=== PATIENT | male | born 1950 | race Caucasian/White ===

== ENCOUNTER 2019-10-30 09:52 | Inpatient (IN) | payer MEDICARE, SELFPAY ==
[2019-10-30] VITALS (7 sets, daily range): BP systolic 111–135; BP diastolic 50–77; PULSE 57–80; RESP 18–29; TEMP 36.4–36.6; O2SAT 89–100; BMI 31.5
--- NOTE | ~2019-10-30 | XR_ITS ---
EXAMINATION: XR chest 2V DATE: 11/01/2019 08:13 INDICATION: Pleural effusions. Fluid overload. TECHNIQUE: Frontal and lateral views of the chest were obtained. COMPARISON: Chest 2 views 10/30/2019, CT abdomen and pelvis 10/30/2019 FINDINGS: There is a diffuse interstitial pattern, consistent with pulmonary edema. There are airspac e opacities in the lower lung zones with worsening on the right, likely atelectasis. There are small pleural effusions. No pneumothorax. Cardiomegaly is noted. Median sternotomy wires and mediastinal gomes rgical clips are seen, likely from prior coronary artery bypass grafting. There is a left chest wall pacer with leads in the right atrium and right ventricle. There is a 1.8 cm curvilinear density in th e left pleural space. IMPRESSION: 1. Mild pulmonary edema. 2. Small pleural effusions. 3. Cardiomegaly. 4. 1.8 cm curvilinear foreign body in the left pleural space. Reviewed, dictated and finalized at location A. ACE GRINDING MACHINE HAND
--- NOTE | ~2019-10-30 | XR_ITS ---
EXAMINATION: XR chest 2V EXAM DATE: 10/30/2019 10:46 INDICATION: Shortness of breath, abdominal discomfort. TECHNIQUE: Frontal and lateral projections of the chest obtained and reviewed. Comparison is made to prior examination from 10/07/2019. FINDINGS: Small to moderate left pleural effusion. Adjacent left basilar subsegmental atelectasis. T here is indistinct reticulation with a bibasal predominance which may indicate pulmonary edema. There is no pneumothorax suspected. Sternotomy wires are present without findings to suggest sternal dehis cence. There is a dual lead pacemaker/AICD seen with leads projecting over the expected locations of the right atrial appendage and right ventricle. Mild cardiomegaly and pulmonary vascular congestion. IMPRESSION: 1. Findings suspicious for mild CHF exacerbation. 2. Small to moderate left pleural effusion, adjacent atelectasis. Reviewed, dictated and finalized at location B. ER ROOM ATTENDANT
--- NOTE | ~2019-10-30 | CT_ITS ---
EXAMINATION: CT abdomen pelvis wo con EXAM DATE: 10/30/2019 13:02 INDICATION: Mid to low abdominal pain. Vomiting. TECHNIQUE: Spiral CT of the abdomen and pelvis was performed without contrast. Axial, coronal and s agittal images were reviewed. The dose-length product (DLP) for this examination was 1228.98 mGy-cm. The exposure was tailored according to patient size (auto mA exposure control), and iterative recon struction (ASIR) was used as additional dose reduction technique. There is no prior study for compar cydney. FINDINGS: Peritoneal dialysis catheter. Small amount of perihepatic, pelvic dialysate. The liver, sp karyn, adrenal glands and pancreas are unremarkable. There are cholecystectomy clips. There is no ne phrolithiasis or hydronephrosis. Mild bilateral renal atrophy. The prostate is unremarkable. Some d iffuse bladder wall thickening, could indicate chronic cystitis. There is no retroperitoneal or pel danette lymphadenopathy. There is mild to moderate scattered arteriosclerotic disease. The appendix is normal. There is small duodenal diverticulum. There is expected amount of colonic s tool. There is moderate sigmoid predominant colonic diverticulosis. There is no adjacent inflammator y change to suggest diverticulitis. No free intraperitoneal gas. Moderate bilateral pleural effusi ons with adjacent basilar atelectasis. Pleural effusion is larger on the right side, but there is mor e atelectasis of the left lung base. There is cardiomegaly. Sternotomy wires and pacemaker/AICD wires . The lung bases are unremarkable. Chronic bilateral L5 spondylolysis with grade 1 anterolisthesis L5 on S1. There are no osteoblastic or osteolytic lesions identified. IMPRESSION: 1. No acute intra-abdominal findings. 2. Moderate colonic diverticulosis. 3. Diffuse bladder wall thickening could indicate chronic cystitis. 4. Moderate pleural effusions, adjacent atelectasis. 5. Cardiomegaly. Reviewed, dictated and finalized at location B. HIATRIC RN
--- NOTE | 2019-10-30 10:22 | ECG_ITS ---
Measurements Intervals [place] Rate: 73 P: 99 IN: 238 QRS: 24 QRSD: 114 T: 155 QT: 431 QTc: 476 Interpretive Statements ELECTRONIC ATRIAL PACEMAKER ELECTRONIC VENTRICULAR PACEMAKER WITH INHIBITION FREQUENT VENTRICULAR PREMATURE COMPLEXES INFERIOR INFARCT, AGE INDETERMINATE BASELINE ARTIFACT- II, III NO FURTHER INTERPRETATION IS POSSIBLE ABNORMAL ECG Electronically Signed On 10-30-2019 11:15:19 KIER TENDER by Duglas Stanley D.O.
[2019-10-30 10:41] LABS: Basophils Percent Auto 0.4 % (0.2-1.2); Eosinophils Absolute Auto 0.1 K/mm3 (0-0.3); Hemoglobin 11.3 g/dL (14.0-18.0); Immature Granulocyte Absolute 0.04 K/mm3 (0.00-0.031); Immature Granulocyte Percent A 0.4 % (0-0.5); Lymphocytes Absolute Auto 0.42 K/mm3 (0.9-3.2); Lymphocytes Percent Auto 4.1 % (18.3-44.2); Mean Corpuscular HGB Conc 31.4 g/dl (32-36); Mean Corpuscular Volume 98.9 fl (80-100); Mean Platelet Volume 11.8 fl (7.4-10.4); Monocytes Absolute Auto 0.5 K/mm3 (0.1-0.6); Neutrophils Absolute Auto 9.1 K/mm3 (1.3-6.7); Neutrophils Percent Auto 89.1 % (45.5-73.1); Platelet Count Result 163 k/mm3 (150-375); Red Blood Count 3.64 M/mm3 (4.6-6.20); Red Cell Distribution Width 14.6 % (11.5-14.5); White Blood Count 10.2 K/mm3 (4.5-10.0)
--- NOTE | 2019-10-30 10:42 | ED.ABDPAIN ---
HPI - Abdominal Pain General Chief Complaint: Abdominal Pain Stated Complaint: ABD PAIN Time Seen by Provider: 10/30/19 10:08 Source: patient Mode of arrival: ambulatory Limitations: no limitations History of Present Illness HPI narrative: This is a 69 year old male that presents to the ER for abdominal pain x 2 weeks. Reports lower abdominal pain after he eats. Reports nausea and vomiting. Reports he has been unable to eat or drink much for the last couple days. Reports he did not do his dialysis last night because he thought he would get too dehydrated. Also reports some intermittent shortness of breath. Denies chest pain, diarrhea, dysuria or hematuria. Related Data Allergies Allergy/AdvReac Type Severity Reaction Status Date / Time tetanus and diphtheria Allergy Mild LOCAL Verified 12/03/18 18:50 toxoids REDNESS & SWELLING. Review of Systems Review of Systems: Narrative: CONSTITUTIONAL: Denies fever ENT: Denies rhinorrhea, congestion, sore throat, or otalgia. CARDIOVASCULAR: Denies chest pain, or edema. RESPIRATORY: Reports dyspnea. Denies cough GASTROINTESTINAL: Reports abdominal pain, nausea, vomiting. Denies diarrhea. GENITOURINARY: Denies dysuria or hematuria. All systems reviewed & are unremarkable except as noted in HPI and below PMFSH Past Medical History Medical History (Updated 10/30/19 @ 14:09 by Jolene Troy PA-C) Abdominal pain Anorexia ESRD on peritoneal dialysis History of diabetes mellitus Ischemic cardiomyopathy Family History Family History (Updated 10/30/19 @ 09:21 by Geeta Valencia) Father Family history of cardiomyopathy, Onset Age: 83 Family history of coronary artery disease Patient's father is Other Diabetes mellitus Family history of cardiovascular disease Social History Social History (Updated 10/30/19 @ 09:21 by Geeta Valencia) Smoking status: Never smoker Second hand tobacco smoke exposure: No Alcohol intake: never Substance use: never Substance use type: does not use Gender identity (if verbalized by the patient): Male Exam Narrative: Exam Narrative: GENERAL: Chronically ill-appearing, well-nourished, and in no acute distress. HEAD: Normocephalic, atraumatic. EYES: EOMI. ENT: Nares clear, no rhinorrhea or epistaxis. Mucous membranes moist. Oropharynx without tonsillar hypertrophy exudate or other lesions. Bilateral TMs pearly cardona non-bulging NECK: Supple. No adenopathy or masses. No carotid bruits or JVD CHEST: Clear to auscultation. No respiratory distress. No wheezes rales or rhonchi HEART: Regular rate and rhythm. No murmur heard. Normal peripheral pulses. ABDOMEN: Soft, nondistended, normal active bowel sounds. Mild tenderness to palpation throughout the abdomen, without guarding EXTREMITIES: Normal range of motion. No edema. SKIN: Warm, dry, no rash. NEURO: No focal deficits. Alert and oriented x3. PSYCH: Normal mood and affect Course Consultations Consultation #1: Spoke with hospitalist about patient work-up who accepts admission Date: 10/30/19 Time: 14:12 Consultation #2: Spoke with Dr. Lemus about patient and work-up who will consult Date: 10/30/19 Time: 14:13 Vital Signs Vital signs: Vital Signs Temperature 97.6 F 10/30/19 10:15 Pulse Rate 57 L 10/30/19 10:15 Respiratory Rate 20 10/30/19 10:15 Blood Pressure 135/70 10/30/19 10:15 Pulse Oximetry 96 10/30/19 10:15 Temperature 97.6 F 10/30/19 10:15 Pulse Rate 76 10/30/19 11:54 Respiratory Rate 29 H 10/30/19 11:54 Blood Pressure 131/77 10/30/19 11:54 Pulse Oximetry 89 L 10/30/19 11:54 MDM - Abdominal Pain MDM Narrative Medical decision making narrative: Patient presents the emergency department for abdominal pain, nausea and vomiting. Reports this is been ongoing for the last 2 weeks, but has worsened over the last couple of days. Also reports some worsening shortness of breath. He denies any chest pain. His vi
[2019-10-30 10:52] LABS: Platelet Estimate Adequate (Adequate)
[2019-10-30 10:53] LABS: Ovalocytes 1+ (NORMAL)
[2019-10-30 10:55] LABS: Alanine Aminotransferase 13 U/L (4-50); Albumin Level 3.4 g/dL (3.5-5.1); Alkaline Phosphatase 82 U/L (38-126); Aspartate Amino Transferase 15 U/L (17-59); Bilirubin,Total 0.6 mg/dL (0.2-1.3); Blood Urea Nitrogen 50 mg/dL (9-20); Calcium 8.5 mg/dL (8.4-10.2); Carbon Dioxide 24 mmol/L (22-30); Chloride 92 mmol/L (98-107); Estimated CRCL calculation 14 ml/min; Estimated Glomerular Filt Rate 9; Glucose 249 mg/dL (75-110); Lipase 30 U/L (23-300); Potassium 3.5 mmol/L (3.4-5.0); Sodium 131 mmol/L (137-145)
[2019-10-30 10:56] LABS: Lactic Acid Reflex 0.9 mmol/L (0.7-2.1)
[2019-10-30 11:06] LABS: NT Pro B Type Natriuretic Pept > 35000 PG/ML (5-100)
[2019-10-30 13:10] LABS: Add Urine Microscopic? YES; Appearance Urine Clear (Clear); Bacteria Urine Trace /hpf; Bilirubin Urine Negative (Negative); Blood Urine Negative (Negative); Color Urine Yellow (Yellow); Glucose Urine UA 2+ mg/dL (Negative); Ketones Urine Negative (Negative); Leukocyte Esterase Ur Negative LEU/UL (Negative); Mucus Urine Rare /lpf; Nitrate Urine Negative (Negative); Protein Urine 3+ mg/dL (Negative); RBC Urine 0-2 /hpf (0-2); Specific Grav Ur 1.014 (1.001-1.035); Urobilinogen Urine Negative mg/dL (<2.0); WBC Urine 0-3 /hpf
--- NOTE | 2019-10-30 14:47 | PC.NURSE ---
Called to give report and was told by Delia that the nurse will have to call me back.
[2019-10-30] MEDS: MORPHINE SULFATE 2 MG/ML INJ IV PUSH (15:08)
[2019-10-30] MEDS: ONDANSETRON INJ 4 MG/2 ML VIAL IV PUSH (15:08)
--- NOTE | 2019-10-30 15:34 | ADMGEN ---
This patient, Kulwinder Morgan, was admitted to [facility] Surg Room 314-01. Patient/family oriented to hospital policies and general routines including ID bracelet, bed and alarms, visiting hours, pain management, procedures, bathroom and other care routines, personal items, smoking policy, room service/diet, and visiting hours. Valuables list has been completed. Information on how to activate the Rapid Response Team has been discussed. Patient/Family are encouraged to report perceived risks to care and to ask questions if they do not understand what they are told or what they should do.
--- NOTE | 2019-10-30 17:39 | PM.CNNEP ---
Assessment and Plan Assessment and plan (1) End stage renal disease: Code(s): N18.6 - End stage renal disease Status: Chronic (2) Anorexia: Code(s): R63.0 - Anorexia Status: Acute (3) Abdominal pain: Qualifiers: Abdominal location: unspecified location Qualified Code(s): R10.9 - Unspecified abdominal pain Code(s): R10.9 - Unspecified abdominal pain Status: Acute (4) Ischemic cardiomyopathy: Code(s): I25.5 - Ischemic cardiomyopathy Status: Acute Assessment and Plan: . Additional Plan Kulwinder hernandez has end-stage renal disease and is on peritoneal dialysis. He did not do his peritoneal dialysis yesterday evening as he was concerned that this may potentiate or perhaps maybe even facilitate volume depletion/dehydration since he has not been eating very well and he would have fluid removed with his dialysis treatment in general. Surprisingly, his workup and evaluation ER did not demonstrate any significant abdominal pathology however there was a note of moderate bilateral pleural effusions and associated pulmonary vascular congestion arguing that perhaps he still has some degree of volume overload in spite of the fact he does have no significant peripheral edema. As I mentioned in the HPI, his last hospitalization a little over a year ago was also for abdominal pain and shortness breath was improved which improved significantly with more aggressive ultrafiltration/dialysis for a few days in a row. At this point, on the assumption that his volume status may be playing a role with this admission symptoms, I will try to be as aggressive as I can in terms of ultrafiltration/fluid removal by alhtough I suspect that I will be somewhat limited by what his hemodynamics can tolerate. I will continue follow patient with you while he may in time spite of make further conditions are hospital course Thank you for allowing me present in care this patient. History of Present Illness Reason for Consult Consult date: 10/30/19 Reason for consult: end stage renal disease Chief Complaint Chief complaint: CHF Exacerbation/Acute on chronic renal failure History of Present Illness Narrative: The patient is a very pleasant 69-year-old male with an extensive past medical history including end-stage renal disease, on peritoneal dialysis for the last 3 years, coronary artery disease, status post CABG in 2003 with angioplasty in 2013; diabetes, gastroesophageal reflux disease, systolic and diastolic heart failure, ischemic cardiomyopathy, BPH, degenerative joint disease, obstructive sleep apnea, anxiety, and hypothyroidism, who presented to [facility] Emergency Room for abdominal pain. The abdominal paint has been going on for about weeks if not longer. He states the paint seems occur after he eats associated with nausea and vomiting. Due to the abdominal pain, he has been unable to eat or drink much for the last few days if not longer as well. Along with the abdominal pain, he has also noted shortness of breath as well. He states this worsened when he lays flat because if feels like his abdomen is pressing on his lungs. He denies chest pain, diarrhea, dysuria or hematuria. Due to the nature of these ongoing problems, he also states he has not been able to sleep either for the last several nights. He recently saw his primary care physician earlier this week and was prescribed medications for presumed gastroparesis and was referred to Gastroenterology (Dr. Calhoun) for further assessment. He went to see Dr. Calhoun read as today and given the multitude of complaints that he had he was directed to the ER for further evaluation. Workup and evaluation in the emergency room demonstrated the patient to be hemodynamically stable but in clear distress with regard to his abdominal pain. Routine blood test demonstrated labs consistent with his known history of end-stage renal disease but wit
[2019-10-31] VITALS (12 sets, daily range): BP systolic 109–118; BP diastolic 56–61; PULSE 46–87; RESP 14–18; TEMP 36.3–36.7; O2SAT 96–100; BMI 31.1
[2019-10-31 01:14] LABS: Hepatitis B Surface Antigen Negative (Negative)
[2019-10-31 01:19] LABS: Hepatitis B Core IgM Result Negative (Negative)
[2019-10-31 01:33] LABS: Hepatitis B Surface Anti Res Positive
[2019-10-31 09:47] LABS: Basophils Percent Auto 0.6 % (0.2-1.2); Eosinophils Absolute Auto 0.1 K/mm3 (0-0.3); Eosinophils Percent Auto 1.5 % (0-4.4); Hematocrit 34.9 % (42.0-52.0); Immature Granulocyte Absolute 0.02 K/mm3 (0.00-0.031); Immature Granulocyte Percent A 0.3 % (0-0.5); Lymphocytes Absolute Auto 0.56 K/mm3 (0.9-3.2); Lymphocytes Percent Auto 7.8 % (18.3-44.2); Mean Corpuscular HGB Conc 31.5 g/dl (32-36); Mean Corpuscular Hemoglobin 31.2 pg (26-34); Mean Corpuscular Volume 98.9 fl (80-100); Mean Platelet Volume 12.4 fl (7.4-10.4); Monocytes Absolute Auto 0.7 K/mm3 (0.1-0.6); Neutrophils Absolute Auto 5.8 K/mm3 (1.3-6.7); Neutrophils Percent Auto 80.8 % (45.5-73.1); Platelet Count Result 155 k/mm3 (150-375); Red Blood Count 3.53 M/mm3 (4.6-6.20); Red Cell Distribution Width 14.6 % (11.5-14.5); White Blood Count 7.2 K/mm3 (4.5-10.0)
[2019-10-31 10:00] LABS: Blood Urea Nitrogen 49 mg/dL (9-20); Calcium 8.3 mg/dL (8.4-10.2); Carbon Dioxide 25 mmol/L (22-30); Chloride 91 mmol/L (98-107); Estimated CRCL calculation 15 ml/min; Estimated Glomerular Filt Rate 11; Glucose 230 mg/dL (75-110); Potassium 3.5 mmol/L (3.4-5.0); Sodium 129 mmol/L (137-145)
[2019-10-31] MEDS: INSULIN ASPART (*BKC) 100 UNITS/ML SUB-Q (10:16)
[2019-10-31 10:31] LABS: Glucose Point of Care 224 (65-105)
--- NOTE | 2019-10-31 12:39 | PM.PNNEP ---
Progress Note: A&P Assessment and Plan (1) End stage renal disease: Code(s): N18.6 - End stage renal disease Status: Chronic Assessment and Plan: continue CCPD overnight while hospitalized continue efforts to maintain stability in electrolytes, volume status, and clearance (2) Volume overload: Code(s): E87.70 - Fluid overload, unspecified Status: Acute Assessment and Plan: as evidenced by mild CHF exacerbation on CXR and moderate pleural effusions on CT scan is it possible that this issue is underlying cause of admission symptoms? - his admission in November 2018 seemed to correlate with this will continue to push fluid removal within the limits of his hemodynamics/BP (3) Abdominal pain: Qualifiers: Abdominal location: unspecified location Qualified Code(s): R10.9 - Unspecified abdominal pain Code(s): R10.9 - Unspecified abdominal pain Status: Acute Assessment and Plan: unclear etiology pinkish PD fluid argues have had a minor bleeding in his abdomen - playing a role with this symptom(?) CT of abdomen/pelvis noted further GI evaluation needed? - extensive work-up done ~ a year ago check PD fluid (but doubt peritonitis) check gastric emptying studying (r/o gastroparesis) (4) Ischemic cardiomyopathy: Code(s): I25.5 - Ischemic cardiomyopathy Status: Acute Assessment and Plan: known diagnosis continue attempts to maintain euvolema (5) Anorexia: Code(s): R63.0 - Anorexia Status: Acute Assessment and Plan: tolerating clear liquids advance diet as tolerated Will continue to follow. Subjective Date/time seen: 10/31/19 12:39 Tolerated peritoneal dialysis treatment overnight without any issues or problems (total UF ~ 1400cc); PD drainage back noted to be pinkish arguing presence of some blood but NOT cloudy. Exam Narrative: Exam Narrative: General: WD/WN male/female in NAD Heart: normal S1 and S2; no rub Lungs: clear to auscultation Abdomen: soft, nontender, nondistended, positive bowel sounds Extremities: no cyanosis or clubbing; no edema Skin: warm and dry Objective Data Vital Signs Vital Signs: Vital Signs Temp Pulse Resp BP Pulse Ox 10/31/19 08:00 73 10/31/19 07:56 36.7 C 66 14 109/60 10/31/19 06:00 36.7 C 66 14 109/60 96 10/31/19 04:00 69 10/31/19 00:00 76 10/30/19 22:00 36.4 C 78 18 111/50 L 98 10/30/19 20:45 36.6 C 69 20 116/68 100 10/30/19 20:00 63 10/30/19 17:00 36.6 C 69 19 116/68 96 10/30/19 16:00 80 Intake/Output Intake/Output: Intake & Output 10/28/19 10/29/19 10/30/19 10/31/19 23:59 23:59 23:59 23:59 Intake Total 885 600 Output Total 0 1849 Balance 885 -1249 Meds/Results Medications: Active Medications Generic Name Dose Route Start Last Admin Trade Name Freq PRN Reason Stop Dose Admin Dextrose 12.5 gm 10/31/19 08:24 Dextrose 50% Syringe IV PUSH PRN PRN Hypoglycemia Protocol Glucagon 1 mg 10/31/19 08:24 Glucagon For Inj IM PRN PRN Hypoglycemia Protocol Glucose 15 gm 10/31/19 08:24 Glutose 15 PO PRN PRN Hypoglycemia Protocol Acetaminophen 1,000 mg in 100 mls @ 400 mls/hr 10/30/19 18:00 10/31/19 10:17 Ofirmev 1,000 Mg Ivpb IVPB 10/31/19 18:01 400 mls/hr Q6H PRN Administration Mild Pain (1-3) or Fever Dextrose 1,000 mls @ 100 mls/hr 10/31/19 08:24 Dextrose 5% 1,000 Ml IVPB PRN PRN Hypoglycemia Protocol Insulin Aspart 3 - 6 units 10/31/19 08:00 10/31/19 10:16 Novolog SUB-Q 3 units TIDWM HIWOT Administration Protocol Ondansetron HCl 4 mg 10/30/19 13:46 Zofran Inj IV PUSH Q4H PRN Nausea Radiology Results: ITS Impressions Chest X-Ray 10/30/19 10:52 IMPRESSION: 1. Findings suspicious for mild CHF exacerbation.
[2019-10-31 13:04] LABS: Glucose Point of Care 180 (65-105)
--- NOTE | 2019-10-31 14:20 | PM.IMHP ---
H&P: HPI History of Present Illness Chief complaint: Abdominal pain Narrative: Date of service is 10/31/2019 The supervising physician for this history and physical is Dr. Last. Mr. Morgan is a 69yo M with history of end-stage renal disease on peritoneal dialysis, cardiomyopathy with significant chronic systolic and diastolic heart failure, history of coronary disease with prior bypass surgery in 2004, hypertension, obstructive sleep apnea intolerant to CPAP who presented to the ED for evaluation of abdominal pain. He reports he has had intermittent abdominal pain for several months, worsening in the last 2 weeks. He also notes worsening exertional dyspnea. He tells me he saw PCP earlier this week for his abdominal pain who referred him to [facility]. He saw Dr. Calhoun in the office yesterday who advised him to proceed to the ED. He notes that his abdominal pain is in the middle of his abdomen to lower abdomen and worse after he eats. He denies any diarrhea, nausea, or vomiting. He denies hematochezia, melena, or hematemesis. He does feel that his abdomen has been more bloated in the last few weeks. He tells me did not complete peritoneal dialysis 2 nights ago due to his symptoms, but otherwise reports not missing any PD. On exam, he is not noted to be terribly overloaded clinically, however imaging on arrival shows cardiomegaly with moderate bilateral pleural effusions, greater on the right. BNP is > 35,000. (BNP also >35,000 on his last 2 admissions here in November 2018, Aug 2018) CT abdomen shows no acute intra-abdominal findings to explain his abdominal pain. He has been known to follow with GI in the past for this chronic abdominal pain and notes dating back to at least 2017 report him complaining of sour stomach . Patient recently had pacemaker placed by Dr. Gumaro Ricketts 10/06/19 and on further review of old records, had cardiac catheterization by Dr Ricketts 09/11/19 which showed multivessel disease with complete occlusion of the LAD and right coronary artery, 2 of 2 grafts are patent, severe dilated ischemic cardiomyopathy EF 15%. Old records show that he has been seen by our cardiologists with [facility] during his inpatient stays here, but he normally follows with Dr. Gumaro Ricketts [facility]. In regards to his end-stage renal disease, he follows with Dr. Lemus and has been on peritoneal dialysis, although he has been on hemodialysis prior to being on PD. He tells me he does still make some urine but not much. Dr. Lemus has been consulted for optimization of his peritoneal dialysis here in hopes of more fluid removal. His peritoneal dialysis fluid has been sent for analysis, Gram stain and culture and does not show an abundance of RBCs or nucleated cells. Patient is being admitted for management of volume overload in the setting of multiple comorbidities to include end-stage renal disease and severe ischemic cardiomyopathy and I suspect he will require at least 2 midnight stay for same. Review of Systems Review of Systems: Narrative: Patient's main complaint is sour stomach . He is quite vague about the duration of his abdominal pain, but records show he has had this pain for quite some time for which he has seen GI in the past. He denies any nausea or vomiting today. No diarrhea. He complains of worsening exertional dyspnea. He denies any chest pain, dizziness, palpitations, or calf tenderness. Twelve systems were reviewed with pertinent positives and negatives as per HPI. [facility] Past Medical History Medical History Abdominal pain Anorexia BPH (benign prostatic hyperplasia) ESRD on peritoneal dialysis GERD (gastroesophageal reflux disease) Hypothyroidism ICD (implantable cardioverter-defibrillator) in place Ischemic cardiomyopathy Cardiac catheterization 09/11/19 shows severe to ischemic cardiomyopathy with severe global hypokine
[2019-10-31] MEDS: METOCLOPRAMIDE HCL 5 MG TABLET PO (14:40)
--- NOTE | 2019-10-31 15:49 | PCNSR ---
On 10/31/19, the student, Malini Llanos, provided care and completed [facility] documentation on this patient. I have reviewed the student's documentation and agree with the findings.
[2019-10-31 15:58] LABS: Appearance Peritoneal Fluid Hazy (Clear); Color Peritoneal Fluid Yellow (Colorless); Nucleated Cells Peritoneal Flu 141 /uL (0-500); Source Peritoneal Fluid Peritoneal Fluid
[2019-10-31 15:59] LABS: Eosinophils Peritoneal Fluid 3 %; Lymphocytes Peritoneal Fluid 57 %; Monocytes Peritoneal Fluid 32 %; Neutrophils Peritoneal Fluid 8 % (0-25); RBC Peritoneal Fluid 1598 /uL (0-100000)
[2019-10-31] MEDS: carvediloL 12.5 MG TABLET PO (16:54)
[2019-10-31] MEDS: FUROSEMIDE 40 MG TABLET PO (16:55)
[2019-10-31] MEDS: SUCRALFATE 1 GM TABLET PO (16:55)
[2019-10-31 17:05] LABS: Glucose Point of Care 198 (65-105)
[2019-10-31] MEDS: INSULIN GLARGINE (*BKC) 100 UNITS/ML 30 UNITS SUB-Q (20:34)
[2019-10-31 21:46] LABS: Glucose Point of Care 286 (65-105)
[2019-11-01] VITALS (13 sets, daily range): BP systolic 99–128; BP diastolic 43–99; PULSE 64–113; RESP 18; TEMP 36.2–36.5; O2SAT 95–99
--- NOTE | 2019-11-01 | ECHO_ITS ---
Patient Info Name: Kulwinder Morgan Age: 69 years : 1950 Gender: Male Ht: 72 in Wt: 235 lbs BSA: 2.36 m2 HR: 48 bpm BP: 127 / 79 mmHg Technical Quality: Good Exam Date: 11/01/2019 8:27 AM Exam Location: [facility] Exam Room: [facility] Patient Status: Inpatient Admit Date: 10/31/2019 Staff Ordering Physician: Vanessa Tierney PA-C Hairspring Truing Inspector: Liudmila Blanco RDCS Attending Provider: Vanessa Tierney PA-C Exam Type: CA echo doppler color flow Study Info Indications - fluisd overload esrd recent ppp icd Complete two-dimensional, color flow and Doppler transthoracic echocardiogram is performed. Summary 1. Left ventricular chamber dimension is enlarged. 2. Left ventricular systolic function is severely reduced, estimated at 20-25%. 3. The left ventricular diastolic function is grade III diastolic dysfunction. 4. Right ventricular chamber dimension is enlarged. 5. Right ventricular systolic function is reduced. 6. Linear artifact in right ventricle suggestive of catheter(s), pacemaker lead(s), or ICD lead(s). 7. There is mild mitral valve regurgitation. 8. There is mild tricuspid valve regurgitation. 9. Moderate pulmonary hypertension, estimated pulmonary arterial systolic pressure is 51 mmHg. Left Ventricle Left ventricular chamber dimension is enlarged. Left ventricular systolic function is severely reduced, estimated at 20-25%. There is no increased left ventricular wall thickness. The left ventricular diastolic function is grade III diastolic dysfunction. Right Ventricle Right ventricular chamber dimension is enlarged. Right ventricular systolic function is reduced. Linear artifact in right ventricle suggestive of catheter(s), pacemaker lead(s), or ICD lead(s). Left Atria Left atrial chamber dimension is enlarged. Right Atria Right atrial chamber dimension is enlarged. Aortic Valve The aortic valve is trileaflet. There is no aortic valve sclerosis. There is no aortic valve stenosis. There is no aortic valve regurgitation. Pulmonic Valve The pulmonic valve is normal. There is no pulmonic valve stenosis. There is mild pulmonic regurgitation. Mitral Valve The mitral valve has normal leaflets. There is no mitral valve stenosis. There is mild mitral valve regurgitation. Tricuspid Valve The tricuspid valve leaflets are normal. There is no significant tricuspid valve stenosis. There is mild tricuspid valve regurgitation. Moderate pulmonary hypertension, estimated pulmonary arterial systolic pressure is 51 mmHg. Pericardium/Pleural The pericardium appears normal. There is no pericardial effusion. Inferior Vena Cava Normal inferior vena cava with >50% collapse upon inspiration consistent with elevated right atrial pressure, 10 mmHg. Aorta The aortic root size at the sinus of Valsalva is normal. The prox ascending aorta size is normal. Left Ventricular Outflow Tract Name Value Normal LVOT 2D LVOT Diameter 2.1 cm LVOT Doppler LVOT Peak Gradient 4 mmHg LVOT Mean Gradient 2 mmHg
[2019-11-01] MEDS: LEVOTHYROXINE SODIUM 88 MCG TABLET PO (05:20)
[2019-11-01] MEDS: SUCRALFATE 1 GM TABLET PO ×2 (05:20→17:38)
[2019-11-01 06:00] LABS: Basophils Percent Auto 0.5 % (0.2-1.2); Eosinophils Absolute Auto 0.1 K/mm3 (0-0.3); Eosinophils Percent Auto 1.8 % (0-4.4); Hematocrit 36.9 % (42.0-52.0); Hemoglobin 11.6 g/dL (14.0-18.0); Immature Granulocyte Absolute 0.03 K/mm3 (0.00-0.031); Immature Granulocyte Percent A 0.4 % (0-0.5); Lymphocytes Absolute Auto 0.82 K/mm3 (0.9-3.2); Lymphocytes Percent Auto 10.5 % (18.3-44.2); Mean Corpuscular HGB Conc 31.4 g/dl (32-36); Mean Corpuscular Hemoglobin 31.2 pg (26-34); Mean Corpuscular Volume 99.2 fl (80-100); Mean Platelet Volume 12.2 fl (7.4-10.4); Monocytes Absolute Auto 0.6 K/mm3 (0.1-0.6); Monocytes Percent Auto 8.1 % (2.6-8.5); Neutrophils Absolute Auto 6.1 K/mm3 (1.3-6.7); Neutrophils Percent Auto 78.7 % (45.5-73.1); Platelet Count Result 187 k/mm3 (150-375); Red Blood Count 3.72 M/mm3 (4.6-6.20); Red Cell Distribution Width 14.5 % (11.5-14.5); White Blood Count 7.8 K/mm3 (4.5-10.0)
[2019-11-01 06:10] LABS: INR 1.1; Prothrombin Time 13.7 Seconds (11.1-14.7)
[2019-11-01 06:18] LABS: Hemoglobin A1C 8.6 % (<5.7)
[2019-11-01 06:21] LABS: Albumin Level 3.1 g/dL (3.5-5.1); Blood Urea Nitrogen 45 mg/dL (9-20); Calcium 8.4 mg/dL (8.4-10.2); Carbon Dioxide 27 mmol/L (22-30); Chloride 92 mmol/L (98-107); Estimated CRCL calculation 17 ml/min; Estimated Glomerular Filt Rate 12; Glucose 199 mg/dL (75-110); Potassium 3.3 mmol/L (3.4-5.0); Sodium 131 mmol/L (137-145)
[2019-11-01 06:23] LABS: Magnesium 1.7 mg/dL (1.6-2.3)
[2019-11-01 09:24] LABS: Glucose Point of Care 175 (65-105)
[2019-11-01] MEDS: carvediloL 12.5 MG TABLET PO ×2 (09:58→17:38)
[2019-11-01] MEDS: PANTOPRAZOLE 40 MG TABLET PO (09:58)
[2019-11-01] MEDS: TAMSULOSIN HCL 0.4 MG CAPSULE PO (09:58)
[2019-11-01] MEDS: FUROSEMIDE 40 MG TABLET PO ×2 (09:58→17:38)
--- NOTE | 2019-11-01 11:34 | PM.CNCAR ---
Assessment and Plan Additional Plan Chronic systolic heart failure, slightly volume overloaded, Hx of CABG, ischemic cardiomyopathy, recent ICD, plan cont chronic medical therapy, lasix BID, coreg 12.5 mg BID, Not sure why not on ACEI but defer these changes in chronic therapy for primary hull sorter. History of Present Illness History of Present Illness Consult date/time: 11/01/19 11:34 Consult reason: congestive heart failure Reason For Visit: Abdominal pain Narrative: Patient was seen for management of cardiomyopathy. Patient presented 2 days ago with SOB and abdominal pain. SOB was mild and primarily limited by abdominal pain, no relation to positon. He had chronic SOB at baseline but was worse because of abdominal pain. Today he feels better but sleepy since he didnt have sleep because of abdominal pain for last 4 days. He had Hx of ESRD on pertoneal dialysis, chronic systolic heart failure and recent pacemakler/ICD 2 weeks ago. Hx of CABG in 2003. Review of Systems Review of Systems: All systems reviewed & are unremarkable except as noted in HPI and below PMFSH Past Medical History Medical History Abdominal pain Anorexia BPH (benign prostatic hyperplasia) ESRD on peritoneal dialysis GERD (gastroesophageal reflux disease) Hypothyroidism ICD (implantable cardioverter-defibrillator) in place Ischemic cardiomyopathy Cardiac catheterization 09/11/19 shows severe to ischemic cardiomyopathy with severe global hypokinesis, EF 15%. 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 He reports no alcohol use, remote history of pipe smoking, denies other substance use. His PCP is Dr Tete Kumar. He designates his , Venecia, to be his surrogate decision maker and he is full code status. Smoking status: Former smoker Tobacco type: pipe Second hand tobacco smoke exposure: No Alcohol intake: never Substance use: never Substance use type: does not use Living arrangements: with family Gender identity (if verbalized by the patient): Male Spiritual care concerns: No Agree to blood products: Yes Meds Home Medications and Allergies Home Medications Medication Instructions Recorded Confirmed Type tamsulosin 0.4 mg capsule 0.4 mg PO DAILY #90 cap 08/11/19 10/30/19 Rx carvedilol 12.5 mg tablet 12.5 mg PO Q12H #180 tablet 10/04/19 10/30/19 Rx levothyroxine 88 mcg tablet 88 mcg PO DAILY #30 tablet 10/21/19 10/30/19 Rx metoclopramide HCl 10 mg tablet 10 mg PO TID PRN #90 tablet 10/27/19 10/30/19 Rx sucralfate 1 gram tablet 1 gm PO TID #90 tablet 10/27/19 10/30/19 Rx hydrocodone 5 mg-acetaminophen 325 1 tablet PO Q4H PRN #60 tablet 10/28/19 10/30/19 Rx mg tablet ergocalciferol (vitamin D2) 50,000 unit PO [id number] 10/30/19 10/30/19 History furosemide 80 mg PO BID 10/30/19 10/30/19 History phenobarbital 15 mg PO DAILY 10/30/19 10/30/19 History Allergies Allergy/AdvReac Type Severity Reaction Status Date / Time tetanus and diphtheria Allergy Mild LOCAL Verified 12/03/18 18:50 toxoids REDNESS & SWELLING. Vital Signs Vital Signs - 24 hr 10/31/19 12:00 10/31/19 14:00 10/31/19 16:00 Temperature 36.4 C L Pulse Rate 77 68 64 Respiratory Rate 18 Blood Pressure 115/61 Pulse Oximetry 96 10/31/19 16:54 10/31/19 20:00
[2019-11-01 12:25] LABS: Glucose Point of Care 238 (65-105)
--- NOTE | 2019-11-01 12:29 | PM.PNNEP ---
Progress Note: A&P Assessment and Plan (1) End stage renal disease: Code(s): N18.6 - End stage renal disease Status: Chronic Assessment and Plan: continue CCPD overnight while hospitalized Volume status looks okay. Potassium was a little low. Will supplement. (2) Volume overload: Qualifiers: Hypervolemia type: unspecified Qualified Code(s): E87.70 - Fluid overload, unspecified Code(s): E87.70 - Fluid overload, unspecified Status: Acute Assessment and Plan: as evidenced by mild CHF exacerbation on CXR and moderate pleural effusions on CT scan Continue to remove fluid as tolerated. (3) Abdominal pain: Qualifiers: Abdominal location: unspecified location Qualified Code(s): R10.9 - Unspecified abdominal pain Code(s): R10.9 - Unspecified abdominal pain Status: Acute Assessment and Plan: unclear etiology pinkish PD fluid argues have had a minor bleeding in his abdomen - playing a role with this symptom(?) CT of abdomen/pelvis noted further GI evaluation needed? - extensive work-up done ~ a year ago check PD fluid (but doubt peritonitis) check gastric emptying studying (r/o gastroparesis) the foriegn body seen on cxr dons't seem close to the abdomen so I doubt this is the case. he has some blood in the pd fluid. this could be reactive or client services representative of a cancer or colitis. he did have some diarrhea yesterday. ct did not show anything. (4) Ischemic cardiomyopathy: Code(s): I25.5 - Ischemic cardiomyopathy Status: Acute Assessment and Plan: known diagnosis continue attempts to maintain euvolema (5) Anorexia: Code(s): R63.0 - Anorexia Status: Acute Assessment and Plan: tolerating clear liquids advance diet as tolerated Will continue to follow. Subjective Date/time seen: 11/01/19 12:29 Interval history: Patient feels better. He never did had very bad abdominal pain and no rebound. The patient is on peritoneal dialysis. He is tolerating it well. No abdominal discomfort. Flow is good. Fluid is a little cloudy. His dialysis is going pretty well. His fluid does show a little bit of pink tinged appearance and also some cloudiness. Review of Systems Cardiovascular: Cardiovascular: Reports no additional cardiovascular complaints Respiratory: Respiratory: Reports no additional respiratory complaints Gastrointestinal: Gastrointestinal: Reports no additional gastrointestinal complaints Genitourinary: Genitourinary: Reports no additional male genitourinary complaints Musculoskeletal: Musculoskeletal: Reports no additional musculoskeletal complaints Exam Narrative: Exam Narrative: General: WD/WN male/female in NAD Heart: normal S1 and S2; no rub Lungs: clear to auscultation Abdomen: soft, nontender, nondistended, positive bowel sounds Extremities: no cyanosis or clubbing; no edema Skin: warm and dry. No rash. Objective Data Vital Signs Vital Signs: Vital Signs - 24 hr 10/31/19 14:00 10/31/19 16:00 10/31/19 16:54 Temperature 36.4 C L Pulse Rate 68 64 76 Respiratory Rate 18 Blood Pressure 115/61 Pulse Oximetry 96 10/31/19 20:00 10/31/19 21:00 10/31/19 22:00 Temperature 36.4 C L 36.3 C L Pulse Rate 87 68 46 L Respiratory Rate 18 18 Blood Pressure 115/61 118/56 L Pulse Oximetry 100 98 11/01/19 00:00 11/01/19 04:00 11/01/19 06:00 Temperature 36.5 C Pulse Rate 69 64 101 H Respiratory Rate 18 Blood Pressure 127/79 Pulse Oximetry 98 11/01/19 09:36 11/01/19 09:53 11/01/19 09:58 Temperature 36.2 C L Pulse Rate 101 H 113 H 113 H Respiratory Rate 18 18 Blood Pressure 127/99 H 99/48 L Pulse Oximetry 98 Intake/Output Intake/Output: Intake & Output 10/29/19 10/30/19 10/31/19 11/01/19 23:59 23:59 23:59 23:59 Intake Total 885 2530 450 Output Total 0 2049 2204 Balance 885 400 -4983
[2019-11-01] MEDS: INSULIN ASPART (*BKC) 100 UNITS/ML SUB-Q (12:57)
--- NOTE | 2019-11-01 13:01 | P.PNIM_ITS ---
Progress Note: A&P Assessment and Plan (1) Volume overload: Qualifiers: Hypervolemia type: unspecified Qualified Code(s): E87.70 - Fluid overload, unspecified Code(s): E87.70 - Fluid overload, unspecified Status: Acute Assessment and Plan: * Improving * Contributing factors include systolic CHF vs. ESRD vs. both. Unsure which of these is contributing more than the other? * BNP > 35,000 which is noted to be a chronic finding over the last 3 admissions in the last 2 years. * Nephrology consulted and managing his peritoneal dialysis for optimal fluid removal. * Cardiology consulted and appreciate input. Noted Dr Friend's recommendation to continue his current medical management. (2) ESRD on peritoneal dialysis: Code(s): N18.6 - End stage renal disease; Z99.2 - Dependence on renal dialysis Status: Chronic Assessment and Plan: * Patient is noted to be on peritoneal dialysis with [facility] at home managed by Dr. Lemus. * There were notes of his peritoneal fluid appearing pink-selam concerning for blood in the dialysate. * Dialysate was sent for analysis, Gram stain and culture. No organisms identified on the Gram stain. (3) Ischemic cardiomyopathy: Code(s): I25.5 - Ischemic cardiomyopathy Status: Chronic Assessment and Plan: * Patient follows with Dr Gumaro Ricketts with [facility]. He has known severe dilated ischemic cardiomyopathy. * 09/11/19 left heart catheterization shows multivessel high-grade disease with complete occlusion of the LAD and right coronary artery; dilated left ventricular chamber with severe global hypokinesis, EF 15%. * Prophylactic ICD implantation 10/06/[address] Ricketts. * Continue Coreg and Lasix. It is noted he takes 80 mg oral Lasix BID at home. Discussed this with Dr. Lemus and have restarted his oral Lasix at 40 mg BID due to hypotension in the setting of his PD settings being adjusted with intentions for increased fluid removal by dialysis. * Monitor with cardiac telemetry. Appreciate cardiology input. Follow-up with his established signal circuit designer after discharge. (4) Pleural effusion: Code(s): J90 - Pleural effusion, not elsewhere classified Status: Acute Assessment and Plan: * Improved on imaging. No acute respiratory distress, tolerating room air. * Dialyze and diurese. See above. (5) Abdominal pain: Qualifiers: Abdominal location: unspecified location Qualified Code(s): R10.9 - Unspecified abdominal pain Code(s): R10.9 - Unspecified abdominal pain Status: Chronic Assessment and Plan: * His abdominal pain is his main complaint. Seems as though he has had chronic abdominal pain for the last 1-2 years that has been evaluated by GI previously. S/p cholecystectomy 2016. * He remains on Carafate and Reglan. Have decreased his home dose of Reglan due to his renal function. * Possible gastroparesis has been mentioned. Appreciate GI input. * Dialysate sent for Gram stain and culture to rule out SBP. No organisms are seen on the Gram stain. (6) GERD (gastroesophageal reflux disease): Qualifiers: Esophagitis presence: esophagitis presence not specified Qualified Code(s): K21.9 - Gastro-esophageal reflux disease without esophagitis Code(s): K21.9 - Gastro-esophageal reflux disease without esophagitis Status: Chronic Assessment and Plan: * Cont
--- NOTE | 2019-11-01 13:01 | PM.IMPN ---
Progress Note: A&P Assessment and Plan (1) Volume overload: Qualifiers: Hypervolemia type: unspecified Qualified Code(s): E87.70 - Fluid overload, unspecified Code(s): E87.70 - Fluid overload, unspecified Status: Acute Assessment and Plan: Improving Contributing factors include systolic CHF vs. ESRD vs. both. Unsure which of these is contributing more than the other? BNP > 35,000 which is noted to be a chronic finding over the last 3 admissions in the last 2 years. Nephrology consulted and managing his peritoneal dialysis for optimal fluid removal. Cardiology consulted and appreciate input. Noted Dr Friend's recommendation to continue his current medical management. (2) ESRD on peritoneal dialysis: Code(s): N18.6 - End stage renal disease; Z99.2 - Dependence on renal dialysis Status: Chronic Assessment and Plan: Patient is noted to be on peritoneal dialysis with [facility] at home managed by Dr. Lemus. There were notes of his peritoneal fluid appearing pink-selam concerning for blood in the dialysate. Dialysate was sent for analysis, Gram stain and culture. No organisms identified on the Gram stain. (3) Ischemic cardiomyopathy: Code(s): I25.5 - Ischemic cardiomyopathy Status: Chronic Assessment and Plan: Patient follows with Dr Gumaro Ricketts with [facility]. He has known severe dilated ischemic cardiomyopathy. 09/11/19 left heart catheterization shows multivessel high-grade disease with complete occlusion of the LAD and right coronary artery; dilated left ventricular chamber with severe global hypokinesis, EF 15%. Prophylactic ICD implantation 10/06/[address] Ricketts. Continue Coreg and Lasix. It is noted he takes 80 mg oral Lasix BID at home. Discussed this with Dr. Lemus and have restarted his oral Lasix at 40 mg BID due to hypotension in the setting of his PD settings being adjusted with intentions for increased fluid removal by dialysis. Monitor with cardiac telemetry. Appreciate cardiology input. Follow-up with his established metal sorter after discharge. (4) Pleural effusion: Code(s): J90 - Pleural effusion, not elsewhere classified Status: Acute Assessment and Plan: Improved on imaging. No acute respiratory distress, tolerating room air. Dialyze and diurese. See above. (5) Abdominal pain: Qualifiers: Abdominal location: unspecified location Qualified Code(s): R10.9 - Unspecified abdominal pain Code(s): R10.9 - Unspecified abdominal pain Status: Chronic Assessment and Plan: His abdominal pain is his main complaint. Seems as though he has had chronic abdominal pain for the last 1-2 years that has been evaluated by GI previously. S/p cholecystectomy 2016. He remains on Carafate and Reglan. Have decreased his home dose of Reglan due to his renal function. Possible gastroparesis has been mentioned. Appreciate GI input. Dialysate sent for Gram stain and culture to rule out SBP. No organisms are seen on the Gram stain. (6) GERD (gastroesophageal reflux disease): Qualifiers: Esophagitis presence: esophagitis presence not specified Qualified Code(s): K21.9 - Gastro-esophageal reflux disease without esophagitis Code(s): K21.9 - Gastro-esophageal reflux disease without esophagitis Status: Chronic Assessment and Plan: Continue his home Carafate and Reglan. Patient wants to avoid PPI, so I have stopped Protonix today. (7) BPH (benign prostatic hyperplasia): Qualifiers: Lower urinary tract symptom presence: symptoms absent Qualified Code(s): N40.0 - Benign prostatic hyperplasia without lower urinary tract symptoms Code(s): N40.0 - Benign pr
--- NOTE | 2019-11-01 16:40 | WPDGICN ---
Assessment and Plan Additional Plan This is a 69-year-old white male patient I am asked to see at the request of the hospitalist while Dr. Aleman is absent. Patient reports he has had abdominal pain off and on over the last 2 years. Approximately 2 years ago he began to have peritoneal dialysis because of end-stage renal disease. He describes pain primarily in the mid at upper abdominal area it is tender. It is sore. Sometimes it is burning. He feels abdominal bloating. Somewhat improved with passing flatus. He denies any bleeding. He has been able to eat without difficulty. He recently has seen Dr. Aleman on an outpatient basis for this pain. He states that during his most recent peritoneal dialysis today of bloody return was identified. In 2018 patient had an EGD which revealed gastritis. Previously treated with PPI this has been held for concerns of affect on the kidneys. He denies heartburn or ongoing regurgitation at the present time. Past medical history is significant for congestive heart failure. He is felt to have ischemic cardiomyopathy. Previous surgery includes cholecystectomy. He has had coronary artery bypass grafting. He has a history of implantable cardioverter defibrillator. He is told that he has hypothyroidism. Sleep apnea. And diabetes mellitus. Family history is noncontributory. Physical exam reveals patient to be alert states he has pain at rest in bed. VSS. Lying comfortably on his side. HEENT exam unremarkable he is anicteric. Lungs are clear to auscultation and percussion. Heart is without murmur or extra sounds. Abdominal exam is somewhat obese. Peritoneal catheter in the left upper quadrant is identified.. Patient appears to have mild diffuse tenderness across his abdomen. No masses are listed are identified. CT scan essentially unremarkable. Diverticulosis noted. Pleural effusion noted. Bladder wall thickening. Cardiomegaly. Impression 1. Abdominal pain. Suspect this may be peritonitis related to his peritoneal dialysis. Plan is for sample of peritoneal fluid to be sent for culture and evaluation. Nephrology follow-up advised. 2. Ischemic cardiomyopathy. Congestive heart failure appears on this basis. He has previously had coronary artery bypass grafting. 3. End-stage renal disease. This is likely related to his diabetes. Nephrology service is following. 4. GE reflux disease. This is noted by history no current symptoms evident. EGD performed several years ago revealed gastritis. Plan is for oral antacids as needed. He wishes to avoid PPIs. Plan is to culture peritoneal fluid. Supportive care and pain control. Dr. rbualcava request will resume care on Sunday. GI Consult Note Consult date/time: 11/01/19 16:40 HPI: Kulwinder Morgan is a 69 year old male [facility] Past Medical History Medical History Abdominal pain Anorexia BPH (benign prostatic hyperplasia) ESRD on peritoneal dialysis GERD (gastroesophageal reflux disease) Hypothyroidism ICD (implantable cardioverter-defibrillator) in place Ischemic cardiomyopathy Cardiac catheterization 09/11/19 shows severe to ischemic cardiomyopathy with severe global hypokinesis, EF 15%. 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 He reports no alcohol use, remote hist
[2019-11-01 16:56] LABS: Glucose Point of Care 192 (65-105)
[2019-11-01] MEDS: INSULIN GLARGINE (*BKC) 100 UNITS/ML 30 UNITS SUB-Q (20:27)
[2019-11-02] VITALS (13 sets, daily range): BP systolic 106–131; BP diastolic 48–79; PULSE 48–99; RESP 16–18; TEMP 36.4–36.9; O2SAT 97–100
[2019-11-02] MEDS: LEVOTHYROXINE SODIUM 88 MCG TABLET PO (06:04)
[2019-11-02] MEDS: SUCRALFATE 1 GM TABLET PO ×3 (06:04→17:22)
[2019-11-02 06:41] LABS: Albumin Level 2.8 g/dL (3.5-5.1); Blood Urea Nitrogen 44 mg/dL (9-20); Carbon Dioxide 26 mmol/L (22-30); Chloride 92 mmol/L (98-107); Estimated CRCL calculation 17 ml/min; Estimated Glomerular Filt Rate 12; Glucose 179 mg/dL (75-110); Phosphorus 4.8 mg/dL (2.5-4.5); Potassium 3.1 mmol/L (3.4-5.0); Sodium 130 mmol/L (137-145)
[2019-11-02 06:43] LABS: Magnesium 1.6 mg/dL (1.6-2.3)
[2019-11-02 07:03] LABS: Glucose Point of Care 161 (65-105)
[2019-11-02] MEDS: carvediloL 12.5 MG TABLET PO ×2 (08:43→17:22)
[2019-11-02] MEDS: FUROSEMIDE 40 MG TABLET PO ×2 (08:43→17:22)
[2019-11-02] MEDS: TAMSULOSIN HCL 0.4 MG CAPSULE PO (08:44)
[2019-11-02] MEDS: INSULIN GLARGINE (*BKC) 100 UNITS/ML 15 UNITS SUB-Q (08:48)
--- NOTE | 2019-11-02 09:32 | PC.NURSE ---
Peritoneal effluent sample drawn per MD order.
[2019-11-02] MEDS: MAGNESIUM SULF 1 GM/D5W 100 ML 1 GM/100 ML BAG IVPB (11:45)
[2019-11-02] MEDS: POTASSIUM CHLORIDE 20 MEQ TABLET PO ×2 (11:45→17:21)
[2019-11-02 12:05] LABS: Glucose Point of Care 258 (65-105)
--- NOTE | 2019-11-02 12:50 | P.PNIM_ITS ---
Progress Note: A&P Assessment and Plan (1) Abdominal pain: Qualifiers: Abdominal location: unspecified location Qualified Code(s): R10.9 - Unspecified abdominal pain Code(s): R10.9 - Unspecified abdominal pain Status: Chronic Assessment and Plan: * His abdominal pain is his main complaint. Seems as though he has had chronic abdominal pain for the last 1-2 years that has been evaluated by GI pre viously. S/p cholecystectomy 2016. * He remains on Carafate and Reglan. * Possible gastroparesis has been mentioned. Will order gastric emptying study for tomorrow. * Dialysate sent for Gram stain and culture to rule out SBP. No organisms identified, SBP less likely. * Blood in the dialysate could be concerning for GI tract abnormality vs. malignancy? * Appreciate GI input - He has been seen by Dr Riggins here and Dr Calhoun outpatient. Will see if Dr Calhoun may consider colonoscopy at some point to rule out malignancy given the concern for blood in his PD fluid, could be done outpatient if he feels that may be appropriate. Patient does not remember when his last colonoscopy was. (2) Volume overload: Qualifiers: Hypervolemia type: unspecified Qualified Code(s): E87.70 - Fluid overload, unspecified Code(s): E87.70 - Fluid overload, unspecified Status: Acute Assessment and Plan: * Improving. * Contributing factors include systolic CHF vs. ESRD vs. both. Unsure which of these is contributing more than the other? * BNP > 35,000 which is noted to be a chronic finding over the last 3 admissions in the last 2 years. * Nephrology consulted and managing his peritoneal dialysis for optimal fluid removal. * Cardiology consulted and appreciate input. Noted Dr Friend's recommend ation to continue his current medical management. (3) ESRD on peritoneal dialysis: Code(s): N18.6 - End stage renal disease; Z99.2 - Dependence on renal dialysis Status: Chronic Assessment and Plan: * Patient is noted to be on peritoneal dialysis with [facility] at home managed by Dr. Lemus. * Dialysate was sent for analysis, Gram stain and culture due to blood in the PD fluid. No organisms identified. Patient states he has never seen blood in that fluid before. (4) Ischemic cardiomyopathy: Code(s): I25.5 - Ischemic cardiomyopathy Status: Chronic Assessment and Plan: * Patient follows with Dr Gumaro Ricketts with [facility]. He has known severe dilated ischemic cardiomyopathy. * 09/11/19 left heart catheterization shows multivessel high-grade disease with complete occlusion of the LAD and right coronary artery; dilated left ventricular chamber with severe global hypokinesis, EF 15%. * Prophylactic ICD implantation 10/06/[address] Ricketts. * Continue Coreg and Lasix. It is noted he takes 80 mg oral Lasix BID at home. Discussed this with Dr. Lemus and have restarted his oral Lasix at 40 mg BID due to hypotension in the setting of his PD settings being adjusted with intentions for increased fluid removal by dialysis. * Monitor with cardiac telemetry. Appreciate cardiology input. Follow-up with his established pancake professional after discharge. (5) Pleural effusion: Code(s): J90 - Pleural effusion, not elsewhere classified Status: Acute Assessment and Plan: * Improved on imaging. No acute respiratory distress, tolerating room air. * Dialyze and diurese. See above.
--- NOTE | 2019-11-02 12:50 | PM.IMPN ---
Progress Note: A&P Assessment and Plan (1) Abdominal pain: Qualifiers: Abdominal location: unspecified location Qualified Code(s): R10.9 - Unspecified abdominal pain Code(s): R10.9 - Unspecified abdominal pain Status: Chronic Assessment and Plan: His abdominal pain is his main complaint. Seems as though he has had chronic abdominal pain for the last 1-2 years that has been evaluated by GI previously. S/p cholecystectomy 2016. He remains on Carafate and Reglan. Possible gastroparesis has been mentioned. Will order gastric emptying study for tomorrow. Dialysate sent for Gram stain and culture to rule out SBP. No organisms identified, SBP less likely. Blood in the dialysate could be concerning for GI tract abnormality vs. malignancy? Appreciate GI input - He has been seen by Dr Riggins here and Dr Calohun outpatient. Will see if Dr Calhoun may consider colonoscopy at some point to rule out malignancy given the concern for blood in his PD fluid, could be done outpatient if he feels that may be appropriate. Patient does not remember when his last colonoscopy was. (2) Volume overload: Qualifiers: Hypervolemia type: unspecified Qualified Code(s): E87.70 - Fluid overload, unspecified Code(s): E87.70 - Fluid overload, unspecified Status: Acute Assessment and Plan: Improving. Contributing factors include systolic CHF vs. ESRD vs. both. Unsure which of these is contributing more than the other? BNP > 35,000 which is noted to be a chronic finding over the last 3 admissions in the last 2 years. Nephrology consulted and managing his peritoneal dialysis for optimal fluid removal. Cardiology consulted and appreciate input. Noted Dr Friend's recommendation to continue his current medical management. (3) ESRD on peritoneal dialysis: Code(s): N18.6 - End stage renal disease; Z99.2 - Dependence on renal dialysis Status: Chronic Assessment and Plan: Patient is noted to be on peritoneal dialysis with Tara Carlson at home managed by Dr. Lemus. Dialysate was sent for analysis, Gram stain and culture due to blood in the PD fluid. No organisms identified. Patient states he has never seen blood in that fluid before. (4) Ischemic cardiomyopathy: Code(s): I25.5 - Ischemic cardiomyopathy Status: Chronic Assessment and Plan: Patient follows with Dr Gumaro Ricketts with [facility]. He has known severe dilated ischemic cardiomyopathy. 09/11/19 left heart catheterization shows multivessel high-grade disease with complete occlusion of the LAD and right coronary artery; dilated left ventricular chamber with severe global hypokinesis, EF 15%. Prophylactic ICD implantation 10/06/[address] Ricketts. Continue Coreg and Lasix. It is noted he takes 80 mg oral Lasix BID at home. Discussed this with Dr. Lemus and have restarted his oral Lasix at 40 mg BID due to hypotension in the setting of his PD settings being adjusted with intentions for increased fluid removal by dialysis. Monitor with cardiac telemetry. Appreciate cardiology input. Follow-up with his established bi consultant after discharge. (5) Pleural effusion: Code(s): J90 - Pleural effusion, not elsewhere classified Status: Acute Assessment and Plan: Improved on imaging. No acute respiratory distress, tolerating room air. Dialyze and diurese. See above. (6) GERD (gastroesophageal reflux disease): Qualifiers: Esophagitis presence: esophagitis presence not specified Qualified Code(s): K21.9 - Gastro-esophageal reflux disease without esophagitis Code(s): K21.9 - Gastro-esophageal reflux disease without esophagitis Status: Chronic Assessment and Plan: Continue his home Carafa
--- NOTE | 2019-11-02 14:30 | WPDGIPROGNO ---
Progress Note: A&P Additional Plan Patient alert comfortable today. Sitting on the edge of the bed eating diet. At present he denies abdominal pain. On physical exam he is alert. Vital signs stable. He is afebrile. He reports pain improves with pain injections. He describes blood repeat turn with peritoneal dialysis recently. Peritoneal dialysis catheter appears in good position with no obvious irritation. Impression 1. Abdominal pain. 2. Peritoneal dialysis. End-stage renal disease. Suspect the patient has peritonitis related to his peritoneal dialysis catheter. Clinically appears to have some improvement with broad-spectrum antibiotic coverage. Pain control has been required to date so far. Plan is to continue IV antibiotics. Dr. Aleman will return in [facility] care in the morning. Subjective Date/time seen: 11/02/19 14:30 Objective Data Vital Signs Vital Signs: Vital Signs - 24 hr 11/01/19 16:00 11/01/19 17:37 11/01/19 17:38 Temperature Pulse Rate 68 70 70 Respiratory Rate Blood Pressure 128/70 Pulse Oximetry 95 11/01/19 19:50 11/01/19 20:00 11/01/19 21:40 Temperature 36.2 C L 36.5 C Pulse Rate 68 69 66 Respiratory Rate 18 18 Blood Pressure 128/70 117/43 L Pulse Oximetry 99 11/02/19 00:00 11/02/19 04:00 11/02/19 06:00 Temperature 36.4 C L Pulse Rate 70 76 99 Respiratory Rate 18 Blood Pressure 116/55 L Pulse Oximetry 99 11/02/19 08:39 11/02/19 08:43 Temperature Pulse Rate 61 61 Respiratory Rate 18 Blood Pressure 116/48 L Pulse Oximetry 98 Intake/Output Intake/Output: Intake & Output 10/30/19 10/31/19 11/01/19 11/02/19 23:59 23:59 23:59 23:59 Intake Total 885 2530 1840 1320 Output Total 0 2049 2604 2380 Balance 885 858 -488 -7036 Meds/Results Medications: Active Medications Generic Name Dose Route Start Last Admin Trade Name Freq PRN Reason Stop Dose Admin Hydrocodone Bitart/Acetaminophen 1 tab 10/31/19 15:58 11/02/19 11:46 [place] 5-325 Mg PO 1 tab Q6H PRN Administration Pain Rated 4-6 Carvedilol 12.5 mg 10/31/19 17:00 11/02/19 08:43 Coreg PO 12.5 mg BIDWM HIWOT Administration Dextrose 12.5 gm 10/31/19 08:24 Dextrose 50% Syringe IV PUSH PRN PRN Hypoglycemia Protocol Furosemide 40 mg 10/31/19 17:00 11/02/19 08:43 Lasix Tablet PO 40 mg BID HIWOT Administration Glucagon 1 mg 10/31/19 08:24 Glucagon For Inj IM PRN PRN Hypoglycemia Protocol Glucose 15 gm 10/31/19 08:24 Glutose 15 PO PRN PRN Hypoglycemia Protocol Dextrose 1,000 mls @ 100 mls/hr 10/31/19 08:24 Dextrose 5% 1,000 Ml IVPB PRN PRN Hypoglycemia Protocol Insulin Aspart 3 - 6 units 10/31/19 08:00 11/02/19 07:52 Novolog SUB-Q Not Given TIDWM [facility] Protocol Insulin Glargine 30 units 10/31/19 21:00 11/01/19 20:27 Lantus SUB-Q 30 units HS HIWOT Administration Insulin Glargine 15 units 11/02/19 09:00 11/02/19 08:48 Lantus SUB-Q 15 units QAM HIWOT Administration Levothyroxine Sodium 88 mcg 11/01/19 06:30 11/02/19 06:04 Synthroid PO 88 mcg DAILY@0630 HIWOT Administration Metoclopramide HCl 5 mg 10/31/19 14:20 10/31/19 14:40 Reglan PO 5 mg TID PRN Administration Nausea And Vomiting Ondansetron HCl 4 mg 10/30/19 13:46 Zofran Inj IV PUSH Q4H PRN Nausea Phenobarbital 15 mg 11/01/19 09:00 11/02/19 08:50 Phenobarbital Tab PO 15 mg DAILY HIWOT Administration Sucralfate 1 gm 10/31/19 16:30 11/02/19 11:46 Carafate PO 1 gm TIDAC HIWOT Administration Tamsulosin HCl 0.4 mg 11/01/19 09:00 11/02/19 08:44 Flomax PO 0.4 mg DAILY HIWOT Administration Radiology Results: ITS Impressions Abdomen/Pelvis CT 10/30/19 13:04 IMPRESSION: 1. No acute intra-abdominal findings. 2. Moderate colonic diverticulosis. 3. Diffuse bladder wall thickening could indicate
--- NOTE | 2019-11-02 15:05 | PM.PNNEP ---
Progress Note: A&P Assessment and Plan (1) End stage renal disease: Code(s): N18.6 - End stage renal disease Status: Chronic Assessment and Plan: continue CCPD overnight while hospitalized No shortness of breath and no swelling. Potassium a little low. (2) Volume overload: Qualifiers: Hypervolemia type: unspecified Qualified Code(s): E87.70 - Fluid overload, unspecified Code(s): E87.70 - Fluid overload, unspecified Status: Acute Assessment and Plan: He looks compensated today. (3) Abdominal pain: Qualifiers: Abdominal location: unspecified location Qualified Code(s): R10.9 - Unspecified abdominal pain Code(s): R10.9 - Unspecified abdominal pain Status: Chronic Assessment and Plan: unclear etiology No more blood in the fluid. (4) Ischemic cardiomyopathy: Code(s): I25.5 - Ischemic cardiomyopathy Status: Chronic Assessment and Plan: known diagnosis continue attempts to maintain euvolema (5) Anorexia: Code(s): R63.0 - Anorexia Status: Acute Assessment and Plan: tolerating regular food but it does not taste very good. Patient asking to get diet liberalized. I do not think there any restrictions on it such as Sodium or renal. Will continue to follow. Subjective Date/time seen: 11/02/19 15:05 Interval history: Patient feels better. Not very hungry. He also did need any of his protein on his lunch plate. He said it just tasted bad. Belly pain is gone. He did have breakfast. The patient is on peritoneal dialysis. He is tolerating it well. Fluid is clear today. Review of Systems Cardiovascular: Cardiovascular: Reports no additional cardiovascular complaints Respiratory: Respiratory: Reports no additional respiratory complaints Gastrointestinal: Gastrointestinal: Reports no additional gastrointestinal complaints Genitourinary: Genitourinary: Reports no additional male genitourinary complaints Musculoskeletal: Musculoskeletal: Reports no additional musculoskeletal complaints Exam Narrative: Exam Narrative: Well developed well-nourished in no acute distress Lungs clear Heart regular without rub Abdomen bowel sounds positive soft nontender Extremities no edema Skin no rash Objective Data Vital Signs Vital Signs: Vital Signs - 24 hr 11/01/19 16:00 11/01/19 17:37 11/01/19 17:38 Temperature Pulse Rate 68 70 70 Respiratory Rate Blood Pressure 128/70 Pulse Oximetry 95 11/01/19 19:50 11/01/19 20:00 11/01/19 21:40 Temperature 36.2 C L 36.5 C Pulse Rate 68 69 66 Respiratory Rate 18 18 Blood Pressure 128/70 117/43 L Pulse Oximetry 99 11/02/19 00:00 11/02/19 04:00 11/02/19 06:00 Temperature 36.4 C L Pulse Rate 70 76 99 Respiratory Rate 18 Blood Pressure 116/55 L Pulse Oximetry 99 11/02/19 08:39 11/02/19 08:43 Temperature Pulse Rate 61 61 Respiratory Rate 18 Blood Pressure 116/48 L Pulse Oximetry 98 Intake/Output Intake/Output: Intake & Output 10/30/19 10/31/19 11/01/19 11/02/19 23:59 23:59 23:59 23:59 Intake Total 885 2530 1840 1320 Output Total 0 2049 2604 2380 Balance 885 918 -348 -4169 Meds/Results Medications: Active Medications Generic Name Dose Route Start Last Admin Trade Name Freq PRN Reason Stop Dose Admin Hydrocodone Bitart/Acetaminophen 1 tab 10/31/19 15:58 11/02/19 11:46 [place] 5-325 Mg PO 1 tab Q6H PRN Administration Pain Rated 4-6 Carvedilol 12.5 mg 10/31/19 17:00 11/02/19 08:43 Coreg PO 12.5 mg BIDWM HIWOT Administration Dextrose 12.5 gm 10/31/19 08:24 Dextrose 50% Syringe IV PUSH PRN PRN Hypoglycemia Protocol Furosemide 40 mg 10/31/19 17:00 11/02/19 08:43 Lasix Tablet PO 40 mg BID HIWOT Administration Glucagon 1 mg 10/31/19 08:24 Glucagon For Inj IM PRN PRN Hypoglycemia Protocol Glucose
[2019-11-02 16:45] LABS: Glucose Point of Care 212 (65-105)
[2019-11-02] MEDS: INSULIN ASPART (*BKC) 100 UNITS/ML SUB-Q (17:23)
[2019-11-02] MEDS: INSULIN GLARGINE (*BKC) 100 UNITS/ML 30 UNITS SUB-Q (20:25)
[2019-11-02 20:38] LABS: Glucose Point of Care 234 (65-105)
[2019-11-03] VITALS (13 sets, daily range): BP systolic 109–130; BP diastolic 52–82; PULSE 60–106; RESP 16–20; TEMP 36.3–36.9; O2SAT 96–99
[2019-11-03] MEDS: LEVOTHYROXINE SODIUM 88 MCG TABLET PO (06:09)
[2019-11-03] MEDS: SUCRALFATE 1 GM TABLET PO ×3 (06:09→16:17)
[2019-11-03 06:32] LABS: Basophils Percent Auto 0.6 % (0.2-1.2); Eosinophils Absolute Auto 0.2 K/mm3 (0-0.3); Eosinophils Percent Auto 3.4 % (0-4.4); Hematocrit 32.9 % (42.0-52.0); Hemoglobin 10.4 g/dL (14.0-18.0); Immature Granulocyte Absolute 0.01 K/mm3 (0.00-0.031); Immature Granulocyte Percent A 0.1 % (0-0.5); Lymphocytes Absolute Auto 0.82 K/mm3 (0.9-3.2); Lymphocytes Percent Auto 11.7 % (18.3-44.2); Mean Corpuscular HGB Conc 31.6 g/dl (32-36); Mean Corpuscular Hemoglobin 30.9 pg (26-34); Mean Corpuscular Volume 97.6 fl (80-100); Mean Platelet Volume 12.4 fl (7.4-10.4); Monocytes Absolute Auto 0.6 K/mm3 (0.1-0.6); Neutrophils Absolute Auto 5.3 K/mm3 (1.3-6.7); Neutrophils Percent Auto 75.2 % (45.5-73.1); Platelet Count Result 143 k/mm3 (150-375); Red Blood Count 3.37 M/mm3 (4.6-6.20); Red Cell Distribution Width 14.6 % (11.5-14.5)
[2019-11-03 06:49] LABS: Magnesium 1.8 mg/dL (1.6-2.3)
[2019-11-03 06:50] LABS: Albumin Level 2.8 g/dL (3.5-5.1); Blood Urea Nitrogen 42 mg/dL (9-20); Calcium 8.1 mg/dL (8.4-10.2); Carbon Dioxide 26 mmol/L (22-30); Chloride 95 mmol/L (98-107); Estimated CRCL calculation 18 ml/min; Estimated Glomerular Filt Rate 13; Glucose 182 mg/dL (75-110); Phosphorus 4.2 mg/dL (2.5-4.5); Potassium 3.3 mmol/L (3.4-5.0); Sodium 131 mmol/L (137-145)
[2019-11-03 07:39] LABS: Glucose Point of Care 136 (65-105)
[2019-11-03] MEDS: INSULIN GLARGINE (*BKC) 100 UNITS/ML 15 UNITS SUB-Q (08:02)
[2019-11-03] MEDS: carvediloL 12.5 MG TABLET PO ×2 (08:09→16:17)
[2019-11-03] MEDS: POTASSIUM CHLORIDE 20 MEQ TABLET PO (08:09)
[2019-11-03] MEDS: FUROSEMIDE 40 MG TABLET PO ×2 (08:10→16:17)
[2019-11-03] MEDS: TAMSULOSIN HCL 0.4 MG CAPSULE PO (08:10)
--- NOTE | 2019-11-03 08:40 | PC.NURSE ---
Patient placed on bed alarm for high fall risk precautions, patient refusing bed alarm. Patient educated on reason for using bed alarm and risks associated with not utilizing it. Patient will reach and turn the bed alarm off himself when it alarms.
--- NOTE | 2019-11-03 11:41 | PCDIET ---
Nutrition Follow-Up Complete: Inadequate oral intake related to low appetite and stomach pain as evidenced by patient report of low appetite, weight loss, and increased caloric and protein needs for PD (1700-2000kcals and 112-130g pro). Patient will consume greater than 50% of all meals. Goal met. Pt is consuming 75-100% of meals. Nutrition recommendation: Recommend advancement of diet to Diabetic Carbohydrate consistent and low sodium (4gm). Recommend fluid restriction of 1500ml to decrease fluid retention; Na at 131 and K at 3.3. Last recorded weight is 105.5 kg. Bowel Motility:+BM 10/31 Labs Reviewed:Na (131), K (3.3), GFR (13), BUN (42), Cr (4.50), Glu(182) Meds Noted:Lasix, Flomax, Reglan, Zofran Additional Notes: Patient states appetite is better and abdominal pain is slightly better. Pt. says for breakfast on 23 had scrambled eggs, frosted flakes, and 1/2 Maltese muffin. Patient states that Ensure BID is too much; recommend decrease to 1 time per day. Slight weight gain noticed; original weight 104kg now 105.5kg. Will monitor labs (ismael. Na, K, P, Ca, BUN, GFR, Glu), intake, and weight. Will follow up in three days.
[2019-11-03 11:58] LABS: Glucose Point of Care 150 (65-105)
--- NOTE | 2019-11-03 12:24 | PCNSR ---
On 11/03/19, the student, Malini Llanos, provided care and completed [facility] documentation on this patient. LACHELLE spoke with JUNIOR Mendez today regarding diet orders. plans to change diet order to 2 gm Na from heart healthy. I have reviewed the student's documentation and agree with the findings.
--- NOTE | 2019-11-03 13:08 | WPDGIPROGNO ---
Progress Note: A&P Assessment and Plan (1) Abdominal pain: Qualifiers: Abdominal location: unspecified location Qualified Code(s): R10.9 - Unspecified abdominal pain Code(s): R10.9 - Unspecified abdominal pain Status: Acute Assessment and Plan: acute on chronic pain, multifactorial. Pending gastric emptying study, we will proceed with EGD and colonoscopy tomorrow. He also could have local irritation of PD catheter (had blood recently), cultures pending. (2) Anorexia: Code(s): R63.0 - Anorexia Status: Acute Assessment and Plan: gastric emptying study ordered to assess if gastroparesis, EGD tomorrow (3) ESRD on peritoneal dialysis: Code(s): N18.6 - End stage renal disease; Z99.2 - Dependence on renal dialysis Status: Chronic (4) Acute exacerbation of congestive heart failure: Qualifiers: Heart failure type: unspecified Qualified Code(s): I50.9 - Heart failure, unspecified Code(s): I50.9 - Heart failure, unspecified Status: Acute Assessment and Plan: cardiology on board, recent aicd placement (5) Volume overload: Qualifiers: Hypervolemia type: unspecified Qualified Code(s): E87.70 - Fluid overload, unspecified Code(s): E87.70 - Fluid overload, unspecified Status: Acute Subjective Date/time seen: 11/03/19 13:08 Interval history: eating more and trying to rest, he has not been able to sleep for days. Less abdominal pain. Review of Systems Review of Systems: All systems reviewed & are unremarkable except as noted in HPI and below Exam Const: General: comfortable and no acute distress HENMT: General nose exam: Normal nares present Eyes: General: appearance normal, both eyes and all related structures Neck: Neck: no JVD Resp: Auscultation: clear to auscultation bilaterally Cardio: Rate: regular rate Rhythm: regular rhythm GI: Inspection: non-distended GI Palp: Yes Soft to palpation, No Firmness to palpation present (GI) and No Rigid due to palpation Auscultation: normal bowel sounds Other: PD catheter in good position Skin: General skin exam: normal color Neuro: General: gait normal Speech: normal speech Extrem: General: normal to inspection Psych: Mental Status: mental status grossly normal Objective Data Vital Signs Vital Signs: Vital Signs - 24 hr 11/02/19 16:00 11/02/19 16:56 11/02/19 17:22 Temperature 98.4 F Pulse Rate 74 56 L 64 Respiratory Rate 18 Blood Pressure 131/79 Pulse Oximetry 97 11/02/19 20:00 11/02/19 20:55 11/02/19 21:45 Temperature 98.1 F 98.4 F Pulse Rate 73 48 L 62 Respiratory Rate 16 18 Blood Pressure 106/61 131/79 Pulse Oximetry 100 11/03/19 00:00 11/03/19 04:00 11/03/19 05:47 Temperature 98.3 F Pulse Rate 66 67 60 Respiratory Rate 20 Blood Pressure 109/52 L Pulse Oximetry 99 11/03/19 08:00 11/03/19 08:07 11/03/19 08:09 Temperature Pulse Rate 76 70 70 Respiratory Rate Blood Pressure 117/67 Pulse Oximetry 11/03/19 12:00 Temperature Pulse Rate 71 Respiratory Rate Blood Pressure Pulse Oximetry Intake/Output Intake/Output: Intake & Output 10/31/19 11/01/19 11/02/19 11/03/19 23:59 23:59 23:59 23:59 Intake Total 2530 1840 2960 490 Output Total 2049 2604 2780 450 Balance 481 -364 180 40 Meds/Results Medications: Active Medications Generic Name Dose Route Start Last Admin Trade Name Freq PRN Reason Stop Dose Admin Hydrocodone Bitart/Acetaminophen 1 tab 10/31/19 15:58 11/03/19 06:09 [place] 5-325 Mg PO 1 tab Q6H PRN Administration Pain Rated 4-6 Carvedilol 12.5 mg 10/31/19 17:00 11/03/19 08:09 Coreg PO 12.5 mg BIDWM HIWOT Administration Dextrose 12.5 gm 10/31/19 08:24 Dextrose 50% Syringe IV PUSH PRN PRN Hypoglycemia Protocol Furosemide 40 mg 10/31/19 17:00 11/03/19 08:10 Lasix Tablet PO 40 mg BID HIWOT Adminis
--- NOTE | 2019-11-03 16:01 | P.PNIM_ITS ---
Progress Note: A&P Assessment and Plan (1) Abdominal pain: Qualifiers: Abdominal location: unspecified location Qualified Code(s): R10.9 - Unspecified abdominal pain Code(s): R10.9 - Unspecified abdominal pain Status: Chronic Assessment and Plan: * His abdominal pain is his main complaint. Seems as though he has had chronic abdominal pain for the last 1-2 years that has been evaluated by GI pre viously. S/p cholecystectomy 2016. * He remains on Carafate and Reglan. * Possible gastroparesis has been mentioned. Gastric emptying study has been ordered. * Dialysate sent for Gram stain and culture to rule out SBP. No organisms identified, SBP less likely. * Blood in the dialysate could be concerning for GI tract abnormality vs. malignancy? * Appreciate GI input - Noted Dr Calhoun's plan for EGD/colonoscopy tomorrow. (2) Volume overload: Qualifiers: Hypervolemia type: unspecified Qualified Code(s): E87.70 - Fluid overload, unspecified Code(s): E87.70 - Fluid overload, unspecified Status: Acute Assessment and Plan: * Improving. * Contributing factors include systolic CHF vs. ESRD vs. both. Unsure which of these is contributing more than the other. * BNP > 35,000 which is noted to be a chronic finding over the last 3 admissions in the last 2 years. * Nephrology consulted and managing his peritoneal dialysis for optimal fluid removal. * Cardiology consulted and appreciate input. Noted Dr Friend's recommendation to continue his current medical management. (3) ESRD on peritoneal dialysis: Code(s): N18.6 - End stage renal disease; Z99.2 - Dependence on renal dialysis Status: Chronic Assessment and Plan: * Patient is noted to be on peritoneal dialysis with Tara Carlson at home managed by Dr. Lemus. (4) Ischemic cardiomyopathy: Code(s): I25.5 - Ischemic cardiomyopathy Status: Chronic Assessment and Plan: * Patient follows with Dr Gumaro Ricketts with [facility]. He has known severe dilated ischemic cardiomyopathy. * 09/11/19 left heart catheterization shows multivessel high-grade disease with complete occlusion of the LAD and right coronary artery; dilated left ventricular chamber with severe global hypokinesis, EF 15%. * Prophylactic ICD implantation 10/06/[address] Ricketts. He has a follow up appointment with Dr Ricketts 11/06/19. * Continue Coreg and Lasix. It is noted he takes 80 mg oral Lasix BID at home. Discussed this with Dr. Lemus and have restarted his oral Lasix at 40 mg BID due to hypotension in the setting of his PD settings being adjusted with intentions for increased fluid removal by dialysis. (5) Pleural effusion: Code(s): J90 - Pleural effusion, not elsewhere classified Status: Acute Assessment and Plan: * Improved on imaging. No acute respiratory distress, tolerating room air. * Dialyze and diurese. See above. (6) GERD (gastroesophageal reflux disease): Qualifiers: Esophagitis presence: esophagitis presence not specified Qualified Code(s): K21.9 - Gastro-esophageal reflux disease without esophagitis Code(s): K21.9 - Gastro-esophageal reflux disease without esophagitis Status: Chronic Assessment and Plan: * Continue his home Carafate and Reglan. Patient wants to avoid PPI, so I have stopped Protonix. (7) BPH (benign prostatic hyp
--- NOTE | 2019-11-03 16:01 | PM.IMPN ---
Progress Note: A&P Assessment and Plan (1) Abdominal pain: Qualifiers: Abdominal location: unspecified location Qualified Code(s): R10.9 - Unspecified abdominal pain Code(s): R10.9 - Unspecified abdominal pain Status: Chronic Assessment and Plan: His abdominal pain is his main complaint. Seems as though he has had chronic abdominal pain for the last 1-2 years that has been evaluated by GI previously. S/p cholecystectomy 2016. He remains on Carafate and Reglan. Possible gastroparesis has been mentioned. Gastric emptying study has been ordered. Dialysate sent for Gram stain and culture to rule out SBP. No organisms identified, SBP less likely. Blood in the dialysate could be concerning for GI tract abnormality vs. malignancy? Appreciate GI input - Noted Dr Calhoun's plan for EGD/colonoscopy tomorrow. (2) Volume overload: Qualifiers: Hypervolemia type: unspecified Qualified Code(s): E87.70 - Fluid overload, unspecified Code(s): E87.70 - Fluid overload, unspecified Status: Acute Assessment and Plan: Improving. Contributing factors include systolic CHF vs. ESRD vs. both. Unsure which of these is contributing more than the other. BNP > 35,000 which is noted to be a chronic finding over the last 3 admissions in the last 2 years. Nephrology consulted and managing his peritoneal dialysis for optimal fluid removal. Cardiology consulted and appreciate input. Noted Dr Friend's recommendation to continue his current medical management. (3) ESRD on peritoneal dialysis: Code(s): N18.6 - End stage renal disease; Z99.2 - Dependence on renal dialysis Status: Chronic Assessment and Plan: Patient is noted to be on peritoneal dialysis with Tara Carlson at home managed by Dr. Lemus. (4) Ischemic cardiomyopathy: Code(s): I25.5 - Ischemic cardiomyopathy Status: Chronic Assessment and Plan: Patient follows with Dr Gumaro Ricketts with [facility]. He has known severe dilated ischemic cardiomyopathy. 09/11/19 left heart catheterization shows multivessel high-grade disease with complete occlusion of the LAD and right coronary artery; dilated left ventricular chamber with severe global hypokinesis, EF 15%. Prophylactic ICD implantation 10/06/[address] Ricketts. He has a follow up appointment with Dr Ricketts 11/06/19. Continue Coreg and Lasix. It is noted he takes 80 mg oral Lasix BID at home. Discussed this with Dr. Lemus and have restarted his oral Lasix at 40 mg BID due to hypotension in the setting of his PD settings being adjusted with intentions for increased fluid removal by dialysis. (5) Pleural effusion: Code(s): J90 - Pleural effusion, not elsewhere classified Status: Acute Assessment and Plan: Improved on imaging. No acute respiratory distress, tolerating room air. Dialyze and diurese. See above. (6) GERD (gastroesophageal reflux disease): Qualifiers: Esophagitis presence: esophagitis presence not specified Qualified Code(s): K21.9 - Gastro-esophageal reflux disease without esophagitis Code(s): K21.9 - Gastro-esophageal reflux disease without esophagitis Status: Chronic Assessment and Plan: Continue his home Carafate and Reglan. Patient wants to avoid PPI, so I have stopped Protonix. (7) BPH (benign prostatic hyperplasia): Qualifiers: Lower urinary tract symptom presence: symptoms absent Qualified Code(s): N40.0 - Benign prostatic hyperplasia without lower urinary tract symptoms Code(s): N40.0 - Benign prostatic hyperplasia without lower urinary tract symptoms Status: Chronic Assessment and Plan: Continue his home Flomax.
--- NOTE | 2019-11-03 16:21 | PM.PNNEP ---
Progress Note: A&P Assessment and Plan (1) End stage renal disease: Code(s): N18.6 - End stage renal disease Status: Chronic Assessment and Plan: continue CCPD overnight while hospitalized No shortness of breath and no swelling. Potassium a little low. Given potassium supplement already by MARIAH Tierney. (2) Volume overload: Qualifiers: Hypervolemia type: unspecified Qualified Code(s): E87.70 - Fluid overload, unspecified Code(s): E87.70 - Fluid overload, unspecified Status: Acute Assessment and Plan: He looks compensated today. (3) Abdominal pain: Qualifiers: Abdominal location: unspecified location Qualified Code(s): R10.9 - Unspecified abdominal pain Code(s): R10.9 - Unspecified abdominal pain Status: Chronic Assessment and Plan: unclear etiology No more blood in the fluid. He had a flare but this morning. (4) Ischemic cardiomyopathy: Code(s): I25.5 - Ischemic cardiomyopathy Status: Chronic Assessment and Plan: known diagnosis continue attempts to maintain euvolema (5) Anorexia: Code(s): R63.0 - Anorexia Status: Acute Assessment and Plan: tolerating regular food but it does not taste very good. Patient asking to get diet liberalized. I do not think there any restrictions on it such as Sodium or renal. Additional Plan Subjective Date/time seen: 11/03/19 16:21 Interval history: Patient has more belly pain today. It is easing up. He is getting scopes tomorrow. The patient is on peritoneal dialysis. He is tolerating it well. Fluid is clear today again. He was seen at 3:30 p.m. Review of Systems Cardiovascular: Cardiovascular: Reports no additional cardiovascular complaints Respiratory: Respiratory: Reports no additional respiratory complaints Gastrointestinal: Gastrointestinal: Reports no additional gastrointestinal complaints Genitourinary: Genitourinary: Reports no additional male genitourinary complaints Exam Narrative: Exam Narrative: Well developed well-nourished in no acute distress Lungs clear Heart regular without rub Abdomen bowel sounds positive soft nontender Extremities no edema Skin no rash or subcu nodules Objective Data Vital Signs Vital Signs: Vital Signs - 24 hr 11/02/19 16:56 11/02/19 17:22 11/02/19 20:00 Temperature 36.9 C Pulse Rate 56 L 64 73 Respiratory Rate 18 Blood Pressure 131/79 Pulse Oximetry 97 02/02/20 20:55 11/02/19 21:45 11/03/19 00:00 Temperature 36.7 C 36.9 C Pulse Rate 48 L 62 66 Respiratory Rate 16 18 Blood Pressure 106/61 131/79 Pulse Oximetry 100 11/03/19 04:00 11/03/19 05:47 11/03/19 08:00 Temperature 36.8 C 36.8 C Pulse Rate 67 60 60 Respiratory Rate 20 20 Blood Pressure 109/52 L 109/52 L Pulse Oximetry 99 11/03/19 08:07 11/03/19 08:09 11/03/19 12:00 Temperature Pulse Rate 70 70 71 Respiratory Rate Blood Pressure 117/67 Pulse Oximetry 11/03/19 16:16 11/03/19 16:17 Temperature Pulse Rate 63 71 Respiratory Rate 16 Blood Pressure 114/59 L Pulse Oximetry 97 Intake/Output Intake/Output: Intake & Output 10/31/19 11/01/19 11/02/19 11/03/19 23:59 23:59 23:59 23:59 Intake Total 2530 1840 2960 935 Output Total 2049 2604 2780 2795 Balance 121 -356 180 -1860 Meds/Results Medications: Active Medications Generic Name Dose Route Start Last Admin Trade Name Freq PRN Reason Stop Dose Admin Hydrocodone Bitart/Acetaminophen 1 tab 10/31/19 15:58 11/03/19 16:09 [place] 5-325 Mg PO 1 tab Q6H PRN Administration Pain Rated 4-6 Bisacodyl 20 mg 11/03/19 18:00 Dulcolax Tab PO 11/03/19 18:01 ONCE ONE Carvedilol 12.5 mg 10/31/19 17:00 11/03/19 16:17 Coreg PO 12.5 mg BIDWM HIWOT Administration Dextrose 12.5 gm 10/31/19 08:24 Dextrose 50% Syringe IV PUSH PRN PRN Hypoglycemia Pro
[2019-11-03 16:56] LABS: Glucose Point of Care 216 (65-105)
--- NOTE | 2019-11-03 17:10 | WPDANESEPP ---
Anes - Eval Pre Procedure Procedure: EGD and colonoscopy Operation Date: 11/04/19 14:30 Proposed Procedures p Esophagogastroduodenoscopy & Colonoscopy - Armaan Aleman MD Date/Time: 11/03/19 17:10 Surgeon: Lj Preop Diagnosis: Abdominal pain Pre Op Diagnosis: Abdominal pain Patient Data Age: 69 Gender: M Height: 6 ft Weight: 105.5 kg Last Vital Signs Temp 98.5 F 11/03/19 14:00 Pulse 71 11/03/19 16:17 Resp 16 11/03/19 16:16 BP 114/59 L 11/03/19 16:16 Pulse Ox 97 11/03/19 16:16 Allergies Allergy/AdvReac Type Severity Reaction Status Date / Time tetanus and diphtheria Allergy Mild LOCAL Verified 12/03/18 18:50 toxoids REDNESS & SWELLING. Home Medications Medication Instructions Recorded Confirmed Type tamsulosin 0.4 mg capsule 0.4 mg PO DAILY #90 cap 08/11/19 10/30/19 Rx carvedilol 12.5 mg tablet 12.5 mg PO Q12H #180 tablet 10/04/19 10/30/19 Rx levothyroxine 88 mcg tablet 88 mcg PO DAILY #30 tablet 10/21/19 10/30/19 Rx metoclopramide HCl 10 mg tablet 10 mg PO TID PRN #90 tablet 10/27/19 10/30/19 Rx sucralfate 1 gram tablet 1 gm PO TID #90 tablet 10/27/19 10/30/19 Rx hydrocodone 5 mg-acetaminophen 325 1 tablet PO Q4H PRN #60 tablet 10/28/19 10/30/19 Rx mg tablet ergocalciferol (vitamin D2) 50,000 unit PO [id number] 10/30/19 10/30/19 History furosemide 80 mg PO BID 10/30/19 10/30/19 History phenobarbital 15 mg PO DAILY 10/30/19 10/30/19 History Laboratory Tests 11/02/19 11/03/19 11/03/19 20:31 05:58 05:58 WBC 7.0 K/mm3 K/mm3 (4.5-10.0) RBC 3.37 M/mm3 L M/mm3 (4.6-6.20) Hgb 10.4 g/dL L g/dL (14.0-18.0) Hct 32.9 % L % (42.0-52.0) MCV 97.6 fl fl (80-100) MCH 30.9 pg pg (26-34) MCHC 31.6 g/dl L g/dl (32-36) RDW 14.6 % H % (11.5-14.5) Plt Count 143 k/mm3 L k/mm3 (150-375) MPV 12.4 fl H fl (7.4-10.4) Immature Gran % (Auto) 0.1 % % (0-0.5) Neut % (Auto) 75.2 % H % (45.5-73.1) Lymph % (Auto) 11.7 % L % (18.3-44.2) [place] % (Auto) 9.0 % H % (2.6-8.5) Eos % (Auto) 3.4 % % (0-4.4) Baso % (Auto) 0.6 % % (0.2-1.2) Lymph # (Auto) 0.82 K/mm3 L K/mm3 (0.9-3.2) [place] # (Auto) 0.6 K/mm3 K/mm3 (0.1-0.6) Eos # (Auto) 0.2 K/mm3 K/mm3 (0-0.3) Baso # (Auto) 0.0 K/mm3 K/mm3 (0.0-0.1) Abs Immat Gran (auto) 0.01 K/mm3 K/mm3 (0.00-0.031) Absolute Neuts (auto) 5.3 K/mm3 K/mm3 (1.3-6.7) Absolute Nucleated RBC 0.0 K/mm3 K/mm3 (0.0-0.012) Nucleated RBC % 0.0 % % (0.0-0.2) Sodium 131 mmol/L L mmol/L (137-145) Potassium 3.3 mmol/L L mmol/L (3.4-5.0) Chloride 95 mmol/L L mmol/L (98-107) Carbon Dioxide 26 mmol/L mmol/L (22-30) BUN 42 mg/dL H mg/dL (9-20) Creatinine 4.50 mg/dL H mg/dL (0.7-1.3) Estim Creat Clear Calc 18 ml/min ml/min Estimated GFR 13 L (59 - ) Glucose 182 mg/dL H mg/dL (75-110) POC Capillary Glucose 234 mg/dl H mg/dl (65-105) Calcium 8.1 mg/dL L mg/dL (8.4-10.2) Phosphorus 4.2 mg/dL mg/dL (2.5-4.5) Magnesium Albumin 2.8 g/dL L g/dL (3.5-5.1) 11/03/19 11/03/19 11/03/19 05:58 07:22 11:44 WBC RBC Hgb Hct MCV MCH MCHC RDW Plt Count MPV Immature Gran % (Auto) Neut % (Auto) Lymph % (Auto) [place] % (Auto) Eos % (Auto) Baso % (Auto) Lymph # (Auto) [place] # (Auto) Eos # (Auto) Baso # (Auto) Abs Immat Gran (auto) Absolute Neuts (auto) Absolute Nucleated RBC Nuc
--- NOTE | 2019-11-03 17:14 | PM.PNCARD ---
Progress Note: A&P Assessment and Plan (1) Chronic systolic (congestive) heart failure: Code(s): I50.22 - Chronic systolic (congestive) heart failure Status: Acute Assessment and Plan: Chronic systolic heart failure. Slightly volume overloaded on admission. Continue Lasix b.i.d., carvedilol 12.5 mg b.i.d. Addition of DILSHAD-inhibitor or ARB will be left up to his primary right of way worker. No edema. Chest x-ray improving. Additional fluid removal per dialysis (2) Ischemic cardiomyopathy: Code(s): I25.5 - Ischemic cardiomyopathy Status: Chronic Assessment and Plan: History of a CABG 2003. Is not on an aspirin or a statin. Again will leave adding these to his regimen up to his primary right of way worker. Additional Plan Cardiology will follow p.r.n. Please call if we are needed Plan discussed with Dr. Daly [id number] 11/03/2019 Subjective Date/time seen: 11/03/19 17:14 Interval history: Follow-up for: Chronic systolic heart failure-slightly volume overloaded, history of CABG, ischemic cardiomyopathy, recent ICD, abdominal pain Date of service: 11/03/2019 Subjective: Having a lot of abdominal pain. Unable to take in deep breaths with the pain. Has received a pain pill and the discomfort will get better. No chest discomfort or lightheadedness with activity. Review of Systems Constitutional: Constitutional: Reports fatigue Eyes: Eyes: Denies blurry vision ENT: Denies nasal congestion and Denies nasal discharge Cardiovascular: Cardiovascular: Denies chest pain, Denies pedal edema, Denies leg edema, Denies lightheadedness and Denies palpitations Respiratory: Respiratory: Reports dyspnea (Due to inability to take in deep breaths with abdominal pain) Gastrointestinal: Gastrointestinal: Reports abdominal pain and Reports nausea Genitourinary: Genitourinary: Denies hematuria Musculoskeletal: Musculoskeletal: Denies back pain and Denies neck pain Integumentary/Breasts: Skin/Breast: Denies unusual bruising Neurologic: Denies Abnormal speech present and Denies numbness Psychiatric: Psychiatric: Denies anxiety Exam Const: General: cooperative and in distress moderate (Due to abdominal pain.) Nutritional Appearance: obese Orientation/consciousness: patient oriented x3 HENMT: Head: normal to inspection and atraumatic Ears: hearing grossly normal bilaterally Face and sinus: normal facial exam Mouth: Yes Normal oral and palatal mucosa present Eyes: General: appearance normal, both eyes and all related structures Neck: Neck: supple and no JVD Chest: Chest palpation & inspection: normal inspection of the chest Resp: Effort & Inspection: normal respiratory effort and able to speak in complete sentences Auscultation: diminished lung sounds bilateral (Due to inability to take in a deep breath due to abdominal pain) in the lower lung kamara Cardio: Jugular venous distension: no JVD Rate: regular rate Rhythm: regular rhythm Peripheral pulses: Peripheral pulses 2+ throughout GI: Inspection: Pannus present Auscultation: normal bowel sounds Skin: General skin exam: normal color and no rashes or lesions noted Neuro: General: patient oriented x3 and moves all extremities Extrem: Right lower extremity: no edema Left lower extremity: no edema Objective Data Vital Signs Vital Signs: Vital Signs - 24 hr 11/02/19 17:22 11/02/19 20:00 11/02/19 20:55 Temperature 36.7 C Pulse Rate 64 73 48 L Respiratory Rate 16 Blood Pressure 106/61 Pulse Oximetry 100 11/02/19 21:45 11/03/19 00:00 11/03/19 04:00 Temperature 36.9 C Pulse Rate 62 66 67 Respiratory Rate 18 Blood Pressure 131/79 Pulse Oximetry 11/03/19 05:47 11/03/19 08:00 11/03/19 08:07 Temperature 36.8 C 36.8 C Pulse Rate 60 60 70 Respiratory Rate 20 20 Blood Pressure 109/52 L 109/52 L 117/67 Pulse Oximetry 99 11/03/19 08:09 11/03/19 12:00 11/03/19 14:00 Temperature 36.9 C Pulse Rate 70 7
[2019-11-03] MEDS: INSULIN ASPART (*BKC) 100 UNITS/ML SUB-Q (17:51)
[2019-11-03] MEDS: PEG (High)/E-LYTE SOLN 4,000 ML BTL 4000 ML PO (19:48)
[2019-11-03] MEDS: BISACODYL 5 MG TABLET EC 20 MG PO (19:48)
[2019-11-03 20:51] LABS: Glucose Point of Care 110 (65-105)
[2019-11-04] VITALS (16 sets, daily range): BP systolic 102–137; BP diastolic 51–84; PULSE 60–108; RESP 16–20; TEMP 36.2–36.9; O2SAT 93–98
--- NOTE | 2019-11-04 | PC.NURSE ---
Patient unable to finish bowel prep due to pain and nausea. Dr Lorenz has been notified. No orders given.
[2019-11-04] MEDS: ONDANSETRON INJ 4 MG/2 ML VIAL IV PUSH ×2 (01:37→13:42)
[2019-11-04 06:33] LABS: Albumin Level 2.9 g/dL (3.5-5.1); Blood Urea Nitrogen 41 mg/dL (9-20); Calcium 7.9 mg/dL (8.4-10.2); Carbon Dioxide 26 mmol/L (22-30); Chloride 94 mmol/L (98-107); Estimated CRCL calculation 19 ml/min; Estimated Glomerular Filt Rate 14; Glucose 132 mg/dL (75-110); Phosphorus 3.8 mg/dL (2.5-4.5); Potassium 3.8 mmol/L (3.4-5.0); Sodium 132 mmol/L (137-145)
[2019-11-04] MEDS: SUCRALFATE 1 GM TABLET PO ×2 (06:41→17:44)
[2019-11-04] MEDS: LEVOTHYROXINE SODIUM 88 MCG TABLET PO (06:41)
[2019-11-04 08:06] LABS: Glucose Point of Care 122 (65-105)
--- NOTE | 2019-11-04 08:53 | PM.PNNEP ---
Progress Note: A&P Assessment and Plan (1) End stage renal disease: Code(s): N18.6 - End stage renal disease Status: Chronic Assessment and Plan: continue CCPD overnight while hospitalized Fluid is not clear. He never did have peritonitis. No more blood in the fluid either. Yesterday fluid sent for cell count and culture but they did not do the cell count. (2) Volume overload: Qualifiers: Hypervolemia type: unspecified Qualified Code(s): E87.70 - Fluid overload, unspecified Code(s): E87.70 - Fluid overload, unspecified Status: Acute Assessment and Plan: He looks compensated today. (3) Abdominal pain: Qualifiers: Abdominal location: unspecified location Qualified Code(s): R10.9 - Unspecified abdominal pain Code(s): R10.9 - Unspecified abdominal pain Status: Chronic Assessment and Plan: unclear etiology EGD and gastric emptying scan today. (4) Ischemic cardiomyopathy: Code(s): I25.5 - Ischemic cardiomyopathy Status: Chronic Assessment and Plan: known diagnosis He looks euvolemic today. [id number] came off with dialysis overnight. (5) Anorexia: Code(s): R63.0 - Anorexia Status: Acute Assessment and Plan: tolerating regular food but it does not taste very good. NPO for procedures this morning. Additional Plan Subjective Date/time seen: 11/04/19 08:53 Interval history: Patient just finished his peritoneal dialysis. Fluid is crystal clear. He could not tolerate the colonoscopy prep and vomited it before it stayed down very long. So colonoscopy was canceled and he is going to have endoscopy and gastric emptying scan today. No belly pain today. Review of Systems Cardiovascular: Cardiovascular: Reports no additional cardiovascular complaints Respiratory: Respiratory: Reports no additional respiratory complaints Gastrointestinal: Gastrointestinal: Reports no additional gastrointestinal complaints Genitourinary: Genitourinary: Reports no additional male genitourinary complaints Musculoskeletal: Musculoskeletal: Reports no additional musculoskeletal complaints Exam Narrative: Exam Narrative: Well developed well-nourished in no acute distress Lungs clear to auscultation Heart regular without rub Abdomen bowel sounds positive soft nontender Extremities no edema or cyanosis Skin no rash Objective Data Vital Signs Vital Signs: Vital Signs - 24 hr 11/03/19 12:00 11/03/19 14:00 11/03/19 16:00 Temperature 36.9 C Pulse Rate 71 106 H 72 Respiratory Rate 19 Blood Pressure 111/59 L Pulse Oximetry 99 11/03/19 16:16 11/03/19 16:17 11/03/19 20:00 Temperature Pulse Rate 63 71 71 Respiratory Rate 16 Blood Pressure 114/59 L Pulse Oximetry 97 11/03/19 22:00 11/04/19 00:00 11/04/19 04:00 Temperature 36.3 C L Pulse Rate 72 74 66 Respiratory Rate 18 Blood Pressure 130/82 Pulse Oximetry 96 11/04/19 05:56 Temperature 36.6 C Pulse Rate 70 Respiratory Rate 20 Blood Pressure 102/51 L Pulse Oximetry 93 Intake/Output Intake/Output: Intake & Output 11/01/19 11/02/19 11/03/19 11/04/19 23:59 23:59 23:59 23:59 Intake Total 1840 2960 2015 Output Total 1272 2670 9948 Balance -764 180 -1780 Meds/Results Medications: Active Medications Generic Name Dose Route Start Last Admin Trade Name Freq PRN Reason Stop Dose Admin Hydrocodone Bitart/Acetaminophen 1 tab 10/31/19 15:58 11/03/19 22:52 [place] 5-325 Mg PO 1 tab Q6H PRN Administration Pain Rated 4-6 Carvedilol 12.5 mg 10/31/19 17:00 11/03/19 16:17 Coreg PO 12.5 mg BIDWM HIWOT Administration Dextrose 12.5 gm 10/31/19 08:24 Dextrose 50% Syringe IV PUSH PRN PRN Hypoglycemia Protocol Furosemide 40 mg 10/31/19 17:00 11/03/19 16:17 Lasix Tablet PO 40 mg BID HIWOT Administration Glucagon 1 mg 10/31/19 08:
[2019-11-04] MEDS: carvediloL 12.5 MG TABLET PO ×2 (09:50→17:48)
[2019-11-04] MEDS: TAMSULOSIN HCL 0.4 MG CAPSULE PO (09:52)
[2019-11-04] MEDS: FUROSEMIDE 40 MG TABLET PO ×2 (09:52→17:45)
[2019-11-04 11:10] LABS: Glucose Point of Care 85 (65-105)
--- NOTE | 2019-11-04 11:15 | PC.NURSE ---
To GI Lab via [facility].
[2019-11-04] MEDS: SODIUM CHLORIDE 0.9% IV 500 ML 10 ML IV CONT (11:37)
--- NOTE | 2019-11-04 11:49 | WPDANESEFPP ---
Anes - Eval Final PreProcedure Day of Procedure 11/04/19 11:49 Patient weight: obese Heart: regular rate and rhythm (Paced with ICD) Lungs: clear to auscultation Airway: Mallampati scale class II Neurological: alert and oriented Last oral intake: >/= 8 hours ASA classification: IV Emergent: no Anesthetic plan: proceed Anesthesia type and monitoring: general GIVS and standard monitoring Informed Consent: The patient's anesthetic plan and its attendant risks and benefits were discussed with the patient/family/POA. Questions were solicited and answers provided to the satisfaction of the patient/family/POA.
--- NOTE | 2019-11-04 12:21 | SUR.OPER ---
EGD ENDED AT 1216 COLONOSCOPY/FLEX SIG STARTED AT 1221
[2019-11-04 12:38] LABS: Appearance Peritoneal Fluid Clear (Clear); Color Peritoneal Fluid Colorless (Colorless); Nucleated Cells Peritoneal Flu 43 /uL (0-500); RBC Peritoneal Fluid 141 /uL (0-100000); Source Peritoneal Fluid Peritoneal Fluid
[2019-11-04 12:41] LABS: Eosinophils Peritoneal Fluid 2 %; Lymphocytes Peritoneal Fluid 67 %; Monocytes Peritoneal Fluid 26 %; Neutrophils Peritoneal Fluid 5 % (0-25)
[2019-11-04 12:58] LABS: Glucose Point of Care 111 (65-105)
--- NOTE | 2019-11-04 13:38 | PC.NURSE ---
Back from GI Lab via stretcher.
--- NOTE | 2019-11-04 15:17 | PC.NURSE ---
On 11/04/19, the student, [Hortencia Gilbert ], provided care and completed [facility] documentation on this patient. I have reviewed the student's documentation and agree with the findings.
--- NOTE | 2019-11-04 17:38 | PM.IMPN ---
Progress Note: A&P Assessment and Plan (1) Gastritis: Code(s): K29.70 - Gastritis, unspecified, without bleeding Status: Acute Assessment and Plan: -----continue PPI BID. Likely d/c tomorrow if tolerating diet. (2) Abdominal pain: Qualifiers: Abdominal location: unspecified location Qualified Code(s): R10.9 - Unspecified abdominal pain Code(s): R10.9 - Unspecified abdominal pain Status: Chronic Assessment and Plan: -----likely d/t above. Dialysate sent for Gram stain and culture to rule out SBP. No organisms identified, SBP less likely. Gastric emptying study canceled d/t significant gastritis which is likely causing the pain. If pain persists after 6weeks of therapy, may consider test outpt. (3) Volume overload: Qualifiers: Hypervolemia type: unspecified Qualified Code(s): E87.70 - Fluid overload, unspecified Code(s): E87.70 - Fluid overload, unspecified Status: Acute Assessment and Plan: -----Improving. pt threatening to leave ama if not off a heart healthy diet. Will do low sodium diet and stop heart healthy. Contributing factors include systolic CHF vs. ESRD vs. both. Unsure which of these is contributing more than the other. BNP > 35,000 which is noted to be a chronic finding over the last 3 admissions in the last 2 years. Nephrology consulted and managing his peritoneal dialysis for optimal fluid removal. Cardiology consulted. _ (4) ESRD on peritoneal dialysis: Code(s): N18.6 - End stage renal disease; Z99.2 - Dependence on renal dialysis Status: Chronic Assessment and Plan: ------Patient is noted to be on peritoneal dialysis with [facility]son at home managed by Dr. Lemus. (5) Ischemic cardiomyopathy: Code(s): I25.5 - Ischemic cardiomyopathy Status: Chronic Assessment and Plan: ------Patient follows with Dr Gumaro Ricketts with [facility]. He has known severe dilated ischemic cardiomyopathy. s/p ICD placement. On 09/11/19 left heart catheterization shows multivessel high-grade disease with complete occlusion of the LAD and right coronary artery; dilated left ventricular chamber with severe global hypokinesis, EF 15%. He has a follow up appointment with Dr Ricketts 11/06/19. Will continue Coreg and Lasix. It is noted he takes 80 mg oral Lasix BID at home. Discussed this with Dr. Lemus and have restarted his oral Lasix at 40 mg BID due to hypotension in the setting of his PD settings being adjusted with intentions for increased fluid removal by dialysis. (6) Pleural effusion: Code(s): J90 - Pleural effusion, not elsewhere classified Status: Acute Assessment and Plan: -----Improved on imaging. No acute respiratory distress, tolerating room air. Dialyze and diurese. See above. (7) GERD (gastroesophageal reflux disease): Qualifiers: Esophagitis presence: esophagitis presence not specified Qualified Code(s): K21.9 - Gastro-esophageal reflux disease without esophagitis Code(s): K21.9 - Gastro-esophageal reflux disease without esophagitis Status: Chronic Assessment and Plan: ------Continue his home Carafate and Reglan. (8) BPH (benign prostatic hyperplasia): Qualifiers: Lower urinary tract symptom presence: symptoms absent Qualified Code(s): N40.0 - Benign prostatic hyperplasia without lower urinary tract symptoms Code(s): N40.0 - Benign prostatic hyperplasia without lower urinary tract symptoms Status: Chronic Assessment and Plan: ------Continue his home Flomax. (9) Obstructive sleep apnea: Code(s): G47.33 - Obstructive sleep apnea (adult) (pediatric) Status: Chronic Assessment and Plan: -----Intolerant to CPAP. Discussed the cardiopulmonary risks of untreated sleep apnea. (10) Hypothyroidism: Qualifiers:
[2019-11-04 17:58] LABS: Glucose Point of Care 86 (65-105)
[2019-11-04] MEDS: PANTOPRAZOLE 40 MG TABLET PO (20:31)
[2019-11-04] MEDS: INSULIN GLARGINE (*BKC) 100 UNITS/ML 30 UNITS SUB-Q (20:31)
[2019-11-04 21:15] LABS: Glucose Point of Care 178 (65-105)
[2019-11-05] VITALS: PULSE 74
[2019-11-05 04:00] VITALS: PULSE 66
[2019-11-05] MEDS: SUCRALFATE 1 GM TABLET PO (05:40)
[2019-11-05] MEDS: LEVOTHYROXINE SODIUM 88 MCG TABLET PO (05:40)
[2019-11-05 06:00] VITALS: BP 104/48; PULSE 63; RESP 20; TEMP 36.5; O2SAT 97
[2019-11-05 06:12] LABS: Basophils Percent Auto 0.6 % (0.2-1.2); Eosinophils Absolute Auto 0.2 K/mm3 (0-0.3); Eosinophils Percent Auto 2.5 % (0-4.4); Hematocrit 33.6 % (42.0-52.0); Hemoglobin 10.5 g/dL (14.0-18.0); Immature Granulocyte Absolute 0.04 K/mm3 (0.00-0.031); Immature Granulocyte Percent A 0.6 % (0-0.5); Lymphocytes Absolute Auto 0.82 K/mm3 (0.9-3.2); Lymphocytes Percent Auto 11.4 % (18.3-44.2); Mean Corpuscular HGB Conc 31.3 g/dl (32-36); Mean Corpuscular Hemoglobin 31.3 pg (26-34); Mean Corpuscular Volume 100.3 fl (80-100); Mean Platelet Volume 12.5 fl (7.4-10.4); Monocytes Absolute Auto 0.7 K/mm3 (0.1-0.6); Monocytes Percent Auto 9.1 % (2.6-8.5); Neutrophils Absolute Auto 5.5 K/mm3 (1.3-6.7); Neutrophils Percent Auto 75.8 % (45.5-73.1); Platelet Count Result 146 k/mm3 (150-375); Red Blood Count 3.35 M/mm3 (4.6-6.20); Red Cell Distribution Width 15.1 % (11.5-14.5); White Blood Count 7.2 K/mm3 (4.5-10.0)
[2019-11-05 06:47] LABS: Albumin Level 2.7 g/dL (3.5-5.1); Blood Urea Nitrogen 43 mg/dL (9-20); Carbon Dioxide 27 mmol/L (22-30); Chloride 95 mmol/L (98-107); Estimated CRCL calculation 19 ml/min; Estimated Glomerular Filt Rate 13; Glucose 117 mg/dL (75-110); Phosphorus 4.3 mg/dL (2.5-4.5); Potassium 3.5 mmol/L (3.4-5.0); Sodium 132 mmol/L (137-145)
[2019-11-05 07:43] LABS: Glucose Point of Care 97 (65-105)
[2019-11-05] MEDS: PANTOPRAZOLE 40 MG TABLET PO (07:44)
[2019-11-05] MEDS: TAMSULOSIN HCL 0.4 MG CAPSULE PO (07:44)
[2019-11-05 07:45] VITALS: PULSE 76
[2019-11-05] MEDS: FUROSEMIDE 40 MG TABLET PO (07:45)
[2019-11-05] MEDS: carvediloL 12.5 MG TABLET PO (07:45)
[2019-11-05] MEDS: INSULIN GLARGINE (*BKC) 100 UNITS/ML 15 UNITS SUB-Q (07:49)
[2019-11-05 07:52] VITALS: BP 114/70
[2019-11-05 08:55] VITALS: PULSE 68
--- NOTE | 2019-11-05 09:41 | PM.DS ---
DS: Diagnosis Admitting Diagnosis Admitting Diagnosis: End stage renal disease Discharge Diagnosis (1) Gastritis: Code(s): K29.70 - Gastritis, unspecified, without bleeding Status: Acute Assessment and Plan: -----continue PPI BID x 6 w (2) Abdominal pain: Qualifiers: Abdominal location: unspecified location Qualified Code(s): R10.9 - Unspecified abdominal pain Code(s): R10.9 - Unspecified abdominal pain Status: Chronic Assessment and Plan: -----likely d/t above. Dialysate sent for Gram stain and culture to rule out SBP. No organisms identified, SBP less likely. Gastric emptying study canceled d/t significant gastritis which is likely causing the pain. If pain persists after 6weeks of therapy, may consider test outpt. (3) Volume overload: Qualifiers: Hypervolemia type: unspecified Qualified Code(s): E87.70 - Fluid overload, unspecified Code(s): E87.70 - Fluid overload, unspecified Status: Acute Assessment and Plan: -----Improving Contributing factors include systolic CHF vs. ESRD vs. both. Unsure which of these is contributing more than the other. BNP > 35,000 which is noted to be a chronic finding over the last 3 admissions in the last 2 years. Nephrology consulted and pt will continue dialysis outpt Cardiology evaluated during hospitalization. Pt has f/u with his educational therapist about his ICD later this week _ (4) ESRD on peritoneal dialysis: Code(s): N18.6 - End stage renal disease; Z99.2 - Dependence on renal dialysis Status: Chronic Assessment and Plan: ------Patient is noted to be on peritoneal dialysis with T[facility] Carlson at home managed by Dr. Lemus. (5) Ischemic cardiomyopathy: Code(s): I25.5 - Ischemic cardiomyopathy Status: Chronic Assessment and Plan: ------Patient follows with Dr Gumaro Rciketts with [facility]. He has known severe dilated ischemic cardiomyopathy. s/p ICD placement. On 09/11/19 left heart catheterization shows multivessel high-grade disease with complete occlusion of the LAD and right coronary artery; dilated left ventricular chamber with severe global hypokinesis, EF 15%. He has a follow up appointment with Dr Ricketts 2/6/20. Will continue Coreg and Lasix. It is noted he takes 80 mg oral Lasix BID at home. Discussed this with Dr. Lemus and have restarted his oral Lasix at 40 mg BID due to hypotension in the setting of his PD settings (6) Pleural effusion: Code(s): J90 - Pleural effusion, not elsewhere classified Status: Acute Assessment and Plan: -----Improved on imaging. No acute respiratory distress, tolerating room air. Dialyze and diurese. See above. (7) GERD (gastroesophageal reflux disease): Qualifiers: Esophagitis presence: esophagitis presence not specified Qualified Code(s): K21.9 - Gastro-esophageal reflux disease without esophagitis Code(s): K21.9 - Gastro-esophageal reflux disease without esophagitis Status: Chronic Assessment and Plan: ------Continue his home Carafate and Reglan. (8) BPH (benign prostatic hyperplasia): Qualifiers: Lower urinary tract symptom presence: symptoms absent Qualified Code(s): N40.0 - Benign prostatic hyperplasia without lower urinary tract symptoms Code(s): N40.0 - Benign prostatic hyperplasia without lower urinary tract symptoms Status: Chronic Assessment and Plan: ------Continue his home Flomax. (9) Obstructive sleep apnea: Code(s): G47.33 - Obstructive sleep apnea (adult) (pediatric) Status: Chronic Assessment and Plan: -----Intolerant to CPAP. Discussed the cardiopulmonary risks of untreated sleep apnea. (10) Hypothyroidism: Qualifiers: Hypothyroidism type: unspecified Qualified Code(s): E03.9 - Hypothyroidism, unspecified
--- NOTE | 2019-11-14 13:27 | PC.NURSE ---
Peritoneal and dialysate fluid are both negative.
== END 2019-11-05 10:18 | disposition home or self-care (01) | DRG 391 ==
LOC: ANHED 14:14 → ANH3MEDSUR 14:34
PROVIDERS: Internal Medicine Gastroenterology; Internal Medicine Nephrology; Physician Assistant; Admitting Provider Internal Medicine; Emergency Provider Emergency Medicine; PCP Family Medicine; Visit Provider Internal Medicine
PROC: 0DJ08ZZ Inspection of Upper Intestinal Tract, Via Natural or Artificial Opening Endoscopic (ICD-10-PCS; CPT 43235; principal; 2019-11-04 14:30)
DX: K29.70 Gastritis, unspecified, without bleeding (principal); N18.6 End stage renal disease; I13.2 Hypertensive heart and chronic kidney disease with heart failure and with stage 5 chronic kidney disease, or end stage renal disease; N17.9 Acute kidney failure, unspecified; I85.00 Esophageal varices without bleeding; I50.22 Chronic systolic (congestive) heart failure; E87.70 Fluid overload, unspecified; Z99.2 Dependence on renal dialysis; I25.10 Atherosclerotic heart disease of native coronary artery without angina pectoris; Z95.1 Presence of aortocoronary bypass graft; G47.33 Obstructive sleep apnea (adult) (pediatric); N40.0 Benign prostatic hyperplasia without lower urinary tract symptoms; K21.9 Gastro-esophageal reflux disease without esophagitis; Z95.810 Presence of automatic (implantable) cardiac defibrillator; Z90.49 Acquired absence of other specified parts of digestive tract; Z87.891 Personal history of nicotine dependence; I25.5 Ischemic cardiomyopathy; R63.0 Anorexia; Z68.31 Body mass index [BMI] 31.0-31.9, adult; E03.9 Hypothyroidism, unspecified; Z79.4 Long term (current) use of insulin; Z95.5 Presence of coronary angioplasty implant and graft; E11.22 Type 2 diabetes mellitus with diabetic chronic kidney disease; K64.8 Other hemorrhoids; K57.30 Diverticulosis of large intestine without perforation or abscess without bleeding; D12.2 Benign neoplasm of ascending colon; D12.4 Benign neoplasm of descending colon
CPT/HCPCS: 36415; 71046; 74176; 80048; 80053; 80069; 81001; 83036; 83605; 83690; 83735; 83880; 85025; 85610; 86705; 86706; 87070; 87075; 87081; 87205; 87340; 88104; 88108; 88305; 88342; 89051; 90945; 93005; 93306; 96365; 96375; 96376; 99285; A9270; G0378; J0131; J1815; J2270; J2405; J3475; J7040

== ENCOUNTER 2019-12-08 11:12 | Inpatient (IN) | payer MEDICARE, SELFPAY ==
[2019-12-08] VITALS (20 sets, daily range): BP systolic 115–135; BP diastolic 59–87; PULSE 65–117; RESP 14–30; TEMP 36.3–36.5; O2SAT 88–100
--- NOTE | ~2019-12-08 | XR_ITS ---
XR chest 2V 12/08/2019 12:09 Indication: Dizziness and shortness of breath Procedure: AP portable chest Comparison: Comparison to multiple prior studies sequentially, with oldest reviewed study dated 03/2019. Findings: Status post median sternotomy for CABG. Pacemaker leads are stable. Cardiomegaly with inter stitial edema. Small left pleural effusion. Impression: 1: Cardiomegaly with interstitial edema. 2: Small left pleural effusion. No significant change from 11/01/2019. Reviewed, dictated and finalized at location A. Impression: 1: Cardiomegaly with interstitial edema. 2: Small left pleural effusion. No significant change from 11/01/2019.
--- NOTE | 2019-12-08 11:15 | ECG_ITS ---
Measurements Intervals [place] Rate: 64 P: 80 UT: 245 QRS: 11 QRSD: 119 T: 141 QT: 439 QTc: 453 Interpretive Statements ELECTRONIC ATRIAL PACEMAKER ELECTRONIC VENTRICULAR PACEMAKER WITH INHIBITION FREQUENT VENTRICULAR PREMATURE COMPLEXES CONSIDER INFERIOR INFARCT, AGE INDETERMINATE BASELINE ARTIFACT- I, II, III, AVR, AVL, AVF, V3-V4, V6 NO FURTHER INTERPRETATION IS POSSIBLE ABNORMAL ECG Electronically Signed On 12-08-2019 11:23:03 CDT by Duglas Stanley D.O.
--- NOTE | 2019-12-08 11:39 | ED.SOB ---
HPI - SOB/Dyspnea General Chief Complaint: Shortness of Breath/Dyspnea Stated Complaint: Cough, sob, congestion Time Seen by Provider: 12/08/19 11:38 Source: patient Mode of arrival: ambulatory Limitations: no limitations History of Present Illness HPI Narrative: Pt is a 69 y/o male with a H/O COPD, who presents to the ED with c/o SOB for 5 days. Pt reports associated cough with phlegm and congestion. He denies a fever. Pt states that he has an old inhaler at home. He is a non-smoker. MD elicited complaint: shortness of breath Pertinent past history: COPD Onset (ago): day(s) (5) Known history of: COPD Associated symptoms: cough Related Data Home Medications Medication Instructions Recorded Confirmed ergocalciferol (vitamin D2) 50,000 unit PO [id number] 10/30/19 11/24/19 phenobarbital 15 mg PO DAILY 10/30/19 10/30/19 Lantus U-100 Insulin 30 unit SUBCUT HS 11/05/19 11/24/19 Lantus U-100 Insulin 50 unit SUBCUT QAM 11/05/19 11/24/19 hydralazine 50 mg tablet 50 mg PO .qd tablet 11/24/19 11/24/19 simvastatin 40 mg tablet 40 mg PO DAILY 11/24/19 11/24/19 Allergies Allergy/AdvReac Type Severity Reaction Status Date / Time tetanus and diphtheria Allergy Mild LOCAL Verified 11/04/19 11:22 toxoids REDNESS & SWELLING. Review of Systems Review of Systems: All systems reviewed & are unremarkable except as noted in HPI and below Constitutional: Constitutional: Denies fever(s) Respiratory: Respiratory: Reports chest congestion, Reports cough and Reports dyspnea [facility] Past Medical History Medical History Adenomatous colon polyp Anemia in chronic kidney disease Anorexia BPH (benign prostatic hyperplasia) Chronic kidney disease due to diabetes mellitus Chronic pain Chronic systolic (congestive) heart failure ESRD on peritoneal dialysis GERD (gastroesophageal reflux disease) Hypothyroidism ICD (implantable cardioverter-defibrillator) in place Ischemic cardiomyopathy Cardiac catheterization 09/11/19 shows severe to ischemic cardiomyopathy with severe global hypokinesis, EF 15%. 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 He reports no alcohol use, remote history of pipe smoking, denies other substance use. His PCP is Dr Tete Kumar. He designates his , Venecia, to be his surrogate decision maker and he is full code status. Smoking status: Former smoker Tobacco type: pipe Second hand tobacco smoke exposure: No Alcohol intake: never Substance use: never Substance use type: does not use Gender identity (if verbalized by the patient): Male Spiritual care concerns: No Agree to blood products: Yes Exam Narrative: Exam Narrative: APPEARANCE: No acute distress, nontoxic, resting in bed EYES: EOMI HEENT: Normocephalic, atraumatic, OMM RESPIRATORY: No respiratory distress wheezing the bilateral upper lung kamara decreased breath sounds in the bases CARDIOVASCULAR: Regular rate and rhythm without murmurs rubs or gallops. ABDOMINAL: Soft, nontender, nondistended, no rebound or guarding MUSCULOSKELETAl: Moves all extremities. No clubbing, cyanosis 2+ edema the bilateral lower extremities NEURO: Awake and alert. Following commands, speech normal, no focal deficits SKIN:: Warm, dry. No rashes lesions or abrasions PSYCHIATRIC: N
[2019-12-08 11:47] LABS: Basophils Percent Auto 0.3 % (0.2-1.2); Eosinophils Absolute Auto 0.1 K/mm3 (0-0.3); Eosinophils Percent Auto 0.5 % (0-4.4); Hematocrit 35.4 % (42.0-52.0); Hemoglobin 11.3 g/dL (14.0-18.0); Immature Granulocyte Absolute 0.05 K/mm3 (0.00-0.031); Immature Granulocyte Percent A 0.5 % (0-0.5); Lymphocytes Absolute Auto 0.35 K/mm3 (0.9-3.2); Lymphocytes Percent Auto 3.2 % (18.3-44.2); Mean Corpuscular HGB Conc 31.9 g/dl (32-36); Mean Corpuscular Hemoglobin 30.8 pg (26-34); Mean Corpuscular Volume 96.5 fl (80-100); Mean Platelet Volume 12.4 fl (7.4-10.4); Monocytes Absolute Auto 0.8 K/mm3 (0.1-0.6); Monocytes Percent Auto 7.6 % (2.6-8.5); Neutrophils Absolute Auto 9.5 K/mm3 (1.3-6.7); Neutrophils Percent Auto 87.9 % (45.5-73.1); Platelet Count Result 176 k/mm3 (150-375); Red Blood Count 3.67 M/mm3 (4.6-6.20); Red Cell Distribution Width 15.2 % (11.5-14.5); White Blood Count 10.8 K/mm3 (4.5-10.0)
--- NOTE | 2019-12-08 11:47 | PC.NURSE ---
Called lab to add on BNP.
[2019-12-08 11:58] LABS: Blood Urea Nitrogen 61 mg/dL (9-20); Calcium 8.2 mg/dL (8.4-10.2); Carbon Dioxide 26 mmol/L (22-30); Chloride 92 mmol/L (98-107); Estimated Glomerular Filt Rate 12; Glucose 261 mg/dL (75-110); Potassium 3.2 mmol/L (3.4-5.0); Sodium 129 mmol/L (137-145)
[2019-12-08 12:09] LABS: Hypochromasia 1+ (NORMAL); Ovalocytes 2+ (NORMAL); Platelet Estimate Adequate (Adequate); Troponin I 0.026 ng/mL (0.000-0.034)
[2019-12-08] MEDS: IPRATROPIUM BR 0.02% INH SOLN 0.5 MG/2.5 ML VIAL INHALATION ×2 (12:09→19:28)
[2019-12-08] MEDS: ALBUTEROL SULFATE NEB 2.5 MG/0.5 ML INH 5 MG INHALATION ×2 (12:09→19:28)
[2019-12-08 12:32] LABS: NT Pro B Type Natriuretic Pept > 35000 PG/ML (5-100)
--- NOTE | 2019-12-08 14:50 | ADMGEN ---
This patient, Kulwinder Morgan, was admitted to 2 Medical Room 241-. Patient/family oriented to hospital policies and general routines including ID bracelet, bed and alarms, visiting hours, pain management, procedures, bathroom and other care routines, personal items, smoking policy, room service/diet, and visiting hours. Valuables list has been completed. Information on how to activate the Rapid Response Team has been discussed. Patient/Family are encouraged to report perceived risks to care and to ask questions if they do not understand what they are told or what they should do.
[2019-12-08 16:02] LABS: Troponin I 0.026 ng/mL (0.000-0.034)
--- NOTE | 2019-12-08 16:41 | PM.CNCAR ---
Assessment and Plan Additional Plan Unfortunate 69-year-old man with a profound ischemic cardiomyopathy who also has end-stage renal failure and is presenting to the hospital with some volume overload after his furosemide was withheld for several days. Despite being on dialysis he still does produce urine and so I would attribute the current situation to the withholding of the loop diuretics. I will therefore place him on IV furosemide for the time being and I would recommend resuming the rest of his medical regimen as is outlined in the home meds. His coronary disease/severe ischemic cardiomyopathy has been completely worked up by the [facility]/Dr. Ricketts and further diagnostic workup here at [place] would be redundant. His long-term prognosis given the combination of severe ischemic cardiomyopathy and dialysis dependent renal failure is exceedingly poor Darius Daly MD [facility] History of Present Illness History of Present Illness Consult date/time: Date of service: 12/08/19 16:41 Consult reason: congestive heart failure Reason For Visit: Cough, sob, congestion Narrative: This is a pleasant but very unfortunate 69-year-old man who apparently has a well known documented history of severe ischemic cardiomyopathy and receives his care from Dr. Ricketts of the [facility]. Apparently he has a history of a profoundly depressed ejection fraction of 15% and a coronary angiogram that was done most recently in August demonstrating patency of his circumflex but occlusion of the remainder of his coronary arteries. He had a defibrillator placed after that and is followed by their practice. He presented [facility]'s emergency room earlier today because of shortness of breath which began after the decision to stop giving him Lasix several days ago. Despite the fact that he has end-stage renal disease and does peritoneal dialysis he still does make urine and was thought that he might be dehydrated and so his furosemide was placed on hold. He normally takes 80 mg b.i.d.. After stopping his furosemide he has developed more significant shortness of breath and came into the hospital emergency room. The patient surprisingly comes here even though his cardiology care is not here at [facility]. He is not having any chest pain or any other symptoms to suggest an acute coronary problem. We are seeing him at the request of the hospitalist for assistance with his evaluation and management. His baseline medical regimen consists of a moderate dose of carvedilol, hydralazine simvastatin in and furosemide as mentioned above. His laboratory data demonstrates evidence of end-stage renal disease his creatinine today is 4.9. He does not have any other complaints and is seated in bed watching television when and to the room to see him is son is at the bedside. Review of Systems Constitutional: Constitutional: Reports fatigue and Reports weakness Eyes: Eyes: Reports no additional eye complaints ENT: Reports system reviewed and no additional complaints, except as documented Cardiovascular: Cardiovascular: Reports as per HPI and Reports pedal edema Respiratory: Respiratory: Reports cough and Reports dyspnea Gastrointestinal: Gastrointestinal: Reports no additional gastrointestinal complaints Musculoskeletal: Musculoskeletal: Reports no additional musculoskeletal complaints Integumentary/Breasts: Skin/Breast: Reports system reviewed and no additional complaints, except as docu Neurologic: Reports system reviewed and no additional complaints, except as documented Psychiatric: Psychiatric: Reports no additional psychiatric complaints Hematologic/Lymphatic: Hematologic/Lymphatic: Reports no additional hematologic/lymphatic complaints [facility] Past Medical History Medical History Adenomatous colon polyp Anemia in chronic kidney disease Anorexia BPH (b
--- NOTE | 2019-12-08 17:20 | PM.IMHP ---
H&P: HPI History of Present Illness Chief complaint: Shortness of breath and cough. Narrative: Kulwinder Morgan is an unfortunate 69-year-old male with ischemic cardiomyopathy with the reported ejection fraction of 15%, end-stage renal disease on peritoneal dialysis, sleep apnea, type 2 diabetes, and several other comorbidities who presented to the emergency department earlier today with complaints of shortness of breath and cough. He was recently admitted to the hospital October 31 through November 05, 2019 with abdominal pain. Upper endoscopy showed gastritis for which he was started on PPI. Dialysate was reportedly pink tinged, and was sent for culture which was reportedly negative. He also seemed to be volume overloaded, and was diuresed however his blood pressures did become soft and thus his daily dose of Lasix was decreased on discharge. He has since been off of Lasix due to ongoing hypotension. It should be noted that the patient does still urinate. In any event, over the past 5 days he has become progressively more short of breath with a cough that is occasionally productive of white phlegm as well as orthopnea. Chest x-ray today shows interstitial edema and he has pretty significant jugular venous distension, and thus he is being admitted for volume overload and diuresis. He has not had fever, chills, or sweats. And denies history of COPD, however it is documented in the chart that he has a history of such. No fever, chills, or sweats. He has not had lower extremity edema. No chest pain, palpitations, pleuritic pain, or racing heart. Appetite has been somewhat decreased but he denies nausea and vomiting. Review of Systems Review of Systems: Narrative: Twelve systems were reviewed with pertinent positives and negatives as per HPI. Except as documented, all other systems were reviewed and are negative. [facility] Past Medical History Medical History (Updated 12/08/19 @ 21:24 by Shannan Martin PA-C) Adenomatous colon polyp Anemia in chronic kidney disease Anorexia BPH (benign prostatic hyperplasia) Chronic kidney disease due to diabetes mellitus Chronic pain Chronic systolic (congestive) heart failure ESRD on peritoneal dialysis GERD (gastroesophageal reflux disease) Hypothyroidism ICD (implantable cardioverter-defibrillator) in place Ischemic cardiomyopathy Cardiac catheterization 09/11/19 shows severe to ischemic cardiomyopathy with severe global hypokinesis, EF 15%. Obstructive sleep apnea Peritoneal dialysis catheter in place Type 2 diabetes mellitus Hemoglobin A1c was 8.6 % on 11/01/2019. Surgical History Surgical History History of implantable cardioverter-defibrillator (ICD) placement 10/06/[address] Gumaro Ricketts History of orthopedic surgery Reports a surgery to Left elbow tendon 2012 and knee surgery at age 16yo Hx of cholecystectomy 2016 S/P CABG (coronary artery bypass graft) 2003 with angioplasty in 2013 Family History Family History Father Family history of cardiomyopathy, Onset Age: 83 Patient's father is Family history of coronary artery disease Grandparent Diabetes mellitus Mother Lupus Other Family history of cardiovascular disease Social History Social History Social History: 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 He reports no alcohol use, remote history of pipe smoking, denies other substance use. His PCP is Dr Tete Kumar. He designates his , Venecia, to be his surrogate decision maker and he is full code status. Smoking status: Never smoker Tobacco type: pipe Second hand tobacco smoke exposure: No Alcohol intake: never Substance use: never Substance use type: does not use Gender identity (if
[2019-12-08] MEDS: FUROSEMIDE INJ 100 MG/10 ML VIAL 80 MG IV PUSH (17:38)
[2019-12-08] MEDS: INSULIN ASPART (*BKC) 100 UNITS/ML SUB-Q (17:45)
--- NOTE | 2019-12-08 18:15 | PC.NURSE ---
On 12/08/19, the prabhu, [OTONIEL Fernández], provided care and completed [facility] on [facility]. I have reviewed her documentation and agree with the findings.
[2019-12-08 19:48] LABS: Troponin I 0.024 ng/mL (0.000-0.034)
[2019-12-08 22:23] LABS: Magnesium 1.9 mg/dL (1.6-2.3); Potassium 3.3 mmol/L (3.4-5.0)
[2019-12-08 23:00] LABS: Glucose Point of Care 206 (65-105)
[2019-12-08] MEDS: carvediloL 12.5 MG TABLET PO (23:07)
[2019-12-08] MEDS: AMITRIPTYLINE HCL 10 MG TABLET 20 MG PO (23:09)
[2019-12-08] MEDS: SUCRALFATE 1 GM TABLET PO (23:09)
[2019-12-08] MEDS: DICYCLOMINE HCL 10 MG CAPSULE PO (23:10)
[2019-12-08] MEDS: SIMVASTATIN 20 MG TABLET 40 MG PO (23:11)
[2019-12-08] MEDS: PANTOPRAZOLE 40 MG TABLET PO (23:11)
[2019-12-08] MEDS: INSULIN GLARGINE (*BKC) 100 UNITS/ML 30 UNITS SUB-Q (23:19)
[2019-12-09] VITALS (14 sets, daily range): BP systolic 102–139; BP diastolic 59–98; PULSE 57–90; RESP 18–24; TEMP 36.1–36.2; O2SAT 93–97
[2019-12-09] MEDS: ALBUTEROL SULFATE NEB 2.5 MG/0.5 ML INH 5 MG INHALATION ×4 (02:14→20:05)
[2019-12-09] MEDS: IPRATROPIUM BR 0.02% INH SOLN 0.5 MG/2.5 ML VIAL INHALATION ×4 (02:14→20:11)
[2019-12-09 05:08] LABS: Basophils Percent Auto 0.3 % (0.2-1.2); Eosinophils Absolute Auto 0.1 K/mm3 (0-0.3); Eosinophils Percent Auto 0.5 % (0-4.4); Hematocrit 34.2 % (42.0-52.0); Hemoglobin 10.8 g/dL (14.0-18.0); Immature Granulocyte Absolute 0.05 K/mm3 (0.00-0.031); Immature Granulocyte Percent A 0.5 % (0-0.5); Lymphocytes Absolute Auto 0.42 K/mm3 (0.9-3.2); Lymphocytes Percent Auto 3.8 % (18.3-44.2); Mean Corpuscular HGB Conc 31.6 g/dl (32-36); Mean Corpuscular Hemoglobin 30.4 pg (26-34); Mean Corpuscular Volume 96.3 fl (80-100); Mean Platelet Volume 12.1 fl (7.4-10.4); Monocytes Absolute Auto 0.9 K/mm3 (0.1-0.6); Monocytes Percent Auto 8.5 % (2.6-8.5); Neutrophils Absolute Auto 9.5 K/mm3 (1.3-6.7); Neutrophils Percent Auto 86.4 % (45.5-73.1); Platelet Count Result 165 k/mm3 (150-375); Red Blood Count 3.55 M/mm3 (4.6-6.20); Red Cell Distribution Width 15.2 % (11.5-14.5)
[2019-12-09 05:24] LABS: Blood Urea Nitrogen 69 mg/dL (9-20); Calcium 8.4 mg/dL (8.4-10.2); Carbon Dioxide 24 mmol/L (22-30); Chloride 93 mmol/L (98-107); Estimated Glomerular Filt Rate 11; Glucose 181 mg/dL (75-110); Magnesium 1.9 mg/dL (1.6-2.3); Phosphorus 5.1 mg/dL (2.5-4.5); Potassium 3.3 mmol/L (3.4-5.0); Sodium 128 mmol/L (137-145)
[2019-12-09] MEDS: LEVOTHYROXINE SODIUM 88 MCG TABLET PO (05:44)
[2019-12-09] MEDS: FUROSEMIDE INJ 100 MG/10 ML VIAL 80 MG IV PUSH ×2 (08:37→16:46)
[2019-12-09] MEDS: TAMSULOSIN HCL 0.4 MG CAPSULE PO (08:37)
[2019-12-09] MEDS: METOCLOPRAMIDE HCL 10 MG TABLET PO (08:37)
[2019-12-09] MEDS: SUCRALFATE 1 GM TABLET PO ×2 (08:37→16:45)
[2019-12-09] MEDS: carvediloL 12.5 MG TABLET PO ×2 (08:37→21:13)
[2019-12-09] MEDS: PANTOPRAZOLE 40 MG TABLET PO ×2 (08:37→21:12)
[2019-12-09] MEDS: DICYCLOMINE HCL 10 MG CAPSULE PO ×2 (08:37→16:44)
[2019-12-09] MEDS: POTASSIUM CHLORIDE 20 MEQ TABLET.ER PO (08:38)
[2019-12-09] MEDS: INSULIN GLARGINE (*BKC) 100 UNITS/ML 50 UNITS SUB-Q (08:42)
[2019-12-09 09:11] LABS: Glucose Point of Care 172 (65-105)
--- NOTE | 2019-12-09 09:19 | PC.NURSE ---
0912- Dr. Lemus notified of patient not receiving peritoneal dialysis last night. He will follow up on that.
[2019-12-09 10:06] LABS: Glucose Point of Care 241 (65-105)
[2019-12-09 10:10] LABS: Free T4 Free Thyroxine Reflex 1.44 ng/dL (0.78-2.19)
--- NOTE | 2019-12-09 10:17 | P.CONNP_ITS ---
Assessment and Plan Assessment and plan (1) End stage renal disease: Code(s): N18.6 - End stage renal disease Status: Chronic Assessment and Plan: * continue CCPD overnight while hospitalized * continue efforts to maintain stability in electrolytes, volume status, and clearance (2) Volume overload: Qualifiers: Hypervolemia type: unspecified Qualified Code(s): E87.70 - Fluid overload, unspecified Code(s): E87.70 - Fluid overload, unspecified Status: Acute Assessment and Plan: * as noted by exam and CXR findings * aggressive ultrafiltration with peritoneal dialysis * follow volume status (3) Hyponatremia: Code(s): E87.1 - Hypo-osmolality and hyponatremia Status: Acute Assessment and Plan: * related to kidney disease and volume overload * should improve to some degree with fluid removal * follow trend (4) Hypokalemia: Code(s): E87.6 - Hypokalemia Status: Acute Assessment and Plan: * possibly form decreased oral intake * replete as needed * follow closely given use of diuretics (5) Ischemic cardiomyopathy: Code(s): I25.5 - Ischemic cardiomyopathy Status: Chronic Assessment and Plan: * from my recollection, repeat Echo from primary avionics systems repairer demonstrated some improvement * continue medical management * Cardiology following (6) Gastritis: Qualifiers: Chronicity: unspecified Gastritis bleeding: without bleeding Gastritis type: unspecified gastritis Qualified Code(s): K29.70 - Gastritis, unspecified, without bleeding Code(s): K29.70 - Gastritis, unspecified, without bleeding Status: Acute Assessment and Plan: * chronic issue * on PPI and sulcrafate (7) Type 2 diabetes mellitus: Qualifiers: Chronic kidney disease stage: on chronic dialysis Diabetes mellitus complication detail: with chronic kidney disease Diabetes mellitus complication status: with kidney complications Diabetes mellitus longterm insulin use: with longterm use Qualified Code(s): E11.22 - Type 2 diabetes mellitus with diabetic chronic kidney disease; N18.6 - End stage renal disease; Z79.4 - termite control servicer (current) use of insulin; Z99.2 - Dependence on renal dialysis Code(s): E11.9 - Type 2 diabetes mellitus without complications Status: Chronic Assessment and Plan: * follow accuchecks * on Lantus I will continue to follow the patient with you while remains hospitalized and make further recommendations during his hospital course. Thank you for allowing me to participate in the care of this patient. History of Present Illness Reason for Consult Consult date: 12/09/19 Reason for consult: end stage renal disease Chief Complaint Chief complaint: AE COPD,CHF,L Pleural effusion, Renal Insufficiecy History of Present Illness Narrative: The patient is a 69-year-old male with a past medical history as outlined below who presented to the [facility] emergency room earlier today with complaints of shortness of breath and cough. Over the last five days, he has noted that he has become progressively more short of breath with a cough that is occasionally productive of white phlegm associated with orthopnea. He denies any fever, chills, or diaphoresis. He reports no lower extremity edema, chest pain, palpitations, pleuritic pain, or paplitations. Appetite has been somewhat decreased but he denies nausea and vomiting. Work up and evaluation in the emergency room demonstrated the patien
--- NOTE | 2019-12-09 10:17 | PM.CNNEP ---
Assessment and Plan Assessment and plan (1) End stage renal disease: Code(s): N18.6 - End stage renal disease Status: Chronic Assessment and Plan: continue CCPD overnight while hospitalized continue efforts to maintain stability in electrolytes, volume status, and clearance (2) Volume overload: Qualifiers: Hypervolemia type: unspecified Qualified Code(s): E87.70 - Fluid overload, unspecified Code(s): E87.70 - Fluid overload, unspecified Status: Acute Assessment and Plan: as noted by exam and CXR findings aggressive ultrafiltration with peritoneal dialysis follow volume status (3) Hyponatremia: Code(s): E87.1 - Hypo-osmolality and hyponatremia Status: Acute Assessment and Plan: related to kidney disease and volume overload should improve to some degree with fluid removal follow trend (4) Hypokalemia: Code(s): E87.6 - Hypokalemia Status: Acute Assessment and Plan: possibly form decreased oral intake replete as needed follow closely given use of diuretics (5) Ischemic cardiomyopathy: Code(s): I25.5 - Ischemic cardiomyopathy Status: Chronic Assessment and Plan: from my recollection, repeat Echo from primary pipe chipper demonstrated some improvement continue medical management Cardiology following (6) Gastritis: Qualifiers: Chronicity: unspecified Gastritis bleeding: without bleeding Gastritis type: unspecified gastritis Qualified Code(s): K29.70 - Gastritis, unspecified, without bleeding Code(s): K29.70 - Gastritis, unspecified, without bleeding Status: Acute Assessment and Plan: chronic issue on PPI and sulcrafate (7) Type 2 diabetes mellitus: Qualifiers: Chronic kidney disease stage: on chronic dialysis Diabetes mellitus complication detail: with chronic kidney disease Diabetes mellitus complication status: with kidney complications Diabetes mellitus oil heaterman insulin use: with oil heaterman use Qualified Code(s): E11.22 - Type 2 diabetes mellitus with diabetic chronic kidney disease; N18.6 - End stage renal disease; Z79.4 - intermediate accountant (current) use of insulin; Z99.2 - Dependence on renal dialysis Code(s): E11.9 - Type 2 diabetes mellitus without complications Status: Chronic Assessment and Plan: follow accuchecks on Lantus I will continue to follow the patient with you while remains hospitalized and make further recommendations during his hospital course. Thank you for allowing me to participate in the care of this patient. History of Present Illness Reason for Consult Consult date: 12/09/19 Reason for consult: end stage renal disease Chief Complaint Chief complaint: AE COPD,CHF,L Pleural effusion, Renal Insufficiecy History of Present Illness Narrative: The patient is a 69-year-old male with a past medical history as outlined below who presented to the [facility] emergency room earlier today with complaints of shortness of breath and cough. Over the last five days, he has noted that he has become progressively more short of breath with a cough that is occasionally productive of white phlegm associated with orthopnea. He denies any fever, chills, or diaphoresis. He reports no lower extremity edema, chest pain, palpitations, pleuritic pain, or paplitations. Appetite has been somewhat decreased but he denies nausea and vomiting. Work up and evaluation in the emergency room demonstrated the patient to be hemodynamically stable but a chest x-ray showed interstitial edema as well as significant jugular venous distension. Routine labs were consistent with his known history of end stage renal disease. He was subsequently admitted to the hospital for further evaluation and therapy. Renal consultation was requested due to his end-stage renal disease. The patient is quite familiar to me, as I take care of hi
--- NOTE | 2019-12-09 10:20 | PM.PNCARD ---
Progress Note: A&P Assessment and Plan (1) Ischemic cardiomyopathy: Code(s): I25.5 - Ischemic cardiomyopathy Status: Chronic Assessment and Plan: Volume overload due to his furosemide being held for several days. Head of bed is fairly flat. He is on room air oxygen. Feeling better this morning. Still has an annoying cough. Continue IV furosemide for at least today. Will order some cough drops that he may use as desired. Continue carvedilol and simvastatin. ICD in place. Follows with Dr. Cole at [facility]. (2) End stage renal disease: Code(s): N18.6 - End stage renal disease Status: Chronic Assessment and Plan: Management per Dr. Lemus Additional Plan DC telemetry. His long-term prognosis given the combination of severe ischemic cardiomyopathy and dialysis dependent renal failure is exceedingly poor Plan discussed with Dr Sigala 1045 12/09/2019 Subjective Date/time seen: 12/09/19 10:20 Interval history: Follow up for: volume overload, ischemic cardiomyopathy, end-stage renal failure on peritoneal dialysis Date of service: 12/09/2019 Subjective: Shortness of breath slightly improved.. Continues to have cough. No chest pain. No palpitations. Lightheaded with cough. Review of Systems Constitutional: Constitutional: Reports fatigue Eyes: Eyes: Reports no additional eye complaints Cardiovascular: Cardiovascular: Denies chest pain with activity, Reports pedal edema, Denies palpitations and Reports dyspnea (Improving) Respiratory: Respiratory: Reports cough (Very little production) and Reports dyspnea (Improving) Gastrointestinal: Gastrointestinal: Denies abdominal pain, Denies nausea and Denies vomiting Genitourinary: Genitourinary: Denies hematuria Musculoskeletal: Musculoskeletal: Denies arthralgias Integumentary/Breasts: Skin/Breast: Denies erythema and Denies rash Neurologic: Reports weakness Psychiatric: Psychiatric: Denies anxiety Endocrine: Endocrine: Reports fatigue Hematologic/Lymphatic: Hematologic/Lymphatic: Denies easy bleeding and Denies easy bruising Exam Const: General: cooperative and comfortable Orientation/consciousness: patient oriented x3 HENMT: Head: normal to inspection and atraumatic Ears: hearing grossly normal bilaterally General nose exam: Normal external nose present Mouth: Yes dry mucous membranes Eyes: Sclera: sclerae normal Neck: Neck: supple Resp: Effort & Inspection: normal respiratory effort, able to speak in complete sentences and Actively coughing Auscultation: diminished lung sounds bilateral in the lower lung kamara Cardio: Rate: regular rate Rhythm: regular rhythm Heart sounds: Murmur heart sound present systolic at the apex GI: Inspection: normal to inspection Auscultation: normal bowel sounds Skin: General skin exam: normal color Neuro: Cranial nerves: Yes Equal, round and reactive pupils present Cognition (Neuro): normal cognition Extrem: Other: Mild bipedal edema Objective Data Vital Signs Vital Signs: Vital Signs - 24 hr 12/08/19 11:44 12/08/19 11:47 12/08/19 11:58 Temperature 36.5 C Pulse Rate 65 65 75 Respiratory Rate 18 14 Blood Pressure 135/72 Pulse Oximetry 94 94 98 12/08/19 12:09 12/08/19 12:10 12/08/19 12:17 Temperature Pulse Rate 77 75 Respiratory Rate 20 30 H Blood Pressure 133/72 115/66 Pulse Oximetry 96 100 100 12/08/19 12:25 12/08/19 12:31 12/08/19 12:50 Temperature Pulse Rate Respiratory Rate Blood Pressure Pulse Oximetry 88 L 96 95 12/08/19 13:00 12/08/19 13:20 12/08/19 13:30 Temperature Pulse Rate 76 88 Respiratory Rate 20 16 Blood Pressure Pulse Oximetry 98 92 97 12/08/19 14:10 12/08/19 15:00 12/08/19 16:00 Temperature 36.4 C Pulse Rate 78 75 72 Respiratory Rate 20 20 Blood Pressure 116/77 123/59 L Pulse Oximetry 96 98 12/08/19 19:29 12/08/19 19:38 12/08/19 20:00 Temperature
[2019-12-09 10:51] LABS: Total Triiodothyronine (T3) 0.72 NG/ML (0.97-1.69)
[2019-12-09] MEDS: BENZOCAINE/MENTHOL (*BKC) 18 EA LOZENGE 1 LOZENGE PO ×2 (11:46→21:44)
[2019-12-09] MEDS: INSULIN ASPART (*BKC) 100 UNITS/ML SUB-Q (12:03)
[2019-12-09 13:24] LABS: Glucose Point of Care 207 (65-105)
--- NOTE | 2019-12-09 15:59 | PM.IMPN ---
Progress Note: A&P Assessment and Plan (1) Volume overload: Qualifiers: Hypervolemia type: unspecified Qualified Code(s): E87.70 - Fluid overload, unspecified Code(s): E87.70 - Fluid overload, unspecified Status: Acute Assessment and Plan: Likely result of being off Lasix. Nephrology and cardiology consulted. Back on IV Lasix at this time. Will continue to monitor. (2) Bacteremia: Code(s): R78.81 - Bacteremia Status: Acute Assessment and Plan: Blood cultures drawn on admission due to protocol as result of peritoneal dialysis. 2 of 2 blood cultures now positive for gram-negative bacilli. Will start IV ceftriaxone while awaiting results. (3) ESRD on peritoneal dialysis: Code(s): N18.6 - End stage renal disease; Z99.2 - Dependence on renal dialysis Status: Chronic Assessment and Plan: Nephrology consulted and appreciate input. Did not receive peritoneal dialysis last night but will receive today. Will continue to monitor. (4) Ischemic cardiomyopathy: Code(s): I25.5 - Ischemic cardiomyopathy Status: Chronic Assessment and Plan: Appreciate help Cardiology here. Regularly followed by Dr. Ricketts with [facility]. EF reported to be low at 15%. ICD is in place. Discussed with Cardiology earlier today with telemetry discontinued. Remains on IV Lasix as noted above. (5) Type 2 diabetes mellitus: Qualifiers: Chronic kidney disease stage: on chronic dialysis Diabetes mellitus complication detail: with chronic kidney disease Diabetes mellitus complication status: with kidney complications Diabetes mellitus correction insulin use: with superintendent terminal use Qualified Code(s): E11.22 - Type 2 diabetes mellitus with diabetic chronic kidney disease; N18.6 - End stage renal disease; Z79.4 - superintendent terminal (current) use of insulin; Z99.2 - Dependence on renal dialysis Code(s): E11.9 - Type 2 diabetes mellitus without complications Status: Chronic Assessment and Plan: Glucose reviewed on 12/09/2019 and acceptable. Will continue Lantus. Sliding scale insulin also available. Continue to monitor. (6) Gastritis: Qualifiers: Chronicity: unspecified Gastritis bleeding: without bleeding Gastritis type: unspecified gastritis Qualified Code(s): K29.70 - Gastritis, unspecified, without bleeding Code(s): K29.70 - Gastritis, unspecified, without bleeding Status: Acute Assessment and Plan: Noted on recent EGD. Will continue Protonix and sucralfate. Will monitor. (7) Obstructive sleep apnea: Code(s): G47.33 - Obstructive sleep apnea (adult) (pediatric) Status: Chronic Assessment and Plan: Known to be intolerant to CPAP. Patient aware risk of not treating sleep apnea. Will monitor clinically. (8) Hypothyroidism: Qualifiers: Hypothyroidism type: unspecified Qualified Code(s): E03.9 - Hypothyroidism, unspecified Code(s): E03.9 - Hypothyroidism, unspecified Status: Chronic Assessment and Plan: Thyroid studies within normal range. Will continue current levothyroxine. (9) BPH (benign prostatic hyperplasia): Qualifiers: Lower urinary tract symptom presence: symptoms absent Qualified Code(s): N40.0 - Benign prostatic hyperplasia without lower urinary tract symptoms Code(s): N40.0 - Benign prostatic hyperplasia without lower urinary tract symptoms Status: Chronic Assessment and Plan: Stable. Continue tamsulosin. (10) DVT prophylaxis: Code(s): Z29.9 - Encounter for prophylactic measures, unspecified Status: Acute Assessment and Plan: SCDs. Time Spent With Patient Time with patient: 15 - 25 minutes Subjective Date/time seen: 12/09/19 15:59 Interval history: Date of Service: 12/09/2019. Admitted with shortness of breath and cough felt to be volume overload. Known end-stage
--- NOTE | 2019-12-09 18:58 | PC.NURSE ---
On 12/09/19, the Jolene pelletier RN, provided care and completed [facility] documentation on this patient. I have reviewed her documentation and agree with the findings.
[2019-12-09 19:31] LABS: Glucose Point of Care 82 (65-105)
[2019-12-09] MEDS: AMITRIPTYLINE HCL 10 MG TABLET 20 MG PO (21:12)
[2019-12-09] MEDS: SIMVASTATIN 20 MG TABLET 40 MG PO (21:13)
[2019-12-09 21:43] LABS: Glucose Point of Care 92 (65-105)
[2019-12-09 21:56] LABS: Hepatitis B Surface Antigen Negative (Negative)
[2019-12-09 23:01] LABS: Hepatitis B Surface Anti Res Positive
[2019-12-10] VITALS (13 sets, daily range): BP systolic 107–121; BP diastolic 65–81; PULSE 65–98; RESP 18–28; TEMP 36.1–37.2; O2SAT 96–97
[2019-12-10] MEDS: ALBUTEROL SULFATE NEB 2.5 MG/0.5 ML INH 5 MG INHALATION ×5 (02:40→19:23)
[2019-12-10] MEDS: IPRATROPIUM BR 0.02% INH SOLN 0.5 MG/2.5 ML VIAL INHALATION ×5 (02:47→19:23)
[2019-12-10] MEDS: BENZOCAINE/MENTHOL (*BKC) 18 EA LOZENGE 1 LOZENGE PO ×3 (03:59→22:27)
[2019-12-10 05:36] LABS: Hematocrit 33.5 % (42.0-52.0); Hemoglobin 10.7 g/dL (14.0-18.0); Mean Corpuscular HGB Conc 31.9 g/dl (32-36); Mean Corpuscular Hemoglobin 30.8 pg (26-34); Mean Corpuscular Volume 96.5 fl (80-100); Mean Platelet Volume 12.5 fl (7.4-10.4); Platelet Count Result 152 k/mm3 (150-375); Red Blood Count 3.47 M/mm3 (4.6-6.20); Red Cell Distribution Width 15.3 % (11.5-14.5); White Blood Count 9.5 K/mm3 (4.5-10.0)
[2019-12-10] MEDS: LEVOTHYROXINE SODIUM 88 MCG TABLET PO (05:51)
[2019-12-10 06:18] LABS: Blood Urea Nitrogen 65 mg/dL (9-20); Calcium 8.3 mg/dL (8.4-10.2); Carbon Dioxide 23 mmol/L (22-30); Chloride 94 mmol/L (98-107); Estimated Glomerular Filt Rate 11; Glucose 165 mg/dL (75-110); Potassium 2.8 mmol/L (3.4-5.0); Sodium 128 mmol/L (137-145)
[2019-12-10 07:50] LABS: Glucose Point of Care 134 (65-105)
[2019-12-10] MEDS: POTASSIUM CHLORIDE 20 MEQ TABLET.ER 40 MEQ PO (09:06)
[2019-12-10] MEDS: carvediloL 12.5 MG TABLET PO ×2 (09:06→20:41)
[2019-12-10] MEDS: DICYCLOMINE HCL 10 MG CAPSULE PO ×2 (09:07→17:06)
[2019-12-10] MEDS: TAMSULOSIN HCL 0.4 MG CAPSULE PO (09:07)
[2019-12-10] MEDS: SUCRALFATE 1 GM TABLET PO ×2 (09:07→17:06)
[2019-12-10] MEDS: PANTOPRAZOLE 40 MG TABLET PO ×2 (09:07→20:40)
[2019-12-10] MEDS: METOCLOPRAMIDE HCL 10 MG TABLET PO (09:07)
[2019-12-10] MEDS: INSULIN GLARGINE (*BKC) 100 UNITS/ML 50 UNITS SUB-Q (09:11)
[2019-12-10] MEDS: FUROSEMIDE INJ 100 MG/10 ML VIAL 80 MG IV PUSH (09:13)
--- NOTE | 2019-12-10 12:00 | PM.PNCARD ---
Progress Note: A&P Additional Plan 69-year-old gentleman with significant ischemic cardiomyopathy as well as renal failure. His state of volume overload appears to have been essentially resolved. He has essentially clear breath sounds and is oxygenating well. There is no ongoing cardiac recent further hospitalization according to the chart he does have sub positive cultures for g negatives that may prolong this. He does have chronic ongoing follow-up with Dr. Ricketts from [facility]. I will go ahead and sign off of his case for that reason today there is no ongoing need for our service to continue to round on him here at [facility] from what I can see Subjective Date/time seen: Date of service: 12/10/19 12:00 Interval history: Follow-up visit for 69-year-old gentleman with complex situation including significant ischemic cardiomyopathy as well as end-stage renal disease on peritoneal dialysis. Patient was admitted with volume overload following outpatient discontinuance of diuretics. Patient is sitting comfortably in bed watching television he does finished his peritoneal dialysis treatment and it appears to be comfortable. Exam Const: General: comfortable and no acute distress HENMT: Mouth: Yes moist mucous membranes Eyes: Sclera: sclerae normal Pupils: Equal, round and reactive pupils present Neck: Neck: supple and no JVD Thyroid: thyroid normal Resp: Effort & Inspection: normal respiratory effort Auscultation: clear to auscultation bilaterally Cardio: Rate: regular rate Rhythm: regular rhythm Other: PMI difficult to palpate because of patient's obesity GI: Auscultation: normal bowel sounds Skin: General skin exam: normal color Neuro: Cognition (Neuro): normal cognition Extrem: Other: No significant peripheral edema Objective Data Vital Signs Vital Signs: Vital Signs - 24 hr 12/09/19 14:00 12/09/19 15:01 12/09/19 15:08 Temperature 36.1 C L Pulse Rate 89 73 68 Respiratory Rate 20 20 18 Blood Pressure 139/98 H Pulse Oximetry 93 12/09/19 20:05 12/09/19 20:13 12/09/19 21:13 Temperature Pulse Rate 72 72 69 Respiratory Rate 20 20 Blood Pressure Pulse Oximetry 12/09/19 22:00 12/10/19 02:40 12/10/19 02:49 Temperature 36.2 C L Pulse Rate 69 71 70 Respiratory Rate 24 H 20 20 Blood Pressure 102/59 L Pulse Oximetry 97 12/10/19 06:00 12/10/19 08:00 12/10/19 09:32 Temperature 36.2 C L Pulse Rate 98 68 65 Respiratory Rate 24 H 18 18 Blood Pressure 107/78 Pulse Oximetry 97 97 12/10/19 09:39 Temperature Pulse Rate 68 Respiratory Rate 18 Blood Pressure Pulse Oximetry Intake/Output Intake/Output: Intake & Output 12/07/19 12/08/19 12/09/19 12/10/19 23:59 23:59 23:59 23:59 Intake Total 240 1390 660 Output Total 100 300 Balance 140 1090 660 Meds/Results Medications: Active Medications Generic Name Dose Route Start Last Admin Trade Name Freq PRN Reason Stop Dose Admin Hydrocodone Bitart/Acetaminophen 1 tab 12/08/19 21:37 12/10/19 11:36 [place] 5-325 Mg PO 1 tab Q4H PRN Administration PAIN RATED 4-6 Albuterol 5 mg 12/08/19 14:00 12/10/19 09:30 Albuterol Sulf Neb 2.5mg/0.5ml INHALATION 5 mg Q6HRT HIWOT Administration Amitriptyline HCl 20 mg 12/08/19 21:45 12/09/19 21:12 Elavil PO 20 mg HS HIWOT Administration Benzocaine 1 lozenge 12/09/19 10:38 12/10/19 03:59 Chloraseptic Lozenge PO 1 lozenge PRN PRN Administration Sore Throat Carvedilol 12.5 mg 12/08/19 21:40 12/10/19 09:06 Coreg PO 12.5 mg Q12HR HIWOT Administration Dextrose 12.5 gm 12/08/19 16:35 Dextrose 50% Syringe IV PUSH PRN PRN Hypoglycemia Protocol Dicyclomine HCl 10 mg 12/08/19 21:45 12/10/19 09:07 Bentyl Capsule PO 10 mg BID HIWOT Administration Ergocalciferol 50,000 unit 12/13/19 09:00 Drisdol PO WEEKLY HIWOT Furosemide 80 mg 12/08/19 17:00
[2019-12-10 12:07] LABS: Glucose Point of Care 176 (65-105)
--- NOTE | 2019-12-10 15:54 | PM.IMPN ---
Progress Note: A&P Assessment and Plan (1) Volume overload: Qualifiers: Hypervolemia type: unspecified Qualified Code(s): E87.70 - Fluid overload, unspecified Code(s): E87.70 - Fluid overload, unspecified Status: Acute Assessment and Plan: Likely result of being off Lasix. Nephrology and cardiology consulted and appreciate input from both. Has improved with resuming Lasix. Will transition from IV Lasix to oral Lasix tonight. (2) Hypokalemia: Code(s): E87.6 - Hypokalemia Status: Acute Assessment and Plan: Potassium 2.8 this morning with oral replacement given. Repeat potassium 3.4 this afternoon. Will give additional replacement. Recheck in a.m.. (3) Bacteremia: Code(s): R78.81 - Bacteremia Status: Acute Assessment and Plan: Blood cultures drawn on admission due to protocol as result of peritoneal dialysis. 2 of 2 blood cultures now positive for E coli. Will continue IV ceftriaxone while awaiting final results. Will need to have appropriate treatment of bacteremia prior to being able to discharge. (4) ESRD on peritoneal dialysis: Code(s): N18.6 - End stage renal disease; Z99.2 - Dependence on renal dialysis Status: Chronic Assessment and Plan: Nephrology consulted and appreciate input. Continue peritoneal dialysis as directed by Nephrology. (5) Ischemic cardiomyopathy: Code(s): I25.5 - Ischemic cardiomyopathy Status: Chronic Assessment and Plan: Appreciate help from Cardiology here. Regularly followed by Dr. Ricketts with [facility]. EF reported to be low at 15%. ICD is in place. Transitioning from IV Lasix to oral Lasix tonight as noted above. Will monitor. (6) Type 2 diabetes mellitus: Qualifiers: Chronic kidney disease stage: on chronic dialysis Diabetes mellitus complication detail: with chronic kidney disease Diabetes mellitus complication status: with kidney complications Diabetes mellitus buttermaker insulin use: with buttermaker use Qualified Code(s): E11.22 - Type 2 diabetes mellitus with diabetic chronic kidney disease; N18.6 - End stage renal disease; Z79.4 - halfway (current) use of insulin; Z99.2 - Dependence on renal dialysis Code(s): E11.9 - Type 2 diabetes mellitus without complications Status: Chronic Assessment and Plan: Glucose reviewed on 12/10/2019 with acceptable control. Will continue Lantus. Sliding scale insulin also available. Continue to monitor. (7) Gastritis: Qualifiers: Chronicity: unspecified Gastritis bleeding: without bleeding Gastritis type: unspecified gastritis Qualified Code(s): K29.70 - Gastritis, unspecified, without bleeding Code(s): K29.70 - Gastritis, unspecified, without bleeding Status: Acute Assessment and Plan: Noted on recent EGD. Stable. Will continue Protonix and sucralfate. Will monitor. (8) Obstructive sleep apnea: Code(s): G47.33 - Obstructive sleep apnea (adult) (pediatric) Status: Chronic Assessment and Plan: Known to be intolerant to CPAP. Patient aware risk of not treating sleep apnea. Will continue to monitor clinically. (9) Hypothyroidism: Qualifiers: Hypothyroidism type: unspecified Qualified Code(s): E03.9 - Hypothyroidism, unspecified Code(s): E03.9 - Hypothyroidism, unspecified Status: Chronic Assessment and Plan: Thyroid studies within normal range. Will continue current levothyroxine. (10) BPH (benign prostatic hyperplasia): Qualifiers: Lower urinary tract symptom presence: symptoms absent Qualified Code(s): N40.0 - Benign prostatic hyperplasia without lower urinary tract symptoms Code(s): N40.0 - Benign prostatic hyperplasia without lower urinary tract symptoms Status: Chronic Assessment and Plan: Stable. Continue tamsulosin. (11) DVT prophylaxis: Code(s):
[2019-12-10 16:16] LABS: Glucose Point of Care 149 (65-105)
[2019-12-10 16:31] LABS: Potassium 3.4 mmol/L (3.4-5.0)
[2019-12-10] MEDS: FUROSEMIDE 80 MG TABLET PO (17:06)
--- NOTE | 2019-12-10 17:25 | P.PNNP_ITS ---
Progress Note: A&P Assessment and Plan (1) End stage renal disease: Code(s): N18.6 - End stage renal disease Status: Chronic Assessment and Plan: * continue CCPD overnight while hospitalized * continue efforts to maintain stability in electrolytes, volume status, and clearance (2) Volume overload: Qualifiers: Hypervolemia type: unspecified Qualified Code(s): E87.70 - Fluid overload, unspecified Code(s): E87.70 - Fluid overload, unspecified Status: Acute Assessment and Plan: * as noted by exam and CXR findings * aggressive ultrafiltration with peritoneal dialysis * follow volume status (3) Hyponatremia: Code(s): E87.1 - Hypo-osmolality and hyponatremia Status: Acute Assessment and Plan: * related to kidney disease and volume overload * should improve to some degree with fluid removal * follow trend (4) Hypokalemia: Code(s): E87.6 - Hypokalemia Status: Acute Assessment and Plan: * possibly form decreased oral intake * replete as needed * follow closely given use of diuretics (5) Ischemic cardiomyopathy: Code(s): I25.5 - Ischemic cardiomyopathy Status: Chronic Assessment and Plan: * from my recollection, repeat Echo from primary furniture finisher helper demonstrated some improvement * continue medical management * Cardiology following (6) Gastritis: Qualifiers: Gastritis type: unspecified gastritis Chronicity: unspecified Gastritis bleeding: without bleeding Qualified Code(s): K29.70 - Gastritis, unspecified, without bleeding Code(s): K29.70 - Gastritis, unspecified, without bleeding Status: Acute Assessment and Plan: * chronic issue * on PPI and sulcrafate (7) Type 2 diabetes mellitus: Qualifiers: Diabetes mellitus intermediate insulin use: with intermediate use Diabetes mellitus complication status: with kidney complications Diabetes mellitus complication detail: with chronic kidney disease Chronic kidney disease stage: on chronic dialysis Qualified Code(s): E11.22 - Type 2 diabetes mellitus with diabetic chronic kidney disease; N18.6 - End stage renal disease; Z79.4 - penitentiary (current) use of insulin; Z99.2 - Dependence on renal dialysis Code(s): E11.9 - Type 2 diabetes mellitus without complications Status: Chronic Assessment and Plan: * follow accuchecks * on Lantus I will continue to follow the patient with you while remains hospitalized and make further recommendations during his hospital course. Thank you for allowing me to participate in the care of this patient. Subjective Date/time seen: 12/10/19 17:25 Tolerated CCPD overnight (seen on PD treatment earlier this AM) with about 2200cc fluid removal; breathing appears to be doing significantly better; no apparent distress noted. Exam Narrative: Exam Narrative: General: WD/WN male in NAD Heart: normal S1 and S2; no rub Lungs: clear anteriorly but decreased at bases Abdomen: soft, nontender, nondistended, positive bowel sounds Extremities: no cyanosis or clubbing; no edema Skin: warm and dry Objective Data Vital Signs Vital Signs: Vital Signs Temp Pulse Resp BP Pulse Ox 12/10/19 15:14 66 18 12/10/19 15:02 69 18 12/10/19 14:00 37.2 C 70 18 121/81 97 12/10/19 09:39 68 18 12/10/19 09:32 65 18 12/10/19 08:00 68
--- NOTE | 2019-12-10 17:25 | PM.PNNEP ---
Progress Note: A&P Assessment and Plan (1) End stage renal disease: Code(s): N18.6 - End stage renal disease Status: Chronic Assessment and Plan: continue CCPD overnight while hospitalized continue efforts to maintain stability in electrolytes, volume status, and clearance (2) Volume overload: Qualifiers: Hypervolemia type: unspecified Qualified Code(s): E87.70 - Fluid overload, unspecified Code(s): E87.70 - Fluid overload, unspecified Status: Acute Assessment and Plan: as noted by exam and CXR findings aggressive ultrafiltration with peritoneal dialysis follow volume status (3) Hyponatremia: Code(s): E87.1 - Hypo-osmolality and hyponatremia Status: Acute Assessment and Plan: related to kidney disease and volume overload should improve to some degree with fluid removal follow trend (4) Hypokalemia: Code(s): E87.6 - Hypokalemia Status: Acute Assessment and Plan: possibly form decreased oral intake replete as needed follow closely given use of diuretics (5) Ischemic cardiomyopathy: Code(s): I25.5 - Ischemic cardiomyopathy Status: Chronic Assessment and Plan: from my recollection, repeat Echo from primary soft iron inspector demonstrated some improvement continue medical management Cardiology following (6) Gastritis: Qualifiers: Gastritis type: unspecified gastritis Chronicity: unspecified Gastritis bleeding: without bleeding Qualified Code(s): K29.70 - Gastritis, unspecified, without bleeding Code(s): K29.70 - Gastritis, unspecified, without bleeding Status: Acute Assessment and Plan: chronic issue on PPI and sulcrafate (7) Type 2 diabetes mellitus: Qualifiers: Diabetes mellitus manager terminal insulin use: with manager terminal use Diabetes mellitus complication status: with kidney complications Diabetes mellitus complication detail: with chronic kidney disease Chronic kidney disease stage: on chronic dialysis Qualified Code(s): E11.22 - Type 2 diabetes mellitus with diabetic chronic kidney disease; N18.6 - End stage renal disease; Z79.4 - manager long term care (current) use of insulin; Z99.2 - Dependence on renal dialysis Code(s): E11.9 - Type 2 diabetes mellitus without complications Status: Chronic Assessment and Plan: follow accuchecks on Lantus I will continue to follow the patient with you while remains hospitalized and make further recommendations during his hospital course. Thank you for allowing me to participate in the care of this patient. Subjective Date/time seen: 12/10/19 17:25 Tolerated CCPD overnight (seen on PD treatment earlier this AM) with about 2200cc fluid removal; breathing appears to be doing significantly better; no apparent distress noted. Exam Narrative: Exam Narrative: General: WD/WN male in NAD Heart: normal S1 and S2; no rub Lungs: clear anteriorly but decreased at bases Abdomen: soft, nontender, nondistended, positive bowel sounds Extremities: no cyanosis or clubbing; no edema Skin: warm and dry Objective Data Vital Signs Vital Signs: Vital Signs Temp Pulse Resp BP Pulse Ox 12/10/19 15:14 66 18 12/10/19 15:02 69 18 12/10/19 14:00 37.2 C 70 18 121/81 97 12/10/19 09:39 68 18 12/10/19 09:32 65 18 12/10/19 08:00 68 18 97 12/10/19 06:00 36.2 C L 98 24 H 107/78 97 12/10/19 02:49 70 20 12/10/19 02:40 71 20 12/09/19 22:00 36.2 C L 69 24 H 102/59 L 97 12/09/19 21:13 69 12/09/19 20:13 72 20 12/09/19 20:05 72 20 Intake/Output Intake/Output: Intake & Output 12/07/19 12/08/19 12/09/19 12/10/19 23:59 23:59 23:59 23:59 Intake Total 240 1440 1640 Output Total 100 300 200 Balance 140 1140 1440 Meds/Results Medications: Active Medications Generic Name Dose Route Start Last Admin Trade Name Freq PRN Reason
[2019-12-10] MEDS: POTASSIUM CHLORIDE 20 MEQ TABLET 40 MEQ PO (19:49)
[2019-12-10] MEDS: SIMVASTATIN 20 MG TABLET 40 MG PO (20:40)
[2019-12-10] MEDS: AMITRIPTYLINE HCL 10 MG TABLET 20 MG PO (20:40)
[2019-12-10] MEDS: INSULIN GLARGINE (*BKC) 100 UNITS/ML 30 UNITS SUB-Q (21:10)
[2019-12-10 22:42] LABS: Glucose Point of Care 135 (65-105)
[2019-12-10 22:42] LABS: Glucose Point of Care 131 (65-105)
[2019-12-11] VITALS (14 sets, daily range): BP systolic 110–136; BP diastolic 57–85; PULSE 64–78; RESP 16–20; TEMP 36.1–36.7; O2SAT 93–100
[2019-12-11] MEDS: ALBUTEROL SULFATE NEB 2.5 MG/0.5 ML INH 5 MG INHALATION ×4 (01:08→19:59)
[2019-12-11] MEDS: IPRATROPIUM BR 0.02% INH SOLN 0.5 MG/2.5 ML VIAL INHALATION ×4 (01:09→20:00)
[2019-12-11] MEDS: LEVOTHYROXINE SODIUM 88 MCG TABLET PO (05:57)
[2019-12-11 06:38] LABS: Blood Urea Nitrogen 64 mg/dL (9-20); Calcium 8.1 mg/dL (8.4-10.2); Carbon Dioxide 24 mmol/L (22-30); Chloride 95 mmol/L (98-107); Estimated Glomerular Filt Rate 11; Glucose 107 mg/dL (75-110); Magnesium 1.9 mg/dL (1.6-2.3); Potassium 3.5 mmol/L (3.4-5.0); Sodium 128 mmol/L (137-145)
[2019-12-11] MEDS: BENZOCAINE/MENTHOL (*BKC) 18 EA LOZENGE 1 LOZENGE PO (08:12)
[2019-12-11] MEDS: DICYCLOMINE HCL 10 MG CAPSULE PO ×2 (08:15→16:43)
[2019-12-11] MEDS: TAMSULOSIN HCL 0.4 MG CAPSULE PO (08:15)
[2019-12-11] MEDS: METOCLOPRAMIDE HCL 10 MG TABLET PO (08:21)
[2019-12-11] MEDS: PANTOPRAZOLE 40 MG TABLET PO ×2 (08:23→20:57)
[2019-12-11] MEDS: carvediloL 12.5 MG TABLET PO ×2 (08:23→20:58)
[2019-12-11] MEDS: FUROSEMIDE 80 MG TABLET PO ×2 (08:23→16:43)
[2019-12-11] MEDS: SUCRALFATE 1 GM TABLET PO ×2 (08:23→16:43)
[2019-12-11] MEDS: POTASSIUM CHLORIDE 20 MEQ TABLET.ER 40 MEQ PO (08:26)
[2019-12-11 08:59] LABS: Glucose Point of Care 64 (65-105)
[2019-12-11 08:59] LABS: Glucose Point of Care 64 (65-105)
--- NOTE | 2019-12-11 09:15 | P.PNNP_ITS ---
Progress Note: A&P Assessment and Plan (1) End stage renal disease: Code(s): N18.6 - End stage renal disease Status: Chronic Assessment and Plan: * continue CCPD overnight while hospitalized * continue efforts to maintain stability in electrolytes, volume status, and clearance (2) Volume overload: Qualifiers: Hypervolemia type: unspecified Qualified Code(s): E87.70 - Fluid overload, unspecified Code(s): E87.70 - Fluid overload, unspecified Status: Acute Assessment and Plan: * as noted by exam and CXR findings on admission * clinically better at this time * continue aggressive ultrafiltration with peritoneal dialysis * follow volume status (3) E coli bacteremia: Code(s): R78.81 - Bacteremia; B96.20 - Unspecified Escherichia coli [E. coli] as the cause of diseases classified elsewhere Status: Acute Assessment and Plan: * etiology/source??? * no signs/symptoms of overt sepsis * follow repeat cultures * on IV antibiotics at this time (4) Hyponatremia: Code(s): E87.1 - Hypo-osmolality and hyponatremia Status: Acute Assessment and Plan: * related to kidney disease and volume overload * should improve to some degree with fluid removal * follow trend (5) Hypokalemia: Code(s): E87.6 - Hypokalemia Status: Acute Assessment and Plan: * possibly form decreased oral intake * replete as needed * follow closely given use of diuretics (6) Ischemic cardiomyopathy: Code(s): I25.5 - Ischemic cardiomyopathy Status: Chronic Assessment and Plan: * from my recollection, repeat Echo from primary jboss architect demonstrated some improvement * continue medical management * Cardiology following (7) Gastritis: Qualifiers: Chronicity: unspecified Gastritis bleeding: without bleeding Gastritis type: unspecified gastritis Qualified Code(s): K29.70 - Gastritis, unspecified, without bleeding Code(s): K29.70 - Gastritis, unspecified, without bleeding Status: Acute Assessment and Plan: * chronic issue * on PPI and sulcrafate (8) Type 2 diabetes mellitus: Qualifiers: Chronic kidney disease stage: on chronic dialysis Diabetes mellitus complication detail: with chronic kidney disease Diabetes mellitus complication status: with kidney complications Diabetes mellitus penitentiary insulin use: with penitentiary use Qualified Code(s): E11.22 - Type 2 diabetes mellitus with diabetic chronic kidney disease; N18.6 - End stage renal disease; Z79.4 - intermediate card tender (current) use of insulin; Z99.2 - Dependence on renal dialysis Code(s): E11.9 - Type 2 diabetes mellitus without complications Status: Chronic Assessment and Plan: * follow accuchecks * on Lantus Will continue to follow Subjective Date/time seen: 12/11/19 09:15 Tolerating CCPD overnight without any issues or problems (saw on PD at ~ 8:10AM); otherwise, feels reasonably well; no apparent distress voiced. Exam Narrative: Exam Narrative: General: WD/WN male in NAD Heart: normal S1 and S2; no rub Lungs: clear anteriorly but decreased at bases Abdomen: soft, nontender, nondistended, positive bowel sounds Extremities: no cyanosis or clubbing; no edema Skin: warm and dry Objective Data Vital Signs Vital Signs: Vital Signs Temp Pulse Resp BP Pulse Ox 12/11/19 08:52 78 18
--- NOTE | 2019-12-11 09:15 | PM.PNNEP ---
Progress Note: A&P Assessment and Plan (1) End stage renal disease: Code(s): N18.6 - End stage renal disease Status: Chronic Assessment and Plan: continue CCPD overnight while hospitalized continue efforts to maintain stability in electrolytes, volume status, and clearance (2) Volume overload: Qualifiers: Hypervolemia type: unspecified Qualified Code(s): E87.70 - Fluid overload, unspecified Code(s): E87.70 - Fluid overload, unspecified Status: Acute Assessment and Plan: as noted by exam and CXR findings on admission clinically better at this time continue aggressive ultrafiltration with peritoneal dialysis follow volume status (3) E coli bacteremia: Code(s): R78.81 - Bacteremia; B96.20 - Unspecified Escherichia coli [E. coli] as the cause of diseases classified elsewhere Status: Acute Assessment and Plan: etiology/source??? no signs/symptoms of overt sepsis follow repeat cultures on IV antibiotics at this time (4) Hyponatremia: Code(s): E87.1 - Hypo-osmolality and hyponatremia Status: Acute Assessment and Plan: related to kidney disease and volume overload should improve to some degree with fluid removal follow trend (5) Hypokalemia: Code(s): E87.6 - Hypokalemia Status: Acute Assessment and Plan: possibly form decreased oral intake replete as needed follow closely given use of diuretics (6) Ischemic cardiomyopathy: Code(s): I25.5 - Ischemic cardiomyopathy Status: Chronic Assessment and Plan: from my recollection, repeat Echo from primary driller helper demonstrated some improvement continue medical management Cardiology following (7) Gastritis: Qualifiers: Chronicity: unspecified Gastritis bleeding: without bleeding Gastritis type: unspecified gastritis Qualified Code(s): K29.70 - Gastritis, unspecified, without bleeding Code(s): K29.70 - Gastritis, unspecified, without bleeding Status: Acute Assessment and Plan: chronic issue on PPI and sulcrafate (8) Type 2 diabetes mellitus: Qualifiers: Chronic kidney disease stage: on chronic dialysis Diabetes mellitus complication detail: with chronic kidney disease Diabetes mellitus complication status: with kidney complications Diabetes mellitus art conservator insulin use: with half-way use Qualified Code(s): E11.22 - Type 2 diabetes mellitus with diabetic chronic kidney disease; N18.6 - End stage renal disease; Z79.4 - oracle ebs architect (current) use of insulin; Z99.2 - Dependence on renal dialysis Code(s): E11.9 - Type 2 diabetes mellitus without complications Status: Chronic Assessment and Plan: follow accuchecks on Lantus Will continue to follow Subjective Date/time seen: 12/11/19 09:15 Tolerating CCPD overnight without any issues or problems (saw on PD at ~ 8:10AM); otherwise, feels reasonably well; no apparent distress voiced. Exam Narrative: Exam Narrative: General: WD/WN male in NAD Heart: normal S1 and S2; no rub Lungs: clear anteriorly but decreased at bases Abdomen: soft, nontender, nondistended, positive bowel sounds Extremities: no cyanosis or clubbing; no edema Skin: warm and dry Objective Data Vital Signs Vital Signs: Vital Signs Temp Pulse Resp BP Pulse Ox 12/11/19 08:52 78 18 12/11/19 08:44 64 18 12/11/19 08:00 65 16 93 12/11/19 06:00 36.1 C L 65 16 110/57 L 93 12/11/19 01:15 71 18 12/11/19 01:09 68 18 12/10/19 22:00 36.1 C L 73 28 H 119/65 96 12/10/19 20:41 76 12/10/19 19:29 70 18 12/10/19 19:24 68 18 12/10/19 15:14 66 18 12/10/19 15:02 69 18 12/10/19 14:00 37.2 C 70 18 121/81 97 Intake/Output Intake/Output: Intake & Output 12/08/19 12/09/19 12/10/19 12/11/19 23:59 23:59 23:59 23:59 Intake Total 240 1440 1930 470 Output Total
[2019-12-11 12:23] LABS: Glucose Point of Care 112 (65-105)
--- NOTE | 2019-12-11 13:28 | PM.IMPN ---
Progress Note: A&P Assessment and Plan (1) Volume overload: Qualifiers: Hypervolemia type: unspecified Qualified Code(s): E87.70 - Fluid overload, unspecified Code(s): E87.70 - Fluid overload, unspecified Status: Acute Assessment and Plan: Most likely was result of not being on Lasix. Nephrology and cardiology consulted and appreciate input from both. Transition to oral Lasix last night and continues to do well. Plan to discharge once completes treatment for bacteremia as noted below. (2) Hypokalemia: Code(s): E87.6 - Hypokalemia Status: Acute Assessment and Plan: Potassium 3.5 today. Will continue replacement. Continue to monitor. (3) Bacteremia: Code(s): R78.81 - Bacteremia Status: Acute Assessment and Plan: Blood cultures drawn on admission due to protocol as result of peritoneal dialysis. 2 of 2 blood cultures now positive for E coli. Will continue IV ceftriaxone as sensitive on final culture results. Now on Day #3 of IV ceftriaxone. Advised patient will need at least 5 days IV antibiotics prior to transition to oral antibiotics. Suspect most likely urinary source of in patient with no specific urinary complaints on his arrival and no urine culture done as a result. Will repeat blood cultures to ensure clearing. (4) ESRD on peritoneal dialysis: Code(s): N18.6 - End stage renal disease; Z99.2 - Dependence on renal dialysis Status: Chronic Assessment and Plan: Nephrology consulted and appreciate input. Continue peritoneal dialysis as directed by Nephrology. (5) Ischemic cardiomyopathy: Code(s): I25.5 - Ischemic cardiomyopathy Status: Chronic Assessment and Plan: Appreciate help from Cardiology here as noted above. Regularly followed by Dr. Ricketts with [facility]. EF reported to be low at 15%. ICD is in place. Back on oral Lasix as of last night. Will monitor. (6) Type 2 diabetes mellitus: Qualifiers: Chronic kidney disease stage: on chronic dialysis Diabetes mellitus complication detail: with chronic kidney disease Diabetes mellitus complication status: with kidney complications Diabetes mellitus terminal operations manager insulin use: with terminal operations manager use Qualified Code(s): E11.22 - Type 2 diabetes mellitus with diabetic chronic kidney disease; N18.6 - End stage renal disease; Z79.4 - manager intermediate (current) use of insulin; Z99.2 - Dependence on renal dialysis Code(s): E11.9 - Type 2 diabetes mellitus without complications Status: Chronic Assessment and Plan: Glucose reviewed on 12/11/2019. He had lower glucose level this morning with a.m. Lantus held. Discussed with patient. Will leave current Lantus in place but may need to hold pending glucose levels. Sliding scale insulin also available. (7) Gastritis: Qualifiers: Chronicity: unspecified Gastritis bleeding: without bleeding Gastritis type: unspecified gastritis Qualified Code(s): K29.70 - Gastritis, unspecified, without bleeding Code(s): K29.70 - Gastritis, unspecified, without bleeding Status: Acute Assessment and Plan: Noted on recent EGD. Remains stable. Will continue Protonix and sucralfate. Will monitor. (8) Obstructive sleep apnea: Code(s): G47.33 - Obstructive sleep apnea (adult) (pediatric) Status: Chronic Assessment and Plan: Known to be intolerant to CPAP. Patient aware risk of not treating sleep apnea. Will continue to monitor clinically. (9) Hypothyroidism: Qualifiers: Hypothyroidism type: unspecified Qualified Code(s): E03.9 - Hypothyroidism, unspecified Code(s): E03.9 - Hypothyroidism, unspecified Status: Chronic Assessment and Plan: Thyroid studies within normal range. Will continue current levothyroxine. (10) BPH (benign prostatic hyperplasia): Qualifiers: Lower urinary tract symptom pr
[2019-12-11 16:48] LABS: Glucose Point of Care 176 (65-105)
[2019-12-11] MEDS: AMITRIPTYLINE HCL 10 MG TABLET 20 MG PO (20:57)
[2019-12-11] MEDS: SIMVASTATIN 20 MG TABLET 40 MG PO (20:58)
[2019-12-11] MEDS: INSULIN GLARGINE (*BKC) 100 UNITS/ML 30 UNITS SUB-Q (20:58)
[2019-12-11 21:07] LABS: Glucose Point of Care 220 (65-105)
[2019-12-12] VITALS (13 sets, daily range): BP systolic 101–103; BP diastolic 50–67; PULSE 56–110; RESP 16–18; TEMP 36.1–36.3; O2SAT 96–100
[2019-12-12] MEDS: IPRATROPIUM BR 0.02% INH SOLN 0.5 MG/2.5 ML VIAL INHALATION ×4 (01:39→18:55)
[2019-12-12] MEDS: ALBUTEROL SULFATE NEB 2.5 MG/0.5 ML INH 5 MG INHALATION ×4 (01:39→18:55)
[2019-12-12] MEDS: LEVOTHYROXINE SODIUM 88 MCG TABLET PO (05:45)
[2019-12-12] MEDS: carvediloL 12.5 MG TABLET PO ×2 (08:16→20:45)
[2019-12-12] MEDS: METOCLOPRAMIDE HCL 10 MG TABLET PO ×2 (08:16→16:23)
[2019-12-12] MEDS: POTASSIUM CHLORIDE 20 MEQ TABLET.ER 40 MEQ PO (08:16)
[2019-12-12] MEDS: SUCRALFATE 1 GM TABLET PO ×2 (08:16→16:23)
[2019-12-12] MEDS: TAMSULOSIN HCL 0.4 MG CAPSULE PO (08:16)
[2019-12-12] MEDS: DICYCLOMINE HCL 10 MG CAPSULE PO ×2 (08:16→16:24)
[2019-12-12] MEDS: PANTOPRAZOLE 40 MG TABLET PO ×2 (08:17→20:46)
[2019-12-12] MEDS: FUROSEMIDE 80 MG TABLET PO ×2 (08:17→16:23)
[2019-12-12 08:25] LABS: Blood Urea Nitrogen 61 mg/dL (9-20); Calcium 7.6 mg/dL (8.4-10.2); Carbon Dioxide 25 mmol/L (22-30); Chloride 94 mmol/L (98-107); Estimated Glomerular Filt Rate 12; Glucose 58 mg/dL (75-110); Potassium 3.8 mmol/L (3.4-5.0); Sodium 129 mmol/L (137-145)
[2019-12-12 09:32] LABS: Glucose Point of Care 55 (65-105)
[2019-12-12 09:32] LABS: Glucose Point of Care 76 (65-105)
[2019-12-12 12:10] LABS: Glucose Point of Care 100 (65-105)
--- NOTE | 2019-12-12 12:35 | PM.IMPN ---
Progress Note: A&P Assessment and Plan (1) Bacteremia: Code(s): R78.81 - Bacteremia Status: Acute Assessment and Plan: Blood cultures drawn on admission due to protocol as result of peritoneal dialysis. 2 of 2 blood cultures now positive for E coli. Will continue IV ceftriaxone as sensitive on final culture results. Now on Day #4 of IV ceftriaxone. Advised patient will need at least 5 days IV antibiotics prior to transition to oral antibiotics. Suspect most likely urinary source although patient with no specific urinary complaints on his arrival and no urine culture done as a result. Repeat blood culture negative thus far. Peritoneal fluid also cultured by Nephrology for safety. Hopeful discharge tomorrow after 5th dose of IV ceftriaxone as long as no issues. (2) Type 2 diabetes mellitus: Qualifiers: Chronic kidney disease stage: on chronic dialysis Diabetes mellitus complication detail: with chronic kidney disease Diabetes mellitus complication status: with kidney complications Diabetes mellitus fpc insulin use: with manager terminal use Qualified Code(s): E11.22 - Type 2 diabetes mellitus with diabetic chronic kidney disease; N18.6 - End stage renal disease; Z79.4 - superintendent marine oil terminal (current) use of insulin; Z99.2 - Dependence on renal dialysis Code(s): E11.9 - Type 2 diabetes mellitus without complications Status: Chronic Assessment and Plan: Glucose reviewed on 12/12/2019. He had lower glucose level again this morning with Lantus held. Discussed with patient again. Will decrease evening Lantus dose. Hold morning Lantus at this time. Patient reports he tends to have fluctuating levels at home and will adjust insulin as needed. Continue to monitor. Sliding scale insulin available as needed. (3) Volume overload: Qualifiers: Hypervolemia type: unspecified Qualified Code(s): E87.70 - Fluid overload, unspecified Code(s): E87.70 - Fluid overload, unspecified Status: Acute Assessment and Plan: Most likely was result of not being on Lasix. Nephrology and cardiology consulted and appreciate input from both. Doing well on oral Lasix. Will monitor. (4) Hypokalemia: Code(s): E87.6 - Hypokalemia Status: Acute Assessment and Plan: Potassium 3.8 today. Will continue replacement. Continue to monitor. (5) ESRD on peritoneal dialysis: Code(s): N18.6 - End stage renal disease; Z99.2 - Dependence on renal dialysis Status: Chronic Assessment and Plan: Nephrology consulted and appreciate input. Continue peritoneal dialysis as directed by Nephrology. (6) Ischemic cardiomyopathy: Code(s): I25.5 - Ischemic cardiomyopathy Status: Chronic Assessment and Plan: Appreciate help from Cardiology here as noted above. Regularly followed by Dr. Ricketts with [facility]. EF reported to be low at 15%. ICD is in place. Now back on oral Lasix. Will monitor. (7) Gastritis: Qualifiers: Chronicity: unspecified Gastritis bleeding: without bleeding Gastritis type: unspecified gastritis Qualified Code(s): K29.70 - Gastritis, unspecified, without bleeding Code(s): K29.70 - Gastritis, unspecified, without bleeding Status: Acute Assessment and Plan: Noted on recent EGD. Remains stable. Will continue Protonix and sucralfate. Will monitor. (8) Obstructive sleep apnea: Code(s): G47.33 - Obstructive sleep apnea (adult) (pediatric) Status: Chronic Assessment and Plan: Known to be intolerant to CPAP. Patient aware risk of not treating sleep apnea. Will continue to monitor clinically. (9) Hypothyroidism: Qualifiers: Hypothyroidism type: unspecified Qualified Code(s): E03.9 - Hypothyroidism, unspecified Code(s): E03.9 - Hypothyroidism, unspecified Status: Chronic Assessment and Plan: Thyroid studies within normal ran
--- NOTE | 2019-12-12 17:22 | P.PNNP_ITS ---
Progress Note: A&P Assessment and Plan (1) End stage renal disease: Code(s): N18.6 - End stage renal disease Status: Chronic Assessment and Plan: * continue CCPD overnight while hospitalized * continue efforts to maintain stability in electrolytes, volume status, and clearance (2) Volume overload: Qualifiers: Hypervolemia type: unspecified Qualified Code(s): E87.70 - Fluid overload, unspecified Code(s): E87.70 - Fluid overload, unspecified Status: Acute Assessment and Plan: * as noted by exam and CXR findings on admission * clinically better at this time * continue ultrafiltration with peritoneal dialysis * follow volume status (3) E coli bacteremia: Code(s): R78.81 - Bacteremia; B96.20 - Unspecified Escherichia coli [E. coli] as the cause of diseases classified elsewhere Status: Acute Assessment and Plan: * etiology/source??? (suspect urinary) * no signs/symptoms of overt sepsis * follow repeat cultures * on IV antibiotics at this time with transition to oral on discharge (4) Hyponatremia: Code(s): E87.1 - Hypo-osmolality and hyponatremia Status: Acute Assessment and Plan: * related to kidney disease and volume overload * should improve to some degree with fluid removal * follow trend (5) Hypokalemia: Code(s): E87.6 - Hypokalemia Status: Acute Assessment and Plan: * possibly form decreased oral intake * replete as needed * follow closely given use of diuretics (6) Ischemic cardiomyopathy: Code(s): I25.5 - Ischemic cardiomyopathy Status: Chronic Assessment and Plan: * from my recollection, repeat Echo from primary veterinary laboratory diagnostician demonstrated some improvement * continue medical management * Cardiology following (7) Gastritis: Qualifiers: Gastritis type: unspecified gastritis Chronicity: unspecified Gastritis bleeding: without bleeding Qualified Code(s): K29.70 - Gastritis, unspecified, without bleeding Code(s): K29.70 - Gastritis, unspecified, without bleeding Status: Acute Assessment and Plan: * chronic issue * on PPI and sulcrafate Will continue to follow Subjective Date/time seen: 12/12/19 17:22 Continues to do well; tolerating CCPD without any issues or problems; no complaints of chest pain, shortness of breath, or abdominal pain; overall, he feels pretty good. Exam Narrative: Exam Narrative: General: WD/WN male in NAD Heart: normal S1 and S2; no rub Lungs: clear bilataerally Abdomen: soft, nontender, nondistended, positive bowel sounds Extremities: no cyanosis or clubbing; no edema Skin: warm and intact Objective Data Vital Signs Vital Signs: Vital Signs Temp Pulse Resp BP Pulse Ox 12/12/19 14:00 36.3 C L 61 16 103/50 L 100 12/12/19 13:42 59 L 18 12/12/19 13:36 61 18 12/12/19 09:02 68 18 12/12/19 08:55 59 L 18 12/12/19 08:16 87 12/12/19 06:00 36.1 C L 87 16 101/61 97 12/12/19 01:45 60 18 12/12/19 01:40 56 L 18 12/11/19 22:00 36.7 C 76 20 136/66 98 12/11/19 20:58 74 12/11/19 20:30 36.6 C 70 18 131/85 12/11/19 20:09 70 18 12/11/19 20:00 76 18 Intake/Output Intake/Output: Intake & Output
--- NOTE | 2019-12-12 17:22 | PM.PNNEP ---
Progress Note: A&P Assessment and Plan (1) End stage renal disease: Code(s): N18.6 - End stage renal disease Status: Chronic Assessment and Plan: continue CCPD overnight while hospitalized continue efforts to maintain stability in electrolytes, volume status, and clearance (2) Volume overload: Qualifiers: Hypervolemia type: unspecified Qualified Code(s): E87.70 - Fluid overload, unspecified Code(s): E87.70 - Fluid overload, unspecified Status: Acute Assessment and Plan: as noted by exam and CXR findings on admission clinically better at this time continue ultrafiltration with peritoneal dialysis follow volume status (3) E coli bacteremia: Code(s): R78.81 - Bacteremia; B96.20 - Unspecified Escherichia coli [E. coli] as the cause of diseases classified elsewhere Status: Acute Assessment and Plan: etiology/source??? (suspect urinary) no signs/symptoms of overt sepsis follow repeat cultures on IV antibiotics at this time with transition to oral on discharge (4) Hyponatremia: Code(s): E87.1 - Hypo-osmolality and hyponatremia Status: Acute Assessment and Plan: related to kidney disease and volume overload should improve to some degree with fluid removal follow trend (5) Hypokalemia: Code(s): E87.6 - Hypokalemia Status: Acute Assessment and Plan: possibly form decreased oral intake replete as needed follow closely given use of diuretics (6) Ischemic cardiomyopathy: Code(s): I25.5 - Ischemic cardiomyopathy Status: Chronic Assessment and Plan: from my recollection, repeat Echo from primary health unit coordinator demonstrated some improvement continue medical management Cardiology following (7) Gastritis: Qualifiers: Gastritis type: unspecified gastritis Chronicity: unspecified Gastritis bleeding: without bleeding Qualified Code(s): K29.70 - Gastritis, unspecified, without bleeding Code(s): K29.70 - Gastritis, unspecified, without bleeding Status: Acute Assessment and Plan: chronic issue on PPI and sulcrafate Will continue to follow Subjective Date/time seen: 12/12/19 17:22 Continues to do well; tolerating CCPD without any issues or problems; no complaints of chest pain, shortness of breath, or abdominal pain; overall, he feels pretty good. Exam Narrative: Exam Narrative: General: WD/WN male in NAD Heart: normal S1 and S2; no rub Lungs: clear bilataerally Abdomen: soft, nontender, nondistended, positive bowel sounds Extremities: no cyanosis or clubbing; no edema Skin: warm and intact Objective Data Vital Signs Vital Signs: Vital Signs Temp Pulse Resp BP Pulse Ox 12/12/19 14:00 36.3 C L 61 16 103/50 L 100 12/12/19 13:42 59 L 18 12/12/19 13:36 61 18 12/12/19 09:02 68 18 12/12/19 08:55 59 L 18 12/12/19 08:16 87 12/12/19 06:00 36.1 C L 87 16 101/61 97 12/12/19 01:45 60 18 12/12/19 01:40 56 L 18 12/11/19 22:00 36.7 C 76 20 136/66 98 12/11/19 20:58 74 12/11/19 20:30 36.6 C 70 18 131/85 12/11/19 20:09 70 18 12/11/19 20:00 76 18 Intake/Output Intake/Output: Intake & Output 12/09/19 12/10/19 12/11/19 12/12/19 23:59 23:59 23:59 23:59 Intake Total 1440 1930 2120 2040 Output Total 300 2412 3142 3118 Balance 1140 -482 -1022 -1078 Meds/Results Medications: Active Medications Generic Name Dose Route Start Last Admin Trade Name Freq PRN Reason Stop Dose Admin Hydrocodone Bitart/Acetaminophen 1 tab 12/08/19 21:37 12/12/19 04:02 Webster 5-325 Mg PO 1 tab Q4H PRN Administration PAIN RATED 4-6 Albuterol 5 mg 12/08/19 14:00 12/12/19 13:35 Albuterol Sulf Neb 2.5mg/0.5ml INHALATION 5 mg Q6HRT HIWOT Administration Amitriptyline HCl 20 mg 12/08/19 21:45 12/11/19 20:57 Elavil PO 20 mg HS HIWOT Admin
[2019-12-12 17:43] LABS: Glucose Point of Care 110 (65-105)
[2019-12-12] MEDS: AMITRIPTYLINE HCL 10 MG TABLET 20 MG PO (20:45)
[2019-12-12] MEDS: SIMVASTATIN 20 MG TABLET 40 MG PO (20:46)
[2019-12-12] MEDS: INSULIN GLARGINE (*BKC) 100 UNITS/ML 15 UNITS SUB-Q (20:47)
[2019-12-12 21:41] LABS: Glucose Point of Care 201 (65-105)
[2019-12-13] VITALS (9 sets, daily range): BP systolic 110–122; BP diastolic 52–58; PULSE 58–78; RESP 16–21; TEMP 35.9–36.4; O2SAT 98–100
[2019-12-13] MEDS: IPRATROPIUM BR 0.02% INH SOLN 0.5 MG/2.5 ML VIAL INHALATION ×3 (01:00→13:27)
[2019-12-13] MEDS: ALBUTEROL SULFATE NEB 2.5 MG/0.5 ML INH 5 MG INHALATION ×3 (01:00→13:27)
[2019-12-13 05:35] LABS: Hematocrit 34.6 % (42.0-52.0); Hemoglobin 10.9 g/dL (14.0-18.0); Mean Corpuscular HGB Conc 31.5 g/dl (32-36); Mean Corpuscular Hemoglobin 30.5 pg (26-34); Mean Corpuscular Volume 96.9 fl (80-100); Mean Platelet Volume 11.7 fl (7.4-10.4); Platelet Count Result 171 k/mm3 (150-375); Red Blood Count 3.57 M/mm3 (4.6-6.20); Red Cell Distribution Width 15.3 % (11.5-14.5); White Blood Count 8.4 K/mm3 (4.5-10.0)
[2019-12-13] MEDS: LEVOTHYROXINE SODIUM 88 MCG TABLET PO (05:51)
[2019-12-13 06:02] LABS: Blood Urea Nitrogen 58 mg/dL (9-20); Calcium 7.9 mg/dL (8.4-10.2); Carbon Dioxide 27 mmol/L (22-30); Chloride 93 mmol/L (98-107); Estimated Glomerular Filt Rate 12; Glucose 113 mg/dL (75-110); Potassium 4.4 mmol/L (3.4-5.0); Sodium 127 mmol/L (137-145)
[2019-12-13 07:52] LABS: Appearance Peritoneal Fluid Clear (Clear); Source Peritoneal Fluid Peritoneal Fluid
[2019-12-13 07:53] LABS: Color Peritoneal Fluid Yellow (Colorless); Nucleated Cells Peritoneal Flu 141 /uL (0-500); RBC Peritoneal Fluid 454 /uL (0-100000)
[2019-12-13 07:56] LABS: Eosinophils Peritoneal Fluid 2 %; Lymphocytes Peritoneal Fluid 51 %; Monocytes Peritoneal Fluid 37 %; Neutrophils Peritoneal Fluid 10 % (0-25)
[2019-12-13] MEDS: FUROSEMIDE 80 MG TABLET PO (08:17)
[2019-12-13] MEDS: ERGOCALCIFEROL 50,000 UNIT CAPSULE 50000 UNITS PO (08:17)
[2019-12-13] MEDS: PANTOPRAZOLE 40 MG TABLET PO (08:17)
[2019-12-13] MEDS: carvediloL 12.5 MG TABLET PO (08:17)
[2019-12-13] MEDS: DICYCLOMINE HCL 10 MG CAPSULE PO (08:17)
[2019-12-13] MEDS: SUCRALFATE 1 GM TABLET PO (08:18)
[2019-12-13] MEDS: TAMSULOSIN HCL 0.4 MG CAPSULE PO (08:18)
[2019-12-13] MEDS: POTASSIUM CHLORIDE 20 MEQ TABLET.ER 40 MEQ PO (08:18)
--- NOTE | 2019-12-13 08:21 | PC.NURSE ---
Patients blood sugar 65. Refused oral glucose gel. Gave apple juice and will recheck blood sugar in 15 minutes.
--- NOTE | 2019-12-13 08:29 | PC.NURSE ---
Patient drank apple juice and blood sugar is up to 81
[2019-12-13 08:58] LABS: Glucose Point of Care 81 (65-105)
[2019-12-13 08:58] LABS: Glucose Point of Care 65 (65-105)
[2019-12-13] MEDS: BENZOCAINE/MENTHOL (*BKC) 18 EA LOZENGE 1 LOZENGE PO (09:42)
--- NOTE | 2019-12-13 10:54 | P.PNNP_ITS ---
Progress Note: A&P Assessment and Plan (1) End stage renal disease: Code(s): N18.6 - End stage renal disease Status: Chronic Assessment and Plan: * continue CCPD overnight while hospitalized * continue efforts to maintain stability in electrolytes, volume status, and clearance (2) Volume overload: Qualifiers: Hypervolemia type: unspecified Qualified Code(s): E87.70 - Fluid overload, unspecified Code(s): E87.70 - Fluid overload, unspecified Status: Acute Assessment and Plan: * as noted by exam and CXR findings on admission * clinically better at this time * continue ultrafiltration with peritoneal dialysis * follow volume status (3) E coli bacteremia: Code(s): R78.81 - Bacteremia; B96.20 - Unspecified Escherichia coli [E. coli] as the cause of diseases classified elsewhere Status: Acute Assessment and Plan: * etiology/source??? (suspect urinary) * no signs/symptoms of overt sepsis * repeat cultures negative * on IV antibiotics at this time with transition to oral on discharge (4) Hyponatremia: Code(s): E87.1 - Hypo-osmolality and hyponatremia Status: Acute Assessment and Plan: * related to kidney disease and volume overload * should improve to some degree with fluid removal (but suspect it will always be a chronic issue) * follow trend (5) Hypokalemia: Code(s): E87.6 - Hypokalemia Status: Acute Assessment and Plan: * possibly form decreased oral intake * replete as needed * follow closely given use of diuretics (6) Ischemic cardiomyopathy: Code(s): I25.5 - Ischemic cardiomyopathy Status: Chronic Assessment and Plan: * from my recollection, repeat Echo from primary per diem demonstrated some improvement * continue medical management * Cardiology following (7) Gastritis: Qualifiers: Gastritis type: unspecified gastritis Chronicity: unspecified Gastritis bleeding: without bleeding Qualified Code(s): K29.70 - Gastritis, unspecified, without bleeding Code(s): K29.70 - Gastritis, unspecified, without bleeding Status: Acute Assessment and Plan: * chronic issue * on PPI and sulcrafate Will continue to follow Subjective Date/time seen: 12/13/19 10:54 Continues to tolerated CCPD overnight without any problems (seen on PD earlier this AM); overall, feels reasonably well; no apparent distress voiced at the time of my visit. Exam Narrative: Exam Narrative: General: WD/WN male in NAD Heart: normal S1 and S2; no rub Lungs: clear bilaterally Abdomen: soft, nontender, nondistended, positive bowel sounds Extremities: no cyanosis or clubbing; no edema Skin: no rash or nodules Objective Data Vital Signs Vital Signs: Vital Signs Temp Pulse Resp BP Pulse Ox 12/13/19 09:10 74 20 12/13/19 09:02 78 20 12/13/19 08:17 70 12/13/19 07:59 35.9 C L 60 20 122/58 L 12/13/19 06:00 35.9 C L 58 L 21 H 122/58 L 100 12/13/19 01:11 60 18 12/13/19 01:00 60 18 12/12/19 22:00 36.1 C L 110 H 18 102/67 96 12/12/19 20:45 80 12/12/19 19:05 62 18 12/12/19 18:55 62 18 12/12/19 14:00 36.3 C L 61 16 103/50 L 100 12/12/19 13:42 59 L 18 12/12/19 13:36 61 18
--- NOTE | 2019-12-13 10:54 | PM.PNNEP ---
Progress Note: A&P Assessment and Plan (1) End stage renal disease: Code(s): N18.6 - End stage renal disease Status: Chronic Assessment and Plan: continue CCPD overnight while hospitalized continue efforts to maintain stability in electrolytes, volume status, and clearance (2) Volume overload: Qualifiers: Hypervolemia type: unspecified Qualified Code(s): E87.70 - Fluid overload, unspecified Code(s): E87.70 - Fluid overload, unspecified Status: Acute Assessment and Plan: as noted by exam and CXR findings on admission clinically better at this time continue ultrafiltration with peritoneal dialysis follow volume status (3) E coli bacteremia: Code(s): R78.81 - Bacteremia; B96.20 - Unspecified Escherichia coli [E. coli] as the cause of diseases classified elsewhere Status: Acute Assessment and Plan: etiology/source??? (suspect urinary) no signs/symptoms of overt sepsis repeat cultures negative on IV antibiotics at this time with transition to oral on discharge (4) Hyponatremia: Code(s): E87.1 - Hypo-osmolality and hyponatremia Status: Acute Assessment and Plan: related to kidney disease and volume overload should improve to some degree with fluid removal (but suspect it will always be a chronic issue) follow trend (5) Hypokalemia: Code(s): E87.6 - Hypokalemia Status: Acute Assessment and Plan: possibly form decreased oral intake replete as needed follow closely given use of diuretics (6) Ischemic cardiomyopathy: Code(s): I25.5 - Ischemic cardiomyopathy Status: Chronic Assessment and Plan: from my recollection, repeat 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 from primary 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 demonstrated some improvement continue medical management Cardiology following (7) Gastritis: Qualifiers: Gastritis type: unspecified gastritis Chronicity: unspecified Gastritis bleeding: without bleeding Qualified Code(s): K29.70 - Gastritis, unspecified, without bleeding Code(s): K29.70 - Gastritis, unspecified, without bleeding Status: Acute Assessment and Plan: chronic issue on PPI and sulcrafate Will continue to follow Subjective Date/time seen: 12/13/19 10:54 Continues to tolerated CCPD overnight without any problems (seen on PD earlier this AM); overall, feels reasonably well; no apparent distress voiced at the time of my visit. Exam Narrative: Exam Narrative: General: WD/WN male in NAD Heart: normal S1 and S2; no rub Lungs: clear bilaterally Abdomen: soft, nontender, nondistended, positive bowel sounds Extremities: no cyanosis or clubbing; no edema Skin: no rash or nodules Objective Data Vital Signs Vital Signs: Vital Signs Temp Pulse Resp BP Pulse Ox 12/13/19 09:10 74 20 12/13/19 09:02 78 20 12/13/19 08:17 70 12/13/19 07:59 35.9 C L 60 20 122/58 L 12/13/19 06:00 35.9 C L 58 L 21 H 122/58 L 100 12/13/19 01:11 60 18 12/13/19 01:00 60 18 12/12/19 22:00 36.1 C L 110 H 18 102/67 96 12/12/19 20:45 80 12/12/19 19:05 62 18 12/12/19 18:55 62 18 12/12/19 14:00 36.3 C L 61 16 103/50 L 100 12/12/19 13:42 59 L 18 12/12/19 13:36 61 18 Intake/Output Intake/Output: Intake & Output 12/10/19 12/11/19 12/12/19 12/13/19 23:59 23:59 23:59 23:59 Intake Total 1930 2120 2330 860 Output Total 2453 6472 3117 [id number] [phone] Meds/Results Medications: Active Medications Generic Name Dose Route Start Last Admin Trade Name Freq PRN Reason Stop Dose Admin Hydrocodone Bitart/Acetaminophen 1 tab 12/08/19 21:37 12/13/19 03:34 Holland 5-325 Mg PO 1 tab Q4H PRN Administration PAIN RATED 4-6 Albuterol 5 mg 12/08/19 14:00 12/13/19 09:00 Albuterol Sulf Neb 2.5mg/0.5ml INHALATION 5 mg Q6HRT HIWOT Administration Amitriptyline HCl 20 mg 12/07
[2019-12-13 11:51] LABS: Glucose Point of Care 117 (65-105)
--- NOTE | 2019-12-13 12:02 | PM.IMPN ---
Progress Note: A&P Assessment and Plan (1) Bacteremia: Code(s): R78.81 - Bacteremia Status: Acute Assessment and Plan: Blood cultures drawn on admission due to protocol as result of peritoneal dialysis. 2 of 2 blood cultures now positive for E coli. Will continue IV ceftriaxone as sensitive on final culture results. Now on Day #5 of IV ceftriaxone. Repeat blood cultures are negative to date. Peritoneal fluid culture with no organisms seen. Will plan to discharge this evening after receives 5th dose of IV ceftriaxone. Will send home on oral cefdinir. 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 Glucose levels now stable after receiving lower dose of Lantus dose. Will need to continue to monitor at home. (3) Volume overload: Qualifiers: Hypervolemia type: unspecified Qualified Code(s): E87.70 - Fluid overload, unspecified Code(s): E87.70 - Fluid overload, unspecified Status: Acute Assessment and Plan: Most likely was result of not being on Lasix. Nephrology and cardiology consulted and appreciate input from both. Doing well on oral Lasix. (4) Hypokalemia: Code(s): E87.6 - Hypokalemia Status: Acute Assessment and Plan: Potassium 4.4 today. Will return to home replacement. Continue to monitor as outpatient. (5) ESRD on peritoneal dialysis: Code(s): N18.6 - End stage renal disease; Z99.2 - Dependence on renal dialysis Status: Chronic Assessment and Plan: Nephrology consulted and appreciate input. Continue peritoneal dialysis as directed by Nephrology. (6) Ischemic cardiomyopathy: Code(s): I25.5 - Ischemic cardiomyopathy Status: Chronic Assessment and Plan: Appreciate help from Cardiology here as noted above. Regularly followed by Dr. Ricketts with [facility]. EF reported to be low at 15%. ICD is in place. Stable on oral Lasix. (7) Gastritis: Qualifiers: Chronicity: unspecified Gastritis bleeding: without bleeding Gastritis type: unspecified gastritis Qualified Code(s): K29.70 - Gastritis, unspecified, without bleeding Code(s): K29.70 - Gastritis, unspecified, without bleeding Status: Acute Assessment and Plan: Noted on recent EGD. Remains stable. Will continue Protonix and sucralfate. (8) Obstructive sleep apnea: Code(s): G47.33 - Obstructive sleep apnea (adult) (pediatric) Status: Chronic Assessment and Plan: Known to be intolerant to CPAP. Patient aware risk of not treating sleep apnea. (9) Hypothyroidism: Qualifiers: Hypothyroidism type: unspecified Qualified Code(s): E03.9 - Hypothyroidism, unspecified Code(s): E03.9 - Hypothyroidism, unspecified Status: Chronic Assessment and Plan: Thyroid studies within normal range. Will continue current levothyroxine. (10) BPH (benign prostatic hyperplasia): Qualifiers: Lower urinary tract symptom presence: symptoms absent Qualified Code(s): N40.0 - Benign prostatic hyperplasia without lower urinary tract symptoms Code(s): N40.0 - Benign prostatic hyperplasia without lower urinary tract symptoms Status: Chronic Assessment and Plan: Stable. Continue tamsulosin. (11) DVT prophylaxis: Code(s): Z29.9 - Encounter fo
[2019-12-13 14:49] LABS: Glucose Point of Care 187 (65-105)
--- NOTE | 2019-12-13 15:42 | PM.DS ---
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 use Qualified Code(s): E11.22 - Type 2 diabetes mellitus with diabetic chronic kidney disease; N18.6 - End stage renal disease; Z79.4 - millwright (current) use of insulin; Z99.2 - Dependence on renal dialysis Code(s): E11.9 - Type 2 diabetes mellitus without complications Status: Chronic (3) Volume overload: Qualifiers: Hypervolemia type: unspecified Qualified Code(s): E87.70 - Fluid overload, unspecified Code(s): E87.70 - Fluid overload, unspecified Status: Acute (4) Hypokalemia: Code(s): E87.6 - Hypokalemia Status: Acute (5) ESRD on peritoneal dialysis: Code(s): N18.6 - End stage renal disease; Z99.2 - Dependence on renal dialysis Status: Chronic (6) Ischemic cardiomyopathy: Code(s): I25.5 - Ischemic cardiomyopathy Status: Chronic (7) Gastritis: Qualifiers: Chronicity: unspecified Gastritis bleeding: without bleeding Gastritis type: unspecified gastritis Qualified Code(s): K29.70 - Gastritis, unspecified, without bleeding Code(s): K29.70 - Gastritis, unspecified, without bleeding Status: Acute (8) Obstructive sleep apnea: Code(s): G47.33 - Obstructive sleep apnea (adult) (pediatric) Status: Chronic (9) Hypothyroidism: Qualifiers: Hypothyroidism type: unspecified Qualified Code(s): E03.9 - Hypothyroidism, unspecified Code(s): E03.9 - Hypothyroidism, unspecified Status: Chronic (10) BPH (benign prostatic hyperplasia): Qualifiers: Lower urinary tract symptom presence: symptoms absent Qualified Code(s): N40.0 - Benign prostatic hyperplasia without lower urinary tract symptoms Code(s): N40.0 - Benign prostatic hyperplasia without lower urinary tract symptoms Status: Chronic DS: Summary Hospital Course Reason for hospitalization: Shortness of breath and cough. Hospital Course: Date of Service of Discharge: December 13, 2019. History of Present Illness: Patient is a pleasant 69-year-old with known ischemic cardiomyopathy with EF 15%, end-stage renal disease on peritoneal dialysis, obstructive sleep apnea, type 2 diabetes mellitus as well as several other comorbidities who presented to the emergency department with complaint of shortness of breath and cough. Patient was recently admitted to our hospital from October 31 through November 05, 2019 due to abdominal pain. At that time upper endoscopy revealed gastritis. During that hospital stay, his Lasix was discontinued due to ongoing hypotension. In the 5 days prior to presentation, he has become progressively more short of breath with cough occasionally productive of white sputum. He has also had orthopnea. No chest pain or pressure, no fever chills. No urinary symptoms with patient still urinating despite end-stage renal disease. In the emergency room, findings were consistent with volume overload. Nephrology and Cardiology were consulted. He was admitted for further evaluation and treatment. Course in Hospital: Patient was admitted and started on IV Lasix. As noted, he was seen in consultation by both Cardiology and Nephrology. Cardiology did recommend continuing the IV Lasix as well as continuing other home medications. Patient diuresed well with the IV Lasix. He did require adjustment of his potassium replacement during his stay but potassium was increasing by discharge with plan to return to home replacement. He was able to transition to oral
== END 2019-12-13 16:34 | disposition home or self-care (01) | DRG 190 ==
LOC: ANHED 13:39 → ANH2MED 14:12
PROVIDERS: Internal Medicine Nephrology; Physician Assistant; Specialist; Admitting Provider Internal Medicine; Emergency Provider Emergency Medicine; PCP Family Medicine; Visit Provider Hospitalist
DX: J44.1 Chronic obstructive pulmonary disease with (acute) exacerbation (principal); N18.6 End stage renal disease; I50.22 Chronic systolic (congestive) heart failure; I13.2 Hypertensive heart and chronic kidney disease with heart failure and with stage 5 chronic kidney disease, or end stage renal disease; E87.1 Hypo-osmolality and hyponatremia; R78.81 Bacteremia; E11.22 Type 2 diabetes mellitus with diabetic chronic kidney disease; Z99.2 Dependence on renal dialysis; I25.5 Ischemic cardiomyopathy; G47.33 Obstructive sleep apnea (adult) (pediatric); N40.0 Benign prostatic hyperplasia without lower urinary tract symptoms; G89.29 Other chronic pain; E87.6 Hypokalemia; E11.649 Type 2 diabetes mellitus with hypoglycemia without coma; K29.70 Gastritis, unspecified, without bleeding; E87.70 Fluid overload, unspecified
CPT/HCPCS: 36415; 71046; 80048; 83735; 83880; 84100; 84132; 84439; 84443; 84480; 84484; 85025; 85027; 86706; 87040; 87070; 87075; 87077; 87081; 87186; 87205; 87340; 87804; 88104; 88108; 88305; 89051; 90945; 93005; 94640; 99285; A9270; G0378; J0696; J1815; J1940

== ENCOUNTER 2020-02-17 19:31 | Inpatient (IN) | payer MEDICARE, SELFPAY ==
--- NOTE | ~2020-02-17 | XR_ITS ---
EXAMINATION: [id number] INDICATION: Generalized chest pain and right rib pain after fall TECHNIQUE: A frontal view of the chest and 3 views of the right ribs were obtained. COMPARISON: 12/08/2019 FINDINGS: There is stable cardiomegaly. A mild diffuse interstitial pattern persists without signific ant change. There are changes of prior cardiac surgery. Small pleural effusions are present, left gre ater than right. There is no pneumothorax. A dual-lead cardiac pacemaker of the left chest wall ends with leads in expected locations. IMPRESSION: 1. No displaced rib fracture is identified. 2. Cardiomegaly with mild pulmonary edema. 3. Small pleural effusions. Reviewed, dictated and finalized at location A.
--- NOTE | ~2020-02-17 | XR_ITS ---
EXAMINATION: XR chest 1V portable DATE: 02/24/2020 05:40 INDICATION: Shortness of breath. TECHNIQUE: A single frontal view of the chest was obtained. COMPARISON: Chest single view 02/23/2020, chest CT 02/18/2020 FINDINGS: There are moderate-sized pleural effusions. There are airspace opacities in the perihilar r egions and at the lung bases. No pneumothorax. Cardiomegaly is noted. Median sternotomy wires are not ed. There is a left chest pacer/defibrillator with leads in right atrium and right ventricle. IMPRESSION: 1. Stable moderate-sized pleural effusions. 2. Airspace opacities in the perihilar regions and at the lung bases with slight improvement on the r ight, consistent with pulmonary edema versus pneumonia versus atelectasis. 3. Cardiomegaly. Reviewed, dictated and finalized at location A. IMPRESSION: 1. Stable moderate-sized pleural effusions. 2. Airspace opacities in the perihilar regions and at the lung bases with sligh t improvement on the right, consistent with pulmonary edema versus pneumonia ve rsus atelectasis. 3. Cardiomegaly.
--- NOTE | ~2020-02-17 | XR_ITS ---
EXAMINATION: XR chest 1V portable EXAM DATE: 02/23/2020 12:11 INDICATION: CHF. TECHNIQUE: Portable AP frontal chest x-ray was obtained. Comparison is made to prior examination from 02/19/2020. FINDINGS: Sternotomy wires are present without findings to suggest sternal dehiscence. There is a ezekiel l lead pacemaker/AICD seen with leads projecting over the expected locations of the right atrial appe ndage and right ventricle. Again there is small to moderate left pleural effusion. There is progressi on in the size of the right-sided pleural effusion and also the indistinct bilateral reticulation con sistent with pulmonary edema. Superimposed pneumonia not excludable. No pneumothorax. The cardiac yue houette is enlarged. There are bony degenerative changes. IMPRESSION: 1. Findings consistent with worsening CHF exacerbation. 2. Pneumonia not excludable. Reviewed, dictated and finalized at location A.
--- NOTE | ~2020-02-17 | XR_ITS ---
EXAMINATION: XR barium swallow modified DATE: 02/26/2020 10:53 INDICATION: Dysphagia. TECHNIQUE: The patient was given barium-containing material of multiple consistencies to swallow by t jaqui speech pathologist while I performed fluoroscopy. Fluoroscopy exposure time was 1.8 minutes. The n umber of fluoroscopy images saved to the PACS was 1. Dose-area product was 1.232 Gy-cm^2. FINDINGS: There was loss of bolus in the oral stage. Laryngeal penetration is noted. There is high risk of aspi ration. There is vallecular residue secondary to decreased tongue base retraction. There is pyriform sinus residue. There are large bridging anterior osteophytes along the cervical spine. IMPRESSION: 1. Laryngeal penetration. High risk of aspiration. 2. Please refer to the speech therapy report for recommendations. Reviewed, dictated and finalized at location A.
--- NOTE | ~2020-02-17 | US_ITS ---
EXAMINATION: US carotid duplex BI DATE: 02/24/2020 16:17 INDICATION: TIA TECHNIQUE: Grayscale, color Doppler, and pulsed Doppler images of the cervical carotid arteries were obtained. The degree of vessel stenosis is placed in one of the following categories: normal, <50%, 5 0-69%, >=70% but less than near-occlusion, near-occlusion, or total occlusion. Note that percent sten osis relative to normal distal artery lumen diameter is indirectly measured from velocity measurement s as described by Ki, et al. Radiology 2003; 229:340-346. Notes: Normal: Peak systolic velocity <125 centimeters/sec and no plaque <50%. Peak systolic velocity <125 ( EDV <40; ICA/CCA PSV ratio <2.0; used these factors only a tandem lesions or low cardiac output or co ntralateral disease) 50-69 %: PSV 125-230 (EDV 40-100; ratio 2-4) >= 70% but less than near occlusion: PSV greater than 230 (EDV > 100; ratio> 4.0) Near Occlusion: PSV that is variable; markedly narrowed lumen Occlusion: Absent flow on color/spectral Doppler and no lumen on cardona scale. COMPARISON: None. FINDINGS: RIGHT: The right common carotid artery (CCA) peak systolic velocity (PSV) is 76 cm/s. The right internal car otid artery (ICA) PSV is 107 cm/s. The right ICA end-diastolic velocity (EDV) is 14 cm/s. The right I CA/CCA PSV ratio is 1.4. The external carotid artery (ECA) PSV is 225 cm/s. There is antegrade flow i n the right vertebral artery. LEFT: The left CCA PSV is 85 cm/s. The left ICA PSV is 81 cm/s. The left ICA EDV is 18 cm/s. The left ICA/C CA PSV ratio is 1.0. The ECA PSV is 120 cm/s. There is antegrade flow in the left vertebral artery. IMPRESSION: 1. Less than 50% stenosis in the right internal carotid artery by sonographic criteria. 2. Less than 50% stenosis in the left internal carotid artery by sonographic criteria. Reviewed, dictated and finalized at location A. IMPRESSION: 1. Less than 50% stenosis in the right internal carotid artery by sonographic agatha iqbal. 2. Less than 50% stenosis in the left internal carotid artery by sonographic monty schafer.
--- NOTE | ~2020-02-17 | CT_ITS ---
EXAMINATION: CT chest abdomen pelvis wo con DATE: 02/18/2020 09:10 INDICATION: Dyspnea. Elevated liver function tests and rib pain. TECHNIQUE: Computed tomography (CT) of the chest, abdomen, and pelvis was performed without intraveno us contrast. Automated exposure control and iterative reconstruction technique were employed. The dos e-length product was 1478.37 mGy-cm. COMPARISON: CT abdomen and pelvis dated 10/30/2019 FINDINGS: CHEST CT: Moderate to large right and small left pleural effusions with dependent predominant compressive atele ctasis in the bilateral upper and lower lobes with additional discoid atelectasis in the lingula and right middle lobes. No pneumonia, pulmonary edema or pneumothorax. Cardiomegaly. Coronary artery dise ase and changes of prior median sternotomy and coronary artery bypass grafting. Dual-lead cardiac pac emaker/AICD with lead tips at the right atrial appendage and near the apex of the right ventricle. No pericardial effusion. Thoracic aorta is normal in caliber. Mediastinal lymphadenopathy which is like ly reactive. Mild thoracic spondylosis. ABDOMEN/PELVIS CT: Small amount of ascites scattered throughout the abdomen and pelvis. Cholecystectomy clips the gallbl adder fossa. Liver, spleen, pancreas and bilateral adrenal glands are normal. Mild bilateral renal at rophy. 1 mm nonobstructing left renal stone. Bladder and prostate are unremarkable. There is moderate colonic diverticulosis with a sigmoid predominance. Small bowel and appendix are normal. Likely ricardo toneal dialysis catheter entering the left upper quadrant of the abdomen and with distal tip coiled i n the left hemipelvis. There is no adjacent inflammatory change to suggest diverticulitis. No free in traperitoneal gas or fluid. No pathologically enlarged abdominal or pelvic lymphadenopathy. L5 spondy lolysis with bilateral pars intra-articular is defects and 5 mm anterolisthesis L5 on S1. IMPRESSION: 1. Small left and moderate to large right pleural effusions. 2. Cardiomegaly. 3. Small amount of ascites which may be related to peritoneal dialysis with dialysis catheter coiled in the left hemipelvis. 4. Diverticulosis. Reviewed, dictated and finalized at location A. IMPRESSION: 1. Small left and moderate to large right pleural effusions. 2. Cardiomegaly. 3. Small amount of ascites which may be related to peritoneal dialysis with kia lysis catheter coiled in the left hemipelvis. 4. Diverticulosis.
--- NOTE | ~2020-02-17 | XR_ITS ---
EXAMINATION: XR chest 1V portable DATE: 02/19/2020 16:02 INDICATION: Status post right thoracentesis TECHNIQUE: frontal view of the chest was obtained. COMPARISON: Chest radiograph dated 12/08/[address] dated 02/18/2020 FINDINGS: Hazy airspace opacities throughout both lungs relatively sparing the right apex with more dense conso lidation at the lung bases with blunting of the costophrenic angles again left greater than right. No pneumothorax. Cardiomegaly. Median sternotomy wires, ostial markers and mediastinal surgical clips c onsistent with prior coronary artery bypass grafting. Dual lead pacemaker/AICD seen with leads projec ting over the expected locations of the right atrium and right ventricle. IMPRESSION: 1. Small bilateral pleural effusions, left greater than right. 2. More dense opacities at the bilateral lung bases most likely associated compressive atelectasis al though differential includes pneumonia. 3. Cardiomegaly. Reviewed, dictated and finalized at location A. IMPRESSION: 1. Small bilateral pleural effusions, left greater than right. 2. More dense opacities at the bilateral lung bases most likely associated comp ressive atelectasis although differential includes pneumonia. 3. Cardiomegaly.
--- NOTE | ~2020-02-17 | CT_ITS ---
EXAMINATION: CTA brain EXAM DATE: 02/24/2020 16:29 INDICATION: Change in mental status. TECHNIQUE: Noncontrast head CT. Spiral CT angiogram cerebral arteries performed with intravenous in jection of 100 mL Omnipaque 350. Axial, coronal and sagittal images reviewed. Additional reformatted images created on dedicated 3-D workstation. The dose-length product (DLP) for this examination was 1268.55 mGy-cm. The exposure was tailored according to patient size, and iterative reconstruction (ASIR) was used as additional dose reduction technique. Comparison is made to prior examination from 02/17/2020. FINDINGS: There is moderate amount of smooth bilateral carotid siphon arterial sclerosis, causing no more than 20% stenosis on the left. The vertebral arteries are codominant. There is right-sided post erior communicating artery dominant posterior cerebral artery. There is no distal carotid or verte bral basilar arterial dissection or fibromuscular dysplasia. There are no cerebral artery aneurysms. There is symmetric cerebral artery arborization. The sagittal, transverse and sigmoid sinuses enhance normally, no venous sinus thrombosis. Internal cerebral veins also enhance normally. There is no acute intraparenchymal hemorrhage. No evidence of intraparenchymal brain mass lesion. N o evidence of acute infarction. There is mild periventricular and subcortical hypodensity, nonspecifi c but probably related to small vessel ischemic disease. There is moderate prominence of the sulci and ventricles related to cerebral atrophy. There is intracranial carotid arteriosclerosis. There is no mass effect or midline shift. There is no obstructive hydrocephalus suspected. There are no e xtra-axial collections. There are no calvarial acute fractures. IMPRESSION: 1. No acute intracranial findings or cerebral artery aneurysm. 2. Bilateral carotid siphon arterial sclerosis with approximately 20% left-sided stenosis. 3. Age-related intracranial findings. Reviewed, dictated and finalized at location A. IMPRESSION: 1. No acute intracranial findings or cerebral artery aneurysm. 2. Bilateral carotid siphon arterial sclerosis with approximately 20% left-genoveva ed stenosis. 3. Age-related intracranial findings.
--- NOTE | ~2020-02-17 | CT_ITS ---
EXAMINATION: CT brain wo con INDICATION: Altered mental status COMPARISON: 02/05/2017 TECHNIQUE: Standard unenhanced head CT. The dose-length product (DLP) was 681.00 mGy-cm. The mA was a djusted according to patient size. Iterative reconstruction technique was employed. FINDINGS: There is no acute intraparenchymal hemorrhage. No evidence of mass lesion. No evidence of a cute infarction. A small chronic area of low attenuation in the right frontal lobe may reflect prior infarction or white matter disease. There is mild periventricular and subcortical hypodensity probabl y related to small vessel ischemic disease. There is mild prominence of the sulci and ventricles rela dorcas to cerebral atrophy. Intracranial calcified cerebral atherosclerosis is noted. There are no extra -axial collections. There is no mass effect or midline shift. The orbits and soft tissues are unremar kable. The visualized sinuses and mastoid air cells are well aerated. IMPRESSION: 1. No acute intracranial abnormality. 2. Age related findings. Reviewed, dictated and finalized at location A.
--- NOTE | ~2020-02-17 | XR_ITS ---
EXAMINATION: XR barium swallow modified DATE: 02/21/2020 11:24 INDICATION: Dysphagia. TECHNIQUE: The patient was given barium-containing material of multiple consistencies to swallow by cinthya nails speech pathologist while I performed fluoroscopy. Dose-area product was 2.438 Gy-cm2. 3.6 minutes fluoroscopy time FINDINGS: Oral Stage: Premature spillage into the pharynx Oral residue Pharyngeal Phase: Laryngeal penetration. Mild aspiration with nectar thick fluid. Vallecular residue Cervical/Esophageal Stage: Within functional limits IMPRESSION: Modified esophagram findings as above. Please refer to the speech therapy report for [facility] recommendations. Reviewed, dictated and finalized at Location A. Reviewed, dictated and finalized at location A. IMPRESSION: Modified esophagram findings as above. Please refer to the speech t herapy report for specific recommendations.
--- NOTE | ~2020-02-17 | US_ITS ---
EXAMINATION: US thoracentesis DATE: 02/19/2020 15:58 INDICATION: Right pleural effusion TECHNIQUE: The procedure and its risks and benefits were discussed with the patient and patient's fam lenny. Potential risks discussed included bleeding, infection, and pneumothorax. The patient understood the risks and agreed to proceed. The skin was prepped and draped in sterile fashion. 1% lidocaine wa s used for local anesthesia. Under ultrasound guidance, a 5 Fr catheter with trochar was advanced int o the right pleural effusion. Fluid was aspirated. The catheter was removed, and a dressing was appli ed. There were no immediate complications. FINDINGS: Ultrasound images demonstrate a moderate to large right pleural effusion and the catheter within the fluid. IMPRESSION: 1. Successful ultrasound-guided thoracentesis yielding 1000 mL of clear yellow fluid. Reviewed, dictated and finalized at location A.
--- NOTE | ~2020-02-17 | CT_ITS ---
EXAMINATION: CT brain wo con DATE: 02/24/2020 11:17 INDICATION: Change in mental status. TECHNIQUE: Computed tomography (CT) of the head was performed without intravenous contrast. The dose- length product was 681.00 mGy-cm. Automated exposure control and iterative reconstruction technique w ere employed. COMPARISON: CT dated 02/16/2019 FINDINGS: There is a chronic right frontal lobe infarction. Mild generalized atrophy. There are scatt ered mild periventricular and subcortical white matter changes, most likely related to small vessel i schemic disease (microangiopathy). There is intracranial atherosclerosis. No acute intracranial hemor rhage, infarction, mass or mass effect. Paranasal sinuses and mastoids are pneumatized. No depressed skull fractures. Midline sagittal images are unremarkable. IMPRESSION: 1. No acute intracranial abnormality. 2: Chronic age-related findings. 3: Chronic right frontal lobe infarction. Reviewed, dictated and finalized at location A.
[2020-02-17 19:29] VITALS: BP 123/74; PULSE 79; RESP 24; TEMP 36.7; O2SAT 98
--- NOTE | 2020-02-17 19:39 | ED.WEAKNESS ---
HPI - Weakness General Chief complaint: Weakness Stated complaint: weakness Source: RN notes reviewed History of Present Illness HPI Narrative: Patient presents emergency department from home for weakness. Patient with 2 falls today first fall that patient had? Is by EMS but no transport second episode today patient states his knee went out on him and he fell requiring second left assist in EMS for further evaluation. Patient's son is present patient states the patient has had some mild confusion over the past several days patient currently denies any complaints denies any fevers or chills chest pain shortness of breath abdominal pain nausea vomiting diarrhea. Patient states he has not been eating or drinking well Related Data Home Medications Medication Instructions Recorded Confirmed metoclopramide HCl 10 mg TID PRN 12/08/19 12/08/19 potassium chloride 20 meq PO DAILY 12/08/19 12/08/19 sucralfate [Carafate] 1 gm PO BID 12/08/19 12/08/19 Allergies Allergy/AdvReac Type Severity Reaction Status Date / Time tetanus and diphtheria Allergy Mild LOCAL Verified 01/29/20 14:07 toxoids REDNESS & SWELLING. Review of Systems Review of Systems: Narrative: Gen.: Denies fevers or chills Eyes: Denies eye pain or visual change ENT: Denies congestion Respiratory: Denies shortness of breath or cough CV: Denies chest pain or palpitations GI: Denies abdominal pain nausea, emesis or diarrhea reports end-stage renal disease with peritoneal dialysis Musculoskeletal: Denies back pain or muscle pain Neuro: See HPI Skin: Denies rash Except as documented, all other systems reviewed and negative [facility] Past Medical History Medical History Adenomatous colon polyp Anemia in chronic kidney disease Anorexia BPH (benign prostatic hyperplasia) Chronic kidney disease due to diabetes mellitus Chronic pain Chronic systolic (congestive) heart failure ESRD on peritoneal dialysis GERD (gastroesophageal reflux disease) Hypothyroidism ICD (implantable cardioverter-defibrillator) in place Ischemic cardiomyopathy Cardiac catheterization 09/11/19 shows severe to ischemic cardiomyopathy with severe global hypokinesis, EF 15%. Obstructive sleep apnea Peritoneal dialysis catheter in place Type 2 diabetes mellitus Hemoglobin A1c was 8.6 % on 11/01/2019. 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 He reports no alcohol use, remote history of pipe smoking, denies other substance use. His PCP is Dr Tete Kumar. He designates his , Venecia, to be his surrogate decision maker and he is full code status. Smoking status: Never smoker Tobacco type: pipe Second hand tobacco smoke exposure: No Alcohol intake: never Substance use: never Substance use type: does not use Gender identity (if verbalized by the patient): Male Spiritual care concerns: No Agree to blood products: Yes Exam Narrative: Exam Narrative: APPEARANCE: No acute distress, nontoxic, resting in bed EYES: EOMI, Hyun HEENT: Normocephalic, atraumatic, OMM Neck: Supple, no midline tenderness palpation of range of motion without pain RESPIRATORY: No respiratory distress Clear to auscultation bilaterally with no rhonchi wheezing or rales. CARDIOVASCULAR: Regular rate and rhythm without murmurs rubs or gallops. ABDOMINAL: Soft, nontender, nondistended, no rebound or guarding MUSCULOSKELETAl: Moves all extremities. No clubbing, cyanosis or edema. No tenderness of the bilateral upper and lower extremities NEURO: Awake and alert x 3. Following commands, speech normal, no focal deficits SKIN:: Warm, dry. No rashes lesions or abrasions PSYCHIATRIC: Normal affect/mood, Course Course Emergency Course: Reviewed old records Called and discus
[2020-02-17 19:47] LABS: Basophils Percent Auto 0.1 % (0.2-1.2); Eosinophils Absolute Auto 0.1 K/mm3 (0-0.3); Eosinophils Percent Auto 0.5 % (0-4.4); Hemoglobin 12.6 g/dL (14.0-18.0); Immature Granulocyte Absolute 0.05 K/mm3 (0.00-0.031); Immature Granulocyte Percent A 0.4 % (0-0.5); Lymphocytes Absolute Auto 0.68 K/mm3 (0.9-3.2); Mean Corpuscular HGB Conc 33.2 g/dl (32-36); Mean Corpuscular Hemoglobin 31.1 pg (26-34); Mean Corpuscular Volume 93.8 fl (80-100); Mean Platelet Volume 11.9 fl (7.4-10.4); Monocytes Absolute Auto 0.9 K/mm3 (0.1-0.6); Monocytes Percent Auto 6.9 % (2.6-8.5); Neutrophils Absolute Auto 11.9 K/mm3 (1.3-6.7); Neutrophils Percent Auto 87.1 % (45.5-73.1); Platelet Count Result 237 k/mm3 (150-375); Red Blood Count 4.05 M/mm3 (4.6-6.20); Red Cell Distribution Width 14.5 % (11.5-14.5); White Blood Count 13.7 K/mm3 (4.5-10.0)
[2020-02-17 19:58] LABS: INR 1.1; Prothrombin Time 13.7 Seconds (11.1-14.7)
[2020-02-17 19:59] LABS: Partial Thromboplastin Time 29.5 SECONDS (22.3-36.8)
[2020-02-17 20:02] LABS: Alanine Aminotransferase 23 U/L (4-50); Albumin Level 3.1 g/dL (3.5-5.1); Alkaline Phosphatase 182 U/L (38-126); Aspartate Amino Transferase 28 U/L (17-59); Bilirubin,Total 0.7 mg/dL (0.2-1.3); Blood Urea Nitrogen 58 mg/dL (9-20); Calcium 8.1 mg/dL (8.4-10.2); Carbon Dioxide 28 mmol/L (22-30); Chloride 85 mmol/L (98-107); Estimated CRCL calculation 14 ml/min; Estimated Glomerular Filt Rate 11; Glucose 84 mg/dL (75-110); Potassium 2.7 mmol/L (3.4-5.0); Sodium 124 mmol/L (137-145)
[2020-02-17 20:12] LABS: Magnesium 1.9 mg/dL (1.6-2.3)
[2020-02-17 20:23] VITALS: BP 115/65; PULSE 67; RESP 15; O2SAT 96
--- NOTE | 2020-02-17 20:23 | PC.NURSE ---
Straight Catheter left in place per edp
--- NOTE | 2020-02-17 20:23 | PC.NURSE ---
Straight catheter preformed at this time, 0ml if output noted. edp jordin made aware.
--- NOTE | 2020-02-17 20:32 | PC.NURSE ---
250 ml in straight cath at this time. Catheter removed.
[2020-02-17 20:41] LABS: Add Urine Microscopic? YES; Appearance Urine Clear (Clear); Bacteria Urine Trace /hpf; Bilirubin Urine Negative (Negative); Blood Urine Negative (Negative); Color Urine Yellow (Yellow); Glucose Urine UA Negative (Negative); Ketones Urine Negative (Negative); Leukocyte Esterase Ur Negative LEU/UL (Negative); Mucus Urine Rare /lpf; Nitrate Urine Negative (Negative); Protein Urine 1+ mg/dL (Negative); RBC Urine 0-2 /hpf (0-2); Specific Grav Ur 1.015 (1.001-1.035); Squamous Epithelial Cell Urine Rare /hpf (Few); WBC Urine 0-3 /hpf
[2020-02-17] MEDS: POTASSIUM CHLORIDE 20 MEQ PACKET (FOR LIQUID) 40 MEQ PO (20:46)
[2020-02-17] MEDS: SODIUM CHLORIDE 0.9% IV 500 ML 50 ML IV CONT (20:46)
--- NOTE | 2020-02-17 20:55 | ECG_ITS ---
Measurements Intervals [place] Rate: 81 P: -21 SC: 219 QRS: 5 QRSD: 128 T: 156 QT: 465 QTc: 541 Interpretive Statements SINUS OR ECTOPIC ATRIAL RHYTHM ATRIAL TRIPLET, VENTRICULAR PREMATURE COMPLEX, ELECTRONIC VENTRICULAR PACEMAKER COMPLEX INTRAVENTRICULAR CONDUCTION DELAY POOR R WAVE PROGRESSION, ANTERIOR LEADS ST-T WAVE ABNORMALITY IN HIGH LATERAL LEADS- CONSIDER ISCHEMIA ABNORMAL ECG Electronically Signed On 02-18-2020 7:15:07 CDT by Duglas Stanley D.O.
[2020-02-17 21:41] VITALS: BP 122/43; PULSE 80; RESP 19; TEMP 37; O2SAT 97
[2020-02-17 22:00] VITALS: BP 128/78; PULSE 77; PULSE 81; RESP 18; TEMP 35.7; O2SAT 97
[2020-02-17 22:08] VITALS: BMI 30.9
--- NOTE | 2020-02-17 22:13 | ADMGEN ---
This patient, Kulwinder Morgan, was admitted to [facility] Surg Room 311-01. Patient/family oriented to hospital policies and general routines including ID bracelet, bed and alarms, visiting hours, pain management, procedures, bathroom and other care routines, personal items, smoking policy, room service/diet, and visiting hours. Valuables list has been completed. Information on how to activate the Rapid Response Team has been discussed. Patient/Family are encouraged to report perceived risks to care and to ask questions if they do not understand what they are told or what they should do.
[2020-02-18] VITALS (18 sets, daily range): BP systolic 95–117; BP diastolic 56–85; PULSE 54–104; RESP 10–36; TEMP 35.9–36.9; O2SAT 82–100
[2020-02-18] MEDS: METOCLOPRAMIDE HCL INJ 10 MG/2 ML VIAL IV PUSH (02:10)
--- NOTE | 2020-02-18 04:05 | PM.IMHP ---
H&P: HPI History of Present Illness Chief complaint: Increased weakness Narrative: Date and time of patient contact: 02/18/2020 at 1:50 a.m. Kulwinder Morgan is a 69 year old male with a past medical history of end-stage renal disease on peritoneal dialysis, ischemic cardiomyopathy, and obstructive sleep apnea who presented to the ER via EMS from home with worsening generalized weakness for the past month. The patient had 2 falls on the day of presentation to the ER. He had refused transport to the hospital with the 1st EMS call. Family reported that the patient has been having some mild confusion over the last several days. The patient initially denied any complaints to the ER staff and to myself. However shortly thereafter the patient complained of shortness of breath and asked me to help him sit on the edge of the bed. The patient admits to having orthopnea. His legs are noted to have 1+ edema. The patient had marked abrasions to his right knee but denies any knee pain on palpation. 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 He reports he has had a bowel movement within the last 2 days and denies any diarrhea. He denies any pain at his peritoneal dialysis site. He denies any nausea or vomiting. However, while I was in the room the patient told me that his stomach felt upset. He has had decreased appetite. He denies any loss of sense of smell or taste. He relates it to his history of gastroparesis. Patient is slow to respond medina to questions and his affect appears slightly off but he is oriented x3. He denies any recent ill contacts. The patient had E coli bacteremia of uncertain source during his last hospitalization. Review of Systems Review of Systems: Narrative: 12 systems were reviewed with pertinent positives and negatives per HPI. Except as documented in the HPI, all other systems were reviewed and are negative. [facility] Past Medical History Medical History (Updated 02/18/20 @ 04:41 by Berkley Riddle DO) Adenomatous colon polyp Anemia in chronic kidney disease Anorexia BPH (benign prostatic hyperplasia) Chronic kidney disease due to diabetes mellitus Chronic pain Chronic systolic (congestive) heart failure ESRD on peritoneal dialysis Gastroparesis GERD (gastroesophageal reflux disease) Hypothyroidism ICD (implantable cardioverter-defibrillator) in place Ischemic cardiomyopathy Cardiac catheterization 09/11/19 shows severe to ischemic cardiomyopathy with severe global hypokinesis, EF 15%. With echo from November 02, 2019 EF 20-25% grade 3 diastolic dysfunction Moderate pulmonary arterial systolic hypertension RVSP 51 Obstructive sleep apnea Peritoneal dialysis catheter in place Type 2 diabetes mellitus Hemoglobin A1c was 8.6 % on 11/01/2019. 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 He reports no alcohol use, remote history of pipe smoking, denies other substance use. His PCP is Dr Tete Kumar. He designates his , Venecia, to be his surrogate decision maker and he is full code status. Smoking status: Simran
[2020-02-18 08:09] LABS: Hematocrit 34.2 % (42.0-52.0); Hemoglobin 11.4 g/dL (14.0-18.0); Mean Corpuscular HGB Conc 33.3 g/dl (32-36); Mean Corpuscular Hemoglobin 31.1 pg (26-34); Mean Corpuscular Volume 93.2 fl (80-100); Platelet Count Result 183 k/mm3 (150-375); Red Blood Count 3.67 M/mm3 (4.6-6.20); Red Cell Distribution Width 14.5 % (11.5-14.5); White Blood Count 11.4 K/mm3 (4.5-10.0)
[2020-02-18 08:24] LABS: Alanine Aminotransferase 83 U/L (4-50); Albumin Level 2.6 g/dL (3.5-5.1); Alkaline Phosphatase 512 U/L (38-126); Aspartate Amino Transferase 288 U/L (17-59); Blood Urea Nitrogen 64 mg/dL (9-20); Calcium 7.9 mg/dL (8.4-10.2); Carbon Dioxide 26 mmol/L (22-30); Chloride 88 mmol/L (98-107); Estimated CRCL calculation 16 ml/min; Estimated Glomerular Filt Rate 11; Glucose 80 mg/dL (75-110); Magnesium 1.8 mg/dL (1.6-2.3); Sodium 124 mmol/L (137-145)
--- NOTE | 2020-02-18 09:35 | ECG_ITS ---
Measurements Intervals [place] Rate: 71 P: CA: 0 QRS: 84 QRSD: 121 T: 129 QT: 438 QTc: 479 Interpretive Statements ATRIAL SENS- ELECTRONIC VENTRICULAR PACEMAKER WITH INHIBITION VENTRICULAR PREMATURE COMPLEXES INCOMPLETE LEFT BUNDLE BRANCH BLOCK BORDERLINE R WAVE PROGRESSION, ANTERIOR LEADS BORDERLINE T WAVE ABNORMALITY- INF/LAT LEADS ABNORMAL ECG Electronically Signed On 02-18-2020 10:21:58 CDT by Duglas Stanley D.O.
[2020-02-18 10:10] LABS: Lactic Acid Reflex 0.9 mmol/L (0.7-2.1)
--- NOTE | 2020-02-18 10:10 | PC.NURSE ---
Called to room to evaluate patient post CT scan. Patient very drowsy and lethargic but arouses to verbal stimuli. PERRL - left hand scoop machine operator weaker than right. Lungs diminished to bases and coarse to bilateral upper lobes. Abdomen distended with bowel sounds present tender to palpation. shadow bruising present to right mid anterior abdomen. Dialysis catheter present to left lower abdomen without drainage noted to site. 02 sat 100% on 2L/NC. BP 104/56. Heart rate 72 but irregular - poor perfusion noted with radial pulse check. Resp rate varies up to 36/minute with short periods of apnea noted while sleeping. Skin pale. Sendy PACHECO contacted and here to bedside to evaluate patient again. She spoke with telegraphic typewriter operator who also came to evaluate patient. Labs and CT results reviewed with both. Additional orders received. ABGS drawn. Additional labs pending. Dr Rodriguez also here to examine patient. Will plan transfer to ICU per orders pending bed availability. Meghna Rosario spoke with and son to give update on condition- verified patient wishes for full code status.
[2020-02-18 10:11] LABS: Alveolar/Arterial O2 Gradient 65.7 mmHg; Base Excess ABG -2.4 mEq/l (+/-2.0); Fractional Inspired Oxygen 28 %; HCO3 ABG 22.4 mEq/l (22.0-26.0); Oxygen Content ABG 15.5 %vol (16.0-22.0); Oxygen Saturation ABG 96.6 % (95.0-100.0); Oxyhemoglobin 93.4 % THb (90.0-100.0); PCO2 ABG 38.6 mmHg (35.0-45.0); PO2 ABG 88.4 mmHg (80.0-100.0); PO2 FiO2 Ratio Arterial Blood 3.16 %; Total Hemoglobin 11.7 g/dL (12.0-18.0); pH ABG 7.382 (7.350-7.450)
[2020-02-18 10:12] LABS: Device NASAL CANNULA; Site Drawn RIGHT BRACHIAL
--- NOTE | 2020-02-18 10:27 | PM.IMPN ---
Progress Note: A&P Assessment and Plan (1) Sepsis: Qualifiers: Sepsis type: sepsis due to unspecified organism Sepsis acute organ dysfunction status: with acute organ dysfunction Severe sepsis acute organ dysfunction type: encephalopathy Severe sepsis shock status: without septic shock Qualified Code(s): A41.9 - Sepsis, unspecified organism; R65.20 - Severe sepsis without septic shock; G93.40 - Encephalopathy, unspecified Code(s): A41.9 - Sepsis, unspecified organism Status: Acute Assessment and Plan: Discussed with PA and revenue field auditor. Transferred to ICU with sepsis possibly result of peritonitis. LFTs increased but CT abdomen/pelvis with small amount of ascites. Started on IV cefepime and vancomycin. Blood and peritoneal fluid cultures initiated. Continue to monitor closely. Total time spent in critical care is 35 minutes. (2) Encephalopathy: Code(s): G93.40 - Encephalopathy, unspecified Status: Acute Assessment and Plan: Result of probable infection. CT brain with no acute changes. Not at his baseline. Will monitor. (3) Elevated liver enzymes: Code(s): R74.8 - Abnormal levels of other serum enzymes Status: Acute Assessment and Plan: LFTs significantly increased today with total bilirubin 2.0, AST 288, ALT [address] abdomen/pelvis as noted above. (4) Acute hypokalemia: Code(s): E87.6 - Hypokalemia Status: Acute Assessment and Plan: Potassium 3.0 today with replacement given by IV. Will continue to monitor and replace as needed. (5) Pleural effusion on right: Code(s): J90 - Pleural effusion, not elsewhere classified Status: Acute Assessment and Plan: CT chest with small left and moderate to large right pleural effusions. Currently saturating adequately on room air. May need thoracentesis when more stable. (6) Hyponatremia: Code(s): E87.1 - Hypo-osmolality and hyponatremia Status: Acute Assessment and Plan: Sodium 124 today which is lower than his usual but he is receiving IV Lasix. Will monitor. May be adding to altered mental status. (7) Suspected 2019 novel coronavirus infection: Code(s): Z20.828 - Contact with and (suspected) exposure to other viral communicable diseases Status: Acute Assessment and Plan: Will check COVID-19 testing as did have shortness of breath as well as fever at home. (8) Ischemic cardiomyopathy: Code(s): I25.5 - Ischemic cardiomyopathy Status: Chronic Assessment and Plan: EF known to be 20-25%. Repeat echocardiogram ordered with current situation. Continue IV Lasix. (9) ESRD on peritoneal dialysis: Code(s): N18.6 - End stage renal disease; Z99.2 - Dependence on renal dialysis Status: Chronic Assessment and Plan: Nephrology consulted and appreciate input. Continue peritoneal dialysis per nephrology. (10) Type 2 diabetes mellitus: Qualifiers: Diabetes mellitus exterminator termite insulin use: with mcfp use Diabetes mellitus complication status: with kidney complications Diabetes mellitus complication detail: with chronic kidney disease Chronic kidney disease stage: on chronic dialysis Qualified Code(s): E11.22 - Type 2 diabetes mellitus with diabetic chronic kidney disease; N18.6 - End stage renal disease; Z79.4 - long-term (current) use of insulin; Z99.2 - Dependence on renal dialysis Code(s): E11.9 - Type 2 diabetes mellitus without complications Status: Chronic Assessment and Plan: Glucose reviewed on 02/18/2020 and stable without scheduled insulin. Will continue sliding scale insulin and monitor. (11) DVT prophylaxis: Code(s): Z29.9 - Encounter for prophylactic measures, unspecified Status: Acute Assessment and Plan: Heparin subcutaneously. Time Spent With Patient Time with patient: 25 - 35 minutes Subjective Date/time seen: 02/18/20 10:27
[2020-02-18 10:30] LABS: Troponin I 0.109 ng/mL (0.000-0.034)
--- NOTE | 2020-02-18 10:39 | WPDCNINT ---
Assessment and Plan Assessment and plan (1) Sepsis: Code(s): A41.9 - Sepsis, unspecified organism Status: Acute Assessment and Plan: it appears the patient has sepsis from peritonitis from his peritoneal dialysis. Patient transferred to ICU for closer monitoring send peritoneal fluid for cell count and culture empiric vancomycin and cefepime blood cultures were sent and are pending will give 500 cc of IV fluid bolus and hold further IV fluids as patient is overall volume overloaded from his end-stage renal disease and congestive heart failure, lactic acid is normal and blood pressure is adequate at this time (2) Acute hypokalemia: Code(s): E87.6 - Hypokalemia Status: Acute Assessment and Plan: hypokalemia is being replaced (3) Anemia in chronic kidney disease: Code(s): N18.9 - Chronic kidney disease, unspecified; D63.1 - Anemia in chronic kidney disease Status: Acute Assessment and Plan: hemoglobin appears to be stable at baseline. continue to monitor this time (4) Pleural effusion: Code(s): J90 - Pleural effusion, not elsewhere classified Status: Acute Assessment and Plan: will consider thoracentesis on the right side once patient is more stable patient is saturating well on 2 L nasal cannula (5) Type 2 diabetes mellitus: Qualifiers: Diabetes mellitus halfway insulin use: with halfway use Diabetes mellitus complication status: with kidney complications Diabetes mellitus complication detail: with chronic kidney disease Chronic kidney disease stage: on chronic dialysis Qualified Code(s): E11.22 - Type 2 diabetes mellitus with diabetic chronic kidney disease; N18.6 - End stage renal disease; Z79.4 - FPC (current) use of insulin; Z99.2 - Dependence on renal dialysis Code(s): E11.9 - Type 2 diabetes mellitus without complications Status: Chronic Assessment and Plan: hold Lantus and with meal insulin as patient will be NPO at this time sliding scale insulin to monitor and treat as needed (6) ESRD on peritoneal dialysis: Code(s): N18.6 - End stage renal disease; Z99.2 - Dependence on renal dialysis Status: Chronic Assessment and Plan: consult nephrology for peritoneal dialysis (7) Ischemic cardiomyopathy: Code(s): I25.5 - Ischemic cardiomyopathy Status: Chronic Assessment and Plan: severe bi V failure status post AICD, biventricular pacemaker, CABG, PTCA with stent, pulmonary hypertension, some congestive heart failure last ejection fraction was 15% and patient had angiogram in August of last year repeat echo now patient does not appear to be in cardiogenic shock hence will hold inotropes at this time residential monitor ECHO 11/2019 Summary 1. Left ventricular chamber dimension is enlarged. 2. Left ventricular systolic function is severely reduced, estimated at 20-25%. 3. The left ventricular diastolic function is grade III diastolicdysfunction. 4. Right ventricular chamber dimension is enlarged. 5. Right ventricular systolic function is reduced. 6. Linear artifact in right ventricle suggestive of catheter(s), pacemaker lead(s), or ICD lead(s). 7. There is mild mitral valve regurgitation. 8. There is mild tricuspid valve regurgitation. 9. Moderate pulmonary hypertension, estimated pulmonary arterial systolic pressure is 51 mmHg. (8) DVT prophylaxis: Code(s): Z29.9 - Encounter for prophylactic measures, unspecified Status: Acute (9) Encephalopathy: Code(s): G93.40 - Encephalopathy, unspecified Status: Acute Assessment and Plan: likely toxic metabolic encephalopathy head CT was negative on presentation check TSH and ammonia level (10) Elevated liver enzymes: Code(s): R74.8 - Abnormal levels of other serum enzymes Status: Acute Assessment and Plan: labs show cholestatic pattern and
--- NOTE | 2020-02-18 10:59 | PM.IMPN ---
Progress Note: A&P Assessment and Plan (1) Sepsis: Code(s): A41.9 - Sepsis, unspecified organism Status: Acute Assessment and Plan: The patient met SIRS criteria with tahycardia and tachypnea. The suspected source is possible bacterial peritonitis. Blood cultures were obtained and are pending. UA was essentially unremarkable. Dr. August was consulted regarding potential transfer to the ICU due to concern for potential deterioration and has accepted the patient in transfer to the ICU. Blood pressures are low but stable at this time. Lactic acid was normal at 0.9. WBC is elevated at 11.4 with neutrophil predominance. Treat empirically with IV cefepime and vancomycin for possible peritonitis Await cultures Continue to monitor (2) Acute exacerbation of congestive heart failure: Qualifiers: Heart failure type: unspecified Qualified Code(s): I50.9 - Heart failure, unspecified Code(s): I50.9 - Heart failure, unspecified Status: Acute Assessment and Plan: Echo from 11/2019 revealed EF 20-25% and grade III [address] chest revealed moderate to large right pleural effusion and small left pleural effusion. He has a pacemaker/ICD. ABG was obtained and is unremarkable. Continue lasix 80mg IV BID Strict I&O and daily weights Continue carvedilol Repeat echo (3) ESRD on peritoneal dialysis: Code(s): N18.6 - End stage renal disease; Z99.2 - Dependence on renal dialysis Status: Chronic Assessment and Plan: Dr. Lemus from nephrology has been consulted for dialysis management and recommendations on electrolyte abnormalities. Management per Dr. Lemus (4) Acute hypokalemia: Code(s): E87.6 - Hypokalemia Status: Acute Assessment and Plan: Potassium was 2.7 at admission. He received 40mEq PO in the ED. Repeat potassium was 3.0. Discussed with Dr. Lemus who recommended 40mEq. Since he is not alert to take PO medications at this time, I will order 40mEq IV KCl. Continue to monitor (5) Hyponatremia: Code(s): E87.1 - Hypo-osmolality and hyponatremia Status: Acute Assessment and Plan: The patient has chronic hyponatremia but there is a acute component with worsening as his sodium at presentation is 124. His baseline appears to be 128-130. Nephrology is on board and recommendations are greatly appreciated Continue lasix IV as the patient overall appears hypervolemic Continue to monitor closely (6) Generalized weakness: Code(s): R53.1 - Weakness Status: Acute Assessment and Plan: PT and OT eval once appropriate (7) Elevated liver enzymes: Code(s): R74.8 - Abnormal levels of other serum enzymes Status: Acute Assessment and Plan: LFTs were markedly elevated on repeat AM labs. STAT CT abd/pelvis wo contrast was ordered for further evaluation as he is tender to the RUQ. CT abd/pelvis revealed a small amount of ascites. He has a hx of cholecystectomy and there was no liver abnormality appreciated on CT. This may be congestive due to CHF. Hold simvastatin Continue to monitor (8) Encephalopathy: Code(s): G93.40 - Encephalopathy, unspecified Status: Acute Assessment and Plan: He is alert and oriented x3 but does appear confused and drowsy. His reports recent confusion. CT head was negative for acute change. I suspect metabolic encephalopathy due to concerns for sepsis. Plan for ammonia and TSH Continue to monitor (9) Suspected 2019 novel coronavirus infection: Code(s): Z20.828 - Contact with and (suspected) exposure to other viral communicable diseases Status: Acute Assessment and Plan: He reports dry cough and subjective fever. Will administer SARS-CoV-2 testing to r/o COVID-19. Chest CT was negative for consolidation. Initiate isolation precautions Use supplemental
[2020-02-18 11:11] LABS: Ammonia < 9 umol/L (9-30)
[2020-02-18] MEDS: SODIUM CHLORIDE 0.9% IV 500 ML IV CONT (11:23)
[2020-02-18 11:39] LABS: Glucose Point of Care 85 (65-105)
[2020-02-18] MEDS: GENTAMICIN SULFATE 0.1% OINT 15 GM TUBE 1 APPLIC TOPICAL (12:01)
[2020-02-18 12:09] LABS: Appearance Peritoneal Fluid Clear (Clear); Color Peritoneal Fluid Yellow (Colorless); Nucleated Cells Peritoneal Flu 79 /uL (0-500); RBC Peritoneal Fluid 1088 /uL (0-100000); Source Peritoneal Fluid Peritoneal Fluid
[2020-02-18 12:13] LABS: Lymphocytes Peritoneal Fluid 40 %; Macrophages Peritoneal Fluid 22 %; Monocytes Peritoneal Fluid 32 %; Neutrophils Peritoneal Fluid 6 % (0-25)
[2020-02-18 12:15] LABS: Glucose Point of Care 80 (65-105)
--- NOTE | 2020-02-18 12:16 | PC.NURSE ---
Yenifer PACHECO aware that patient is too sleepy to take oral AM meds at this time.
--- NOTE | 2020-02-18 13:05 | PC.NURSE ---
0830 FOUND PT BREATHING ABDOMINALLY WITH PERIODS OF TACYPNEA FOLLOWED BY SLOWED RESTIRATIONS, PT STATES THAT HE IS HAVING SEVER RT UPPER QUAD ABDOMINAL PAINM STATES THAT HE FEEL UP THE STAIRS AT HOME NOTED RT UPPER ABDOMINAL BRUISING. PT STATES THAT HE IS SHORT OF BREATH. PT HAVING FEEQ. PERIODS OF STARING WITH SLOWED BREATHING, PT STATES THAT HE IS TIRED AND IS TRING TO SLEEP. =PULSE OX SHOWS PT'S SATS AT 97% THEN DROPS TO 82% called memo hosptalist left message. reported to charge nurse gm findings , came and evaluated pt. monitored pulses noted poorprofusion of pulses.
--- NOTE | 2020-02-18 13:13 | PC.NURSE ---
0893 colleen updated on pt condition. hospitalist to the room.. spoke with and son and updated them on pt's condition.
--- NOTE | 2020-02-18 13:20 | PC.NURSE ---
This patient, Kulwinder Morgan, was transferred to icu[ ] on 02/18/20 at 1100. Personal belongings sent with patient. Belongings list checked and signed with receiving [ ]. Report given to suman [ ]. Appropriate documentation sent with patient.
--- NOTE | 2020-02-18 13:34 | PCPTNOTE ---
PT orders were received when pt was in 311 - 3 Med/surg. He subsequently was transferred to ICU - new orders will be needed for PT when medically appropriate.
--- NOTE | 2020-02-18 16:04 | PM.CNNEP ---
Assessment and Plan Assessment and plan (1) End stage renal disease: Code(s): N18.6 - End stage renal disease Status: Chronic (2) Hypokalemia: Code(s): E87.6 - Hypokalemia Status: Acute (3) Hyponatremia: Code(s): E87.1 - Hypo-osmolality and hyponatremia Status: Acute (4) Elevated liver enzymes: Code(s): R74.8 - Abnormal levels of other serum enzymes Status: Acute (5) Pleural effusion on right: Code(s): J90 - Pleural effusion, not elsewhere classified Status: Acute (6) Generalized weakness: Code(s): R53.1 - Weakness Status: Acute History of Present Illness Reason for Consult Consult date: 02/18/20 Reason for consult: end stage renal disease Chief Complaint Chief complaint: Increased weakness History of Present Illness Narrative: The patient is a 69-year-old male with a past medical history as outlined below who presented to the [facility] emergency room earlier today with complaints of worsening weakness and fatigue. The patient states that the weakness and fatigue have been going on for the last month but seems to have worsened in the last few days. He apparently had 2 falls on the day of admission prior to his presentation to the emergency room. [place], he family states he as has been having some mild confusion over the last several days as well. Further questioning also elicited symptoms of shortness of breath, orthopnea, along with a chronic cough. He denies any nausea, vomiting, diarrhea, or abdominal pain or discomfort with peritoneal dialysis treatments. Work up and evaluation in the emergency room demonstrated the patient to be hemodynamically stable but routine blood tests demonstrates labs consistent with his known history of ESRD along with significant hypokalema along with hyponatremia. The electrolytes abnormalities along with his presenting symptoms led to admission for further evaluation. Since his admission, blood work done this morning demonstrate a marked decline in his liver function tests any clinically appear to be not at his baseline. He had an abnormal breathing pattern and his mentation seemed to be somewhat altered as well. He underwent a stat CT scan of the chest abdomen pelvis which was significant for a moderate to large right pleural effusion but no significant intra-abdominal pathology to explain the elevated liver function tests. As his blood pressure was somewhat on the lower side of normal and his pulse was thready, he was transferred to the ICU for closer monitoring. Renal consultation was requested due to his end-stage renal disease. The patient is quite familiar to me, as I take care of his end-stage renal disease and peritoneal dialysis as an outpatient through [facility]. He has been on peritoneal dialysis for about 2 years, and prior to that, he was on hemodialysis. He has been doing reasonably well with peritoneal dialysis with monthly labs that demonstrated adequacy of his dialysis treatments, stability in his electrolytes with the exception of chronic hypokalemia, and other CKD parameters within the appropriate range. He did not receive dialysis yesterday evening due the concern of possible volume depletion. It should be noted that on his last hospitalization here [facility], he had E coli sepsis/bacteremia without a clear etiology but the assumption was that it was related to a possible urinary tract infection. He responded fairly quickly to IV antibiotic therapy with subsequent transition to oral antibiotics on discharge. Currently, at the time of my visit, he appears relatively stable and in no acute distress. Review of Systems Review of Systems: Narrative: As per HPI. [facility] Past Medical History Medical History Adenomatous colon polyp Anemia in chronic kidney disease Anorexia BPH (benign prostatic hyperplasi
[2020-02-18] MEDS: BENZONATATE 100 MG CAPSULE 200 MG PO (16:43)
[2020-02-18] MEDS: FAMOTIDINE 20 MG TABLET PO (16:45)
[2020-02-18] MEDS: METOCLOPRAMIDE HCL 10 MG TABLET PO (16:48)
[2020-02-18] MEDS: NYSTATIN 100,000 UNITS/ML SUSP 5 ML ORAL.SUSP PO ×2 (16:48→21:05)
[2020-02-18] MEDS: FUROSEMIDE INJ 100 MG/10 ML VIAL 80 MG IV PUSH (16:54)
[2020-02-18 17:33] LABS: Troponin I 0.087 ng/mL (0.000-0.034)
[2020-02-18 18:10] LABS: Glucose Point of Care 133 (65-105)
[2020-02-18] MEDS: HEPARIN SODIUM 5,000 UNITS/ML VIAL 5000 UNITS SUB-Q (20:27)
[2020-02-18] MEDS: CALCIUM CARBONATE (TUMS) 500 MG (200 MG ELEMENTAL) 400 MG PO (20:27)
[2020-02-18 20:37] LABS: Glucose Point of Care 112 (65-105)
[2020-02-18 22:09] LABS: Troponin I 0.093 ng/mL (0.000-0.034)
[2020-02-19] VITALS (15 sets, daily range): BP systolic 105–125; BP diastolic 64–84; PULSE 71–99; RESP 18–29; TEMP 35.9–36.8; O2SAT 94–100
--- NOTE | 2020-02-19 | ECHO_ITS ---
Patient Info Name: Kulwinder Morgan Age: 69 years : 1950 Gender: Male Ht: 72 in Wt: 227 lbs BSA: 2.31 m2 HR: 76 bpm BP: 106 / 77 mmHg Technical Quality: Good Exam Date: 02/19/2020 1:41 PM Exam Location: [facility] Patient Status: Inpatient Admit Date: 02/18/2020 Staff Ordering Physician: Yenifer Mckeon PA-C Road Engineer Freight: Crispin Mae RDCS, RT Attending Provider: Yenifer Mckeon PA-C Referring Physician: Mike GLEZ; Exam Type: CA echo doppler color flow Study Info Indications I50.9 - Heart failure, unspecified Complete two-dimensional, color flow and Doppler transthoracic echocardiogram is performed. Summary 1. Left ventricular systolic function is severely reduced, estimated at 10-15%. 2. Left ventricular chamber dimension is severely enlarged. 3. There is moderately increased left ventricular wall thickness. 4. The left ventricular diastolic function is abnormal. 5. E/e' 14 is mildly elevated. 6. Global longitudinal strain is abnormal at -4.0%. 7. Right ventricular chamber dimension is moderately enlarged. 8. Right ventricular systolic function is severely reduced based on TAPSE 1.0 cm. 9. Linear artifact in right ventricle suggestive of catheter(s), pacemaker lead(s), or ICD lead(s). 10. Left atrial chamber dimension is severely enlarged. 11. Right atrial chamber dimension is moderately enlarged. 12. Linear artifact in the right atrium suggestive of catheter(s), pacemaker lead(s), or ICD lead(s). 13. There is mild to moderate mitral valve regurgitation. 14. There is moderate tricuspid valve regurgitation. 15. Moderate pulmonary hypertension, estimated pulmonary arterial systolic pressure is 50 mmHg. 16. There is trace pulmonic regurgitation. 17. Dilated inferior vena cava with <50% collapse upon inspiration consistent with significantly elevated right atrial pressure, 15 mmHg. Left Ventricle E/e' 14 is mildly elevated. Global longitudinal strain is abnormal at -4.0%. Left ventricular systolic function is severely reduced, estimated at 10-15%. Left ventricular chamber dimension is severely enlarged. There is moderately increased left ventricular wall thickness. The left ventricular diastolic function is abnormal. Right Ventricle Right ventricular systolic function is severely reduced based on TAPSE 1.0 cm. Linear artifact in right ventricle suggestive of catheter(s), pacemaker lead(s), or ICD lead(s). Right ventricle is not well visualized. Right ventricular chamber dimension is moderately enlarged. Left Atria Left atrial chamber dimension is severely enlarged. Right Atria Linear artifact in the right atrium suggestive of catheter(s), pacemaker lead(s), or ICD lead(s). Right atrial chamber dimension is moderately enlarged. Aortic Valve The aortic valve is trileaflet. There is no aortic valve stenosis. There is no aortic valve regurgitation. Pulmonic Valve There is trace pulmonic regurgitation. Mitral Valve There is no mitral valve stenosis. There is mild to moderate mitral valve regurgitation. Tricuspid Valve There is moderate tricuspid valve regurgitation. Moderate pulmonary hypertension, estimated pulmonary arterial systolic pressure is 50 mmHg. Pericardium/Pleural There is no pericardial effusion. Inferior Vena Cava Dilated inferior vena cava with <50% collapse upon inspiration consistent with significantly elevated right atrial pressure, 15 mmHg. Aorta The aortic root size at the s
[2020-02-19 00:48] LABS: Glucose Point of Care 174 (65-105)
[2020-02-19 05:15] LABS: Glucose Point of Care 186 (65-105)
[2020-02-19 05:45] LABS: Alanine Aminotransferase 136 U/L (4-50); Albumin Level 2.7 g/dL (3.5-5.1); Alkaline Phosphatase 557 U/L (38-126); Aspartate Amino Transferase 178 U/L (17-59); Bilirubin,Total 1.3 mg/dL (0.2-1.3); Blood Urea Nitrogen 59 mg/dL (9-20); Carbon Dioxide 23 mmol/L (22-30); Chloride 88 mmol/L (98-107); Estimated CRCL calculation 15 ml/min; Estimated Glomerular Filt Rate 12; Glucose 203 mg/dL (75-110); Magnesium 1.8 mg/dL (1.6-2.3); Potassium 3.5 mmol/L (3.4-5.0); Sodium 122 mmol/L (137-145)
[2020-02-19 06:11] LABS: Hematocrit 35.2 % (42.0-52.0); Hemoglobin 11.6 g/dL (14.0-18.0); Mean Corpuscular Hemoglobin 31.2 pg (26-34); Mean Corpuscular Volume 94.6 fl (80-100); Mean Platelet Volume 12.6 fl (7.4-10.4); Platelet Count Result 175 k/mm3 (150-375); Red Blood Count 3.72 M/mm3 (4.6-6.20); Red Cell Distribution Width 14.6 % (11.5-14.5); White Blood Count 13.2 K/mm3 (4.5-10.0)
[2020-02-19] MEDS: LEVOTHYROXINE SODIUM 88 MCG TABLET PO (06:29)
--- NOTE | 2020-02-19 08:15 | WPDINTPN ---
Progress Note: A&P Assessment and Plan (1) Sepsis: Qualifiers: Sepsis type: sepsis due to unspecified organism Sepsis acute organ dysfunction status: with acute organ dysfunction Severe sepsis acute organ dysfunction type: encephalopathy Severe sepsis shock status: without septic shock Qualified Code(s): A41.9 - Sepsis, unspecified organism; R65.20 - Severe sepsis without septic shock; G93.40 - Encephalopathy, unspecified Code(s): A41.9 - Sepsis, unspecified organism Status: Acute Assessment and Plan: patient was admitted yesterday with presumptive diagnosis of sepsis from peritonitis in the setting of peritoneal dialysis patient has slightly elevated white count, subjective history of fever and mild tenderness on palpation and abdomen patient was empirically started on vancomycin and cefepime peritoneal fluid culture and cell count was sent. since patient's cell count does not support diagnosis of peritonitis as has less than 100 white cells and only 6% neutrophils g stain and culture is pending sore blood cultures will continue empiric vancomycin and cefepime for another 24 hours until Gram stain and cultures of back (2) Acute hypokalemia: Code(s): E87.6 - Hypokalemia Status: Acute Assessment and Plan: improved with replacement (3) Anemia in chronic kidney disease: Code(s): N18.9 - Chronic kidney disease, unspecified; D63.1 - Anemia in chronic kidney disease Status: Acute Assessment and Plan: hemoglobin appears to be stable at baseline. continue to monitor this time (4) Pleural effusion: Code(s): J90 - Pleural effusion, not elsewhere classified Status: Acute Assessment and Plan: patient is scheduled for thoracentesis on the right side today although this is going to be a temporary benefit as pleural effusion will likely recur in setting of peritoneal dialysis and congestive heart patient is saturating well on 2 L nasal cannula (5) Type 2 diabetes mellitus: Qualifiers: Diabetes mellitus extermination inspector insulin use: with residential use Diabetes mellitus complication status: with kidney complications Diabetes mellitus complication detail: with chronic kidney disease Chronic kidney disease stage: on chronic dialysis Qualified Code(s): E11.22 - Type 2 diabetes mellitus with diabetic chronic kidney disease; N18.6 - End stage renal disease; Z79.4 - extermination inspector (current) use of insulin; Z99.2 - Dependence on renal dialysis Code(s): E11.9 - Type 2 diabetes mellitus without complications Status: Chronic Assessment and Plan: patient is NPO at this time sliding scale insulin to monitor and treat as needed start Lantus (6) ESRD on peritoneal dialysis: Code(s): N18.6 - End stage renal disease; Z99.2 - Dependence on renal dialysis Status: Chronic Assessment and Plan: patient had peritoneal dialysis last night as per nephrology (7) Ischemic cardiomyopathy: Code(s): I25.5 - Ischemic cardiomyopathy Status: Chronic Assessment and Plan: severe bi V failure status post AICD, biventricular pacemaker, CABG, PTCA with stent, pulmonary hypertension, some congestive heart failure last ejection fraction was 15% and patient had angiogram in August of last year repeat echo now patient does not appear to be in cardiogenic shock hence will hold inotropes at this time ekg monitor tech ECHO 11/2019 Summary 1. Left ventricular chamber dimension is enlarged. 2. Left ventricular systolic function is severely reduced, estimated at 20-25%. 3. The left ventricular diastolic function is grade III diastolicdysfunction. 4. Right ventricular chamber dimension is enlarged. 5. Right ventricular systolic function is reduced. 6. Linear artifact in right ventricle suggestive of catheter(s), pacemaker lead(s), or ICD lead(s). 7. There is mild mitral valve regurgitation. 8. There is
[2020-02-19] MEDS: METOCLOPRAMIDE HCL 10 MG TABLET PO ×3 (08:43→18:13)
[2020-02-19] MEDS: NYSTATIN 100,000 UNITS/ML SUSP 5 ML ORAL.SUSP PO ×4 (08:43→20:12)
[2020-02-19] MEDS: PANTOPRAZOLE SODIUM IV 40 MG VIAL IV PUSH (08:44)
[2020-02-19] MEDS: FAMOTIDINE 20 MG TABLET PO ×2 (08:44→18:12)
[2020-02-19] MEDS: BENZONATATE 100 MG CAPSULE 200 MG PO ×3 (08:44→18:08)
[2020-02-19] MEDS: TAMSULOSIN HCL 0.4 MG CAPSULE PO (08:44)
[2020-02-19] MEDS: SUCRALFATE 1 GM TABLET PO ×3 (08:45→18:11)
[2020-02-19] MEDS: ASPIRIN 81 MG ENTERIC TABLET PO (08:45)
[2020-02-19] MEDS: FUROSEMIDE INJ 100 MG/10 ML VIAL 80 MG IV PUSH ×2 (08:45→18:13)
[2020-02-19] MEDS: DOCUSATE SODIUM 100 MG CAPSULE PO (08:45)
[2020-02-19] MEDS: GENTAMICIN SULFATE 0.1% OINT 15 GM TUBE 1 APPLIC TOPICAL (08:48)
--- NOTE | 2020-02-19 09:06 | PM.IMPN ---
Progress Note: A&P Assessment and Plan (1) Sepsis: Qualifiers: Sepsis acute organ dysfunction status: with acute organ dysfunction Sepsis type: sepsis due to unspecified organism Severe sepsis acute organ dysfunction type: encephalopathy Severe sepsis shock status: without septic shock Qualified Code(s): A41.9 - Sepsis, unspecified organism; R65.20 - Severe sepsis without septic shock; G93.40 - Encephalopathy, unspecified Code(s): A41.9 - Sepsis, unspecified organism Status: Acute Assessment and Plan: Appreciate help from irrigation manager. Discussed with irrigation manager today. Peritoneal fluid not consistent with infection. Will, however, leave IV cefepime and vancomycin today while awaiting 48 hour blood and peritoneal fluid cultures. Much improved today clinically. Telemetry reviewed on 02/19/2020 with heart rate controlled. Blood pressure reviewed on 02/19/2020 and stable. Plan to transfer from ICU as long as no issues after thoracentesis. Patient has done well after thoracentesis. Will transfer to medical floor with telemetry. (2) Encephalopathy: Code(s): G93.40 - Encephalopathy, unspecified Status: Acute Assessment and Plan: Does not appear to be result of infection at this time but probably multifactorial due to other health conditions. CT brain with no acute changes. Mentation better today. Will continue to monitor with other health issues. (3) Elevated liver enzymes: Code(s): R74.8 - Abnormal levels of other serum enzymes Status: Acute Assessment and Plan: LFTs significantly increased yesterday from admission but better today with total bilirubin 1.3, AST 178, ALT [address] abdomen/pelvis as noted above. Will continue to monitor. Suspect result of passive liver congestion. (4) Acute hypokalemia: Code(s): E87.6 - Hypokalemia Status: Acute Assessment and Plan: Potassium up to 3.5 today. Will continue to monitor and replace as needed. (5) Pleural effusion on right: Code(s): J90 - Pleural effusion, not elsewhere classified Status: Acute Assessment and Plan: CT chest with small left and moderate to large right pleural effusions. Remains on room air. Thoracentesis today. (6) Hyponatremia: Code(s): E87.1 - Hypo-osmolality and hyponatremia Status: Acute Assessment and Plan: Sodium lower again today at 122. Nephrology is following patient. Continued decrease may be result of diuretic use. Will continue to monitor. (7) Ischemic cardiomyopathy: Code(s): I25.5 - Ischemic cardiomyopathy Status: Chronic Assessment and Plan: EF known to be 20-25%. Repeat echocardiogram With EF now decreased at 10 to 15%. Moderate pulmonary hypertension also noted. Patient already has pacemaker/defibrillator in place. Continue IV Lasix. Will continue to monitor on telemetry. (8) ESRD on peritoneal dialysis: Code(s): N18.6 - End stage renal disease; Z99.2 - Dependence on renal dialysis Status: Chronic Assessment and Plan: Nephrology consulted and appreciate input. Continue peritoneal dialysis per nephrology. (9) Type 2 diabetes mellitus: Qualifiers: Chronic kidney disease stage: on chronic dialysis Diabetes mellitus complication detail: with chronic kidney disease Diabetes mellitus complication status: with kidney complications Diabetes mellitus retirement insulin use: with retirement use Qualified Code(s): E11.22 - Type 2 diabetes mellitus with diabetic chronic kidney disease; N18.6 - End stage renal disease; Z79.4 - snf (current) use of insulin; Z99.2 - Dependence on renal dialysis Code(s): E11.9 - Type 2 diabetes mellitus without complications Status: Chronic Assessment and Plan: Glucose reviewed on 02/19/2020 with mild elevation today. Will continue to hold off on scheduled insulin. Will continue sliding scale insulin and monitor. (10) Beverley
[2020-02-19] MEDS: INSULIN GLARGINE (*BKC) 100 UNITS/ML 10 UNITS SUB-Q (10:00)
--- NOTE | 2020-02-19 12:56 | PM.PNNEP ---
Progress Note: A&P Assessment and Plan (1) End stage renal disease: Code(s): N18.6 - End stage renal disease Status: Chronic Assessment and Plan: continue CCPD nightly will try to be more aggressive with fluid removal but may be limited by hemodynamics follow electrolytes, volume status, and clearace (2) Hyponatremia: Code(s): E87.1 - Hypo-osmolality and hyponatremia Status: Acute Assessment and Plan: due to a combination of renal failure and severe cardiomyopathy/CHF fluid removal as tolerated follow trend (3) Hypokalemia: Code(s): E87.6 - Hypokalemia Status: Acute Assessment and Plan: presumed to due to poor oral in the last few weeks follow magnesium supplementation PRN (4) Elevated liver enzymes: Code(s): R74.8 - Abnormal levels of other serum enzymes Status: Acute Assessment and Plan: passive congestion from cardiomyopathy? follow trend (5) Pleural effusion on right: Code(s): J90 - Pleural effusion, not elsewhere classified Status: Acute Assessment and Plan: plan thoracentesis is it possible that this is translocation of PD fluid from peritoneum to right lung?? consider checking glucose level of pleural fluid (would be extremely high if came from peritoneum) (6) Generalized weakness: Code(s): R53.1 - Weakness Status: Acute Assessment and Plan: suspect multifactorial: - Cardiomyopathy - ESRD - pleural effusion - hypokalemia PT/OT when able Will continue follow Subjective Date/time seen: 02/19/20 12:56 Tolerated CCPD overnight and seems to be doing better overall; stable hemodynamics in the last 24 hours; noted plans for thoracentesis today; no acute distress voiced at this time. Exam Narrative: Exam Narrative: General: WD/WN male in NAD Heart: normal S1 and S2; no rub Lungs: decreased on the right side Abdomen: soft, nontender, nondistended, positive bowel sounds Extremities: no cyanosis or clubbing; trace edema Skin: warm and dry Objective Data Vital Signs Vital Signs: Vital Signs Temp Pulse Resp BP Pulse Ox 02/19/20 06:00 77 24 H 106/77 99 02/19/20 04:00 36.7 C 81 29 H 105/79 99 02/19/20 02:00 72 18 120/71 99 02/19/20 00:00 36.5 C 74 27 H 109/72 97 02/18/20 22:00 78 12 117/85 98 02/18/20 21:11 75 99 02/18/20 20:00 36.5 C 80 22 H 100/67 100 02/18/20 18:32 79 20 103/66 100 02/18/20 17:08 76 15 99/82 L 100 02/18/20 16:00 36.5 C 75 23 H 98/85 L 100 02/18/20 14:00 76 32 H 113/63 100 Intake/Output Intake/Output: Intake & Output 02/16/20 02/17/20 02/18/20 02/19/20 23:59 23:59 23:59 23:59 Intake Total 1640 100 Output Total 0 0 150 Balance 0 1640 -50 Meds/Results Medications: Active Medications Generic Name Dose Route Start Last Admin Trade Name Freq PRN Reason Stop Dose Admin Aspirin 81 mg 02/18/20 09:00 02/19/20 08:45 Aspirin Ec PO 81 mg DAILY HIWOT Administration Benzonatate 200 mg 02/18/20 09:00 02/19/20 08:44 Tessalon Perles PO 200 mg TID HIWOT Administration Calcium Acetate 1,334 mg 02/18/20 08:00 02/19/20 08:46 Phoslo PO Not Given TIDWM HIWOT Calcium Acetate 667 mg 02/18/20 03:58 Phoslo PO PRN PRN GIVE WITH SNACKS Calcium Carbonate 400 mg 02/18/20 21:00 02/18/20 20:27 Tums PO 400 mg HS HIWOT Administration Dextrose 12.5 gm 02/18/20 11:09 Dextrose 50% Syringe IV PUSH PRN PRN Hypoglycemia Protocol Docusate Sodium 100 mg 02/18/20 09:00 02/19/20 08:45 Colace Capsule PO 100 mg DAILY HIWOT Administration Famotidine 20 mg 02/18/20 09:00 02/19/20 08:44 Pepcid PO 20 mg BID HIWOT Administration Furosemide 80 mg 02/18/20 09:00 02/19/20 08:45 Lasix Inj IV PUSH 80 mg BID HIWOT Administration Gentamicin Sulfate 1 applic 02/18/20 09:
[2020-02-19 13:16] LABS: SARS-CoV-2 RNA PCR Negative
[2020-02-19 15:43] LABS: Hepatitis B Surface Antigen Negative (Negative)
[2020-02-19 16:18] LABS: Glucose Point of Care 168 (65-105)
[2020-02-19] MEDS: CALCIUM ACETATE 667 MG TABLET 1334 MG PO (18:08)
--- NOTE | 2020-02-19 18:37 | PC.NURSE ---
Transfer from ICU at 1840. Resting in bed,oriented to [address] [place] [address]. Instructed to call for assistance as needed,call light in reach.
--- NOTE | 2020-02-19 18:46 | PC.NURSE ---
This patient, Kulwinder Morgan, was transferred to [facility] on 02/19/20 at 1830. Personal belongings sent with patient. Belongings list checked and signed with receiving RN. Report given to OTONIEL Matrin. Appropriate documentation sent with patient. Patient transferred via bed with RN x2 to bedside without issue.
[2020-02-19] MEDS: CALCIUM CARBONATE (TUMS) 500 MG (200 MG ELEMENTAL) 400 MG PO (20:12)
[2020-02-19] MEDS: HEPARIN SODIUM 5,000 UNITS/ML VIAL 5000 UNITS SUB-Q (20:13)
[2020-02-19 20:29] LABS: Glucose Point of Care 162 (65-105)
[2020-02-20] VITALS (10 sets, daily range): BP systolic 106–123; BP diastolic 63–85; PULSE 71–94; RESP 18–22; TEMP 35.4–36.3; O2SAT 97–100
[2020-02-20 00:57] LABS: Glucose Point of Care 185 (65-105)
[2020-02-20 00:58] LABS: Glucose Point of Care 161 (65-105)
[2020-02-20] MEDS: LEVOTHYROXINE SODIUM 88 MCG TABLET PO (06:08)
[2020-02-20 07:59] LABS: Glucose Point of Care 374 (65-105)
[2020-02-20 08:13] LABS: Hemoglobin 11.8 g/dL (14.0-18.0); Mean Corpuscular HGB Conc 32.8 g/dl (32-36); Mean Corpuscular Hemoglobin 31.2 pg (26-34); Mean Corpuscular Volume 95.2 fl (80-100); Mean Platelet Volume 11.7 fl (7.4-10.4); Platelet Count Result 160 k/mm3 (150-375); Red Blood Count 3.78 M/mm3 (4.6-6.20); Red Cell Distribution Width 14.7 % (11.5-14.5); White Blood Count 11.8 K/mm3 (4.5-10.0)
[2020-02-20 08:22] LABS: Alanine Aminotransferase 83 U/L (4-50); Albumin Level 2.5 g/dL (3.5-5.1); Alkaline Phosphatase 456 U/L (38-126); Aspartate Amino Transferase 37 U/L (17-59); Bilirubin,Total 0.8 mg/dL (0.2-1.3); Blood Urea Nitrogen 59 mg/dL (9-20); Calcium 7.9 mg/dL (8.4-10.2); Carbon Dioxide 23 mmol/L (22-30); Chloride 87 mmol/L (98-107); Estimated CRCL calculation 17 ml/min; Estimated Glomerular Filt Rate 12; Glucose 336 mg/dL (75-110); Magnesium 1.8 mg/dL (1.6-2.3); Potassium 3.4 mmol/L (3.4-5.0); Sodium 121 mmol/L (137-145)
[2020-02-20] MEDS: INSULIN ASPART (*BKC) 100 UNITS/ML SUB-Q (08:26)
[2020-02-20] MEDS: CALCIUM ACETATE 667 MG TABLET 1334 MG PO ×3 (08:31→16:45)
[2020-02-20] MEDS: SUCRALFATE 1 GM TABLET PO ×3 (08:32→16:46)
[2020-02-20] MEDS: BENZONATATE 100 MG CAPSULE 200 MG PO ×3 (08:32→16:45)
[2020-02-20] MEDS: ASPIRIN 81 MG ENTERIC TABLET PO (08:32)
[2020-02-20] MEDS: TAMSULOSIN HCL 0.4 MG CAPSULE PO (08:32)
[2020-02-20] MEDS: DOCUSATE SODIUM 100 MG CAPSULE PO (08:32)
[2020-02-20] MEDS: METOCLOPRAMIDE HCL 10 MG TABLET PO ×3 (08:32→16:47)
[2020-02-20] MEDS: FAMOTIDINE 20 MG TABLET PO ×2 (08:33→16:47)
[2020-02-20] MEDS: HEPARIN SODIUM 5,000 UNITS/ML VIAL 5000 UNITS SUB-Q ×2 (08:33→21:10)
[2020-02-20] MEDS: NYSTATIN 100,000 UNITS/ML SUSP 5 ML ORAL.SUSP PO ×4 (08:33→21:10)
[2020-02-20] MEDS: PANTOPRAZOLE SODIUM IV 40 MG VIAL IV PUSH (08:33)
[2020-02-20] MEDS: FUROSEMIDE INJ 100 MG/10 ML VIAL 80 MG IV PUSH ×2 (08:34→16:46)
[2020-02-20] MEDS: GENTAMICIN SULFATE 0.1% OINT 15 GM TUBE 1 APPLIC TOPICAL (08:39)
[2020-02-20 08:44] LABS: Vancomycin Random 8.1 ug/mL (10-20)
[2020-02-20] MEDS: PHENOBARBITAL 30 MG TABLET 15 MG PO ×2 (09:01→16:55)
[2020-02-20 11:33] LABS: Glucose Point of Care > 500 (65-105)
[2020-02-20] MEDS: INSULIN GLARGINE (*BKC) 100 UNITS/ML 40 UNITS SUB-Q (12:17)
[2020-02-20] MEDS: INSULIN ASPART (*BKC) 100 UNITS/ML 20 UNITS SUB-Q (12:18)
--- NOTE | 2020-02-20 15:18 | P.PNNP_ITS ---
Progress Note: A&P Assessment and Plan (1) End stage renal disease: Code(s): N18.6 - End stage renal disease Status: Chronic Assessment and Plan: * continue CCPD nightly * will try to be more aggressive with fluid removal but may be limited by hemodynamics * follow electrolytes, volume status, and clearace (2) Hyponatremia: Code(s): E87.1 - Hypo-osmolality and hyponatremia Status: Acute Assessment and Plan: * due to a combination of renal failure and severe cardiomyopathy/CHF * fluid removal as tolerated * follow trend (3) Hypokalemia: Code(s): E87.6 - Hypokalemia Status: Acute Assessment and Plan: * presumed to due to poor oral in the last few weeks * follow magnesium * supplementation PRN (4) Cardiomyopathy: Code(s): I42.9 - Cardiomyopathy, unspecified Status: Chronic Assessment and Plan: * repeat Echo with EF ~ 15% * ICD in place * consider Cardiology consultation but I am not sure what else they will have to offer at this time (5) Elevated liver enzymes: Code(s): R74.8 - Abnormal levels of other serum enzymes Status: Acute Assessment and Plan: * passive congestion from cardiomyopathy? * due to poor blood flow depressed EF? * slow improvement noted * follow trend (6) Pleural effusion on right: Code(s): J90 - Pleural effusion, not elsewhere classified Status: Acute Assessment and Plan: * s/p thoracentesis * is it possible that this is translocation of PD fluid from peritoneum to right lung?? * consider checking glucose level of pleural fluid (would be extremely high if it is PD fluid) (7) Generalized weakness: Code(s): R53.1 - Weakness Status: Acute Assessment and Plan: * suspect multifactorial: - Cardiomyopathy - ESRD - pleural effusion - hypokalemia * PT/OT when able * I worry that his worsening cardiac function (EF ~ 15%) may be more to blame with his recent decline but I am unclear if there is really anything else we can do... Will continue follow Subjective Date/time seen: 02/20/20 15:18 Moved out of ICU and tolerated CCPD overnight without any issues; seems to be doing somewhat better but still not back to baseline. Exam Narrative: Exam Narrative: General: WD/WN male in NAD Heart: normal S1 and S2; no rub Lungs: decreased on the right side Abdomen: soft, nontender, nondistended, positive bowel sounds Extremities: no cyanosis or clubbing; trace edema Skin: warm and dry Objective Data Vital Signs Vital Signs: Vital Signs Temp Pulse Resp BP Pulse Ox 02/20/20 12:00 35.7 C L 79 18 119/74 100 02/20/20 10:00 36.3 C L 80 22 H 115/80 100 02/20/20 09:34 36.2 C L 94 20 106/63 02/20/20 04:00 36.2 C L 94 20 106/63 98 02/20/20 00:00 36.1 C L 82 18 108/85 97 02/19/20 20:00 36.1 C L 78 22 H 114/70 94 02/19/20 19:59 74 96 02/19/20 18:40 35.9 C L 99 18 123/70 100 02/19/20 16:00 35.9 C L 73 28 H 105/69 100 02/19/20 15:40 78 20 111/64 100 02/19/20 15:30 71 26 H 120/84 100 Intake/Output Intake/Output: Intake & Output 02/17/20 02/18/20 02/19/20 02/20/20 23:59 23:59 23:59 23:59 Intake Total 1640 150 580
--- NOTE | 2020-02-20 15:18 | PM.PNNEP ---
Progress Note: A&P Assessment and Plan (1) End stage renal disease: Code(s): N18.6 - End stage renal disease Status: Chronic Assessment and Plan: continue CCPD nightly will try to be more aggressive with fluid removal but may be limited by hemodynamics follow electrolytes, volume status, and clearace (2) Hyponatremia: Code(s): E87.1 - Hypo-osmolality and hyponatremia Status: Acute Assessment and Plan: due to a combination of renal failure and severe cardiomyopathy/CHF fluid removal as tolerated follow trend (3) Hypokalemia: Code(s): E87.6 - Hypokalemia Status: Acute Assessment and Plan: presumed to due to poor oral in the last few weeks follow magnesium supplementation PRN (4) Cardiomyopathy: Code(s): I42.9 - Cardiomyopathy, unspecified Status: Chronic Assessment and Plan: repeat Echo with EF ~ 15% ICD in place consider Cardiology consultation but I am not sure what else they will have to offer at this time (5) Elevated liver enzymes: Code(s): R74.8 - Abnormal levels of other serum enzymes Status: Acute Assessment and Plan: passive congestion from cardiomyopathy? due to poor blood flow depressed EF? slow improvement noted follow trend (6) Pleural effusion on right: Code(s): J90 - Pleural effusion, not elsewhere classified Status: Acute Assessment and Plan: s/p thoracentesis is it possible that this is translocation of PD fluid from peritoneum to right lung?? consider checking glucose level of pleural fluid (would be extremely high if it is PD fluid) (7) Generalized weakness: Code(s): R53.1 - Weakness Status: Acute Assessment and Plan: suspect multifactorial: - Cardiomyopathy - ESRD - pleural effusion - hypokalemia PT/OT when able I worry that his worsening cardiac function (EF ~ 15%) may be more to blame with his recent decline but I am unclear if there is really anything else we can do... Will continue follow Subjective Date/time seen: 02/20/20 15:18 Moved out of ICU and tolerated CCPD overnight without any issues; seems to be doing somewhat better but still not back to baseline. Exam Narrative: Exam Narrative: General: WD/WN male in NAD Heart: normal S1 and S2; no rub Lungs: decreased on the right side Abdomen: soft, nontender, nondistended, positive bowel sounds Extremities: no cyanosis or clubbing; trace edema Skin: warm and dry Objective Data Vital Signs Vital Signs: Vital Signs Temp Pulse Resp BP Pulse Ox 02/20/20 12:00 35.7 C L 79 18 119/74 100 02/20/20 10:00 36.3 C L 80 22 H 115/80 100 02/20/20 09:34 36.2 C L 94 20 106/63 02/20/20 04:00 36.2 C L 94 20 106/63 98 02/20/20 00:00 36.1 C L 82 18 108/85 97 02/19/20 20:00 36.1 C L 78 22 H 114/70 94 02/19/20 19:59 74 96 02/19/20 18:40 35.9 C L 99 18 123/70 100 02/19/20 16:00 35.9 C L 73 28 H 105/69 100 02/19/20 15:40 78 20 111/64 100 02/19/20 15:30 71 26 H 120/84 100 Intake/Output Intake/Output: Intake & Output 02/17/20 02/18/20 02/19/20 02/20/20 23:59 23:59 23:59 23:59 Intake Total 1640 150 580 Output Total 0 0 2316 1309 Balance 0 1640 -2166 -729 Meds/Results Medications: Active Medications Generic Name Dose Route Start Last Admin Trade Name Freq PRN Reason Stop Dose Admin Acetaminophen 650 mg 02/20/20 08:51 Tylenol Tablet PO Q4H PRN Pain or Fever Aspirin 81 mg 02/18/20 09:00 02/20/20 08:32 Aspirin Ec PO 81 mg DAILY HIWOT Administration Benzonatate 200 mg 02/18/20 09:00 02/20/20 12:16 Tessalon Perles PO 200 mg TID HIWOT Administration Calcium Acetate 1,334 mg 02/18/20 08:00 02/20/20 12:15 Phoslo PO 1,334 mg TIDWM HIWOT Administration Calcium Acetate 667 mg 02/18/20 03:58 Phoslo PO PRN PRN GIVE WITH
--- NOTE | 2020-02-20 15:40 | PM.IMPN ---
Progress Note: A&P Assessment and Plan (1) Sepsis: Qualifiers: Sepsis acute organ dysfunction status: with acute organ dysfunction Sepsis type: sepsis due to unspecified organism Severe sepsis acute organ dysfunction type: encephalopathy Severe sepsis shock status: without septic shock Qualified Code(s): A41.9 - Sepsis, unspecified organism; R65.20 - Severe sepsis without septic shock; G93.40 - Encephalopathy, unspecified Code(s): A41.9 - Sepsis, unspecified organism Status: Acute Assessment and Plan: Criteria met with transfer to ICU. Peritoneal fluid obtained and not consistent with infection. COVID-19 testing negative. Blood and peritoneal cultures with no growth at this time. Will discontinue IV cefepime and vancomycin. Telemetry reviewed on 02/20/2020 with heart rate remaining controlled. Will continue to monitor. (2) Encephalopathy: Code(s): G93.40 - Encephalopathy, unspecified Status: Acute Assessment and Plan: Does not appear to be result of infection at this time but probably multifactorial due to other health conditions. CT brain with no acute changes. Unable to do MRI brain with pacemaker/defibrillator in place. Patient still not at baseline but better than on admission. Will continue to monitor. (3) Elevated liver enzymes: Code(s): R74.8 - Abnormal levels of other serum enzymes Status: Acute Assessment and Plan: LFTs significantly increased on 02/18/2020 from admission but now continue to improve with AST normal at 37 and ALT 83. Probably was result of passive liver congestion. CT abdomen/pelvis With small amount of ascites which may be related to peritoneal dialysis as well as pearly fusions as noted below. Will monitor. (4) Acute hypokalemia: Code(s): E87.6 - Hypokalemia Status: Acute Assessment and Plan: Potassium 3.4 today. Will continue to monitor. Replace as needed. (5) Type 2 diabetes mellitus: Qualifiers: Chronic kidney disease stage: on chronic dialysis Diabetes mellitus complication detail: with chronic kidney disease Diabetes mellitus complication status: with kidney complications Diabetes mellitus penitentiary insulin use: with rodent exterminator use Qualified Code(s): E11.22 - Type 2 diabetes mellitus with diabetic chronic kidney disease; N18.6 - End stage renal disease; Z79.4 - extermination supervisor (current) use of insulin; Z99.2 - Dependence on renal dialysis Code(s): E11.9 - Type 2 diabetes mellitus without complications Status: Chronic Assessment and Plan: Glucose reviewed on 02/20/2020 with significant elevation today including greater than 500 earlier today. Home Lantus restarted at 40 units subcu daily along with scheduled mealtime insulin 10 units t.i.d. but glucose decreased to 89 before dinner this evening. Will hold scheduled mealtime insulin. Decrease Lantus in a.m.. Will continue to monitor. Sliding scale insulin still available. Adjust treatment as needed. (6) Pleural effusion on right: Code(s): J90 - Pleural effusion, not elsewhere classified Status: Acute Assessment and Plan: CT chest with small left and moderate to large right pleural effusions. Ultrasound-guided thoracentesis on 02/19/2020 with removal of 1000 mL clear fluid. Not felt to be infectious but rather result of CHF and end-stage renal disease. Currently on 2 L of oxygen. Chest x-ray today with small bilateral pleural effusions left greater than right. Will monitor. (7) Hyponatremia: Code(s): E87.1 - Hypo-osmolality and hyponatremia Status: Acute Assessment and Plan: Sodium continues to decrease and now at 121 today. Nephrology following and aware. Most likely result of his renal failure, severe cardiomyopathy/CHF and diuretic use. Will continue to follow. May need adjustment in treatment. (8) Ischemic cardiomyopathy: Code(s): I25.5 - Ischemic cardiomyopathy St
[2020-02-20 16:45] LABS: Glucose Point of Care 89 (65-105)
[2020-02-20] MEDS: CALCIUM CARBONATE (TUMS) 500 MG (200 MG ELEMENTAL) 400 MG PO (21:10)
[2020-02-20 22:20] LABS: Glucose Point of Care 146 (65-105)
[2020-02-21] VITALS (8 sets, daily range): BP systolic 108–134; BP diastolic 46–77; PULSE 52–85; RESP 18; TEMP 36.1–36.8; O2SAT 98–100
[2020-02-21] MEDS: LEVOTHYROXINE SODIUM 88 MCG TABLET PO (05:34)
[2020-02-21 05:40] LABS: Glucose Point of Care 174 (65-105)
[2020-02-21 08:21] LABS: Hematocrit 35.3 % (42.0-52.0); Hemoglobin 11.7 g/dL (14.0-18.0); Mean Corpuscular HGB Conc 33.1 g/dl (32-36); Mean Corpuscular Hemoglobin 30.9 pg (26-34); Mean Corpuscular Volume 93.1 fl (80-100); Mean Platelet Volume 11.5 fl (7.4-10.4); Platelet Count Result 167 k/mm3 (150-375); Red Blood Count 3.79 M/mm3 (4.6-6.20); Red Cell Distribution Width 14.6 % (11.5-14.5); White Blood Count 10.7 K/mm3 (4.5-10.0)
[2020-02-21 08:32] LABS: Alanine Aminotransferase 65 U/L (4-50); Albumin Level 2.4 g/dL (3.5-5.1); Alkaline Phosphatase 388 U/L (38-126); Aspartate Amino Transferase 30 U/L (17-59); Bilirubin,Total 0.6 mg/dL (0.2-1.3); Blood Urea Nitrogen 56 mg/dL (9-20); Calcium 8.1 mg/dL (8.4-10.2); Carbon Dioxide 24 mmol/L (22-30); Chloride 87 mmol/L (98-107); Estimated CRCL calculation 19 ml/min; Estimated Glomerular Filt Rate 14; Glucose 146 mg/dL (75-110); Magnesium 1.8 mg/dL (1.6-2.3); Sodium 122 mmol/L (137-145)
[2020-02-21 10:01] LABS: Vancomycin Random 17.4 ug/mL (10-20)
--- NOTE | 2020-02-21 10:13 | P.PNNP_ITS ---
Progress Note: A&P Assessment and Plan (1) End stage renal disease: Code(s): N18.6 - End stage renal disease Status: Chronic Assessment and Plan: * continue CCPD nightly * will try to be more aggressive with fluid removal but may be limited by hemodynamics * follow electrolytes, volume status, and clearace (2) Hyponatremia: Code(s): E87.1 - Hypo-osmolality and hyponatremia Status: Acute Assessment and Plan: * due to a combination of renal failure and severe cardiomyopathy/CHF * fluid removal as tolerated * follow trend (3) Hypokalemia: Code(s): E87.6 - Hypokalemia Status: Acute Assessment and Plan: * presumed to due to poor oral in the last few weeks * follow magnesium * supplementation PRN (4) Cardiomyopathy: Code(s): I42.9 - Cardiomyopathy, unspecified Status: Chronic Assessment and Plan: * repeat Echo with EF ~ 15% * ICD in place * consider Cardiology consultation but I am not sure what else they will have to offer at this time (5) Elevated liver enzymes: Code(s): R74.8 - Abnormal levels of other serum enzymes Status: Acute Assessment and Plan: * passive congestion from cardiomyopathy? * due to poor blood flow depressed EF? * slow improvement noted * follow trend (6) Pleural effusion on right: Code(s): J90 - Pleural effusion, not elsewhere classified Status: Acute Assessment and Plan: * s/p thoracentesis * is it possible that this is translocation of PD fluid from peritoneum to right lung?? * consider checking glucose level of pleural fluid (would be extremely high if it is PD fluid) (7) Generalized weakness: Code(s): R53.1 - Weakness Status: Acute Assessment and Plan: * suspect multifactorial: - Cardiomyopathy - ESRD - pleural effusion - hypokalemia * PT/OT when able * I worry that his worsening cardiac function (EF ~ 15%) may be more to blame with his recent decline but I am unclear if there is really anything else we can do... Will continue follow Subjective Date/time seen: 02/21/20 10:13 Patient tolerated CCPD overnight without any issues or problems (~ 1100cc ultrafiltration); states he does feel somewhat better in general; no acute distress voiced at this time. Exam Narrative: Exam Narrative: General: WD/WN male in NAD Heart: normal S1 and S2; no rub Lungs: decreased on the right side Abdomen: soft, nontender, nondistended, positive bowel sounds Extremities: no cyanosis or clubbing; trace edema Skin: warm and intact Objective Data Vital Signs Vital Signs: Vital Signs Temp Pulse Resp BP Pulse Ox 02/21/20 08:02 36.2 C L 52 L 18 108/46 L 02/21/20 08:00 81 02/21/20 04:00 36.4 C 79 18 121/65 100 02/21/20 00:00 36.1 C L 85 18 127/71 100 02/20/20 21:03 71 02/20/20 20:00 36.1 C L 74 18 123/65 100 02/20/20 18:00 35.4 C L 73 18 122/67 97 02/20/20 16:00 74 02/20/20 12:00 35.7 C L 86 18 119/74 100 Intake/Output Intake/Output: Intake & Output 02/18/20 02/19/20 02/20/20 02/21/20 23:59 23:59 23:59 23:59 Intake Total 3650 272 2341 60 Output Total 0 2316 1859 1076 Balance 6738 -6184 611 -1016
--- NOTE | 2020-02-21 10:13 | PM.PNNEP ---
Progress Note: A&P Assessment and Plan (1) End stage renal disease: Code(s): N18.6 - End stage renal disease Status: Chronic Assessment and Plan: continue CCPD nightly will try to be more aggressive with fluid removal but may be limited by hemodynamics follow electrolytes, volume status, and clearace (2) Hyponatremia: Code(s): E87.1 - Hypo-osmolality and hyponatremia Status: Acute Assessment and Plan: due to a combination of renal failure and severe cardiomyopathy/CHF fluid removal as tolerated follow trend (3) Hypokalemia: Code(s): E87.6 - Hypokalemia Status: Acute Assessment and Plan: presumed to due to poor oral in the last few weeks follow magnesium supplementation PRN (4) Cardiomyopathy: Code(s): I42.9 - Cardiomyopathy, unspecified Status: Chronic Assessment and Plan: repeat Echo with EF ~ 15% ICD in place consider Cardiology consultation but I am not sure what else they will have to offer at this time (5) Elevated liver enzymes: Code(s): R74.8 - Abnormal levels of other serum enzymes Status: Acute Assessment and Plan: passive congestion from cardiomyopathy? due to poor blood flow depressed EF? slow improvement noted follow trend (6) Pleural effusion on right: Code(s): J90 - Pleural effusion, not elsewhere classified Status: Acute Assessment and Plan: s/p thoracentesis is it possible that this is translocation of PD fluid from peritoneum to right lung?? consider checking glucose level of pleural fluid (would be extremely high if it is PD fluid) (7) Generalized weakness: Code(s): R53.1 - Weakness Status: Acute Assessment and Plan: suspect multifactorial: - Cardiomyopathy - ESRD - pleural effusion - hypokalemia PT/OT when able I worry that his worsening cardiac function (EF ~ 15%) may be more to blame with his recent decline but I am unclear if there is really anything else we can do... Will continue follow Subjective Date/time seen: 02/21/20 10:13 Patient tolerated CCPD overnight without any issues or problems (~ 1100cc ultrafiltration); states he does feel somewhat better in general; no acute distress voiced at this time. Exam Narrative: Exam Narrative: General: WD/WN male in NAD Heart: normal S1 and S2; no rub Lungs: decreased on the right side Abdomen: soft, nontender, nondistended, positive bowel sounds Extremities: no cyanosis or clubbing; trace edema Skin: warm and intact Objective Data Vital Signs Vital Signs: Vital Signs Temp Pulse Resp BP Pulse Ox 02/21/20 08:02 36.2 C L 52 L 18 108/46 L 02/21/20 08:00 81 02/21/20 04:00 36.4 C 79 18 121/65 100 02/21/20 00:00 36.1 C L 85 18 127/71 100 02/20/20 21:03 71 02/20/20 20:00 36.1 C L 74 18 123/65 100 02/20/20 18:00 35.4 C L 73 18 122/67 97 02/20/20 16:00 74 02/20/20 12:00 35.7 C L 86 18 119/74 100 Intake/Output Intake/Output: Intake & Output 02/18/20 02/19/20 02/20/20 02/21/20 23:59 23:59 23:59 23:59 Intake Total 3820 332 8241 60 Output Total 0 2316 1859 1076 Balance 1640 2166 611 -1016 Meds/Results Medications: Active Medications Generic Name Dose Route Start Last Admin Trade Name Freq PRN Reason Stop Dose Admin Acetaminophen 650 mg 02/20/20 08:51 Tylenol Tablet PO Q4H PRN Pain or Fever Aspirin 81 mg 02/18/20 09:00 02/20/20 08:32 Aspirin Ec PO 81 mg DAILY HIWOT Administration Benzonatate 200 mg 02/18/20 09:00 02/20/20 16:45 Tessalon Perles PO 200 mg TID IHWOT Administration Calcium Acetate 1,334 mg 02/18/20 08:00 02/20/20 16:45 Phoslo PO 1,334 mg TIDWM HIWOT Administration Calcium Acetate 667 mg 02/18/20 03:58 Phoslo PO PRN PRN GIVE WITH SNACKS Calcium Carbonate 400 mg 02/18/20 21:00 02/20/20 21:10
[2020-02-21] MEDS: FUROSEMIDE INJ 100 MG/10 ML VIAL 80 MG IV PUSH ×2 (10:19→18:11)
[2020-02-21] MEDS: PANTOPRAZOLE SODIUM IV 40 MG VIAL IV PUSH (10:19)
[2020-02-21] MEDS: GENTAMICIN SULFATE 0.1% OINT 15 GM TUBE 1 APPLIC TOPICAL (10:20)
[2020-02-21] MEDS: HEPARIN SODIUM 5,000 UNITS/ML VIAL 5000 UNITS SUB-Q ×2 (10:20→19:39)
[2020-02-21] MEDS: PHENOBARBITAL 30 MG TABLET 15 MG PO (10:39)
[2020-02-21] MEDS: FAMOTIDINE 20 MG TABLET PO (10:43)
[2020-02-21] MEDS: ASPIRIN 81 MG ENTERIC TABLET PO (10:43)
[2020-02-21] MEDS: METOCLOPRAMIDE HCL 10 MG TABLET PO (10:43)
[2020-02-21 11:56] LABS: Glucose Point of Care 142 (65-105)
[2020-02-21 12:24] LABS: Glucose Point of Care 145 (65-105)
--- NOTE | 2020-02-21 13:49 | PM.IMPN ---
Progress Note: A&P Assessment and Plan (1) Sepsis: Qualifiers: Sepsis acute organ dysfunction status: with acute organ dysfunction Sepsis type: sepsis due to unspecified organism Severe sepsis acute organ dysfunction type: encephalopathy Severe sepsis shock status: without septic shock Qualified Code(s): A41.9 - Sepsis, unspecified organism; R65.20 - Severe sepsis without septic shock; G93.40 - Encephalopathy, unspecified Code(s): A41.9 - Sepsis, unspecified organism Status: Acute Assessment and Plan: COVID-19 testing negative. Blood and peritoneal cultures with no growth. Iv abx have been stopped consulting ID to decide whether further iv ABX will be of benefit as CXR shows possible pneumonia. I believe aspiration pneumonia and ogoing encephalopathy (2) Encephalopathy: Code(s): G93.40 - Encephalopathy, unspecified Status: Acute Assessment and Plan: Does not appear to be result of infection at this time but probably multifactorial due to other health conditions. CT brain with no acute changes. Unable to do MRI brain with pacemaker/defibrillator in place. (3) Elevated liver enzymes: Code(s): R74.8 - Abnormal levels of other serum enzymes Status: Acute Assessment and Plan: LFTs significantly high (4) Acute hypokalemia: Code(s): E87.6 - Hypokalemia Status: Acute Assessment and Plan: Potassium 3.4 today. Will continue to monitor. Replace as needed. (5) Type 2 diabetes mellitus: Qualifiers: Chronic kidney disease stage: on chronic dialysis Diabetes mellitus complication detail: with chronic kidney disease Diabetes mellitus complication status: with kidney complications Diabetes mellitus prison insulin use: with prison use Qualified Code(s): E11.22 - Type 2 diabetes mellitus with diabetic chronic kidney disease; N18.6 - End stage renal disease; Z79.4 - MCC (current) use of insulin; Z99.2 - Dependence on renal dialysis Code(s): E11.9 - Type 2 diabetes mellitus without complications Status: Chronic Assessment and Plan: Home Lantus restarted at 40 units subcu held as pt is currently npo, failed his swallow test. (6) Pleural effusion on right: Code(s): J90 - Pleural effusion, not elsewhere classified Status: Acute Assessment and Plan: CT chest with small left and moderate to large right pleural effusions. Ultrasound-guided thoracentesis on 02/19/2020 Currently on 2 L of oxygen. Chest x-ray today with small bilateral pleural effusions left greater than right. Continue to monitor. (7) Hyponatremia: Code(s): E87.1 - Hypo-osmolality and hyponatremia Status: Acute Assessment and Plan: Sodium continues to decrease and now at 122 today. Nephrology following and aware. (8) Ischemic cardiomyopathy: Code(s): I25.5 - Ischemic cardiomyopathy Status: Chronic Assessment and Plan: EF known to be 20-25%. Repeat echocardiogram with EF now decreased at 10-15%. Moderate pulmonary hypertension also noted. Patient already has pacemaker/defibrillator in place. Continue oral lasix. (9) ESRD on peritoneal dialysis: Code(s): N18.6 - End stage renal disease; Z99.2 - Dependence on renal dialysis Status: Chronic Assessment and Plan: Nephrology consulted and appreciate input. Continue peritoneal dialysis per nephrology. (10) DVT prophylaxis: Code(s): Z29.9 - Encounter for prophylactic measures, unspecified Status: Acute Assessment and Plan: Heparin subcutaneously. Subjective Date/time seen: 02/21/20 13:49 Interval history: Admitted with CHF exacerbation, altered mental status. Transferred to ICU on 02/19/2020 with worsening condition. Pt is still altered. History of sepsis, encephalopathy, dm, pleural effusion and ischemic heart disease. Pt looks tired today pt failed his swallow assessment ? aspiration pneumon
--- NOTE | 2020-02-21 15:16 | PCOTNOTE ---
Attempted to see patient this date. Patient asleep upon entry and attempted to arouse multiple times. Patient too tired/fatigued to complete successful OT session at this time.
--- NOTE | 2020-02-21 15:25 | PCPTNOTE ---
Attempted P.T. this afternoon. Patient having difficulty staying awake to participate. Initiated LE exercises supine but patient was unable to stay on task due to falling asleep.
[2020-02-21] MEDS: DEXTROSE 5%/0.45% SOD CHL 1,000 ML 50 ML IV CONT (16:40)
[2020-02-21 16:52] LABS: Glucose Point of Care 130 (65-105)
[2020-02-21 23:41] LABS: Glucose Point of Care 200 (65-105)
[2020-02-22] VITALS (12 sets, daily range): BP systolic 123–149; BP diastolic 80–94; PULSE 83–113; RESP 16–20; TEMP 36.1–36.4; O2SAT 94–100
[2020-02-22 05:48] LABS: Glucose Point of Care 310 (65-105)
[2020-02-22] MEDS: INSULIN ASPART (*BKC) 100 UNITS/ML SUB-Q ×2 (05:48→12:13)
[2020-02-22 05:58] LABS: Hematocrit 35.6 % (42.0-52.0); Hemoglobin 11.8 g/dL (14.0-18.0); Mean Corpuscular HGB Conc 33.1 g/dl (32-36); Mean Corpuscular Hemoglobin 31.2 pg (26-34); Mean Corpuscular Volume 94.2 fl (80-100); Mean Platelet Volume 11.6 fl (7.4-10.4); Platelet Count Result 197 k/mm3 (150-375); Red Blood Count 3.78 M/mm3 (4.6-6.20); Red Cell Distribution Width 14.6 % (11.5-14.5); White Blood Count 9.2 K/mm3 (4.5-10.0)
[2020-02-22 06:13] LABS: Alanine Aminotransferase 47 U/L (4-50); Albumin Level 2.5 g/dL (3.5-5.1); Alkaline Phosphatase 349 U/L (38-126); Aspartate Amino Transferase 18 U/L (17-59); Bilirubin,Total 0.7 mg/dL (0.2-1.3); Blood Urea Nitrogen 51 mg/dL (9-20); Calcium 8.3 mg/dL (8.4-10.2); Carbon Dioxide 26 mmol/L (22-30); Chloride 88 mmol/L (98-107); Estimated CRCL calculation 20 ml/min; Estimated Glomerular Filt Rate 15; Glucose 326 mg/dL (75-110); Magnesium 1.7 mg/dL (1.6-2.3); Potassium 2.8 mmol/L (3.4-5.0); Sodium 121 mmol/L (137-145)
--- NOTE | 2020-02-22 08:47 | WPDINFPN2 ---
Progress Note: A&P Assessment and Plan (1) Leukocytosis: Code(s): D72.829 - Elevated white blood cell count, unspecified Status: Acute Assessment and Plan: 1. Leukocytosis, physiologic, no infection 2. CRF, on CAPD 3. Pleural effusion due to CHF 4. Cardiomyopathy 5. Chronic hyponatremia 6. Aspiration syndrome without pneumonitis 7. Past E coli UTI with bacteremia REC Not in need of further eval from my standpoint, agree no further antibiotics. Call if Qs Subjective Date/time seen: 02/22/20 08:47 Objective Data Vital Signs Vital Signs: Vital Signs - 24 hr 02/21/20 12:00 02/21/20 14:00 02/21/20 16:00 Temperature 36.8 C Pulse Rate 79 58 L 76 Respiratory Rate 18 Blood Pressure 117/54 L Pulse Oximetry 100 02/21/20 20:00 02/22/20 00:00 02/22/20 02:30 Temperature 36.1 C L 36.1 C L 36.1 C L Pulse Rate 77 85 86 Respiratory Rate 18 18 16 Blood Pressure 134/77 127/94 H 133/80 Pulse Oximetry 98 99 100 02/22/20 04:00 Temperature 36.1 C L Pulse Rate 113 H Respiratory Rate 20 Blood Pressure 142/80 H Pulse Oximetry 98 Intake/Output Intake/Output: Intake & Output 02/19/20 02/20/20 02/21/20 02/22/20 23:59 23:59 23:59 23:59 Intake Total 150 2470 160 610 Output Total 2316 0959 1426 [address] [place] [id number] 612 [phone] -431 Meds/Results Medications: Active Medications Generic Name Dose Route Start Last Admin Trade Name Freq PRN Reason Stop Dose Admin Acetaminophen 650 mg 02/20/20 08:51 Tylenol Tablet PO Q4H PRN Pain or Fever Aspirin 81 mg 02/18/20 09:00 02/21/20 10:43 Aspirin Ec PO 81 mg DAILY HIWOT Administration Benzonatate 200 mg 02/18/20 09:00 02/21/20 12:13 Tessalon Perles PO Not Given TID HIWOT Calcium Acetate 1,334 mg 02/18/20 08:00 02/21/20 12:13 Phoslo PO Not Given TIDWM HIWOT Calcium Acetate 667 mg 05/20/20 03:58 Phoslo PO PRN PRN GIVE WITH SNACKS Calcium Carbonate 400 mg 02/18/20 21:00 02/20/20 21:10 Tums PO 400 mg HS HIWOT Administration Dextrose 12.5 gm 02/18/20 11:09 Dextrose 50% Syringe IV PUSH PRN PRN Hypoglycemia Protocol Dextrose 12.5 gm 02/21/20 14:58 Dextrose 50% Syringe IV PUSH PRN PRN Hypoglycemia Protocol Docusate Sodium 100 mg 02/18/20 09:00 02/21/20 12:12 Colace Capsule PO Not Given DAILY HIWOT Famotidine 20 mg 02/18/20 09:00 02/21/20 10:43 Pepcid PO 20 mg BID HIWOT Administration Furosemide 80 mg 02/18/20 09:00 02/21/20 18:11 Lasix Inj IV PUSH 80 mg BID HIWOT Administration Gentamicin Sulfate 1 applic 02/18/20 09:00 02/21/20 10:20 Gentamicin Sulfate 0.1% Oint TOPICAL 1 applic DAILY HIWOT Administration Glucagon 1 mg 02/18/20 11:09 Glucagon For Inj IM PRN PRN Hypoglycemia Protocol Glucagon 1 mg 02/21/20 14:58 Glucagon For Inj IM PRN PRN Hypoglycemia Protocol Glucose 15 gm 02/18/20 11:09 Glutose 15 PO PRN PRN Hypoglycemia Protocol Glucose 15 gm 02/21/20 14:58 Glutose 15 PO PRN PRN Hypoglycemia Protocol Guaifenesin 600 mg 02/18/20 09:00 02/21/20 12:05 Mucinex 12 Hr Tab PO Not Given BID HIWOT Heparin Sodium (Porcine) 5,000 units 02/18/20 21:00 02/21/20 19:39 Heparin Sodium SUB-Q 5,000 units Q12HR HIWOT Administration Dextrose 1,000 mls @ 100 mls/hr 02/18/20 11:09 Dextrose 5% 1,000 Ml IVPB PRN PRN Hypoglycemia Protocol Dextrose/Sodium Chloride 1,000 mls @ 50 mls/hr 02/21/20 15:00 02/22/20 05:09 Dextrose 5% Sodium Chloride 0.45% IV CONT 50 mls/hr .Q20H HIWOT Infusion Dextrose 1,000 mls @ 100 mls/hr 02/21/20 14:58 Dextrose 5% 1,000 Ml IVPB PRN PRN Hypoglycemia Protocol Potassium Chloride 500 mls @ 125 mls/hr 02/22/20 06:16 02/22/20 06:31 Kcl 40 Meq/D5w 500 Ml Peripheral IVPB 02/22/20 10:15 125 mls/hr ONCE ONE Administration
[2020-02-22] MEDS: INSULIN GLARGINE (*BKC) 100 UNITS/ML 10 UNITS SUB-Q (09:00)
[2020-02-22] MEDS: FUROSEMIDE INJ 100 MG/10 ML VIAL 80 MG IV PUSH ×2 (09:05→17:16)
[2020-02-22] MEDS: HEPARIN SODIUM 5,000 UNITS/ML VIAL 5000 UNITS SUB-Q ×2 (09:18→20:12)
[2020-02-22] MEDS: PANTOPRAZOLE SODIUM IV 40 MG VIAL IV PUSH (09:19)
[2020-02-22 09:42] LABS: Glucose Point of Care 257 (65-105)
[2020-02-22 11:23] LABS: Blood Urea Nitrogen 51 mg/dL (9-20); Calcium 8.1 mg/dL (8.4-10.2); Carbon Dioxide 27 mmol/L (22-30); Chloride 89 mmol/L (98-107); Estimated CRCL calculation 18 ml/min; Estimated Glomerular Filt Rate 13; Glucose 236 mg/dL (75-110); Potassium 3.4 mmol/L (3.4-5.0); Sodium 122 mmol/L (137-145)
[2020-02-22 12:10] LABS: Glucose Point of Care 229 (65-105)
--- NOTE | 2020-02-22 13:50 | CONS_ITS ---
DATE OF CONSULTATION: 02/22/2020 REASON FOR CONSULTATION: Leukocytosis. HISTORY OF PRESENT ILLNESS: The patient is a 69-year-old male who can provide limited history. He is on CAPD for chronic renal failure due to diabetes mellitus. He was here in the hospital in November with E. coli bacteremia due to urinary tract infection. His records indicate limited urine output, one-third of 1 L in the last 24 hours. He was here in the hospital in November and discharged after receiving the antibiotics for the bacteremia. He returned to the hospital on the with progressive generalized weakness of 1 months' duration. He was found to have mild leukocytosis on admission, was started on cefepime and vancomycin. He received these for 4 days, stopped yesterday and consultation requested. He has not required any operative intervention while here. He did have a thoracentesis performed by Interventional Radiology. He is on no chronic immunosuppressants systemically. He denies to me today fever, chills, sweats, or recent antibiotics for any purpose. ALLERGIES: NONE KNOWN. HE DID HAVE LOCAL REACTION TO TETANUS-DIPHTHERIA, VACCINE OR TOXOID. PRESENT MEDICATIONS: List reviewed. No systemic immunosuppressants. HABITS: No alcohol. No tobacco. PAST MEDICAL AND SURGICAL HISTORY: In addition to the above, diabetes mellitus, colon polyps, BPH, ischemic cardiomyopathy with chronic heart failure, gastroparesis, GERD, hypothyroidism, AICD in place, PAH, JULIAN, orthopedic surgery apparently without joint replacement, cholecystectomy, and CABG. FAMILY HISTORY: Not pertinent to his present illness. 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 REVIEW OF SYSTEMS: Limited by the patient's communicative ability; otherwise, 14-point review is negative. PHYSICAL EXAMINATION: GENERAL: This is an elderly male who appears his actual age. No acute distress. VITAL SIGNS: Afebrile since arrival, 113, 20, 98% sat, 142/80. SKIN: No generalized rashes. Warm and dry. No suspicious skin lesions. No skin breakdown. NODES: He has no axillary or cervical adenopathy. EENT: Mildly dry mucous membranes. No thrush. No ulcerations. Tonsils are normal. Pupils equal, round, and reactive to light. No conjunctival injection. No icterus. No paranasal sinus erythema, edema, tenderness. NECK: Without mass, thyromegaly, meningismus. LUNGS: Diminished breath sounds on the left; otherwise, clear to auscultation and percussion. Breath sounds are vesicular. CARDIAC: Regular rate and rhythm with a grade 1/6 systolic ejection murmur at left sternal border. No heaves. PMI is not displaced. ABDOMEN: Obese, not distended. Normal bowel sounds. CAPD catheter in the left upper quadrant without drainage or erythema or tenderness at the entry site. Liver and spleen are not enlarged. GENITOURINARY: Bladder is not palpable. EXTREMITIES: 1+ distal leg edema. No clubbing, no cyanosis and no splinter hemorrhages. LABORATORY DATA: Blood cultures are no growth after 4 days incubation. The pleural fluid, few white cells, no organisms seen and culture no growth so far. White count in November was 8.4, 13.7 on readmission, similar values over next several days, and today down to 9.2; hemoglobin 11.8, platelets are 197. Blood gases day after admission, 7.38, 39, 88, 93%, and that is on 2 L. Sodium persistently low, similar to previous values at 121. His potassium 2.8. He has low chloride. BUN 51, creatinine 4.1. Accu-Cheks variable 142, up to 310. Alkaline phosphatase 349, albumin 2.5, otherwise liver function tests normal. His urinalysis, multiple abnormalities that do not suggest infection. Pleural fluid, 1088 red cells, 79 white cells with only 6% PMNs. His COVID PCR was nonreactive. His he
--- NOTE | 2020-02-22 14:47 | PM.IMPN ---
Progress Note: A&P Assessment and Plan (1) Sepsis: Qualifiers: Sepsis type: sepsis due to unspecified organism Sepsis acute organ dysfunction status: with acute organ dysfunction Severe sepsis acute organ dysfunction type: encephalopathy Severe sepsis shock status: without septic shock Qualified Code(s): A41.9 - Sepsis, unspecified organism; R65.20 - Severe sepsis without septic shock; G93.40 - Encephalopathy, unspecified Code(s): A41.9 - Sepsis, unspecified organism Status: Acute Assessment and Plan: COVID-19 testing negative. Blood and peritoneal cultures with no growth. Iv abx have been stopped ongoing encephalopathy and dysphagia. Rpt MBS tomorrow. Pt is on iv fluids may need TPN or procalamine if he fails the swallow again. (2) Encephalopathy: Code(s): G93.40 - Encephalopathy, unspecified Status: Acute Assessment and Plan: Does not appear to be result of infection at this time but probably multifactorial due to other health conditions. CT brain with no acute changes. Unable to do MRI brain with pacemaker/defibrillator in place. (3) Elevated liver enzymes: Code(s): R74.8 - Abnormal levels of other serum enzymes Status: Acute Assessment and Plan: LFTs significantly high (4) Acute hypokalemia: Code(s): E87.6 - Hypokalemia Status: Acute Assessment and Plan: Potassium 3.4 today. Will continue to monitor. Replace as needed. 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 use: with shelter use Diabetes mellitus complication status: with kidney complications Diabetes mellitus complication detail: with chronic kidney disease Chronic kidney disease stage: on chronic dialysis Qualified Code(s): E11.22 - Type 2 diabetes mellitus with diabetic chronic kidney disease; N18.6 - End stage renal disease; Z79.4 - emt intermediate (current) use of insulin; Z99.2 - Dependence on renal dialysis Code(s): E11.9 - Type 2 diabetes mellitus without complications Status: Chronic Assessment and Plan: Home Lantus restarted at 20 units subcu held as pt is currently npo, failed his swallow test. (6) Pleural effusion on right: Code(s): J90 - Pleural effusion, not elsewhere classified Status: Acute Assessment and Plan: CT chest with small left and moderate to large right pleural effusions. Ultrasound-guided thoracentesis on 02/19/2020 Currently on 2 L of oxygen. Chest x-ray today with small bilateral pleural effusions left greater than right. Continue to monitor. (7) Hyponatremia: Code(s): E87.1 - Hypo-osmolality and hyponatremia Status: Acute Assessment and Plan: Sodium continues to decrease and now at 122 today. Nephrology following and aware. (8) Ischemic cardiomyopathy: Code(s): I25.5 - Ischemic cardiomyopathy Status: Chronic Assessment and Plan: EF known to be 20-25%. Repeat echocardiogram with EF now decreased at 10-15%. Moderate pulmonary hypertension also noted. Patient already has pacemaker/defibrillator in place. Continue oral lasix. (9) ESRD on peritoneal dialysis: Code(s): N18.6 - End stage renal disease; Z99.2 - Dependence on renal dialysis Status: Chronic Assessment and Plan: Nephrology consulted and appreciate input. Continue peritoneal dialysis per nephrology. (10) DVT prophylaxis: Code(s): Z29.9 - Encounter for prophylactic measures, unspecified Status: Acute Assessment and Plan: Heparin subcutaneously. Subjective Date/time seen: 02/22/20 14:47 Interval history: Admitted with CHF exacerbation, altered mental status. Transferred to ICU on 02/19/2020 with worsening condition. Pt is still altered. History of sepsis, encephalopathy, dm, pleural effusion and ischemic heart disease. Pt looks more alert today. Although pt is slow this maybe his normal. Sepsis resolved pt is needi
--- NOTE | 2020-02-22 15:36 | P.PNNP_ITS ---
Progress Note: A&P Assessment and Plan (1) End stage renal disease: Code(s): N18.6 - End stage renal disease Status: Chronic Assessment and Plan: * continue CCPD nightly * will try to be more aggressive with fluid removal but may be limited by hemodynamics * follow electrolytes, volume status, and clearace (2) Hyponatremia: Code(s): E87.1 - Hypo-osmolality and hyponatremia Status: Acute Assessment and Plan: * due to a combination of renal failure and severe cardiomyopathy/CHF * fluid removal as tolerated * follow trend (3) Hypokalemia: Code(s): E87.6 - Hypokalemia Status: Acute Assessment and Plan: * presumed to due to poor oral in the last few weeks and currently * NPO given recent MBS results * supplementation PRN (4) Cardiomyopathy: Code(s): I42.9 - Cardiomyopathy, unspecified Status: Chronic Assessment and Plan: * repeat Echo with EF ~ 15% * ICD in place * consider Cardiology consultation but I am not sure what else they will have to offer at this time (5) Elevated liver enzymes: Code(s): R74.8 - Abnormal levels of other serum enzymes Status: Acute Assessment and Plan: * passive congestion from cardiomyopathy? * due to poor blood flow depressed EF? * slow improvement noted * follow trend (6) Pleural effusion on right: Code(s): J90 - Pleural effusion, not elsewhere classified Status: Acute Assessment and Plan: * s/p thoracentesis * is it possible that this is translocation of PD fluid from peritoneum to right lung?? * consider checking glucose level of pleural fluid (would be extremely high if it is PD fluid) (7) Generalized weakness: Code(s): R53.1 - Weakness Status: Acute Assessment and Plan: * suspect multifactorial: - Cardiomyopathy - ESRD - pleural effusion - hypokalemia * PT/OT when able * I worry that his worsening cardiac function (EF ~ 15%) may be more to blame with his recent decline but I am unclear if there is really anything else we can do... Will continue follow Subjective Date/time seen: 02/22/20 15:36 Tolerating CCPD overnight but oral intake/nutrition remains quite poor; modified barium swallow results noted (speech therapy not recommending oral feeds at this time); no acute distress noted. Exam Narrative: Exam Narrative: General: WD/WN male in NAD Heart: normal S1 and S2; no rub Lungs: decreased on the right side Abdomen: soft, nontender, nondistended, positive bowel sounds Extremities: no cyanosis or clubbing; trace edema Skin: no rash Objective Data Vital Signs Vital Signs: Vital Signs Temp Pulse Resp BP Pulse Ox 02/22/20 14:00 36.4 C 83 18 149/89 H 100 02/22/20 12:00 92 02/22/20 08:49 94 02/22/20 08:00 92 02/22/20 04:00 36.1 C L 113 H 20 142/80 H 98 02/22/20 02:30 36.1 C L 86 16 133/80 100 02/22/20 00:00 36.1 C L 85 18 127/94 H 99 02/21/20 20:00 36.1 C L 77 18 134/77 98 02/21/20 16:00 76 Intake/Output Intake/Output: Intake & Output 02/19/20 02/20/20 02/21/20 02/22/20 23:59 23:59 23:59 23:59 Intake Total 150 2470 160 610 Output Total 2316 1859 1426 1041 Balance -2166 611 -1
--- NOTE | 2020-02-22 15:36 | PM.PNNEP ---
Progress Note: A&P Assessment and Plan (1) End stage renal disease: Code(s): N18.6 - End stage renal disease Status: Chronic Assessment and Plan: continue CCPD nightly will try to be more aggressive with fluid removal but may be limited by hemodynamics follow electrolytes, volume status, and clearace (2) Hyponatremia: Code(s): E87.1 - Hypo-osmolality and hyponatremia Status: Acute Assessment and Plan: due to a combination of renal failure and severe cardiomyopathy/CHF fluid removal as tolerated follow trend (3) Hypokalemia: Code(s): E87.6 - Hypokalemia Status: Acute Assessment and Plan: presumed to due to poor oral in the last few weeks and currently NPO given recent MBS results supplementation PRN (4) Cardiomyopathy: Code(s): I42.9 - Cardiomyopathy, unspecified Status: Chronic Assessment and Plan: repeat Echo with EF ~ 15% ICD in place consider Cardiology consultation but I am not sure what else they will have to offer at this time (5) Elevated liver enzymes: Code(s): R74.8 - Abnormal levels of other serum enzymes Status: Acute Assessment and Plan: passive congestion from cardiomyopathy? due to poor blood flow depressed EF? slow improvement noted follow trend (6) Pleural effusion on right: Code(s): J90 - Pleural effusion, not elsewhere classified Status: Acute Assessment and Plan: s/p thoracentesis is it possible that this is translocation of PD fluid from peritoneum to right lung?? consider checking glucose level of pleural fluid (would be extremely high if it is PD fluid) (7) Generalized weakness: Code(s): R53.1 - Weakness Status: Acute Assessment and Plan: suspect multifactorial: - Cardiomyopathy - ESRD - pleural effusion - hypokalemia PT/OT when able I worry that his worsening cardiac function (EF ~ 15%) may be more to blame with his recent decline but I am unclear if there is really anything else we can do... Will continue follow Subjective Date/time seen: 02/22/20 15:36 Tolerating CCPD overnight but oral intake/nutrition remains quite poor; modified barium swallow results noted (speech therapy not recommending oral feeds at this time); no acute distress noted. Exam Narrative: Exam Narrative: General: WD/WN male in NAD Heart: normal S1 and S2; no rub Lungs: decreased on the right side Abdomen: soft, nontender, nondistended, positive bowel sounds Extremities: no cyanosis or clubbing; trace edema Skin: no rash Objective Data Vital Signs Vital Signs: Vital Signs Temp Pulse Resp BP Pulse Ox 02/22/20 14:00 36.4 C 83 18 149/89 H 100 02/22/20 12:00 92 02/22/20 08:49 94 02/22/20 08:00 92 02/22/20 04:00 36.1 C L 113 H 20 142/80 H 98 02/22/20 02:30 36.1 C L 86 16 133/80 100 02/22/20 00:00 36.1 C L 85 18 127/94 H 99 02/21/20 20:00 36.1 C L 77 18 134/77 98 02/21/20 16:00 76 Intake/Output Intake/Output: Intake & Output 02/19/20 02/20/20 02/21/20 02/22/20 23:59 23:59 23:59 23:59 Intake Total 150 2470 160 610 Output Total 2316 0439 1426 1041 Balance -2166 611 -1266 -431 Meds/Results Medications: Active Medications Generic Name Dose Route Start Last Admin Trade Name Freq PRN Reason Stop Dose Admin Acetaminophen 650 mg 02/20/20 08:51 Tylenol Tablet PO Q4H PRN Pain or Fever Aspirin 81 mg 02/18/20 09:00 02/21/20 10:43 Aspirin Ec PO 81 mg DAILY HIWOT Administration Benzonatate 200 mg 02/18/20 09:00 02/21/20 12:13 Tessalon Perles PO Not Given TID HIWOT Calcium Acetate 1,334 mg 02/18/20 08:00 02/21/20 12:13 Phoslo PO Not Given TIDWM HWIOT Calcium Acetate 667 mg 02/18/20 03:58 Phoslo PO PRN PRN GIVE WITH SNACKS Calcium Carbonate 400 mg 02/18/20 21:00 02/20/20 21:10 Tums
[2020-02-22 18:39] LABS: Glucose Point of Care 148 (65-105)
[2020-02-22] MEDS: METOPROLOL TARTRATE INJ 5 MG/5 ML VIAL 2.5 MG IV PUSH (21:58)
[2020-02-23] VITALS (17 sets, daily range): BP systolic 120–141; BP diastolic 74–108; PULSE 53–120; RESP 14–22; TEMP 36.2–36.7; O2SAT 95–100
[2020-02-23 00:25] LABS: Glucose Point of Care 279 (65-105)
[2020-02-23] MEDS: INSULIN ASPART (*BKC) 100 UNITS/ML SUB-Q ×3 (00:25→23:36)
--- NOTE | 2020-02-23 01:59 | ECG_ITS ---
Measurements Intervals [place] Rate: 100 P: -23 [place]: 175 QRS: 3 QRSD: 127 T: 176 QT: 377 QTc: 487 Interpretive Statements ELECTRONIC VENTRICULAR PACEMAKER VENTRICULAR PREMATURE COMPLEXES PROBABLY UNDERLYING ATRIAL FIBRILLATION NO FURTHER INTERPRETATION IS POSSIBLE ABNORMAL ECG Electronically Signed On 02-23-2020 7:13:35 CDT by Duglas Stanley D.O.
[2020-02-23 02:26] LABS: Hematocrit 38.1 % (42.0-52.0); Hemoglobin 12.4 g/dL (14.0-18.0); Mean Corpuscular HGB Conc 32.5 g/dl (32-36); Mean Corpuscular Hemoglobin 31.3 pg (26-34); Mean Corpuscular Volume 96.2 fl (80-100); Mean Platelet Volume 10.9 fl (7.4-10.4); Platelet Count Result 215 k/mm3 (150-375); Red Blood Count 3.96 M/mm3 (4.6-6.20); Red Cell Distribution Width 14.6 % (11.5-14.5); White Blood Count 10.6 K/mm3 (4.5-10.0)
[2020-02-23 02:40] LABS: Alanine Aminotransferase 40 U/L (4-50); Albumin Level 2.6 g/dL (3.5-5.1); Alkaline Phosphatase 348 U/L (38-126); Aspartate Amino Transferase 18 U/L (17-59); Blood Urea Nitrogen 44 mg/dL (9-20); Calcium 8.3 mg/dL (8.4-10.2); Carbon Dioxide 26 mmol/L (22-30); Chloride 90 mmol/L (98-107); Estimated CRCL calculation 17 ml/min; Estimated Glomerular Filt Rate 14; Glucose 290 mg/dL (75-110); Magnesium 1.7 mg/dL (1.6-2.3); Potassium 2.9 mmol/L (3.4-5.0); Sodium 126 mmol/L (137-145)
[2020-02-23 03:03] LABS: Troponin I 0.055 ng/mL (0.000-0.034)
[2020-02-23 05:19] LABS: Glucose Point of Care 253 (65-105)
[2020-02-23] MEDS: DEXTROSE 5%/0.45% SOD CHL 1,000 ML 50 ML IV CONT (05:24)
[2020-02-23 06:25] LABS: Troponin I 0.042 ng/mL (0.000-0.034)
[2020-02-23] MEDS: FUROSEMIDE INJ 100 MG/10 ML VIAL 80 MG IV PUSH (09:05)
[2020-02-23] MEDS: HEPARIN SODIUM 5,000 UNITS/ML VIAL 5000 UNITS SUB-Q ×2 (09:06→22:02)
[2020-02-23] MEDS: PANTOPRAZOLE SODIUM IV 40 MG VIAL IV PUSH (09:08)
[2020-02-23] MEDS: INSULIN GLARGINE (*BKC) 100 UNITS/ML 10 UNITS SUB-Q (09:08)
--- NOTE | 2020-02-23 10:53 | P.PNNP_ITS ---
Progress Note: A&P Assessment and Plan (1) End stage renal disease: Code(s): N18.6 - End stage renal disease Status: Chronic Assessment and Plan: * continue CCPD nightly * will try to be more aggressive with fluid removal but may be limited by hemodynamics * follow electrolytes, volume status, and clearace (2) Hyponatremia: Code(s): E87.1 - Hypo-osmolality and hyponatremia Status: Acute Assessment and Plan: * due to a combination of renal failure and severe cardiomyopathy/CHF * fluid removal as tolerated * follow trend (3) Hypokalemia: Code(s): E87.6 - Hypokalemia Status: Acute Assessment and Plan: * presumed to due to poor oral in the last few weeks and currently * NPO given recent MBS results * supplementation PRN * magnesium adequate (4) Cardiomyopathy: Code(s): I42.9 - Cardiomyopathy, unspecified Status: Chronic Assessment and Plan: * repeat Echo with EF ~ 15% * ICD in place * consider Cardiology consultation but I am not sure what else they will have to offer at this time (5) Elevated liver enzymes: Code(s): R74.8 - Abnormal levels of other serum enzymes Status: Acute Assessment and Plan: * passive congestion from cardiomyopathy? * due to poor blood flow depressed EF? * slow improvement noted * follow trend (6) Pleural effusion on right: Code(s): J90 - Pleural effusion, not elsewhere classified Status: Acute Assessment and Plan: * s/p thoracentesis * is it possible that this is translocation of PD fluid from peritoneum to right lung?? * consider checking glucose level of pleural fluid (would be extremely high if it is PD fluid) if another thoracentesis planned * recheck chest x-ray (7) Generalized weakness: Code(s): R53.1 - Weakness Status: Acute Assessment and Plan: * suspect multifactorial: - Cardiomyopathy - ESRD - pleural effusion - hypokalemia * PT/OT when able * I worry that his worsening cardiac function (EF ~ 15%) may be more to blame with his recent decline but I am unclear if there is really anything else we can do... Will continue follow Subjective Date/time seen: 02/23/20 10:53 Continues to tolerated CCPD overnight (fluid removal/UF ~ 1600cc with treatment); still with issues relating to hypokalemia requiring IV replacement; repeat MBS to assess if able to take oral intake. Exam Narrative: Exam Narrative: General: WD/WN male in NAD Heart: normal S1 and S2; no rub Lungs: decreased on the right side Abdomen: soft, nontender, nondistended, positive bowel sounds Extremities: no cyanosis or clubbing; trace edema Skin: no rash Objective Data Vital Signs Vital Signs: Vital Signs Temp Pulse Resp BP Pulse Ox 02/23/20 09:10 95 02/23/20 08:00 62 14 95 02/23/20 07:45 36.3 C L 62 14 120/88 02/23/20 06:00 36.7 C 91 21 H 125/80 100 02/23/20 04:00 98 02/23/20 02:48 36.5 C 108 H 20 129/78 99 02/23/20 01:54 103 H 02/23/20 00:00 97 02/22/20 23:53 36.4 C 92 20 123/80 98 02/22/20 21:58 105 H 02/22/20 21:14 96 02/22/20 20:00 100 02/22/20 16:00 85 02/22/20 14:00 36.4 C 83 18 149/89 H 100 02/22/20 12:00
--- NOTE | 2020-02-23 10:53 | PM.PNNEP ---
Progress Note: A&P Assessment and Plan (1) End stage renal disease: Code(s): N18.6 - End stage renal disease Status: Chronic Assessment and Plan: continue CCPD nightly will try to be more aggressive with fluid removal but may be limited by hemodynamics follow electrolytes, volume status, and clearace (2) Hyponatremia: Code(s): E87.1 - Hypo-osmolality and hyponatremia Status: Acute Assessment and Plan: due to a combination of renal failure and severe cardiomyopathy/CHF fluid removal as tolerated follow trend (3) Hypokalemia: Code(s): E87.6 - Hypokalemia Status: Acute Assessment and Plan: presumed to due to poor oral in the last few weeks and currently NPO given recent MBS results supplementation PRN magnesium adequate (4) Cardiomyopathy: Code(s): I42.9 - Cardiomyopathy, unspecified Status: Chronic Assessment and Plan: repeat Echo with EF ~ 15% ICD in place consider Cardiology consultation but I am not sure what else they will have to offer at this time (5) Elevated liver enzymes: Code(s): R74.8 - Abnormal levels of other serum enzymes Status: Acute Assessment and Plan: passive congestion from cardiomyopathy? due to poor blood flow depressed EF? slow improvement noted follow trend (6) Pleural effusion on right: Code(s): J90 - Pleural effusion, not elsewhere classified Status: Acute Assessment and Plan: s/p thoracentesis is it possible that this is translocation of PD fluid from peritoneum to right lung?? consider checking glucose level of pleural fluid (would be extremely high if it is PD fluid) if another thoracentesis planned recheck chest x-ray (7) Generalized weakness: Code(s): R53.1 - Weakness Status: Acute Assessment and Plan: suspect multifactorial: - Cardiomyopathy - ESRD - pleural effusion - hypokalemia PT/OT when able I worry that his worsening cardiac function (EF ~ 15%) may be more to blame with his recent decline but I am unclear if there is really anything else we can do... Will continue follow Subjective Date/time seen: 02/23/20 10:53 Continues to tolerated CCPD overnight (fluid removal/UF ~ 1600cc with treatment); still with issues relating to hypokalemia requiring IV replacement; repeat MBS to assess if able to take oral intake. Exam Narrative: Exam Narrative: General: WD/WN male in NAD Heart: normal S1 and S2; no rub Lungs: decreased on the right side Abdomen: soft, nontender, nondistended, positive bowel sounds Extremities: no cyanosis or clubbing; trace edema Skin: no rash Objective Data Vital Signs Vital Signs: Vital Signs Temp Pulse Resp BP Pulse Ox 02/23/20 09:10 95 02/23/20 08:00 62 14 95 02/23/20 07:45 36.3 C L 62 14 120/88 02/23/20 06:00 36.7 C 91 21 H 125/80 100 02/23/20 04:00 98 02/23/20 02:48 36.5 C 108 H 20 129/78 99 02/23/20 01:54 103 H 02/23/20 00:00 97 02/22/20 23:53 36.4 C 92 20 123/80 98 02/22/20 21:58 105 H 02/22/20 21:14 96 02/22/20 20:00 100 02/22/20 16:00 85 02/22/20 14:00 36.4 C 83 18 149/89 H 100 02/22/20 12:00 92 Intake/Output Intake/Output: Intake & Output 02/20/20 02/21/20 02/22/20 02/23/20 23:59 23:59 23:59 23:59 Intake Total 2470 160 610 500 Output Total 1859 1426 1291 1789 Balance 611 -1266 -681 -1289 Meds/Results Medications: Active Medications Generic Name Dose Route Start Last Admin Trade Name Freq PRN Reason Stop Dose Admin Acetaminophen 650 mg 02/20/20 08:51 Tylenol Tablet PO Q4H PRN Pain or Fever Aspirin 81 mg 02/18/20 09:00 02/21/20 10:43 Aspirin Ec PO 81 mg DAILY HIWOT Administration Benzonatate 200 mg 02/18/20 09:00 02/21/20 12:13 Tessalon Perles PO Not Given TID HIWOT Calcium Acetate 1,334 m
--- NOTE | 2020-02-23 11:33 | PM.IMPN ---
Progress Note: A&P Assessment and Plan (1) Sepsis: Qualifiers: Sepsis type: sepsis due to unspecified organism Sepsis acute organ dysfunction status: with acute organ dysfunction Severe sepsis acute organ dysfunction type: encephalopathy Severe sepsis shock status: without septic shock Qualified Code(s): A41.9 - Sepsis, unspecified organism; R65.20 - Severe sepsis without septic shock; G93.40 - Encephalopathy, unspecified Code(s): A41.9 - Sepsis, unspecified organism Status: Acute Assessment and Plan: COVID-19 testing negative. Blood and peritoneal cultures with no growth. Iv abx have been stopped ongoing encephalopathy and dysphagia. Rpt MBS soon today or preeti, dietary consult and rpt cxr. (2) Encephalopathy: Code(s): G93.40 - Encephalopathy, unspecified Status: Acute Assessment and Plan: Does not appear to be result of infection at this time but probably multifactorial due to other health conditions. CT brain with no acute changes. Unable to do MRI brain with pacemaker/defibrillator in place. This may be pts baseline ? hospice consideration (3) Elevated liver enzymes: Code(s): R74.8 - Abnormal levels of other serum enzymes Status: Acute Assessment and Plan: LFTs significantly high (4) Acute hypokalemia: Code(s): E87.6 - Hypokalemia Status: Acute Assessment and Plan: Potassium 3.4 today. Will continue to monitor. Replace as needed. (5) Type 2 diabetes mellitus: Qualifiers: Diabetes mellitus intermediate card tender insulin use: with alf use Diabetes mellitus complication status: with kidney complications Diabetes mellitus complication detail: with chronic kidney disease Chronic kidney disease stage: on chronic dialysis Qualified Code(s): E11.22 - Type 2 diabetes mellitus with diabetic chronic kidney disease; N18.6 - End stage renal disease; Z79.4 - long term care phlebotomist (current) use of insulin; Z99.2 - Dependence on renal dialysis Code(s): E11.9 - Type 2 diabetes mellitus without complications Status: Chronic Assessment and Plan: Home Lantus restarted at 20 units subcu held as pt is currently npo, failed his swallow test. (6) Pleural effusion on right: Code(s): J90 - Pleural effusion, not elsewhere classified Status: Acute Assessment and Plan: CT chest with small left and moderate to large right pleural effusions. Ultrasound-guided thoracentesis on 02/19/2020 Currently on 2 L of oxygen. Chest x-ray today with small bilateral pleural effusions left greater than right. Continue to monitor. pt is on iv lasix 20 mg daily. Was on 80 mg iv bid for diuresis. (7) Hyponatremia: Code(s): E87.1 - Hypo-osmolality and hyponatremia Status: Acute Assessment and Plan: Sodium continues to decrease and now at 126. (8) Ischemic cardiomyopathy: Code(s): I25.5 - Ischemic cardiomyopathy Status: Chronic Assessment and Plan: EF known to be 20-25%. Repeat echocardiogram with EF now decreased at 10-15%. Moderate pulmonary hypertension also noted. Patient already has pacemaker/defibrillator in place. (9) ESRD on peritoneal dialysis: Code(s): N18.6 - End stage renal disease; Z99.2 - Dependence on renal dialysis Status: Chronic Assessment and Plan: Nephrology consulted and appreciate input. Continue peritoneal dialysis per nephrology. (10) DVT prophylaxis: Code(s): Z29.9 - Encounter for prophylactic measures, unspecified Status: Acute Assessment and Plan: Heparin subcutaneously. Subjective Date/time seen: 02/23/20 11:33 Interval history: Admitted with CHF exacerbation, altered mental status. Transferred to ICU on 02/19/2020 with worsening condition. Pt is still altered. History of sepsis, encephalopathy, dm, pleural effusion and ischemic heart disease. Pt looks more alert today. Although pt is slow this maybe his normal. Sepsis res
[2020-02-23 11:54] LABS: Glucose Point of Care 170 (65-105)
[2020-02-23] MEDS: KCL 20 MEQ/SW 100 ML 100 ML 50 MEQ IVPB (12:50)
[2020-02-23 17:27] LABS: Glucose Point of Care 164 (65-105)
--- NOTE | 2020-02-23 22:41 | ECG_ITS ---
Measurements Intervals [place] Rate: 93 P: VT: 0 QRS: 72 QRSD: 120 T: 174 QT: 381 QTc: 476 Interpretive Statements ATRIAL FIBRILLATION ELECTRONIC VENTRICULAR PACEMAKER COMPLEX, FREQUENT VENTRICULAR PREMATURE COMPLEXES INTRAVENTRICULAR CONDUCTION DELAY VOLTAGE CRITERIA FOR LVH POOR R WAVE PROGRESSION, ANTERIOR LEADS BORDERLINE T WAVE ABNORMALITY- INF/LAT LEADS ABNORMAL ECG Electronically Signed On 02-24-2020 7:07:22 CDT by Duglas Stanley D.O.
--- NOTE | 2020-02-23 23:06 | PM.EVENT ---
Event Note Event Note Event Note: Called to bedside to evaluate this 69 year old ESRD patient on peritoneal dialysis who is being treated for Sepsis, encephalopathy and CHF who is known to have an EF of 10-15% who tonight suddenly went into a rapid heart rate in the 120s. The patient himself is poorly responsive and cannot tell me if he has any pain or shortness of breath at this time. EKG demonstrated atrial fibrillation w/ RVR. CXR obtained earlier in the day demonstrated worsening pulmonary edema. I have called the family and discussed with the patient's and son the gravity of the situation and the patient's current clinical condition. The family verbalized to me that they still want everything done. I have discussed with the patient's family his current clinical condition and high likelihood for deterioration. We will transfer the patient to IMU and initiate Digoxin for rate control. Telemetry. Continue close monitoring and we will consider transfer to ICU, endotracheal intubation and mechanical ventilation if his respiratory function deteriorates.
[2020-02-23 23:46] LABS: Glucose Point of Care 212 (65-105)
[2020-02-23] MEDS: DIGOXIN INJ 250 MCG/ML 2 ML AMP (*BKC) 500 MCG IV PUSH (23:51)
[2020-02-24] VITALS (16 sets, daily range): BP systolic 126–156; BP diastolic 65–83; PULSE 88–112; RESP 14–20; TEMP 36.2–37.1; O2SAT 93–100; BMI 28.8
[2020-02-24 00:09] LABS: Blood Urea Nitrogen 48 mg/dL (9-20); Calcium 7.9 mg/dL (8.4-10.2); Carbon Dioxide 25 mmol/L (22-30); Chloride 92 mmol/L (98-107); Estimated CRCL calculation 17 ml/min; Estimated Glomerular Filt Rate 14; Glucose 212 mg/dL (75-110); Magnesium 1.7 mg/dL (1.6-2.3); Potassium 3.5 mmol/L (3.4-5.0); Sodium 124 mmol/L (137-145)
[2020-02-24 00:23] LABS: Troponin I 0.046 ng/mL (0.000-0.034)
--- NOTE | 2020-02-24 00:45 | PC.NURSE ---
pt. transferred to IMU room 207
--- NOTE | 2020-02-24 03:11 | PC.NURSE ---
This patient, Kulwinder Morgan, was received from [[id number] ] on 02/24/20 at 0031. Pt was transferred for concerns about his heart rate and shortness of breath. IV Digoxin was given on medical floor which has improved his heart rate. Personal belongings list checked and signed. Patient/family oriented to unit policies and routines
[2020-02-24] MEDS: MAGNESIUM SULF 1 GM/D5W 100 ML 1 GM/100 ML BAG IVPB (04:09)
[2020-02-24 04:49] LABS: Basophils Percent Auto 0.3 % (0.2-1.2); Eosinophils Absolute Auto 0.1 K/mm3 (0-0.3); Eosinophils Percent Auto 0.8 % (0-4.4); Hematocrit 37.4 % (42.0-52.0); Hemoglobin 11.9 g/dL (14.0-18.0); Immature Granulocyte Absolute 0.04 K/mm3 (0.00-0.031); Immature Granulocyte Percent A 0.4 % (0-0.5); Lymphocytes Absolute Auto 0.42 K/mm3 (0.9-3.2); Mean Corpuscular HGB Conc 31.8 g/dl (32-36); Mean Corpuscular Hemoglobin 30.7 pg (26-34); Mean Corpuscular Volume 96.4 fl (80-100); Mean Platelet Volume 11.4 fl (7.4-10.4); Monocytes Absolute Auto 1.3 K/mm3 (0.1-0.6); Monocytes Percent Auto 12.7 % (2.6-8.5); Neutrophils Absolute Auto 8.7 K/mm3 (1.3-6.7); Neutrophils Percent Auto 81.8 % (45.5-73.1); Platelet Count Result 209 k/mm3 (150-375); Red Blood Count 3.88 M/mm3 (4.6-6.20); Red Cell Distribution Width 14.7 % (11.5-14.5); White Blood Count 10.6 K/mm3 (4.5-10.0)
[2020-02-24 05:04] LABS: Alanine Aminotransferase 30 U/L (4-50); Albumin Level 2.5 g/dL (3.5-5.1); Alkaline Phosphatase 306 U/L (38-126); Aspartate Amino Transferase 18 U/L (17-59); Bilirubin,Total 0.8 mg/dL (0.2-1.3); Blood Urea Nitrogen 45 mg/dL (9-20); Calcium 8.4 mg/dL (8.4-10.2); Carbon Dioxide 25 mmol/L (22-30); Chloride 93 mmol/L (98-107); Estimated CRCL calculation 17 ml/min; Estimated Glomerular Filt Rate 14; Glucose 260 mg/dL (75-110); Phosphorus 3.3 mg/dL (2.5-4.5); Potassium 3.4 mmol/L (3.4-5.0); Sodium 126 mmol/L (137-145)
[2020-02-24] MEDS: DIGOXIN INJ 250 MCG/ML 2 ML AMP (*BKC) IV PUSH (05:11)
[2020-02-24 07:19] LABS: Glucose Point of Care 208 (65-105)
[2020-02-24] MEDS: INSULIN ASPART (*BKC) 100 UNITS/ML SUB-Q (07:42)
--- NOTE | 2020-02-24 08:32 | PCPTNOTE ---
Spoke with pt's nurse this am about pt's medical status and continuing therapy services. Pt unable to perform active motion of LE's and difficulty responding to simple questions. Will hold therapy at this time until medically able to participate in therapy treatment activities.
--- NOTE | 2020-02-24 08:38 | PCOTNOTE ---
Spoke with pt's nurse this am about pt's medical status and continuing therapy services. Pt unable to perform active motion of LE's and UE's and difficulty responding to simple questions. Will hold therapy at this time until medically able to participate in therapy treatment activities.
[2020-02-24] MEDS: FUROSEMIDE INJ 40 MG/4 ML VIAL 20 MG IV PUSH (09:15)
[2020-02-24] MEDS: PANTOPRAZOLE SODIUM IV 40 MG VIAL IV PUSH (09:15)
[2020-02-24] MEDS: HEPARIN SODIUM 5,000 UNITS/ML VIAL 5000 UNITS SUB-Q ×2 (09:16→19:56)
[2020-02-24] MEDS: INSULIN GLARGINE (*BKC) 100 UNITS/ML 10 UNITS SUB-Q (09:19)
--- NOTE | 2020-02-24 09:27 | P.PNNP_ITS ---
Progress Note: A&P Assessment and Plan (1) End stage renal disease: Code(s): N18.6 - End stage renal disease Status: Chronic Assessment and Plan: * continue CCPD nightly * continue more aggressive with fluid removal since hemodynamics * follow electrolytes, volume status, and clearace (2) Hyponatremia: Code(s): E87.1 - Hypo-osmolality and hyponatremia Status: Acute Assessment and Plan: * due to a combination of renal failure and severe cardiomyopathy/CHF * fluid removal as tolerated * follow trend (3) Hypokalemia: Code(s): E87.6 - Hypokalemia Status: Acute Assessment and Plan: * presumed to due to poor oral in the last few weeks and currently * NPO given recent MBS results * supplementation PRN * magnesium adequate (4) Cardiomyopathy: Code(s): I42.9 - Cardiomyopathy, unspecified Status: Chronic Assessment and Plan: * repeat Echo with EF ~ 15% * ICD in place * consider Cardiology consultation but I am not sure what else they will have to offer at this time (5) Elevated liver enzymes: Code(s): R74.8 - Abnormal levels of other serum enzymes Status: Acute Assessment and Plan: * passive congestion from cardiomyopathy? * due to poor blood flow depressed EF? * slow improvement noted * follow trend (6) Pleural effusion on right: Code(s): J90 - Pleural effusion, not elsewhere classified Status: Acute Assessment and Plan: * s/p thoracentesis * is it possible that this is translocation of PD fluid from peritoneum to right lung?? * consider checking glucose level of pleural fluid (would be extremely high if it is PD fluid) if another thoracentesis planned * recheck chest x-ray (7) Encephalopathy: Code(s): G93.40 - Encephalopathy, unspecified Status: Acute Assessment and Plan: * unclear as to cause of acute change * possible CVA or TIA?? * check CT scan * will follow... (8) Generalized weakness: Code(s): R53.1 - Weakness Status: Acute Assessment and Plan: * suspect multifactorial: - Cardiomyopathy - ESRD - pleural effusion - hypokalemia * PT/OT when able Will continue follow Subjective Date/time seen: 02/24/20 09:27 Events noted overnight -- Afib with RVR and evidence of pulmonary edema despite efforts at aggressive ultrafiltration with peritoneal dialysis; transferred to IMU; CCPD went well (UF/ultrafiltration ~ 2000cc); he seems quite confused this AM -- he recognizes me but does not where he is, the year, or the current president. Exam Narrative: Exam Narrative: General: WD/WN male in NAD but clearly confused Heart: IRRR, normal S1 and S2; no rub Lungs: decreased on the right side Abdomen: soft, nontender, nondistended, positive bowel sounds Extremities: no cyanosis or clubbing; trace edema Skin: no nodules Objective Data Vital Signs Vital Signs: Vital Signs Temp Pulse Resp BP Pulse Ox 02/24/20 07:58 36.2 C L 101 H 14 139/65 99 02/24/20 06:00 98 02/24/20 04:00 110 H 02/24/20 03:53 36.4 C 112 H 20 143/83 H 93 02/24/20 02:00 92 02/24/20 00:47 36.7 C 109 H 20 136/72 96 02/24/20 00:40 105 H 02/23/20 23:51 111 H 02/23/20 22:39 36.3 C L 120 H 22 H 131/81 99
--- NOTE | 2020-02-24 09:27 | PM.PNNEP ---
Progress Note: A&P Assessment and Plan (1) End stage renal disease: Code(s): N18.6 - End stage renal disease Status: Chronic Assessment and Plan: continue CCPD nightly continue more aggressive with fluid removal since hemodynamics follow electrolytes, volume status, and clearace (2) Hyponatremia: Code(s): E87.1 - Hypo-osmolality and hyponatremia Status: Acute Assessment and Plan: due to a combination of renal failure and severe cardiomyopathy/CHF fluid removal as tolerated follow trend (3) Hypokalemia: Code(s): E87.6 - Hypokalemia Status: Acute Assessment and Plan: presumed to due to poor oral in the last few weeks and currently NPO given recent MBS results supplementation PRN magnesium adequate (4) Cardiomyopathy: Code(s): I42.9 - Cardiomyopathy, unspecified Status: Chronic Assessment and Plan: repeat Echo with EF ~ 15% ICD in place consider Cardiology consultation but I am not sure what else they will have to offer at this time (5) Elevated liver enzymes: Code(s): R74.8 - Abnormal levels of other serum enzymes Status: Acute Assessment and Plan: passive congestion from cardiomyopathy? due to poor blood flow depressed EF? slow improvement noted follow trend (6) Pleural effusion on right: Code(s): J90 - Pleural effusion, not elsewhere classified Status: Acute Assessment and Plan: s/p thoracentesis is it possible that this is translocation of PD fluid from peritoneum to right lung?? consider checking glucose level of pleural fluid (would be extremely high if it is PD fluid) if another thoracentesis planned recheck chest x-ray (7) Encephalopathy: Code(s): G93.40 - Encephalopathy, unspecified Status: Acute Assessment and Plan: unclear as to cause of acute change possible CVA or TIA?? check CT scan will follow... (8) Generalized weakness: Code(s): R53.1 - Weakness Status: Acute Assessment and Plan: suspect multifactorial: - Cardiomyopathy - ESRD - pleural effusion - hypokalemia PT/OT when able Will continue follow Subjective Date/time seen: 02/24/20 09:27 Events noted overnight -- Afib with RVR and evidence of pulmonary edema despite efforts at aggressive ultrafiltration with peritoneal dialysis; transferred to IMU; CCPD went well (UF/ultrafiltration ~ 2000cc); he seems quite confused this AM -- he recognizes me but does not where he is, the year, or the current president. Exam Narrative: Exam Narrative: General: WD/WN male in NAD but clearly confused Heart: IRRR, normal S1 and S2; no rub Lungs: decreased on the right side Abdomen: soft, nontender, nondistended, positive bowel sounds Extremities: no cyanosis or clubbing; trace edema Skin: no nodules Objective Data Vital Signs Vital Signs: Vital Signs Temp Pulse Resp BP Pulse Ox 02/24/20 07:58 36.2 C L 101 H 14 139/65 99 02/24/20 06:00 98 02/24/20 04:00 110 H 02/24/20 03:53 36.4 C 112 H 20 143/83 H 93 02/24/20 02:00 92 02/24/20 00:47 36.7 C 109 H 20 136/72 96 02/24/20 00:40 105 H 02/23/20 23:51 111 H 02/23/20 22:39 36.3 C L 120 H 22 H 131/81 99 02/23/20 21:51 36.3 C L 94 18 131/78 02/23/20 20:00 36.6 C 58 L 22 H 128/93 H 99 02/23/20 18:00 36.3 C L 94 18 131/78 98 02/23/20 16:00 72 02/23/20 14:00 36.6 C 71 18 141/108 H 100 02/23/20 12:00 97 02/23/20 10:00 36.2 C L 53 L 20 122/74 100 Intake/Output Intake/Output: Intake & Output 02/21/20 02/22/20 02/23/20 02/24/20 23:59 23:59 23:59 23:59 Intake Total 160 610 500 950 Output Total 1426 1291 2289 2062 [place] -1266 -681 -1789 -1112 Meds/Results Medications: Active Medications Generic Name Dose Route Start Last Admin Trade Name Freq PRN Reason Stop Dose Admin Dext
[2020-02-24 12:15] LABS: Glucose Point of Care 128 (65-105)
[2020-02-24 14:18] LABS: Magnesium 1.9 mg/dL (1.6-2.3)
[2020-02-24 14:19] LABS: Blood Urea Nitrogen 47 mg/dL (9-20); Carbon Dioxide 24 mmol/L (22-30); Chloride 94 mmol/L (98-107); Estimated CRCL calculation 17 ml/min; Estimated Glomerular Filt Rate 14; Glucose 118 mg/dL (75-110); Potassium 3.5 mmol/L (3.4-5.0); Sodium 127 mmol/L (137-145)
--- NOTE | 2020-02-24 14:22 | PCSTNOTE ---
Attempted to schedule MBS however, nursing reports a possible decline in pt's status and stated to cancel it. MBS will be completed upon receipt of new orders.
--- NOTE | 2020-02-24 14:59 | WPDNEURCNPN ---
Assessment and Plan Assessment and plan (1) Encephalopathy: Code(s): G93.40 - Encephalopathy, unspecified Status: Acute (2) Dialysis disequilibrium syndrome: Code(s): E87.8 - Other disorders of electrolyte and fluid balance, not elsewhere classified Status: Acute (3) Cardiomyopathy: Code(s): I42.9 - Cardiomyopathy, unspecified Status: Chronic (4) Hyponatremia: Code(s): E87.1 - Hypo-osmolality and hyponatremia Status: Acute (5) Hyponatremia: Code(s): E87.1 - Hypo-osmolality and hyponatremia Status: Acute (6) Debility: Code(s): R53.81 - Other malaise Status: Acute (7) CHF (congestive heart failure): Code(s): I50.9 - Heart failure, unspecified Status: Acute (8) COPD exacerbation: Code(s): J44.1 - Chronic obstructive pulmonary disease with (acute) exacerbation Status: Acute (9) Anemia in chronic kidney disease: Code(s): N18.9 - Chronic kidney disease, unspecified; D63.1 - Anemia in chronic kidney disease Status: Acute (10) Chronic kidney disease due to diabetes mellitus: Code(s): E11.22 - Type 2 diabetes mellitus with diabetic chronic kidney disease Status: Acute (11) Peritoneal dialysis catheter in place: Code(s): Z99.2 - Dependence on renal dialysis Status: Acute (12) Obstructive sleep apnea: Code(s): G47.33 - Obstructive sleep apnea (adult) (pediatric) Status: Chronic (13) GERD (gastroesophageal reflux disease): Qualifiers: Esophagitis presence: esophagitis presence not specified Qualified Code(s): K21.9 - Gastro-esophageal reflux disease without esophagitis Code(s): K21.9 - Gastro-esophageal reflux disease without esophagitis Status: Chronic Additional Plan the differential diagnosis includes dialysis disequilibrium syndrome, TIA either from the large vessel disease and/or hit in atrial fibrillation I am not really sure I want to anticoagulate that basis however I will resume his aspirin do a carotid study and an EEG because some of these patient may have small brief seizure followed by a postictal phenomenon it is hard to discern in a patient who at this point is clearly encephalopathic and most likely explanation is a multifactorial encephalopathy and daughter the above Consult date: 05/26/20 Time Seen: 14:30 HPI: Kulwinder W Emshousen is a 69 year old male Whom I am asked to see because of the change in the mental status the patient has multiple medical issues the predominant 1 of these are the chronic dialysis patient end-stage renal disease AICD placement and also has a pacemaker somewhere around last night it was a change in his mental status and it was more noticeable after the dialysis but it lasted more than 12 hours and he is just coming around and able to follow simple commands and denies any headache and he is talking in full sentences however sometimes he is clearly encephalopathic with asterixis without any distress without any lateralizing focal motor deficit in particular denies any chills fever sore throat shortness of breath chest pain lateralizing paresthesias or focal weakness Review of Systems Review of Systems: All systems reviewed & are unremarkable except as noted in HPI and below PMFSH Past Medical History Medical History Adenomatous colon polyp Anemia in chronic kidney disease Anorexia BPH (benign prostatic hyperplasia) Chronic kidney disease due to diabetes mellitus Chronic pain Chronic systolic (congestive) heart failure ESRD on peritoneal dialysis Gastroparesis GERD (gastroesophageal reflux disease) Hypothyroidism ICD (implantable cardioverter-defibrillator) in place Ischemic cardiomyopathy Cardiac catheterization 09/11/19 shows severe to ischemic cardiomyopathy with severe global hypokinesis, EF 15%. With echo from November 02, 2019 EF 20-25% grade 3 diastolic dysfunction
--- NOTE | 2020-02-24 17:55 | PM.IMPN ---
Progress Note: A&P Assessment and Plan (1) Sepsis: Qualifiers: Sepsis type: sepsis due to unspecified organism Sepsis acute organ dysfunction status: with acute organ dysfunction Severe sepsis acute organ dysfunction type: encephalopathy Severe sepsis shock status: without septic shock Qualified Code(s): A41.9 - Sepsis, unspecified organism; R65.20 - Severe sepsis without septic shock; G93.40 - Encephalopathy, unspecified Code(s): A41.9 - Sepsis, unspecified organism Status: Acute Assessment and Plan: COVID-19 testing negative. Blood and peritoneal cultures with no growth. Iv abx have been stopped ongoing encephalopathy and dysphagia. Rpt MBS soon today or preeti, dietary consult and rpt cxr. 02/24/20 17:55 Patient is 69-year-old male with a history and end stage renal disease on peritoneal dialysis initially patient was admitted with sepsis however with was no bacterial growth and antibiotics were stopped patient has been encephalopathic however today patient is much more worse he is not responsive and only repeat his name on and off, I spoke with Dr. Lemus who knows the patient well normally patient is alert oriented however today patient only repeats 1 name and does not respond properly to further evaluate patient had a CTA scan of the head and carotid ultrasound which did not show any acute injury patient cannot have MRI due to ICD and peritoneal dialysis to further evaluate patient was seen by neurologist and suspect encephalopathy may possibly related to seizures to further evaluate patient will have EEG and further recommendation to follow, (2) Encephalopathy: Code(s): G93.40 - Encephalopathy, unspecified Status: Acute Assessment and Plan: Does not appear to be result of infection at this time but probably multifactorial due to other health conditions. CT brain with no acute changes. Unable to do MRI brain with pacemaker/defibrillator in place. This may be pts baseline ? hospice consideration, not in his spoke with the patient's family patient is full code and they would to continue everything possible. (3) Elevated liver enzymes: Code(s): R74.8 - Abnormal levels of other serum enzymes Status: Acute Assessment and Plan: LFTs significantly high (4) Acute hypokalemia: Code(s): E87.6 - Hypokalemia Status: Acute Assessment and Plan: Potassium 3.4 today. Will continue to monitor. Replace as needed. (5) Type 2 diabetes mellitus: Qualifiers: Diabetes mellitus buttermaker continuous churn insulin use: with buttermaker continuous churn use Diabetes mellitus complication status: with kidney complications Diabetes mellitus complication detail: with chronic kidney disease Chronic kidney disease stage: on chronic dialysis Qualified Code(s): E11.22 - Type 2 diabetes mellitus with diabetic chronic kidney disease; N18.6 - End stage renal disease; Z79.4 - termite control servicer (current) use of insulin; Z99.2 - Dependence on renal dialysis Code(s): E11.9 - Type 2 diabetes mellitus without complications Status: Chronic Assessment and Plan: Home Lantus restarted at 20 units subcu held as pt is currently npo, failed his swallow test. (6) Pleural effusion on right: Code(s): J90 - Pleural effusion, not elsewhere classified Status: Acute Assessment and Plan: CT chest with small left and moderate to large right pleural effusions. Ultrasound-guided thoracentesis on 02/19/2020 Currently on 2 L of oxygen. Chest x-ray today with small bilateral pleural effusions left greater than right. Continue to monitor. pt is on iv lasix 20 mg daily. Was on 80 mg iv bid for diuresis. (7) Hyponatremia: Code(s): E87.1 - Hypo-osmolality and hyponatremia Status: Acute Assessment and Plan: Sodium continues to decrease and now at 126. Patient seen by taxicab dispatcher (8) Ischemic cardiomyopathy: Code(s): I25.5 - Ischemic cardiomyopathy Status:
[2020-02-24 18:02] LABS: Glucose Point of Care 110 (65-105)
[2020-02-25] VITALS (15 sets, daily range): BP systolic 121–142; BP diastolic 64–76; PULSE 76–103; RESP 20–24; TEMP 36.4–37.2; O2SAT 94–99
[2020-02-25 00:18] LABS: Glucose Point of Care 192 (65-105)
[2020-02-25 05:06] LABS: Alanine Aminotransferase 26 U/L (4-50); Albumin Level 2.7 g/dL (3.5-5.1); Alkaline Phosphatase 306 U/L (38-126); Aspartate Amino Transferase 17 U/L (17-59); Bilirubin,Total 0.9 mg/dL (0.2-1.3); Blood Urea Nitrogen 45 mg/dL (9-20); Calcium 8.6 mg/dL (8.4-10.2); Carbon Dioxide 25 mmol/L (22-30); Chloride 94 mmol/L (98-107); Estimated CRCL calculation 16 ml/min; Estimated Glomerular Filt Rate 13; Glucose 275 mg/dL (75-110); Phosphorus 3.5 mg/dL (2.5-4.5); Potassium 3.5 mmol/L (3.4-5.0); Sodium 129 mmol/L (137-145)
[2020-02-25 06:03] LABS: Glucose Point of Care 279 (65-105)
[2020-02-25] MEDS: INSULIN ASPART (*BKC) 100 UNITS/ML SUB-Q ×2 (06:04→23:32)
[2020-02-25] MEDS: HEPARIN SODIUM 5,000 UNITS/ML VIAL 5000 UNITS SUB-Q ×2 (08:36→20:05)
[2020-02-25] MEDS: PANTOPRAZOLE SODIUM IV 40 MG VIAL IV PUSH (08:36)
[2020-02-25] MEDS: INSULIN GLARGINE (*BKC) 100 UNITS/ML 10 UNITS SUB-Q (08:37)
[2020-02-25 08:39] LABS: Basophils Percent Auto 0.2 % (0.2-1.2); Eosinophils Percent Auto 0.3 % (0-4.4); Hematocrit 39.3 % (42.0-52.0); Hemoglobin 12.4 g/dL (14.0-18.0); Immature Granulocyte Absolute 0.06 K/mm3 (0.00-0.031); Immature Granulocyte Percent A 0.4 % (0-0.5); Lymphocytes Percent Auto 2.8 % (18.3-44.2); Mean Corpuscular HGB Conc 31.6 g/dl (32-36); Mean Corpuscular Hemoglobin 30.9 pg (26-34); Mean Platelet Volume 10.8 fl (7.4-10.4); Monocytes Absolute Auto 1.7 K/mm3 (0.1-0.6); Monocytes Percent Auto 11.6 % (2.6-8.5); Neutrophils Absolute Auto 12.3 K/mm3 (1.3-6.7); Neutrophils Percent Auto 84.7 % (45.5-73.1); Platelet Count Result 230 k/mm3 (150-375); Red Blood Count 4.01 M/mm3 (4.6-6.20); Red Cell Distribution Width 14.8 % (11.5-14.5); White Blood Count 14.5 K/mm3 (4.5-10.0)
[2020-02-25] MEDS: FUROSEMIDE INJ 40 MG/4 ML VIAL 20 MG IV PUSH (08:42)
--- NOTE | 2020-02-25 09:50 | PM.CNCAR ---
Assessment and Plan Additional Plan 69-year-old man with a profound ischemic cardiomyopathy known to have only remaining patency of his circumflex. He has a very low ejection fraction and has chronic renal failure and is on dialysis. Obviously he has a very poor prognosis. His rhythm is rather chaotic and I do not think at all surprising given the underlying substrate. I do not have any reason why the patient's beta-arabella and hydralazine have been discontinued during this hospitalization. Certainly with this underlying substrate I would expect his rhythm to be come more chaotic after withdrawal of the beta-arabella. I am going to go ahead and resume the carvedilol at this time and probably the hydralazine tomorrow. There is no further need to assess this patient's cardiovascular substrate since it is well evaluated and worked up as we have dictated our previous consultation here a couple of months ago. Prognosis is clearly very poor Darius Daly MD [facility] History of Present Illness History of Present Illness Consult date/time: Date of service: 02/25/20 09:50 Reason For Visit: Increased weakness Narrative: This is a 69-year-old patient who is well known to the service at the hospital and somewhat known to our service who has a severe ischemic cardiomyopathy. I am seeing him at the request of the hospitalist because of arrhythmias that were noted on telemetry. The stated reason for the consult was ventricular tachycardia. This is a patient who has now been in the hospital here for a week. He came in with generalized weakness and was concern initially that he might be septic because of his peritoneal dialysis access catheter. Apparently this was found not to be the case. He still in the hospital having generalized weakness and lethargy evaluated. At times he has had very poor mental status with not being unresponsive but being very poorly responsive to verbal an and tactile stimuli. While the patient has been in the hospital he has been on telemetry his cardiac rhythm is rather chaotic but appears to show an underlying sinus mechanism with frequent atrial ectopic activity, occasional to frequent ventricular ectopics and some atrial and some ventricular pacing. The patient follows with Dr. 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 Since he has been in the hospital and for reasons that are not apparent by looking at the chart his heart failure medicines have not been administered. He normally takes carvedilol and hydralazine. He has not been hypotensive or bradycardic and so I do not have a specific reason for with holding these agents. His defibrillator has not delivered any countershocks and in this setting I am seeing him in consultation this morning. Upon arriving in the room to see him he is lethargic sleeping in bed I am not able to arouse him other than to elicit some groaning to tactile stimulation. He is obviously very lethargic and poorly responsive. Review of Systems Review of Systems: ROS unobtainable: Yes unobtainable due to medical condition PMFSH Past Medical History Medical History Adenomatous colon polyp Anemia in chronic kidney disease Anorexia BPH (benign prostatic hyperplasia) Chronic kidney disease due to diabetes mellitus Chronic pain Chronic systolic (congestive) heart failure ESRD on peritoneal dialysis Gastroparesis GERD (gastroesophageal reflux disease) Hypothyroidism ICD (implantable cardioverter-defibrillator) in place Ischemic cardiomyopathy Cardiac catheterization 09/11/19 shows severe to ischemic cardiomyopathy with severe global hypokinesis, EF 15%. With echo from November 02, 2019 EF 20-25% grade 3 diastolic dysfunction Moderate pulmonary arterial systolic hypertension RVSP 51 Obstructive sleep apnea Peritonea
--- NOTE | 2020-02-25 10:26 | CONS_ITS ---
DATE OF CONSULTATION: A 69-year-old, was initially seen by Dr. Vaughn Gale with the diagnosis of dialysis disequilibrium syndrome. Neuro consultation was obtained for the possible TIA because of the large vessel disease or underlying atrial fibrillation. As per the review of his note, he wanted to have further evaluation including the EEG. The patient has multiple medical problems as outlined above since the admission here. The patient has had the CBC which revealed a leukocytosis, abnormal BMP with sodium 129, potassium 3.5, chloride 94, BUN 45, creatinine 4.40, clearance only 16 with GFR 13 only. Glucose 275, calcium only 8.6, phosphorus 3.5, total bilirubin 0.9. Hepatic enzymes normal, alkaline phos 306, total protein 6 with albumin only 2.7. He did have a CTA, which documented no acute intracranial finding. No aneurysm. Bilateral carotid siphon arterial sclerosis with approximately only 20% left-sided stenosis. Head CT scan negative except the chronic right frontal lobe infarction documented previously as well. Chest x-ray with cardiomegaly, stable moderate-sized pleural effusions. The patient did have the swallowing study which revealed laryngeal penetration, mild aspiration with nectar thick liquid. At this stage, treatment is being continued as such neurologically. The patient is being followed by the hospitalists for the congestive heart failure. Further recommendations made accordingly. MATIAS CARRERA M.D. MEAT PROCESSOR MEAT PROCESSOR D Afshan MT: Sonu
--- NOTE | 2020-02-25 10:44 | PCPTNOTE ---
spoke with RN - pt still not medically appropriate for PT at this time.
[2020-02-25 12:27] LABS: Glucose Point of Care 180 (65-105)
--- NOTE | 2020-02-25 12:30 | NEURO_ITS ---
TEST: ELECTROENCEPHALOGRAM DIAGNOSIS: POSSIBLE SEIZURE PATIENT NUMBER: [id number] EEG NUMBER: [id number] RECORDING DATE: 02/25/20 CONDITION OF RECORDING: Sleep EEG DESCRIPTION: The whole record consists of low to medium voltage 5-7hz theta activity mixed with low voltage 15-21hz beta during sleep. During deeper stages of sleep bi-hemispheric symmetrical sleep activity is seen. Nonparoxysmal. Nonfocal. Nonlateralizing. IMPRESSION: No significant abnormalities noted. MTDD
--- NOTE | 2020-02-25 17:08 | P.PNNP_ITS ---
Progress Note: A&P Assessment and Plan (1) End stage renal disease: Code(s): N18.6 - End stage renal disease Status: Chronic Assessment and Plan: * continue CCPD nightly * continue to be more aggressive with fluid removal since hemodynamics better * follow electrolytes, volume status, and clearace (2) Hyponatremia: Code(s): E87.1 - Hypo-osmolality and hyponatremia Status: Acute Assessment and Plan: * due to a combination of renal failure and severe cardiomyopathy/CHF * fluid removal as tolerated * follow trend (3) Hypokalemia: Code(s): E87.6 - Hypokalemia Status: Acute Assessment and Plan: * presumed to due to poor oral in the last few weeks and currently * NPO given recent MBS results * supplementation PRN * magnesium adequate (4) Cardiomyopathy: Code(s): I42.9 - Cardiomyopathy, unspecified Status: Chronic Assessment and Plan: * repeat Echo with EF ~ 15% * ICD in place * consider Cardiology consultation but I am not sure what else they will have to offer at this time (5) Elevated liver enzymes: Code(s): R74.8 - Abnormal levels of other serum enzymes Status: Acute Assessment and Plan: * passive congestion from cardiomyopathy? * due to poor blood flow depressed EF? * slow improvement noted * follow trend (6) Pleural effusion on right: Code(s): J90 - Pleural effusion, not elsewhere classified Status: Acute Assessment and Plan: * s/p thoracentesis * recheck chest x-ray (7) Encephalopathy: Code(s): G93.40 - Encephalopathy, unspecified Status: Acute Assessment and Plan: * unclear as to cause of acute change * poor perfusion to brain given depressed EF * CT of brain negative * Neurology recommendations noted * will follow... (8) Generalized weakness: Code(s): R53.1 - Weakness Status: Acute Assessment and Plan: * suspect multifactorial: - Cardiomyopathy - ESRD - pleural effusion - hypokalemia * PT/OT when able Discussed case with Dr. Yancey who discussed poor prognosis with son already. Will continue follow Subjective Date/time seen: 02/25/20 17:08 Tolerated CCPD overnight without any issues or problems (UF/fluid removal ~ 2300cc); remains lethargic at the time of my visit if not almost unresponsive; no apparent distress noted. Exam Narrative: Exam Narrative: General: WD/WN male in bed; lethargic at this time Heart: IRRR, normal S1 and S2; no rub Lungs: decreased on the right side Abdomen: soft, nontender, nondistended, positive bowel sounds Extremities: no cyanosis or clubbing; trace edema Skin: no rast Objective Data Vital Signs Vital Signs: Vital Signs Temp Pulse Resp BP Pulse Ox 02/25/20 16:27 36.6 C 76 22 H 132/76 94 02/25/20 16:00 103 H 02/25/20 14:16 101 H 02/25/20 12:00 36.8 C 94 24 H 131/69 99 02/25/20 10:25 88 02/25/20 08:00 36.4 C 99 22 H 142/68 H 99 02/25/20 06:00 94 02/25/20 04:00 37.0 C 93 20 134/67 98 02/25/20 02:00 98 02/25/20 00:00 37.2 C 102 H 20 136/75 99 02/24/20 22:00 101 H 02/24/20 20:00 36.7 C 103 H 20 126/72 97 02/24/20 18:00 104 H Intake/Output In
--- NOTE | 2020-02-25 17:08 | PM.PNNEP ---
Progress Note: A&P Assessment and Plan (1) End stage renal disease: Code(s): N18.6 - End stage renal disease Status: Chronic Assessment and Plan: continue CCPD nightly continue to be more aggressive with fluid removal since hemodynamics better follow electrolytes, volume status, and clearace (2) Hyponatremia: Code(s): E87.1 - Hypo-osmolality and hyponatremia Status: Acute Assessment and Plan: due to a combination of renal failure and severe cardiomyopathy/CHF fluid removal as tolerated follow trend (3) Hypokalemia: Code(s): E87.6 - Hypokalemia Status: Acute Assessment and Plan: presumed to due to poor oral in the last few weeks and currently NPO given recent MBS results supplementation PRN magnesium adequate (4) Cardiomyopathy: Code(s): I42.9 - Cardiomyopathy, unspecified Status: Chronic Assessment and Plan: repeat Echo with EF ~ 15% ICD in place consider Cardiology consultation but I am not sure what else they will have to offer at this time (5) Elevated liver enzymes: Code(s): R74.8 - Abnormal levels of other serum enzymes Status: Acute Assessment and Plan: passive congestion from cardiomyopathy? due to poor blood flow depressed EF? slow improvement noted follow trend (6) Pleural effusion on right: Code(s): J90 - Pleural effusion, not elsewhere classified Status: Acute Assessment and Plan: s/p thoracentesis recheck chest x-ray (7) Encephalopathy: Code(s): G93.40 - Encephalopathy, unspecified Status: Acute Assessment and Plan: unclear as to cause of acute change poor perfusion to brain given depressed EF CT of brain negative Neurology recommendations noted will follow... (8) Generalized weakness: Code(s): R53.1 - Weakness Status: Acute Assessment and Plan: suspect multifactorial: - Cardiomyopathy - ESRD - pleural effusion - hypokalemia PT/OT when able Discussed case with Dr. Yancey who discussed poor prognosis with son already. Will continue follow Subjective Date/time seen: 02/25/20 17:08 Tolerated CCPD overnight without any issues or problems (UF/fluid removal ~ 2300cc); remains lethargic at the time of my visit if not almost unresponsive; no apparent distress noted. Exam Narrative: Exam Narrative: General: WD/WN male in bed; lethargic at this time Heart: IRRR, normal S1 and S2; no rub Lungs: decreased on the right side Abdomen: soft, nontender, nondistended, positive bowel sounds Extremities: no cyanosis or clubbing; trace edema Skin: no rast Objective Data Vital Signs Vital Signs: Vital Signs Temp Pulse Resp BP Pulse Ox 02/25/20 16:27 36.6 C 76 22 H 132/76 94 02/25/20 16:00 103 H 02/25/20 14:16 101 H 02/25/20 12:00 36.8 C 94 24 H 131/69 99 02/25/20 10:25 88 02/25/20 08:00 36.4 C 99 22 H 142/68 H 99 02/25/20 06:00 94 02/25/20 04:00 37.0 C 93 20 134/67 98 02/25/20 02:00 98 02/25/20 00:00 37.2 C 102 H 20 136/75 99 02/24/20 22:00 101 H 02/24/20 20:00 36.7 C 103 H 20 126/72 97 02/24/20 18:00 104 H Intake/Output Intake/Output: Intake & Output 02/22/20 02/23/20 02/24/20 02/25/20 23:59 23:59 23:59 23:59 Intake Total 610 500 950 Output Total 1291 [phone] [facility]379 [phone] Meds/Results Medications: Active Medications Generic Name Dose Route Start Last Admin Trade Name Freq PRN Reason Stop Dose Admin Carvedilol 12.5 mg 02/25/20 10:00 02/25/20 11:06 Coreg PO Not Given Q12HR HIWOT Dextrose 12.5 gm 02/18/20 11:09 Dextrose 50% Syringe IV PUSH PRN PRN Hypoglycemia Protocol Dipyridamole/Aspirin 1 cap 02/24/20 17:00 02/25/20 16:42 Aggrenox 25 Mg-200 Mg Capsule PO Not Given BID HIWOT Furosemide 20 mg 02/24/20 09:0
--- NOTE | 2020-02-25 17:22 | PC.NURSE ---
EEG was done. Dr. Gale will read on AM on 02/26/20
--- NOTE | 2020-02-25 17:46 | PM.IMPN ---
Progress Note: A&P Assessment and Plan (1) Sepsis: Qualifiers: Sepsis type: sepsis due to unspecified organism Sepsis acute organ dysfunction status: with acute organ dysfunction Severe sepsis acute organ dysfunction type: encephalopathy Severe sepsis shock status: without septic shock Qualified Code(s): A41.9 - Sepsis, unspecified organism; R65.20 - Severe sepsis without septic shock; G93.40 - Encephalopathy, unspecified Code(s): A41.9 - Sepsis, unspecified organism Status: Acute Assessment and Plan: COVID-19 testing negative. Blood and peritoneal cultures with no growth. Iv abx have been stopped ongoing encephalopathy and dysphagia. Rpt MBS soon today or preeti, dietary consult and rpt cxr. 02/25/20 17:46 Patient is 69-year-old male with a history and end stage renal disease on peritoneal dialysis initially patient was admitted with sepsis however with was no bacterial growth and antibiotics were stopped patient has been encephalopathic however today patient is much more worse he is not responsive and only repeat his name on and off, I spoke with Dr. Lemus who knows the patient well normally patient is alert oriented however today patient only repeats 1 name and does not respond properly to further evaluate patient had a CTA scan of the head and carotid ultrasound which did not show any acute injury patient cannot have MRI due to ICD and peritoneal dialysis to further evaluate patient was seen by neurologist and suspect encephalopathy may possibly related to seizures to further evaluate patient will have EEG which done but not reported, patient was also seen by director peoplesoft concerned for decrease EF and arrhythmia resume patient BB, but prognosis is poor, today still encephalopathic and not answering and saying any thing, I spoke with patient's son Sha presented patient condition and poor prognosis, he stated to wait for EEG results and if there is no improvement, he will discuss with his step mother who is POA for possible hospice. (2) Encephalopathy: Code(s): G93.40 - Encephalopathy, unspecified Status: Acute Assessment and Plan: Does not appear to be result of infection at this time but probably multifactorial due to other health conditions. CT brain with no acute changes. Unable to do MRI brain with pacemaker/defibrillator in place. This may be pts baseline ? hospice consideration, not in his spoke with the patient's family patient is full code and they would to continue everything possible. (3) Elevated liver enzymes: Code(s): R74.8 - Abnormal levels of other serum enzymes Status: Acute Assessment and Plan: LFTs significantly high (4) Acute hypokalemia: Code(s): E87.6 - Hypokalemia Status: Acute Assessment and Plan: Potassium 3.4 today. Will continue to monitor. Replace as needed. (5) Type 2 diabetes mellitus: Qualifiers: Diabetes mellitus intermediate insulin use: with intermediate use Diabetes mellitus complication status: with kidney complications Diabetes mellitus complication detail: with chronic kidney disease Chronic kidney disease stage: on chronic dialysis Qualified Code(s): E11.22 - Type 2 diabetes mellitus with diabetic chronic kidney disease; N18.6 - End stage renal disease; Z79.4 - FDC (current) use of insulin; Z99.2 - Dependence on renal dialysis Code(s): E11.9 - Type 2 diabetes mellitus without complications Status: Chronic Assessment and Plan: Home Lantus restarted at 20 units subcu held as pt is currently npo, failed his swallow test. (6) Pleural effusion on right: Code(s): J90 - Pleural effusion, not elsewhere classified Status: Acute Assessment and Plan: CT chest with small left and moderate to large right pleural effusions. Ultrasound-guided thoracentesis on 02/19/2020 Currently on 2 L of oxygen. Chest x-ray today with small bilateral pleural effusions left great
[2020-02-25 18:41] LABS: Glucose Point of Care 160 (65-105)
[2020-02-25 23:31] LABS: Glucose Point of Care 305 (65-105)
[2020-02-26] VITALS (14 sets, daily range): BP systolic 136–146; BP diastolic 66–77; PULSE 79–102; RESP 18–30; TEMP 36.2–36.6; O2SAT 97–100
[2020-02-26 05:03] LABS: Alanine Aminotransferase 21 U/L (4-50); Albumin Level 2.7 g/dL (3.5-5.1); Alkaline Phosphatase 280 U/L (38-126); Aspartate Amino Transferase 16 U/L (17-59); Bilirubin,Total 0.9 mg/dL (0.2-1.3); Blood Urea Nitrogen 44 mg/dL (9-20); Calcium 9.1 mg/dL (8.4-10.2); Carbon Dioxide 30 mmol/L (22-30); Chloride 98 mmol/L (98-107); Estimated CRCL calculation 16 ml/min; Estimated Glomerular Filt Rate 13; Glucose 330 mg/dL (75-110); Phosphorus 3.5 mg/dL (2.5-4.5); Potassium 3.5 mmol/L (3.4-5.0); Sodium 133 mmol/L (137-145)
[2020-02-26 05:41] LABS: Glucose Point of Care 269 (65-105)
[2020-02-26] MEDS: INSULIN ASPART (*BKC) 100 UNITS/ML SUB-Q ×2 (05:41→14:36)
--- NOTE | 2020-02-26 09:00 | WPDCDIQUERY2 ---
CDI Query Clarification Request - Blood and peritoneal cultures with no growth. Iv abx have been stopped. has been documented - Severe sepsis continues to be documented. Please clarify if severe sepsis has been ruled in or ruled out. -
[2020-02-26] MEDS: FUROSEMIDE INJ 40 MG/4 ML VIAL 20 MG IV PUSH (09:14)
[2020-02-26] MEDS: INSULIN GLARGINE (*BKC) 100 UNITS/ML 10 UNITS SUB-Q (09:15)
[2020-02-26] MEDS: PANTOPRAZOLE SODIUM IV 40 MG VIAL IV PUSH (09:15)
[2020-02-26] MEDS: HEPARIN SODIUM 5,000 UNITS/ML VIAL 5000 UNITS SUB-Q (09:15)
--- NOTE | 2020-02-26 11:59 | PM.PNCARD ---
Progress Note: A&P Assessment and Plan (1) Ventricular tachycardia: Code(s): I47.2 - Ventricular tachycardia Status: Acute Assessment and Plan: Has been nonsustained. Due to a low EF. Dual-chamber ICD in place. Supplement potassium to at least 4.0. Magnesium 2.0 on 02/25/2020 (2) Cardiomyopathy: Qualifiers: Cardiomyopathy type: ischemic Qualified Code(s): I25.5 - Ischemic cardiomyopathy Code(s): I42.9 - Cardiomyopathy, unspecified Status: Chronic Assessment and Plan: Ischemic cardiomyopathy with EF 10-15% on echocardiogram 02/19/2020. Given this and end-stage renal disease he has a very poor prognosis. Unable to take p.o. at this time. If he is able to take p.o. should restart aspirin, simvastatin and carvedilol. Fluid management per Dr. Lemus with peritoneal dialysis. Additional Plan Hospice should be considered as he is end-stage and very little improvement is expected. Plan discussed with Dr Camacho 1215 02/26/2020 Time Spent With Patient Time with patient: less than 15 minutes Subjective Date/time seen: 02/26/20 11:59 Interval history: Follow-up for: Ischemic cardiomyopathy EF 10-15%, nonsustained ventricular tachycardia, dual-chamber ICD in place, end-stage renal failure on peritoneal dialysis Date of service: 02/26/2020 Subjective: Arousable. Barely responding to questions. Denied pain. Denied shortness of breath. States just is tired. Review of Systems Constitutional: Constitutional: Denies body ache(s) Eyes: Eyes: Denies blurry vision ENT: Reports Normal hearing present Cardiovascular: Cardiovascular: Denies chest pain, Denies pedal edema and Denies leg edema Respiratory: Respiratory: Denies dyspnea Gastrointestinal: Gastrointestinal: Denies abdominal pain, Denies nausea and Denies vomiting Musculoskeletal: Musculoskeletal: Denies back pain Integumentary/Breasts: Skin/Breast: Denies erythema and Denies rash Neurologic: Reports Normal hearing present and Reports weakness Psychiatric: Psychiatric: Denies anxiety Endocrine: Endocrine: Denies heat intolerance Hematologic/Lymphatic: Hematologic/Lymphatic: Denies easy bruising Exam Const: Other: White male who is chronically ill appearing and very poorly responsive. HENMT: Mouth: Yes dry mucous membranes Eyes: Sclera: sclerae normal Pupils: Equal, round and reactive pupils present Neck: Neck: supple and no JVD Resp: Effort & Inspection: normal respiratory effort Auscultation: diminished lung sounds (Throughout) Cardio: Rate: regular rate Rhythm: abnormal rhythm irregularly irregular Heart sounds: Murmur heart sound present systolic II/ and at the apex Peripheral pulses: Peripheral pulses 2+ throughout GI: Auscultation: normal bowel sounds Skin: General skin exam: normal color Neuro: Cranial nerves: Yes Equal, round and reactive pupils present Other: Lethargic and poorly responsive. Extrem: General: no pedal edema Objective Data Vital Signs Vital Signs: Vital Signs - 24 hr 02/25/20 12:00 02/25/20 14:16 02/25/20 16:00 Temperature 36.8 C Pulse Rate 94 101 H 103 H Respiratory Rate 24 H Blood Pressure 131/69 Pulse Oximetry 99 02/25/20 16:27 02/25/20 18:35 02/25/20 20:00 Temperature 36.6 C 36.4 C Pulse Rate 76 99 97 Respiratory Rate 22 H 20 Blood Pressure 132/76 121/64 Pulse Oximetry 94 97 02/25/20 22:00 02/25/20 22:19 02/25/20 23:52 Temperature 36.4 C L Pulse Rate 96 101 H 102 H Respiratory Rate 20 Blood Pressure 137/68 Pulse Oximetry 97 99 02/26/20 00:00 02/26/20 02:00 02/26/20 04:00 Temperature 36.3 C L Pulse Rate 102 H 97 101 H Respiratory Rate 20 18 Blood Pressure 137/73 Pulse Oximetry 98 98 02/26/20 06:00 02/26/20 08:00 02/26/20 08:19 Temperature 36.2 C L Pulse Rate 93 98 Respiratory Rate 22 H Blood Pressure
[2020-02-26 13:28] LABS: Glucose Point of Care 202 (65-105)
--- NOTE | 2020-02-26 15:40 | P.PNNP_ITS ---
Progress Note: A&P Assessment and Plan (1) End stage renal disease: Code(s): N18.6 - End stage renal disease Status: Chronic Assessment and Plan: * continue CCPD nightly * continue to be more aggressive with fluid removal since hemodynamics better * follow electrolytes, volume status, and clearace (2) Hyponatremia: Code(s): E87.1 - Hypo-osmolality and hyponatremia Status: Acute Assessment and Plan: * due to a combination of renal failure and severe cardiomyopathy/CHF * fluid removal as tolerated with dialysis * slow improvement noted (presumably from no oral intake and better ultrafiltration * follow trend (3) Hypokalemia: Code(s): E87.6 - Hypokalemia Status: Acute Assessment and Plan: * presumed to due to poor oral in the last few weeks and currently * NPO given recent MBS results * supplementation PRN * magnesium adequate (4) Cardiomyopathy: Qualifiers: Cardiomyopathy type: ischemic Qualified Code(s): I25.5 - Ischemic cardiomyopathy Code(s): I42.9 - Cardiomyopathy, unspecified Status: Chronic Assessment and Plan: * repeat Echo with EF ~ 15% * ICD in place * Cardiology recihhhbut I am not sure what else they will have to offer at this time (5) Elevated liver enzymes: Code(s): R74.8 - Abnormal levels of other serum enzymes Status: Acute Assessment and Plan: * passive congestion from cardiomyopathy? * due to poor blood flow depressed EF? * slow improvement noted * follow trend (6) Pleural effusion on right: Code(s): J90 - Pleural effusion, not elsewhere classified Status: Acute Assessment and Plan: * s/p thoracentesis * recheck chest x-ray (7) Encephalopathy: Code(s): G93.40 - Encephalopathy, unspecified Status: Acute Assessment and Plan: * unclear as to cause of acute change * poor perfusion to brain given depressed EF * CT of brain negative * Neurology recommendations noted * will follow... (8) Generalized weakness: Code(s): R53.1 - Weakness Status: Acute Assessment and Plan: * suspect multifactorial: - Cardiomyopathy - ESRD - pleural effusion - hypokalemia * PT/OT when able Discussed case with Dr. Yancey who has been in contact with family -- made DNR and family to meet with hospice today to discuss goals of care. Will continue follow Subjective Date/time seen: 02/26/20 15:40 Was apparently doing quite well with regards to mentation this AM (and was conversing with son via facetime) but then quickly returned to his lethargic/almost unresponsive state; no acute distress noted. Exam Narrative: Exam Narrative: General: WD/WN male in bed; lethargic at this time Heart: IRRR, normal S1 and S2; no rub Lungs: decreased on the right side Abdomen: soft, nontender, nondistended, positive bowel sounds Extremities: no cyanosis or clubbing; trace edema Skin: no nodules Objective Data Vital Signs Vital Signs: Vital Signs Temp Pulse Resp BP Pulse Ox 02/26/20 12:00 36.4 C L 96 28 H 136/66 97 02/26/20 10:52 88 02/26/20 10:00 98 02/26/20 08:19 100 02/26/20 08:00 36.2 C L 98 22 H 136/77 100 02/26/20 06:00 93 02/26/20 04:00 36.3 C L 101 H 18 137/73 98
--- NOTE | 2020-02-26 15:40 | PM.PNNEP ---
Progress Note: A&P Assessment and Plan (1) End stage renal disease: Code(s): N18.6 - End stage renal disease Status: Chronic Assessment and Plan: continue CCPD nightly continue to be more aggressive with fluid removal since hemodynamics better follow electrolytes, volume status, and clearace (2) Hyponatremia: Code(s): E87.1 - Hypo-osmolality and hyponatremia Status: Acute Assessment and Plan: due to a combination of renal failure and severe cardiomyopathy/CHF fluid removal as tolerated with dialysis slow improvement noted (presumably from no oral intake and better ultrafiltration follow trend (3) Hypokalemia: Code(s): E87.6 - Hypokalemia Status: Acute Assessment and Plan: presumed to due to poor oral in the last few weeks and currently NPO given recent MBS results supplementation PRN magnesium adequate (4) Cardiomyopathy: Qualifiers: Cardiomyopathy type: ischemic Qualified Code(s): I25.5 - Ischemic cardiomyopathy Code(s): I42.9 - Cardiomyopathy, unspecified Status: Chronic Assessment and Plan: repeat Echo with EF ~ 15% ICD in place Cardiology [facility] I am not sure what else they will have to offer at this time (5) Elevated liver enzymes: Code(s): R74.8 - Abnormal levels of other serum enzymes Status: Acute Assessment and Plan: passive congestion from cardiomyopathy? due to poor blood flow depressed EF? slow improvement noted follow trend (6) Pleural effusion on right: Code(s): J90 - Pleural effusion, not elsewhere classified Status: Acute Assessment and Plan: s/p thoracentesis recheck chest x-ray (7) Encephalopathy: Code(s): G93.40 - Encephalopathy, unspecified Status: Acute Assessment and Plan: unclear as to cause of acute change poor perfusion to brain given depressed EF CT of brain negative Neurology recommendations noted will follow... (8) Generalized weakness: Code(s): R53.1 - Weakness Status: Acute Assessment and Plan: suspect multifactorial: - Cardiomyopathy - ESRD - pleural effusion - hypokalemia PT/OT when able Discussed case with Dr. Yancey who has been in contact with family -- made DNR and family to meet with hospice today to discuss goals of care. Will continue follow Subjective Date/time seen: 02/26/20 15:40 Was apparently doing quite well with regards to mentation this AM (and was conversing with son via facetime) but then quickly returned to his lethargic/almost unresponsive state; no acute distress noted. Exam Narrative: Exam Narrative: General: WD/WN male in bed; lethargic at this time Heart: IRRR, normal S1 and S2; no rub Lungs: decreased on the right side Abdomen: soft, nontender, nondistended, positive bowel sounds Extremities: no cyanosis or clubbing; trace edema Skin: no nodules Objective Data Vital Signs Vital Signs: Vital Signs Temp Pulse Resp BP Pulse Ox 02/26/20 12:00 36.4 C L 96 28 H 136/66 97 02/26/20 10:52 88 02/26/20 10:00 98 02/26/20 08:19 100 02/26/20 08:00 36.2 C L 98 22 H 136/77 100 02/26/20 06:00 93 02/26/20 04:00 36.3 C L 101 H 18 137/73 98 02/26/20 02:00 97 02/26/20 00:00 102 H 20 98 02/25/20 23:52 36.4 C L 102 H 20 137/68 99 02/25/20 22:19 101 H 97 02/25/20 22:00 96 02/25/20 20:00 36.4 C 97 20 121/64 97 02/25/20 18:35 99 02/25/20 16:27 36.6 C 76 22 H 132/76 94 02/25/20 16:00 103 H Intake/Output Intake/Output: Intake & Output 02/23/20 02/24/20 02/25/20 02/26/20 23:59 23:59 23:59 23:59 Intake Total 500 950 0 Output Total 5189 8034 6060 4225 [facility] -[phone] Meds/Results Medications: Active Medications Generic Name Dose Route Start Last Admin Trade Name Freq PRN Reason Stop Dose
--- NOTE | 2020-02-26 16:35 | PCSTNOTE ---
Please refer to the Modified Barium Swallow Evaluation in the EMR.
--- NOTE | 2020-02-26 17:59 | PM.IMPN ---
Progress Note: A&P Assessment and Plan (1) Sepsis: Qualifiers: Sepsis type: sepsis due to unspecified organism Sepsis acute organ dysfunction status: with acute organ dysfunction Severe sepsis acute organ dysfunction type: encephalopathy Severe sepsis shock status: without septic shock Qualified Code(s): A41.9 - Sepsis, unspecified organism; R65.20 - Severe sepsis without septic shock; G93.40 - Encephalopathy, unspecified Code(s): A41.9 - Sepsis, unspecified organism Status: Acute Assessment and Plan: COVID-19 testing negative. Blood and peritoneal cultures with no growth. Iv abx have been stopped ongoing encephalopathy and dysphagia. Rpt MBS soon today or preeti, dietary consult and rpt cxr. 02/26/20 17:59 Patient is 69-year-old male with a history and end stage renal disease on peritoneal dialysis initially patient was admitted with sepsis however with was no bacterial growth and antibiotics were stopped patient has been encephalopathic however today patient is much more worse he is not responsive and only repeat his name on and off, I spoke with Dr. Lemus who knows the patient well normally patient is alert oriented however today patient only repeats 1 name and does not respond properly to further evaluate patient had a CTA scan of the head and carotid ultrasound which did not show any acute injury patient cannot have MRI due to ICD and peritoneal dialysis to further evaluate patient was seen by neurologist and suspect encephalopathy may possibly related to seizures to further evaluate patient will have EEG which done but not reported, patient was also seen by wood bucker concerned for decrease EF and arrhythmia resume patient BB, but prognosis is poor, today still encephalopathic and not answering and saying any thing, I spoke with patient's son Sha presented patient condition and poor prognosis, he stated to wait for EEG results and if there is no improvement, he will discuss with his step mother who is POA for possible hospice. Today again patient is quite slow to respond and not following any instruction I spoke again with patient's son and presented, patient's son has agreed to place the patient under hospice care after discussing with hospice team will discharge the patient under hospice care tomorrow. Patient EEG did not show any sign of seizures (2) Encephalopathy: Code(s): G93.40 - Encephalopathy, unspecified Status: Acute Assessment and Plan: Does not appear to be result of infection at this time but probably multifactorial due to other health conditions. CT brain with no acute changes. Unable to do MRI brain with pacemaker/defibrillator in place. This may be pts baseline ? hospice consideration, not in his spoke with the patient's family patient is full code and they would to continue everything possible. (3) Elevated liver enzymes: Code(s): R74.8 - Abnormal levels of other serum enzymes Status: Acute Assessment and Plan: LFTs significantly high (4) Acute hypokalemia: Code(s): E87.6 - Hypokalemia Status: Acute Assessment and Plan: Potassium 3.4 today. Will continue to monitor. Replace as needed. (5) Type 2 diabetes mellitus: Qualifiers: Diabetes mellitus penitentiary insulin use: with penitentiary use Diabetes mellitus complication status: with kidney complications Diabetes mellitus complication detail: with chronic kidney disease Chronic kidney disease stage: on chronic dialysis Qualified Code(s): E11.22 - Type 2 diabetes mellitus with diabetic chronic kidney disease; N18.6 - End stage renal disease; Z79.4 - longterm (current) use of insulin; Z99.2 - Dependence on renal dialysis Code(s): E11.9 - Type 2 diabetes mellitus without complications Status: Chronic Assessment and Plan: Home Lantus restarted at 20 units subcu held as pt is currently npo, failed his swallow test. (6) Pleural effusion on right:
[2020-02-26 18:12] LABS: Glucose Point of Care 169 (65-105)
--- NOTE | 2020-02-26 20:20 | PC.NURSE ---
Pt is discharging to hospice. [facility] has orders ready.
--- NOTE | 2020-02-27 10:14 | DS_ITS ---
This report was moved to the correct visit, [id number] on 03/20/2020. Original report was signed by aRul Yancey MD on 02/29/20 1312. DS: Discharge Diagnosis Discharge Diagnosis (1) Ischemic cardiomyopathy: Code(s): I25.5 - Ischemic cardiomyopathy Status: Chronic Assessment and Plan: Patient with severe systolic dysfunction ejection fraction at 20-25%, echo showed ejection fraction and 10-15% seen by gun welder patient has a very poor prognosis and no further recommendation (2) Encephalopathy: Code(s): G93.40 - Encephalopathy, unspecified Status: Acute Assessment and Plan: Patient is 69-year-old male with a history and end stage renal disease on peritoneal dialysis initially patient was admitted with sepsis however with was no bacterial growth and antibiotics were stopped patient has been encephalopathic however today patient is much more worse he is not responsive and only repeat his name on and off, I spoke with Dr. Lemus who knows the patient well normally patient is alert oriented however today patient only repeats 1 name and does not respond properly to further evaluate patient had a CTA scan of the head and carotid ultrasound which did not show any acute injury patient cannot have MRI due to ICD and peritoneal dialysis to further evaluate patient was seen by neurologist and suspect encephalopathy may possibly related to seizures to further evaluate patient will have EEG which done but not reported, patient was also seen by gun welder concerned for decrease EF and arrhythmia resume patient BB, but prognosis is poor, today still encephalopathic and not answering and saying any thing, I spoke with patient's son Sha presented patient condition and poor prognosis, he stated to wait for EEG results and if there is no improvement, he will discuss with his step mother who is POA for possible hospice. Today again patient is quite slow to respond and not following any instruction I spoke again with patient's son and presented, patient's son has agreed to place the patient under hospice care after discussing with hospice team will discharge the patient under hospice care tomorrow. Patient EEG did not show any sign of seizures, family has decided to place patient under hospice care and he will be discharged to hospice and readmitted under hospice care. (3) Chronic kidney disease due to diabetes mellitus: Code(s): E11.22 - Type 2 diabetes mellitus with diabetic chronic kidney disease Status: Acute Assessment and Plan: On peritoneal dialysis (4) Peritoneal dialysis catheter in place: Code(s): Z99.2 - Dependence on renal dialysis Status: Acute Assessment and Plan: Seen by Nephrology (5) Type 2 diabetes mellitus: Qualifiers: Chronic kidney disease stage: on chronic dialysis Diabetes mellitus complication detail: with chronic kidney disease Diabetes mellitus complication status: with kidney complications Diabetes mellitus terminal operator insulin use: with skilled nursing use Qualified Code(s): E11.22 - Type 2 diabetes mellitus with diabetic chronic kidney disease; N18.6 - End stage renal disease; Z79.4 - bed bug exterminator (current) use of insulin; Z99.2 - Dependence on renal dialysis Code(s): E11.9 - Type 2 diabetes mellitus without complications Status: Chronic Assessment and Plan: Being monitor with sliding scale (6) Sepsis: Qualifiers: Sepsis type: sepsis due to unspecified organism Sepsis acute organ dysfunction status: with acute organ dysfunction Severe sepsis acute organ dysfunction type: encephalopathy Severe sepsis shock status: without septic shock Qualified Code(s): A41.9 - Sepsis, unspecified organism; R65.20 - Severe sepsis without septic shock; G93.40 - Encephalopathy, unspecified Code(s): A41.9 - Sep
== END 2020-02-26 20:21 | disposition hospice, inpatient (51) | DRG 70 ==
LOC: ANHED 21:07 → ANH3MEDSUR 21:19 → ANHICU 02-18 10:29 → ANH2MED 02-19 18:35 → ANHIMU 02-24 10:26 → ANH2MED 03-01 12:31 → ANHIMU 03-01 12:31
PROVIDERS: Family Medicine; Hospitalist; Internal Medicine; Internal Medicine Nephrology; Physician Assistant; Admitting Provider Internal Medicine; Emergency Provider Emergency Medicine; PCP Family Medicine; Visit Provider Family Medicine
DX: G93.40 Encephalopathy, unspecified (principal); N18.6 End stage renal disease; I13.2 Hypertensive heart and chronic kidney disease with heart failure and with stage 5 chronic kidney disease, or end stage renal disease; I50.22 Chronic systolic (congestive) heart failure; J90 Pleural effusion, not elsewhere classified; E87.1 Hypo-osmolality and hyponatremia; I47.2 Ventricular tachycardia; E87.6 Hypokalemia; E11.22 Type 2 diabetes mellitus with diabetic chronic kidney disease; I25.5 Ischemic cardiomyopathy; Z03.818 Encounter for observation for suspected exposure to other biological agents ruled out; K21.9 Gastro-esophageal reflux disease without esophagitis; E03.9 Hypothyroidism, unspecified; G47.33 Obstructive sleep apnea (adult) (pediatric); D63.1 Anemia in chronic kidney disease; Z95.0 Presence of cardiac pacemaker; E87.8 Other disorders of electrolyte and fluid balance, not elsewhere classified
CPT/HCPCS: 32555; 36415; 36600; 51701; 70450; 70496; 71045; 71101; 71250; 74176; 80048; 80053; 80202; 81001; 82140; 82805; 83605; 83735; 84100; 84443; 84484; 85025; 85027; 85610; 85730; 87040; 87070; 87075; 87205; 87340; 87635; 89051; 90945; 92611; 93005; 93306; 93880; 95816; 96361; 96374; 97110; 97161; 97165; 97530; 99285; A9270; C1729; C9113; C9803; G0378; J0692; J1160; J1644; J1815; J1940; J2765; J3370; J3475; J3480; J7040; Q9967; U0003

== ENCOUNTER 2020-02-26 20:26 | HOS | payer OTHER, SELFPAY ==
[2020-02-26 20:57] VITALS: BMI 30.8
--- NOTE | 2020-02-26 22:05 | PC.NURSE ---
pt admitted to hospice family in room will move to bed room
--- NOTE | 2020-02-26 22:48 | PC.NURSE ---
This patient, Kulwinder Morgan, was transferred to [[id number] ] on 02/26/20 at 2248 by bed for hospice care. Personal belongings sent with patient. Belongings list checked and signed with receiving [ ]. Report given to [OTONIEL Odom ]. Appropriate documentation sent with patient.
[2020-02-26 22:50] VITALS: BP 133/80; PULSE 95; RESP 18; TEMP 36.3; O2SAT 100; BMI 25.8
--- NOTE | 2020-02-27 00:22 | PC.NURSE ---
Pt arrived from IMU via Bed at 2250, oriented patient and son to room and environment. Son verbalized understanding of instructions.
[2020-02-27 08:34] VITALS: O2SAT 97
--- NOTE | 2020-02-27 10:13 | PM.DS ---
DS: Discharge Diagnosis Discharge Diagnosis (1) Ischemic cardiomyopathy: Code(s): I25.5 - Ischemic cardiomyopathy Status: Chronic Assessment and Plan: Patient with severe systolic dysfunction ejection fraction at 20-25%, echo showed ejection fraction and 10-15% seen by pattern attendant patient has a very poor prognosis and no further recommendation (2) Encephalopathy: Code(s): G93.40 - Encephalopathy, unspecified Status: Acute Assessment and Plan: Patient is 69-year-old male with a history and end stage renal disease on peritoneal dialysis initially patient was admitted with sepsis however with was no bacterial growth and antibiotics were stopped patient has been encephalopathic however today patient is much more worse he is not responsive and only repeat his name on and off, I spoke with Dr. Lemus who knows the patient well normally patient is alert oriented however today patient only repeats 1 name and does not respond properly to further evaluate patient had a CTA scan of the head and carotid ultrasound which did not show any acute injury patient cannot have MRI due to ICD and peritoneal dialysis to further evaluate patient was seen by neurologist and suspect encephalopathy may possibly related to seizures to further evaluate patient will have EEG which done but not reported, patient was also seen by pattern attendant concerned for decrease EF and arrhythmia resume patient BB, but prognosis is poor, today still encephalopathic and not answering and saying any thing, I spoke with patient's son Sha presented patient condition and poor prognosis, he stated to wait for EEG results and if there is no improvement, he will discuss with his step mother who is POA for possible hospice. Today again patient is quite slow to respond and not following any instruction I spoke again with patient's son and presented, patient's son has agreed to place the patient under hospice care after discussing with hospice team will discharge the patient under hospice care tomorrow. Patient EEG did not show any sign of seizures, family has decided to place patient under hospice care and he will be discharged to hospice and readmitted under hospice care. (3) Chronic kidney disease due to diabetes mellitus: Code(s): E11.22 - Type 2 diabetes mellitus with diabetic chronic kidney disease Status: Acute Assessment and Plan: On peritoneal dialysis (4) Peritoneal dialysis catheter in place: Code(s): Z99.2 - Dependence on renal dialysis Status: Acute Assessment and Plan: Seen by Nephrology (5) Type 2 diabetes mellitus: Qualifiers: Chronic kidney disease stage: on chronic dialysis Diabetes mellitus complication detail: with chronic kidney disease Diabetes mellitus complication status: with kidney complications Diabetes mellitus meterman insulin use: with fpc use Qualified Code(s): E11.22 - Type 2 diabetes mellitus with diabetic chronic kidney disease; N18.6 - End stage renal disease; Z79.4 - prison (current) use of insulin; Z99.2 - Dependence on renal dialysis Code(s): E11.9 - Type 2 diabetes mellitus without complications Status: Chronic Assessment and Plan: Being monitor with sliding scale (6) Sepsis: Qualifiers: Sepsis type: sepsis due to unspecified organism Sepsis acute organ dysfunction status: with acute organ dysfunction Severe sepsis acute organ dysfunction type: encephalopathy Severe sepsis shock status: without septic shock Qualified Code(s): A41.9 - Sepsis, unspecified organism; R65.20 - Severe sepsis without septic shock; G93.40 - Encephalopathy, unspecified Code(s): A41.9 - Sepsis, unspecified organism Status: Acute Assessment and Plan: Sepsis was ruled out for cause of encephalopathy DS: Summary Hospital Course Reason for hospitalization: Kulwinder Morgan is a 69 year old male with a past medical history of end-stage reyes
[2020-02-27 14:00] VITALS: BP 106/59; PULSE 74; RESP 16; TEMP 36.7; O2SAT 99
--- NOTE | 2020-02-27 16:15 | PM.IMHP ---
H&P: HPI History of Present Illness Chief complaint: Increased weakness-hospice Narrative: Kulwinder Morgan is a 69 year old male with past medical history of end-stage renal disease on peritoneal dialysis, ischemic cardiomyopathy ejection fraction 15%, coronary artery disease status post CABG, AICD and biventricular pacemaker and obstructive sleep apnea presented 02/16 to ER with chief complaint of generalized weakness. He had 2 falls yesterday but no loss of consciousness. He also complained of shortness of breath and orthopnea and mild confusion and dry cough. CT brain in ED was negative. He was was treated for CHF with EF about 15% and peritonitis with sepsis, for which he received vancomycin and cefepime. Mental status worsened and he became more lethargic and confused. Cultures returned negative. Liver enzymes increased. Antibiotics were discontinued. Because of his multiple comorbidities and recent decline at home, with decreased activity and decreased oral intake, as well as his failure to improve on appropriate medical therapy, his son and spouse opted for hospice care. When admitted he was dyspneic at rest and breathing over 30 times per minute. He was bedbound, dependent for all ADLs, incontinent, oriented to person only, unable to eat or drink, and unable to express needs. PPS was 10. Review of Systems Review of Systems: Narrative: Although the patient denied pain or dyspnea at rest, he was unable to respond to other questions. [facility] Past Medical History Medical History Adenomatous colon polyp Anemia in chronic kidney disease Anorexia BPH (benign prostatic hyperplasia) Chronic kidney disease due to diabetes mellitus Chronic pain Chronic systolic (congestive) heart failure ESRD on peritoneal dialysis Gastroparesis GERD (gastroesophageal reflux disease) Hypothyroidism ICD (implantable cardioverter-defibrillator) in place Ischemic cardiomyopathy Cardiac catheterization 09/11/19 shows severe to ischemic cardiomyopathy with severe global hypokinesis, EF 15%. With echo from November 02, 2019 EF 20-25% grade 3 diastolic dysfunction Moderate pulmonary arterial systolic hypertension RVSP 51 Obstructive sleep apnea Peritoneal dialysis catheter in place Type 2 diabetes mellitus Hemoglobin A1c was 8.6 % on 11/01/2019. 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 Noo alcohol use, remote history of pipe smoking, no other substance use. He designated his , Venecia, as his healthcare POA. Smoking status: Never smoker Tobacco type: pipe Second hand tobacco smoke exposure: No Alcohol intake: never Substance use: never Substance use type: does not use Occupation/Education: retired Gender identity (if verbalized by the patient): Male Spiritual care concerns: No Agree to blood products: Yes Meds Home Medications and Allergies Home Medications Medication Instructions Recorded Confirmed Type tamsulosin 0.4 mg capsule 0.4 mg PO DAILY #90 cap 08/11/19 02/17/20 Rx metoclopramide HCl 10 mg PO TID 12/08/19 02/17/20 History potassium chloride 20 meq PO DAILY 12/08/19
[2020-02-27 20:44] VITALS: O2SAT 98
[2020-02-27 22:15] VITALS: BP 136/76; PULSE 84; RESP 16; TEMP 36.3; O2SAT 100
--- NOTE | 2020-02-28 10:37 | PM.DS ---
DS: Admitting Diagnosis Admitting Diagnosis Admitting Diagnosis: Encounter for palliative care DS: Discharge Diagnosis Discharge Diagnosis (1) Palliative care by specialist: Code(s): Z51.5 - Encounter for palliative care Status: Acute Assessment and Plan: Required GIP status due to dyspnea at rest that is now well controlled on low dose continuous IV morphine (0.25mg/hr) D/w with steam and power supervisor, RAHAT Briggs, that he could be transitioned to [facility] medication and discharged home when equipement is in place and family is ready to receive him (2) Acute exacerbation of congestive heart failure: Qualifiers: Heart failure type: unspecified Qualified Code(s): I50.9 - Heart failure, unspecified Code(s): I50.9 - Heart failure, unspecified Status: Acute (3) Ischemic cardiomyopathy: Code(s): I25.5 - Ischemic cardiomyopathy Status: Chronic (4) Elevated liver enzymes: Code(s): R74.8 - Abnormal levels of other serum enzymes Status: Acute (5) Encephalopathy: Code(s): G93.40 - Encephalopathy, unspecified Status: Acute (6) Generalized weakness: Code(s): R53.1 - Weakness Status: Acute (7) Hyponatremia: Code(s): E87.1 - Hypo-osmolality and hyponatremia Status: Acute (8) Chronic kidney disease due to diabetes mellitus: Code(s): E11.22 - Type 2 diabetes mellitus with diabetic chronic kidney disease Status: Acute (9) Peritoneal dialysis catheter in place: Code(s): Z99.2 - Dependence on renal dialysis Status: Acute (10) Type 2 diabetes mellitus: Qualifiers: Diabetes mellitus joint terminal attack controller insulin use: with joint terminal attack controller use Diabetes mellitus complication status: with kidney complications Diabetes mellitus complication detail: with chronic kidney disease Chronic kidney disease stage: on chronic dialysis Qualified Code(s): E11.22 - Type 2 diabetes mellitus with diabetic chronic kidney disease; N18.6 - End stage renal disease; Z79.4 - medical terminologist (current) use of insulin; Z99.2 - Dependence on renal dialysis Code(s): E11.9 - Type 2 diabetes mellitus without complications Status: Chronic (11) End stage renal disease: Code(s): N18.6 - End stage renal disease Status: Chronic (12) Anorexia: Code(s): R63.0 - Anorexia Status: Acute DS: Summary Hospital Course Reason for hospitalization: dyspnea Hospital Course: Kulwinder Morgan is a 69 year old male with past medical history of end-stage renal disease on peritoneal dialysis, ischemic cardiomyopathy ejection fraction 15%, coronary artery disease status post CABG, AICD and biventricular pacemaker and obstructive sleep apnea presented 02/16 to ER with chief complaint of generalized weakness. He had 2 falls yesterday but no loss of consciousness. He also complained of shortness of breath and orthopnea and mild confusion and dry cough. CT brain in ED was negative. He was was treated for CHF with EF about 15% and peritonitis with sepsis, for which he received vancomycin and cefepime. Mental status worsened and he became more lethargic and confused. Cultures returned negative. Liver enzymes increased. Antibiotics were discontinued. Because of his multiple comorbidities and recent decline at home, with decreased activity and decreased oral intake, as well as his failure to improve on appropriate medical therapy, his son and spouse opted for hospice care. When admitted he was dyspneic at rest and breathing over 30 times per minute. He was bedbound, dependent for all ADLs, incontinent, oriented to person only, unable to eat or drink, and unable to express needs. PPS was 10. Low dose morphine drip 0.25mg/hr controlled his symptoms. On day of discharge, he was able to express needs and able to swallow water. He was oriented to person and able to express needs. PPS was 30. Status at Discharge Functional status at discharge: bed bound Khang
--- NOTE | 2020-02-28 16:50 | PC.NURSE ---
While discharge planning staff was told by Dr. Pulido that the patient's son would come pick the patient up after equipment was dropped off around 1300. After that we received a phone from the landcare facilitator saying that the [facility] nurse with the family would set up an ambulance transfer for the patient. I called Sudheer at 1630 to get an eta on transportation of the patient. I was informed by the [facility] nurse that she thought we would call for the ambulance and that no transport had been arranged yet.
== END 2020-02-28 18:56 | disposition hospice, home (50) | DRG 699 ==
LOC: ANHIMU 20:47 → ANH3MEDSUR 22:58
PROVIDERS: Admitting Provider Internal Medicine; PCP Family Medicine; Visit Provider Internal Medicine
DX: E11.22 Type 2 diabetes mellitus with diabetic chronic kidney disease (principal); G93.40 Encephalopathy, unspecified; E87.1 Hypo-osmolality and hyponatremia; I50.32 Chronic diastolic (congestive) heart failure; Z51.5 Encounter for palliative care; N18.6 End stage renal disease; D63.1 Anemia in chronic kidney disease; N40.0 Benign prostatic hyperplasia without lower urinary tract symptoms; K21.9 Gastro-esophageal reflux disease without esophagitis; E11.43 Type 2 diabetes mellitus with diabetic autonomic (poly)neuropathy; K31.84 Gastroparesis; E03.9 Hypothyroidism, unspecified; I27.20 Pulmonary hypertension, unspecified; G47.33 Obstructive sleep apnea (adult) (pediatric); I25.5 Ischemic cardiomyopathy; R63.0 Anorexia; Z95.810 Presence of automatic (implantable) cardiac defibrillator; Z90.49 Acquired absence of other specified parts of digestive tract; Z95.1 Presence of aortocoronary bypass graft; Z99.2 Dependence on renal dialysis; Z79.4 Long term (current) use of insulin
CPT/HCPCS: A9270; J2270